=== PATIENT | female | born 1950 | race Caucasian/White ===

== ENCOUNTER 2020-02-08 19:43 | Emergency (ER) | payer MEDICARE, OTHER, SELFPAY ==
[2020-02-08 19:46] VITALS: BP 126/74; PULSE 77; RESP 18; TEMP 36.1; O2SAT 98
--- NOTE | 2020-02-08 19:49 | ED.FEMALEGU ---
HPI - Female Genitourinary General Chief complaint: Urogenital-Female Stated complaint: catheter came out Time Seen by Provider: 02/08/20 19:47 Source: patient and RN notes reviewed Mode of arrival: ambulatory Limitations: no limitations History of Present Illness HPI Narrative: Pt is a 69 y/o female who presents to the ED with c/o Puga catheter complications starting this evening. She notes that she has had an indwelling Puga catheter in place for the past year. Pt states that her catheter fell out around 18:30 this evening, and notes that she wanted to be evaluated in the ED to have her catheter placed back in. She currently denies any fever, chills, or other symptoms. MD elicited complaint: other (Puga catheter complications) Pertinent past history: other (chronic Puga catheter) Onset (ago): hour(s) (1) Location of symptoms: urethra Associated symptoms: denies other symptoms Related Data Allergies Allergy/AdvReac Type Severity Reaction Status Date / Time penicillin G Allergy Mild Verified 12/03/18 18:36 Penicillins Allergy Unknown Unknown Verified 04/17/18 10:47 Review of Systems Review of Systems: All systems reviewed & are unremarkable except as noted in HPI and below Constitutional: Constitutional: Denies chills and Denies fever(s) Genitourinary: Genitourinary: Reports other (Puga catheter falling out) [facility] Past Medical History Medical History (Updated 02/08/20 @ 20:15 by Elliott Hubbard DO) Cancer of right kidney Chronic indwelling Puga catheter COPD (chronic obstructive pulmonary disease) Diabetes Glaucoma HLD (hyperlipidemia) HTN (hypertension) Inguinal hernia Pelvic fracture Peripheral neuropathy Surgical History Surgical History H/O right nephrectomy History of hysterectomy Hx of inguinal hernia repair Status post left foot surgery Family History Family History (Updated 04/17/18 @ 10:51 by DOCTOR UNKNOWN) Other Family history of congenital heart disease Family history of malignant neoplasm Social History Social History Smoking status: Smoker, status unknown Alcohol intake: never Exam Narrative: Exam Narrative: APPEARANCE: No acute distress, nontoxic, resting in bed EYES: EOMI HEENT: Normocephalic, atraumati RESPIRATORY: No respiratory distress Clear to auscultation bilaterally with no rhonchi wheezing or rales. CARDIOVASCULAR: Regular rate and rhythm without murmurs rubs or gallops. ABDOMINAL: Soft, nontender, nondistended, no rebound or guarding MUSCULOSKELETAl: Moves all extremities. NEURO: Awake and alert. Following commands, speech normal, no focal deficits SKIN:: Warm, dry. No rashes lesions or abrasions PSYCHIATRIC: Normal affect/mood, Course Course Emergency Course: Catheter placed by nursing staff Discussed with patient results of workup and diagnosis. Discussed need for follow-up with primary care, proper use of medication, and reasons to return to the emergency department. Patient understands and agrees to current treatment plan Vital Signs Vital signs: Vital Signs Temperature 97 F L 02/08/20 19:46 Pulse Rate 77 02/08/20 19:46 Respiratory Rate 18 02/08/20 19:46 Blood Pressure 126/74 02/08/20 19:46 Pulse Oximetry 98 02/08/20 19:46 Temperature 97 F L 02/08/20 19:46 Pulse Rate 77 02/08/20 19:46 Respiratory Rate 18 02/08/20 19:46 Blood Pressure 126/74 02/08/20 19:46 Pulse Oximetry 98 02/08/20 19:46 MDM - Female Genitourinary Lab Data Labs: Urine Characteristics Clear Discharge Plan Discharge Clinical Impression: Malfunction of Puga catheter Patient Disposition: Home, Self-Care Condition: Stable Instructions: Antibiotic Form, Puga Catheter Placement and Care (ED) Additional Instructions: Return for any difficulty with the Puga fever or any other symptoms of concern Follow-up/Referra
[2020-02-08 20:22] VITALS: BP 118/82; PULSE 88; RESP 18; O2SAT 99
== END 2020-02-08 20:24 | disposition home or self-care (01) ==
PROVIDERS: Emergency Provider Emergency Medicine; PCP Internal Medicine
DX: Z46.6 Encounter for fitting and adjustment of urinary device (principal); J44.9 Chronic obstructive pulmonary disease, unspecified; H40.9 Unspecified glaucoma; E78.5 Hyperlipidemia, unspecified; I10 Essential (primary) hypertension; E11.42 Type 2 diabetes mellitus with diabetic polyneuropathy; Z85.528 Personal history of other malignant neoplasm of kidney; Z90.5 Acquired absence of kidney
CPT/HCPCS: 51702; 99283

== ENCOUNTER 2020-05-16 02:05 | Outpatient (CLI) | payer MEDICARE, OTHER, SELFPAY ==
[2020-05-16 19:16] LABS: SARS-CoV-2 RNA PCR Negative
== END 2020-05-16 02:06 | disposition home or self-care (01) ==
LOC: ANHCOVIDDT 02:07
PROVIDERS: PCP Internal Medicine; Visit Provider Internal Medicine Gastroenterology
DX: Z01.818 Encounter for other preprocedural examination (principal); Z11.59 Encounter for screening for other viral diseases
CPT/HCPCS: 87635; C9803; U0003

== ENCOUNTER 2020-05-18 02:07 | Day surgery (SDC) | payer MEDICARE, OTHER, SELFPAY ==
[2020-05-11 13:46] VITALS: BMI 30.4
[2020-05-18 08:22] VITALS: BP 99/82; PULSE 73; RESP 18; TEMP 36.2; O2SAT 97
--- NOTE | 2020-05-18 08:34 | PM.HPGS ---
History of Present Illness History of Present Illness Consent: Risks, benefits, and alternatives have been discussed and questions answered. Patient agrees to proceed with procedure. Chief complaint: neoplasm screening Narrative: Dora Epps is a 69 year old W female referred for screening colonoscopy secondary to a positive colo guard test. Patient states she had a colonoscopy approximately 30 years ago. She is asymptomatic. There is a family history of colon cancer in a maternal uncle. [facility] Past Medical History Medical History Cancer of right kidney Chronic indwelling Puga catheter COPD (chronic obstructive pulmonary disease) Diabetes Glaucoma HLD (hyperlipidemia) HTN (hypertension) Inguinal hernia Pelvic fracture Peripheral neuropathy Surgical History Surgical History H/O right nephrectomy History of hysterectomy Hx of inguinal hernia repair Status post left foot surgery Family History Family History (Updated 04/17/18 @ 10:51 by DOCTOR UNKNOWN) Other Family history of congenital heart disease Family history of malignant neoplasm Social History Social History Smoking status: Smoker, status unknown Alcohol intake: never Meds Home Medications and Allergies Home Medications Medication Instructions Recorded Confirmed Type albuterol sulfate [ProAir 2 inh INHALATION Q4-6H PRN 05/11/20 05/11/20 History RespiClick] duloxetine 60 mg PO QAM 05/11/20 05/11/20 History eszopiclone [Lunesta] 3 mg PO HS 05/11/20 05/11/20 History glimepiride 4 mg PO BID 05/11/20 05/11/20 History insulin degludec [Tresiba 16 unit SUBCUT QPM 05/11/20 05/11/20 History FlexTouch U-200] irbesartan-hydrochlorothiazide 1 tablet PO QAM 05/11/20 05/18/20 History meclizine 25 mg PO BID PRN 05/11/20 05/11/20 History oxycodone 40 mg PO TID 05/11/20 05/11/20 History quetiapine 200 mg PO HS 05/11/20 05/11/20 History rosuvastatin 40 mg PO QAM 05/11/20 05/11/20 History tamsulosin 0.4 mg PO DAILY 05/11/20 05/11/20 History timolol maleate 1 drp OPHTHALMIC (EYE) BID 05/11/20 05/11/20 History umeclidinium-vilanterol [Anoro 1 inh INHALATION QAM 05/11/20 05/11/20 History Ellipta] Allergies Allergy/AdvReac Type Severity Reaction Status Date / Time Penicillins Allergy Unknown Rash Verified 05/18/20 08:20 Vital Signs Vital Signs - 24 hr 05/18/20 08:22 Temperature 36.2 C L Pulse Rate 73 Respiratory Rate 18 Blood Pressure 99/82 L Pulse Oximetry 97 Exam Const: Orientation/consciousness: patient oriented x3 Resp: Auscultation: clear to auscultation bilaterally Cardio: Rate: regular rate Rhythm: regular rhythm Heart sounds: no murmurs GI: GI Palp: Yes Soft to palpation, No Tenderness to palpation present (GI), Yes No hepatosplenomegaly present and No Palpable mass present Auscultation: normal bowel sounds Neuro: General: patient oriented x3 and no focal motor deficits Extrem: General: no pedal edema Assessment and Plan Additional Plan screening colonoscopy secondary positive colo guard test
[2020-05-18] MEDS: LACTATED RINGERS 1,000 ML 150 ML IV CONT (08:46)
[2020-05-18 08:51] LABS: Glucose Point of Care 107 (65-105)
--- NOTE | 2020-05-18 09:07 | WPDANESEPPF ---
Anes - Initial Pre Proc Eval Procedure: Operation Date: 05/18/20 09:00 Proposed Procedures p Screening Colonoscopy - Bryan Paul MD Date/Time: 05/18/20 09:07 Surgeon: Bryan Paul MD Pre Op Diagnosis: neoplasm screening Patient Data Age: 69 Gender: F Height: 5 ft 7 in Weight: 88.6 kg Last Vital Signs Temp 97.2 F L 05/18/20 08:22 Pulse 73 05/18/20 08:22 Resp 18 05/18/20 08:22 BP 99/82 L 05/18/20 08:22 Pulse Ox 97 05/18/20 08:22 Allergies Allergy/AdvReac Type Severity Reaction Status Date / Time Penicillins Allergy Unknown Rash Verified 05/18/20 08:20 Home Medications Medication Instructions Recorded Confirmed Type albuterol sulfate [ProAir 2 inh INHALATION Q4-6H PRN 05/11/20 05/11/20 History RespiClick] duloxetine 60 mg PO QAM 05/11/20 05/11/20 History eszopiclone [Lunesta] 3 mg PO HS 05/11/20 05/11/20 History glimepiride 4 mg PO BID 05/11/20 05/11/20 History insulin degludec [Tresiba 16 unit SUBCUT QPM 05/11/20 05/11/20 History FlexTouch U-200] irbesartan-hydrochlorothiazide 1 tablet PO QAM 05/11/20 05/18/20 History meclizine 25 mg PO BID PRN 05/11/20 05/11/20 History oxycodone 40 mg PO TID 05/11/20 05/11/20 History quetiapine 200 mg PO HS 05/11/20 05/11/20 History rosuvastatin 40 mg PO QAM 05/11/20 05/11/20 History tamsulosin 0.4 mg PO DAILY 05/11/20 05/11/20 History timolol maleate 1 drp OPHTHALMIC (EYE) BID 05/11/20 05/11/20 History umeclidinium-vilanterol [Anoro 1 inh INHALATION QAM 05/11/20 05/11/20 History Ellipta] Laboratory Tests 05/18/20 08:47 POC Capillary Glucose 107 mg/dl mg/dl (65-105) Patient hx anesthesia problems: none Family hx anesthesia problems: none PMFSH Past Medical History Medical History Cancer of right kidney Chronic indwelling Puga catheter COPD (chronic obstructive pulmonary disease) Diabetes Glaucoma HLD (hyperlipidemia) HTN (hypertension) Inguinal hernia Pelvic fracture Peripheral neuropathy Surgical History Surgical History H/O right nephrectomy History of hysterectomy Hx of inguinal hernia repair Status post left foot surgery Family History Family History (Updated 04/17/18 @ 10:51 by DOCTOR UNKNOWN) Other Family history of congenital heart disease Family history of malignant neoplasm Social History Social History Smoking status: Smoker, status unknown Alcohol intake: never Anes - Eval Final PreProcedure Day of Procedure 05/18/20 09:07 Patient weight: obese Heart: regular rate and rhythm Lungs: clear to auscultation Airway: Mallampati scale class II Neurological: alert and oriented Last oral intake: >/= 8 hours ASA classification: III Emergent: no Anesthetic plan: proceed Anesthesia type and monitoring: general GIVS and standard monitoring Informed Consent: The patient's anesthetic plan and its attendant risks and benefits were discussed with the patient/family/POA. Questions were solicited and answers provided to the satisfaction of the patient/family/POA.
[2020-05-18 09:57] VITALS: BP 121/72; PULSE 79; RESP 15; O2SAT 100
[2020-05-18 10:07] VITALS: BP 139/68; PULSE 67; RESP 16; O2SAT 99
[2020-05-18 10:17] VITALS: BP 127/66; PULSE 63; RESP 16; O2SAT 99
[2020-05-18 10:28] LABS: Glucose Point of Care 91 (65-105)
== END 2020-05-18 10:39 | disposition home or self-care (01) ==
PROVIDERS: PCP Internal Medicine; Visit Provider Internal Medicine Gastroenterology
PROC: 0DJD8ZZ Inspection of Lower Intestinal Tract, Via Natural or Artificial Opening Endoscopic (ICD-10-PCS; CPT 45378; principal; 2020-05-18 09:00)
DX: Z12.11 Encounter for screening for malignant neoplasm of colon (principal); R19.5 Other fecal abnormalities; K64.1 Second degree hemorrhoids; K64.4 Residual hemorrhoidal skin tags; I10 Essential (primary) hypertension; E78.5 Hyperlipidemia, unspecified; E11.40 Type 2 diabetes mellitus with diabetic neuropathy, unspecified; J44.9 Chronic obstructive pulmonary disease, unspecified; H40.9 Unspecified glaucoma; Z85.528 Personal history of other malignant neoplasm of kidney; Z90.5 Acquired absence of kidney; Z79.4 Long term (current) use of insulin; E66.9 Obesity, unspecified; Z68.30 Body mass index [BMI] 30.0-30.9, adult
CPT/HCPCS: G0121; J2704; J7120

== ENCOUNTER 2020-06-13 10:18 | Outpatient (CLI) | payer MEDICARE, OTHER, SELFPAY ==
--- NOTE | ~2020-06-13 | MMUS_ITS ---
US breast biopsy RT w image, MM post biopsy invasive RT 06/13/2020 11:38 (accession [id number]), 06/13/2020 11:35 (accession [id number] EXAMINATION: US GUIDED NEEDLE BIOPSY WITH VACUUM ASSISTANCE DATE: 06/13/2020 11:42 CDT INDICATION: Left breast mass seen on recent ultrasound Ultrasound-guided core biopsy is requested to evaluate for malignancy. TECHNIQUE AND FINDINGS: The risks and potential benefits of the procedure were discussed with the patient, and written inform ed consent was obtained. After sterile preparation of the left breast, 1% lidocaine was utilized for local anesthesia. 1% lidocaine with epinephrine was used for deep anesthesia. A 10G vacuum-assisted biopsy gun needle was advanced through to the outer edge of the region of inter est from a superior lateral approach utilizing sonographic guidance. A total of three tissue core sa mples were obtained through the lesion. An Inrad tissue marker clip was then placed at the biopsy si te. Hemostasis was achieved. The patient tolerated procedure well and there was no evidence of immediate complication. The patien t was given verbal instructions partly is from the department. Left breast mammograms to document ti ssue marker clip placement. The tissue samples were submitted to surgical pathology for histologic an alysis.] IMPRESSION: 1. Successful ultrasound-guided vacuum-assisted biopsy of left breast mass with tissue marker placem ent. Please refer to pathology report for histologic analysis. . Reviewed, dictated and finalized at location A. IMPRESSION: 1. Successful ultrasound-guided vacuum-assisted biopsy of left breast mass wit h tissue marker placement. Please refer to pathology report for histologic anal ysis. .
== END 2020-06-13 10:19 | disposition home or self-care (01) ==
PROVIDERS: PCP Internal Medicine; Visit Provider Surgery
DX: R92.8 Other abnormal and inconclusive findings on diagnostic imaging of breast (principal); N60.31 Fibrosclerosis of right breast
CPT/HCPCS: 19083; 88305; A4648

== ENCOUNTER 2020-07-19 14:19 | Outpatient (CLI) | payer MEDICARE, OTHER, SELFPAY ==
[2020-07-19 14:37] LABS: Basophils Percent Auto 0.4 % (0.2-1.2); Eosinophils Absolute Auto 0.5 K/mm3 (0-0.3); Eosinophils Percent Auto 5.4 % (0-4.4); Hematocrit 41.8 % (37.0-47.0); Hemoglobin 14.2 g/dL (12.0-15.0); Immature Granulocyte Absolute 0.02 K/mm3 (0.00-0.031); Immature Granulocyte Percent A 0.2 % (0-0.5); Lymphocytes Absolute Auto 2.82 K/mm3 (0.9-3.2); Lymphocytes Percent Auto 31.6 % (18.3-44.2); Mean Corpuscular Hemoglobin 30.2 pg (26-34); Mean Corpuscular Volume 88.9 fl (80-100); Mean Platelet Volume 9.9 fl (7.4-10.4); Monocytes Absolute Auto 0.4 K/mm3 (0.1-0.6); Monocytes Percent Auto 4.4 % (2.6-8.5); Neutrophils Absolute Auto 5.2 K/mm3 (1.3-6.7); Platelet Count Result 211 k/mm3 (150-375); Red Cell Distribution Width 12.1 % (11.5-14.5); White Blood Count 8.9 K/mm3 (4.5-10.0)
[2020-07-19 16:54] LABS: Anion Gap 7 mmol/L (8-16); Blood Urea Nitrogen 19 mg/dL (7-17); Calcium 9.1 mg/dL (8.4-10.2); Carbon Dioxide 24 mmol/L (22-30); Chloride 105 mmol/L (98-107); Estimated Glomerular Filt Rate 49; Glucose 230 mg/dL (65-105); Potassium 4.7 mmol/L (3.4-5.0); Sodium 136 mmol/L (137-145)
[2020-07-19 17:00] LABS: Immunoglobulin A 409 mg/dL (70-400); Immunoglobulin G 1205 mg/dL (700-1600); Immunoglobulin M 160 mg/dL (40-230)
[2020-07-24 18:23] LABS: Albumin 3.8 g/dL (3.8-4.8); Alpha 1 Globulin 0.3 g/dL (0.2-0.3); Alpha 2 Globulin 0.8 g/dL (0.5-0.9); Beta 1 Globulin 0.4 g/dL (0.4-0.6); Gamma Globulin 1.2 g/dL (0.8-1.7); Protein, Total 6.8 g/dL (6.1-8.1)
== END 2020-07-19 14:20 | disposition home or self-care (01) ==
PROVIDERS: PCP Internal Medicine; Visit Provider Internal Medicine Hematology & Oncology
DX: M89.9 Disorder of bone, unspecified (principal)
CPT/HCPCS: 36415; 80048; 82784; 84155; 84165; 85025; 86334

== ENCOUNTER 2021-01-09 11:55 | Outpatient (CLI) | payer MEDICARE, OTHER, SELFPAY ==
--- NOTE | ~2021-01-09 | MM_ITS ---
EXAMINATION: MM diagnostic angel RT w delmy HISTORY: Follow-up recent benign biopsy TECHNIQUE: Additional 3-D tomosynthesis images of the right breast were performed and synthetic 2-D i mages were generated. CAD analysis was submitted and interpreted. COMPARISON: 05/10/2020 BREAST PARENCHYMAL COMPOSITION: Breast composed of scattered areas of fibroglandular density. FINDINGS: There are no new masses, calcifications or architectural distortion in the right breast. Th ere are stable benign-appearing right breast calcifications. No significant change to focal asymmetry medial aspect of the right breast in the area of previous biopsy. There is associated tissue marker. IMPRESSION: 1. No mammographic evidence for malignancy in the right breast. 2. Routine yearly screening mammogram and regular clinical breast examination are recommended. BI-RADS Category 2: Benign finding(s). Reviewed, dictated and finalized at location A. L [employer] IMPRESSION: 1. No mammographic evidence for malignancy in the right breast. 2. Routine yearly screening mammogram and regular clinical breast examination a re recommended. BI-RADS Category 2: Benign finding(s).
== END 2021-01-09 11:56 | disposition home or self-care (01) ==
LOC: ANHIMG 11:56
PROVIDERS: PCP Internal Medicine; Visit Provider Surgery
DX: R92.8 Other abnormal and inconclusive findings on diagnostic imaging of breast (principal)
CPT/HCPCS: 77061; 77065; G0279

== ENCOUNTER 2021-02-22 09:24 | Outpatient (CLI) | payer MEDICARE, OTHER, SELFPAY | END 2021-02-22 09:25 | disposition home or self-care (01) | LOC: ANHCOVIDVC 09:24 | PROVIDERS: PCP Internal Medicine | DX: Z23 Encounter for immunization (principal) | CPT/HCPCS: 0001A; 91300 ==

== ENCOUNTER 2021-03-15 09:34 | Outpatient (CLI) | payer MEDICARE, OTHER, SELFPAY | END 2021-03-15 09:35 | disposition home or self-care (01) | LOC: ANHCOVIDVC 09:34 | PROVIDERS: PCP Internal Medicine | DX: Z23 Encounter for immunization (principal) | CPT/HCPCS: 0002A; 91300 ==

== ENCOUNTER 2021-05-22 11:11 | Inpatient (IN) | payer MEDICARE, OTHER, SELFPAY ==
[2021-05-22] VITALS (19 sets, daily range): BP systolic 100–136; BP diastolic 53–75; PULSE 77–108; RESP 14–20; TEMP 35.6–36.8; O2SAT 84–100
--- NOTE | ~2021-05-22 | CT_ITS ---
EXAMINATION: CT brain wo con DATE: 05/22/2021 11:54 INDICATION: Altered mental status. TECHNIQUE: Computed tomography (CT) of the head was performed without intravenous contrast. The mA wa s adjusted according to patient size. Iterative reconstruction technique was employed. The dose-lengt h product was 605.33 mGy-cm. COMPARISON: Head CT 12/03/2018, 03/02/2018 FINDINGS: There is an old lacunar infarct in right caudate nucleus. There are scattered areas of low attenuation in the cerebral white matter. There is no intracranial hemorrhage, acute infarction, or a bnormal intracranial mass lesion. The ventricles are normal in size. There are likely changes of left ocular lens replacement surgery. There is mild mucosal thickening in the ethmoid sinuses. There are small bilateral mastoid effusions. There is a chronic 11 mm lytic lesion in the right frontal skull, stable from 03/02/2018, likely benign. IMPRESSION: 1. Old lacunar infarct in right caudate nucleus. 2. Stable moderate nonspecific cerebral white matter disease, which likely represents chronic small v essel ischemic disease. Reviewed, dictated and finalized at location A. IMPRESSION: 1. Old lacunar infarct in right caudate nucleus. 2. Stable moderate nonspecific cerebral white matter disease, which likely repr esents chronic small vessel ischemic disease.
--- NOTE | ~2021-05-22 | XR_ITS ---
EXAMINATION: XR chest 1V portable EXAM DATE: 05/22/2021 15:39 INDICATION: Hypoxia, possible aspiration. TECHNIQUE: Portable AP frontal chest x-ray was obtained. Comparison is made to prior examination from earlier 05/22/2021. FINDINGS: There is diffuse abnormal reticulonodular airspace disease, significant interval progressio n compared to earlier same date. This is predominantly in the mid and lower lung zones. Rapid progres john suspicious for either acute edema an/or pneumonia. No pneumothorax or pleural effusion. There is aortic arteriosclerosis. There are mild bony degenerative changes. IMPRESSION: 1. Significant progression in reticulonodular airspace disease likely edema and/or infection. Reviewed, dictated and finalized at location A. IMPRESSION: 1. Significant progression in reticulonodular airspace disease likely edema an d/or infection.
--- NOTE | ~2021-05-22 | XR_ITS ---
XR chest 1V DATE: 05/22/2021 11:58 INDICATION: Altered mental state. Poor historian. TECHNIQUE: AP chest COMPARISON: 12/03/2018 2 view chest FINDINGS: Borderline heart size. Aortic calcification. No hilar or mediastinal enlargement. There is mild infiltrate or atelectasis the lung bases, left greater than right. The lungs otherwise appear clear. No pulmonary vascular congestion or pleural effusion or pneumothorax. Diffuse osteopenia. IMPRESSION: Mild infiltrate or atelectasis at the lung bases, left greater than right Reviewed, dictated and finalized at location B.
--- NOTE | 2021-05-22 11:15 | ECG_ITS ---
Measurements Intervals [place] Rate: 97 P: 34 WA: 225 QRS: -54 QRSD: 112 T: 43 QT: 358 QTc: 455 Interpretive Statements SINUS RHYTHM WITH FIRST DEGREE AV BLOCK INCOMPLETE LEFT BUNDLE BRANCH BLOCK POOR R WAVE PROGRESSION, ANTERIOR LEADS INFERIOR INFARCT, AGE INDETERMINATE BASELINE ARTIFACT- II, AVR, AVF, V3-V6 ABNORMAL ECG Electronically Signed On 05-22-2021 16:24:02 CDT by Luis Irby D.O.
[2021-05-22 11:41] LABS: Alveolar/Arterial O2 Gradient 29.5 mmHg; Base Excess ABG -5.7 mEq/l (+/-2.0); Fractional Inspired Oxygen 21 %; HCO3 ABG 20.3 mEq/l (22.0-26.0); Methemoglobin ABG 0.3 %THb (0-1.5); Oxygen Content ABG 16.1 %vol (16.0-22.0); Oxygen Saturation ABG 92.6 % (95.0-100.0); Oxyhemoglobin 90.6 % THb (90.0-100.0); PCO2 ABG 41.8 mmHg (35.0-45.0); PO2 ABG 70.2 mmHg (80.0-100.0); PO2 FiO2 Ratio Arterial Blood 3.34 %; Reduced Hemoglobin 7.1 %THb (0-5.0); Total Hemoglobin 12.6 g/dL (12.0-18.0); pH ABG 7.304 (7.350-7.450)
--- NOTE | 2021-05-22 11:41 | ED.GENADULT ---
HPI - General Adult General Chief complaint: Weakness Stated complaint: AMS Time Seen by Provider: 05/22/21 11:14 Source: patient, family, EMS and RN notes reviewed Mode of arrival: EMS Limitations: no limitations History of Present Illness HPI narrative: Patient is a 70-year-old female who presents to emergency department for altered mental status patient returned home from [place] this morning patient upon arrival was going in and out of consciousness and appeared to be very obtunded and altered patient on arrival to emergency department is obtunded and orients verbally and to painful stimuli patient has history of overmedicating when traveling this information was provided by her sister who is the power of [employer]. Patient lives at home with her who is homebound due to health issues. Patient is on multiple different medications to include benzos and opioids her sister also notes that she has taken sleeping medication when flying in the past and ended up hospitalized. Patient does not appear distressed or uncomfortable upon arrival and presents in no distress per EMS Related Data Home Medications Medication Instructions Recorded Confirmed Anoro Ellipta 1 inh INHALATION QAM 05/11/20 05/26/20 ProAir RespiClick 2 inh INHALATION Q4-6H PRN 05/11/20 05/26/20 Tresiba FlexTouch U-200 16 unit SUBCUT QPM 05/11/20 05/26/20 duloxetine 60 mg PO QAM 05/11/20 05/26/20 eszopiclone [Lunesta] 3 mg PO HS 05/11/20 05/26/20 glimepiride 4 mg PO BID 05/11/20 05/26/20 irbesartan-hydrochlorothiazide 1 tablet PO QAM 05/11/20 05/26/20 meclizine 25 mg PO BID PRN 05/11/20 05/26/20 quetiapine 200 mg PO HS 05/11/20 05/26/20 rosuvastatin 40 mg PO QAM 05/11/20 05/26/20 tamsulosin 0.4 mg PO DAILY 05/11/20 05/26/20 timolol maleate 1 drp OPHTHALMIC (EYE) BID 05/11/20 05/26/20 aspirin 81 mg tablet,delayed 81 mg PO DAILY 05/25/20 05/26/20 release donepezil 5 mg tablet 5 mg PO ONCE 05/25/20 05/26/20 lisinopril 10 mg tablet 10 mg PO DAILY 05/25/20 05/26/20 omega-3 fatty acids 1,000 mg 1,000 mg PO DAILY 05/25/20 05/26/20 capsule quetiapine 25 mg tablet 25 mg PO BID 05/25/20 05/26/20 Allergies Allergy/AdvReac Type Severity Reaction Status Date / Time Penicillins Allergy Unknown Rash Verified 05/25/20 09:38 Review of Systems Review of Systems: All systems reviewed & are unremarkable except as noted in HPI and below PMFSH Past Medical History Medical History (Updated 05/22/21 @ 13:35 by Matteo Trivedi PA-C) Asthma Cancer of right kidney Chronic indwelling Puga catheter COPD (chronic obstructive pulmonary disease) Depressed Diabetes Glaucoma HLD (hyperlipidemia) HTN (hypertension) Inguinal hernia Pelvic fracture Peripheral neuropathy Surgical History Surgical History Carpal tunnel syndrome right Cataract left removed H/O oophorectomy H/O right nephrectomy History of hysterectomy Hx of inguinal hernia repair Status post left foot surgery planter fascitis Family History Family History Father Lung cancer Mother Cerebrovascular accident Diabetes mellitus Sibling Breast cancer Diabetes mellitus Cerebrovascular accident Heart disease Other Family history of congenital heart disease Family history of malignant neoplasm Social History Social History Smoking status: Former smoker Alcohol intake: current Substance use: never Gender identity (if verbalized by the patient): Female Exam Narrative: Exam Narrative: GENERAL: Well-appearing, well-nourished, and in no acute distress. HEAD: Normocephalic, atraumatic. EYES: PERRLA and EOMI. ENT: Nares clear, no rhinorrhea or epistaxis. Mucous membranes dry. Oropharynx without tonsillar hypertrophy exudate or other lesions. Bilateral TMs pearly carter nonbulging NECK: Supple. No adenop
[2021-05-22 11:42] LABS: Basophils Percent Auto 0.6 % (0.2-1.2); Eosinophils Absolute Auto 0.3 K/mm3 (0-0.3); Eosinophils Percent Auto 4.4 % (0-4.4); Hemoglobin 12.1 g/dL (12.0-15.0); Immature Granulocyte Absolute 0.02 K/mm3 (0.00-0.031); Immature Granulocyte Percent A 0.3 % (0-0.5); Lymphocytes Absolute Auto 2.07 K/mm3 (0.9-3.2); Lymphocytes Percent Auto 31.2 % (18.3-44.2); Mean Corpuscular HGB Conc 33.6 g/dl (32-36); Mean Corpuscular Volume 92.3 fl (80-100); Mean Platelet Volume 10.2 fl (7.4-10.4); Monocytes Absolute Auto 0.6 K/mm3 (0.1-0.6); Monocytes Percent Auto 8.6 % (2.6-8.5); Neutrophils Absolute Auto 3.6 K/mm3 (1.3-6.7); Neutrophils Percent Auto 54.9 % (45.5-73.1); Platelet Count Result 189 k/mm3 (150-375); Red Cell Distribution Width 12.9 % (11.5-14.5); White Blood Count 6.6 K/mm3 (4.5-10.0)
[2021-05-22 11:43] LABS: Device ROOM AIR; Site Drawn LEFT BRACHIAL
[2021-05-22 11:54] LABS: Lactic Acid Reflex 2.1 mmol/L (0.7-2.1)
[2021-05-22 11:56] LABS: Alanine Aminotransferase 12 U/L (4-35); Albumin Level 3.8 g/dL (3.5-5.1); Alkaline Phosphatase 65 U/L (38-126); Anion Gap 10 mmol/L (8-16); Aspartate Amino Transferase 22 U/L (14-36); Bilirubin,Total 0.6 mg/dL (0.2-1.3); Blood Urea Nitrogen 34 mg/dL (7-17); CRP 1.6 mg/dL (<1.0); Calcium 10.1 mg/dL (8.4-10.2); Carbon Dioxide 22 mmol/L (22-30); Chloride 103 mmol/L (98-107); Estimated CRCL calculation 29 ml/min; Estimated Glomerular Filt Rate 28; Glucose 247 mg/dL (65-105); Lipase 41 U/L (23-300); Potassium 3.6 mmol/L (3.4-5.0); Sodium 135 mmol/L (137-145)
[2021-05-22] MEDS: FAMOTIDINE 20 MG/2 ML VIAL IV PUSH ×2 (12:00→22:29)
[2021-05-22] MEDS: SODIUM CHLORIDE 0.9% IV 1,000 ML 999 ML IV CONT ×2 (12:00→15:10)
[2021-05-22] MEDS: NALOXONE HCL 0.4 MG/ML VIAL IV PUSH (12:01)
[2021-05-22] MEDS: ONDANSETRON INJ 4 MG/2 ML VIAL IV PUSH (12:01)
[2021-05-22 12:05] LABS: Troponin I < 0.012 ng/mL (0.000-0.034)
[2021-05-22 12:05] LABS: Prothrombin Time 13.4 Seconds (11.1-14.7)
--- NOTE | 2021-05-22 12:05 | PC.NURSE ---
Narcan given per order. Pt was sleeping/snoring but is now awake, thrashing arms and legs in bed and attempting to get out of bed. PA notified. Pt not directable at this time.
[2021-05-22 12:07] LABS: Partial Thromboplastin Time 29.5 SECONDS (22.3-36.8)
[2021-05-22] MEDS: LORazepam INJ (*CRX) 2 MG/ML VIAL 0.5 MG IV PUSH (12:10)
[2021-05-22] MEDS: LORazepam INJ (*CRX) 2 MG/ML VIAL 1 MG IV PUSH (12:26)
[2021-05-22] MEDS: PROMETHAZINE HCL 25 MG/ML AMPUL 12.5 MG IV PUSH (12:26)
--- NOTE | 2021-05-22 12:30 | PC.NURSE ---
Ativan and promethazine given per order. Pt still thrashing in bed at this time. PA notified.
--- NOTE | 2021-05-22 12:55 | PC.NURSE ---
Pt still thrashing in bed, attempting to exit bed and not redirectable at this time. PA aware. No new orders at this time
--- NOTE | 2021-05-22 13:00 | PC.NURSE ---
2 techs at bedside at this time for patient safety. Pt continues to thrash in bed. Pt awake but does not regard staff and does not follow commands. Nonsensical speech
--- NOTE | 2021-05-22 13:15 | PM.IMHP ---
H&P: HPI History of Present Illness Date/Time: 05/22/21 13:30. The patient was seen and evaluated in the emergency department; reassessed at 17:15 in IMU. Chief Complaint: Altered mental status. Narrative: This is a 70-year-old female smoker with prescription drug abuse, chronic pain syndrome, type 2 diabetes mellitus with peripheral neuropathy, hypertension, hyperlipidemia, COPD, anxiety, and insomnia who presented to the emergency department earlier today via EMS from home for evaluation of altered mental status. She has not been able to provide me any history and as such a majority of the following is obtained via a review of her electronic medical records as well as discussions with her sister via phone. She has been in [place] for the last 5 days and returned home on the right eye flight early this morning. It is my understanding that the patient takes Xanax when she flies as she gets anxious although I do not see Xanax on her external medication list. Reportedly it is not unusual for the patient to take extra narcotics or Lunesta when flying as well though it is unclear what if any medication she took before the flight. In any event, she returned home not long prior to arrival to the emergency department and she reportedly collapsed and family members could not get her off of the floor. EMS was called for lift assist but on their arrival she was intermittently confused, drowsy, and was hypotensive with systolics in the 80s. The patient was given 0.4 mg of Narcan and became agitated, flailing around in the bed, requiring to sitters in the room to keep her down. She was then given Ativan and Phenergan as she apparently had an episode of emesis with concerns for possible aspiration. At the time my evaluation the emergency department she remains very fidgety and is trying to get out of bed. She does not answer questions or follow commands but is very strong and tries to hit and claw staff at bedside. I reassessed the patient when she got to the IMU and at that time she was on a non-rebreather mask and was asleep and snoring heavily. She does respond to name and stimuli and pushes my hand away but she does not answer questions or follow commands. No mention of recent illnesses or head trauma in the fall today. Review of Systems Review of Systems: Narrative: Unable to obtain given current clinical condition. [facility] Past Medical History Medical History (Updated 05/22/21 @ 20:38 by Kati Dasilva PA-C) Anxiety Asthma Cancer of right kidney Chronic obstructive pulmonary disease Chronic pain syndrome Glaucoma Blind in left eye. Hyperlipidemia Hypertension Pelvic fracture Peripheral neuropathy Prescription drug abuse Tobacco dependence Type 2 diabetes mellitus with peripheral neuropathy Surgical History Surgical History (Updated 05/22/21 @ 20:11 by Kati Dasilva PA-C) History of cataract extraction History of hysterectomy History of inguinal hernia repair History of right nephrectomy Status post left foot surgery For plantar fasciitis. Family History Family History Father Lung cancer Mother Cerebrovascular accident Diabetes mellitus Sibling Breast cancer Diabetes mellitus Cerebrovascular accident Heart disease Other Family history of congenital heart disease Family history of malignant neoplasm Social History Social History (Updated 05/22/21 @ 20:12 by Kati Dasilva PA-C) Social History: The patient lives in [place]. She smokes at least 0.75 packs of cigarettes a day. No alcohol or illicit substance abuse documented. Her sister Iris Rich is healthcare power of [employer]. Code status: Full code. Meds Home Medications and Allergies Home Medications Medication Instructions Recorded Confirmed Type Anoro Ellipta 1 inh INHALATION QAM 05/11/20 05/22/21 History ProAir RespiClick 2 inh INHALATION Q4-6H PRN 05/11/20
--- NOTE | 2021-05-22 14:07 | PCRCNOTE ---
ABGS NOT DRAWN AT THIS TIME DUE TO PT COMBATIVE . ED CHARGE NURSE AWARE
--- NOTE | 2021-05-22 14:31 | PC.NURSE ---
Pt starting to calm down but thrashes when touched. Unable to obtain urine sample at this time due to patient scratching and kicking
[2021-05-22 14:40] LABS: Reflex Lactic Acid Yes or No Add Lactic
--- NOTE | 2021-05-22 15:11 | PC.NURSE ---
Pt mouth breathing with 4L nasal cannula. 02 to 84%. Pt placed on 10L NRB mask
[2021-05-22 15:20] LABS: Alveolar/Arterial O2 Gradient 306.1 mmHg; Base Excess ABG -4.4 mEq/l (+/-2.0); Carboxyhemoglobin 1.2 % THb (0-2.0); Device NON-REBREATHER MASK; Fractional Inspired Oxygen 60 %; HCO3 ABG 21.8 mEq/l (22.0-26.0); Methemoglobin ABG 0.4 %THb (0-1.5); Modified Allen's Test Pass; Oxygen Content ABG 16.7 %vol (16.0-22.0); Oxygen Saturation ABG 93.1 % (95.0-100.0); Oxyhemoglobin 92.1 % THb (90.0-100.0); PCO2 ABG 44.8 mmHg (35.0-45.0); PO2 ABG 72.4 mmHg (80.0-100.0); PO2 FiO2 Ratio Arterial Blood 1.21 %; Reduced Hemoglobin 6.3 %THb (0-5.0); Site Drawn RIGHT RADIAL; Total Hemoglobin 12.9 g/dL (12.0-18.0); pH ABG 7.306 (7.350-7.450)
[2021-05-22] MEDS: IPRATROPIUM BR 0.02% INH SOLN 0.5 MG/2.5 ML VIAL INHALATION ×2 (16:03→21:51)
[2021-05-22] MEDS: ALBUTEROL SULFATE NEB 2.5 MG/0.5 ML INH 5 MG INHALATION ×2 (16:03→21:51)
[2021-05-22 16:11] LABS: Add Urine Microscopic? NO; Appearance Urine Clear (Clear); Bilirubin Urine Negative (Negative); Blood Urine Negative (Negative); Color Urine Yellow (Yellow); Glucose Urine UA Negative (Negative); Ketones Urine Negative (Negative); Leukocyte Esterase Ur Negative LEU/UL (Negative); Nitrate Urine Negative (Negative); Protein Urine Negative (Negative); Specific Grav Ur 1.006 (1.001-1.035); Urobilinogen Urine Negative mg/dL (<2.0)
--- NOTE | 2021-05-22 16:38 | PC.NURSE ---
This patient, Dora Epps, was admitted to IMU Room 204-01. Patient/family oriented to hospital policies and general routines including ID bracelet, bed and alarms, visiting hours, pain management, procedures, bathroom and other care routines, personal items, smoking policy, room service/diet, and visiting hours. Information on how to activate the Rapid Response Team has been discussed. Patient/Family are encouraged to report perceived risks to care and to ask questions if they do not understand what they are told or what they should do.
[2021-05-22 16:56] LABS: Glucose Point of Care 137 mg/dl (65-105)
[2021-05-22] MEDS: LACTATED RINGERS 1,000 ML 125 ML IV CONT (16:56)
[2021-05-22 19:51] LABS: Alveolar/Arterial O2 Gradient 156.3 mmHg; Base Excess ABG -5.6 mEq/l (+/-2.0); Carboxyhemoglobin 0.3 % THb (0-2.0); Device NON-REBREATHER MASK; Fractional Inspired Oxygen 40 %; HCO3 ABG 20.5 mEq/l (22.0-26.0); Methemoglobin ABG 0.4 %THb (0-1.5); Modified Allen's Test Pass; Oxygen Content ABG 16.8 %vol (16.0-22.0); Oxygen Saturation ABG 94.6 % (95.0-100.0); Oxyhemoglobin 93.7 % THb (90.0-100.0); PCO2 ABG 42.7 mmHg (35.0-45.0); PO2 ABG 79.8 mmHg (80.0-100.0); Reduced Hemoglobin 5.6 %THb (0-5.0); Site Drawn RIGHT RADIAL; Total Hemoglobin 12.7 g/dL (12.0-18.0)
[2021-05-22 20:40] LABS: Ammonia < 9 umol/L (9-30)
[2021-05-22 20:41] LABS: Acetaminophen < 10 ug/mL (10-30); Anion Gap 7 mmol/L (8-16); Blood Urea Nitrogen 28 mg/dL (7-17); Calcium 9.4 mg/dL (8.4-10.2); Carbon Dioxide 22 mmol/L (22-30); Chloride 111 mmol/L (98-107); Estimated CRCL calculation 37 ml/min; Estimated Glomerular Filt Rate 37; Glucose 123 mg/dL (65-105); Magnesium 1.9 mg/dL (1.6-2.3); Potassium 4.4 mmol/L (3.4-5.0); Salicylate < 1.0 mg/dL (2-20); Sodium 140 mmol/L (137-145)
[2021-05-22 22:27] LABS: Hemoglobin A1C 7.6 % (<5.7)
[2021-05-22 22:29] LABS: Troponin I < 0.012 ng/mL (0.000-0.034)
[2021-05-22 22:30] LABS: D Dimer 0.62 ug/mL (<0.48)
[2021-05-23] VITALS (13 sets, daily range): BP systolic 124–134; BP diastolic 62–64; PULSE 72–98; RESP 13–22; TEMP 36.2–36.3; O2SAT 94–100
[2021-05-23] MEDS: ALBUTEROL SULFATE NEB 2.5 MG/0.5 ML INH 5 MG INHALATION ×2 (02:36→08:05)
[2021-05-23] MEDS: IPRATROPIUM BR 0.02% INH SOLN 0.5 MG/2.5 ML VIAL INHALATION ×2 (02:37→08:05)
[2021-05-23 06:45] LABS: Basophils Percent Auto 0.4 % (0.2-1.2); Eosinophils Absolute Auto 0.2 K/mm3 (0-0.3); Eosinophils Percent Auto 2.2 % (0-4.4); Hematocrit 36.4 % (37.0-47.0); Hemoglobin 11.9 g/dL (12.0-15.0); Immature Granulocyte Absolute 0.04 K/mm3 (0.00-0.031); Immature Granulocyte Percent A 0.5 % (0-0.5); Immature Platelet Fraction Pct 4.7 % (0.9-11.2); Lymphocytes Absolute Auto 1.62 K/mm3 (0.9-3.2); Lymphocytes Percent Auto 20.9 % (18.3-44.2); Mean Corpuscular HGB Conc 32.7 g/dl (32-36); Mean Corpuscular Hemoglobin 30.6 pg (26-34); Mean Corpuscular Volume 93.6 fl (80-100); Mean Platelet Volume 10.5 fl (7.4-10.4); Monocytes Absolute Auto 0.4 K/mm3 (0.1-0.6); Monocytes Percent Auto 5.5 % (2.6-8.5); Neutrophils Absolute Auto 5.5 K/mm3 (1.3-6.7); Neutrophils Percent Auto 70.5 % (45.5-73.1); Platelet Count Result 138 k/mm3 (150-375); Red Blood Count 3.89 M/mm3 (4.2-5.4); Red Cell Distribution Width 12.9 % (11.5-14.5); White Blood Count 7.8 K/mm3 (4.5-10.0)
[2021-05-23 06:55] LABS: Alanine Aminotransferase 9 U/L (4-35); Albumin Level 3.3 g/dL (3.5-5.1); Alkaline Phosphatase 59 U/L (38-126); Anion Gap 6 mmol/L (8-16); Aspartate Amino Transferase 23 U/L (14-36); Bilirubin,Total 0.4 mg/dL (0.2-1.3); Blood Urea Nitrogen 21 mg/dL (7-17); Calcium 9.3 mg/dL (8.4-10.2); Carbon Dioxide 20 mmol/L (22-30); Chloride 116 mmol/L (98-107); Estimated CRCL calculation 47 ml/min; Estimated Glomerular Filt Rate 49; Glucose 68 mg/dL (65-105); Potassium 3.8 mmol/L (3.4-5.0); Sodium 142 mmol/L (137-145)
[2021-05-23] MEDS: FAMOTIDINE 20 MG/2 ML VIAL IV PUSH (07:34)
[2021-05-23] MEDS: LACTATED RINGERS 1,000 ML 125 ML IV CONT (07:36)
[2021-05-23 12:09] LABS: Glucose Point of Care 66 mg/dl (65-105)
--- NOTE | 2021-05-23 15:09 | PCOTNOTE ---
05/23: Began OT Evaluation, pt. was uncooperative in participation, but was performing functional activity in preparation for discharge. Spoke with sister and home health aide caregiver regarding pt.'s demonstration of physical, cognitive, and emotional dysfunction and potential need for continued care, despite lack of cooperation and plan for discharge. Pt. was discharged immediately following evaluation.
--- NOTE | 2021-06-13 19:58 | PM.DS ---
DS: Admitting Diagnosis Admitting Diagnosis (1) Aspiration into airway: Code(s): T17.908A - Unspecified foreign body in respiratory tract, part unspecified causing other injury, initial encounter Status: Acute (2) Encephalopathy: Code(s): G93.40 - Encephalopathy, unspecified Status: Acute (3) Dehydration: Code(s): E86.0 - Dehydration Status: Acute (4) Elevated serum creatinine: Code(s): R79.89 - Other specified abnormal findings of blood chemistry Status: Acute (5) Prescription drug abuse: Status: Acute (6) Hypertension: Code(s): I10 - Essential (primary) hypertension Status: Acute (7) Type 2 diabetes mellitus with peripheral neuropathy: Code(s): E11.42 - Type 2 diabetes mellitus with diabetic polyneuropathy Status: Acute (8) Tobacco dependence: Code(s): F17.200 - Nicotine dependence, unspecified, uncomplicated Status: Acute (9) Chronic obstructive pulmonary disease: Code(s): J44.9 - Chronic obstructive pulmonary disease, unspecified Status: Acute (10) Chronic pain syndrome: Code(s): G89.4 - Chronic pain syndrome Status: Acute (11) Acute respiratory acidosis: Code(s): E87.2 - Acidosis Status: Acute DS: Discharge Diagnosis Discharge Diagnosis (1) Aspiration into airway: Code(s): T17.908A - Unspecified foreign body in respiratory tract, part unspecified causing other injury, initial encounter Status: Acute (2) Encephalopathy: Code(s): G93.40 - Encephalopathy, unspecified Status: Acute (3) Dehydration: Code(s): E86.0 - Dehydration Status: Acute (4) Elevated serum creatinine: Code(s): R79.89 - Other specified abnormal findings of blood chemistry Status: Acute (5) Prescription drug abuse: Status: Acute (6) Hypertension: Code(s): I10 - Essential (primary) hypertension Status: Acute (7) Type 2 diabetes mellitus with peripheral neuropathy: Code(s): E11.42 - Type 2 diabetes mellitus with diabetic polyneuropathy Status: Acute (8) Tobacco dependence: Code(s): F17.200 - Nicotine dependence, unspecified, uncomplicated Status: Acute (9) Chronic obstructive pulmonary disease: Code(s): J44.9 - Chronic obstructive pulmonary disease, unspecified Status: Acute (10) Chronic pain syndrome: Code(s): G89.4 - Chronic pain syndrome Status: Acute (11) Acute respiratory acidosis: Code(s): E87.2 - Acidosis Status: Acute DS: Summary Hospital Course Reason for hospitalization: altered mental status Hospital Course: This is a 70-year-old female smoker with prescription drug abuse, chronic pain syndrome, type 2 diabetes mellitus with peripheral neuropathy, hypertension, hyperlipidemia, COPD, anxiety, and insomnia who presented to the emergency department earlier today via EMS from home for evaluation of altered mental status. She has not been able to provide me any history and as such a majority of the following is obtained via a review of her electronic medical records as well as discussions with her sister via phone. She has been in [place] for the last 5 days and returned home on the right eye flight early this morning. It is my understanding that the patient takes Xanax when she flies as she gets anxious although I do not see Xanax on her external medication list. Reportedly it is not unusual for the patient to take extra narcotics or Lunesta when flying as well though it is unclear what if any medication she took before the flight. In any event, she returned home not long prior to arrival to the emergency department and she reportedly collapsed and family members could not get her off of the floor. EMS was called for lift assist but on their arrival she was intermittently confused, drowsy, and was hypotensive with systolics in the 80s. The patient was given 0.4 mg of Narcan and became a
== END 2021-05-23 14:20 | disposition home health service (06) | DRG 206 ==
LOC: ANHED 13:34 → ANHIMU 14:28
PROVIDERS: Emergency Medicine Emergency Medical Services; Physician Assistant; Admitting Provider Internal Medicine; Emergency Provider Emergency Medicine; PCP Internal Medicine; Visit Provider Internal Medicine
DX: T17.908A Unspecified foreign body in respiratory tract, part unspecified causing other injury, initial encounter (principal); G93.40 Encephalopathy, unspecified; E87.2 Acidosis; E86.0 Dehydration; R79.89 Other specified abnormal findings of blood chemistry; F19.10 Other psychoactive substance abuse, uncomplicated; G89.4 Chronic pain syndrome; H44.9 Unspecified disorder of globe; E11.42 Type 2 diabetes mellitus with diabetic polyneuropathy; I10 Essential (primary) hypertension; F17.200 Nicotine dependence, unspecified, uncomplicated; H40.9 Unspecified glaucoma; E78.5 Hyperlipidemia, unspecified; F41.9 Anxiety disorder, unspecified; G47.00 Insomnia, unspecified; Z79.82 Long term (current) use of aspirin; Z79.84 Long term (current) use of oral hypoglycemic drugs; Z79.899 Other long term (current) drug therapy; Z98.49 Cataract extraction status, unspecified eye; Z85.528 Personal history of other malignant neoplasm of kidney
CPT/HCPCS: 36415; 36600; 51701; 70450; 71045; 80048; 80053; 80307; 81003; 82140; 82375; 82607; 82805; 82948; 83036; 83050; 83605; 83690; 83735; 84443; 84484; 85025; 85055; 85380; 85610; 85730; 86140; 87040; 93005; 94002; 94003; 94640; 94660; 96361; 96374; 96375; 97161; 97165; 99285; G0378; J0696; J2060; J2310; J2405; J2550; J7030; J7120

== ENCOUNTER 2021-06-05 09:45 | Outpatient (CLI) | payer MEDICARE, OTHER, SELFPAY ==
--- NOTE | ~2021-06-05 | MM_ITS ---
EXAMINATION: MM screening angel BI w delmy HISTORY: Screening mammogram TECHNIQUE: Craniocaudal and mediolateral oblique 3-D tomosynthesis images were obtained and synthetic 2-D images were generated. CAD analysis was submitted and interpreted. COMPARISON: 01/09/2021 diagnostic right mammogram 06/13/2020 right ultrasound guided breast biopsy 05/10/2020 diagnostic right mammogram and right breast ultrasound 04/12/2020 left mammogram /08/2009 bilateral digital screening mammogram BREAST PARENCHYMAL COMPOSITION: There are scattered areas of fibroglandular density. FINDINGS: History of bilateral benign breast biopsies. There is a biopsy marker in the posterior uppe r outer left breast and another in the posterior mid inner right breast. There is no evidence of inte rval suspicious mass, calcification, or architectural distortion to suggest malignancy in either [address]. Multiple scattered bilateral benign breast calcifications are again noted. There has been no susp icious interval change. IMPRESSION: 1. No mammographic evidence of malignancy. 2. Recommend routine screening mammography in one year. BI-RADS Category 2: Benign finding(s). Reviewed, dictated and finalized at location A.
== END 2021-06-05 09:46 | disposition home or self-care (01) ==
PROVIDERS: PCP Internal Medicine; Visit Provider Surgery
DX: Z12.31 Encounter for screening mammogram for malignant neoplasm of breast (principal)
CPT/HCPCS: 77063; 77067

== ENCOUNTER 2021-08-02 14:54 | Outpatient (CLI) | payer MEDICARE, OTHER, SELFPAY ==
[2021-08-02 15:12] LABS: Basophils Absolute Auto 0.1 K/mm3 (0.0-0.1); Basophils Percent Auto 0.5 % (0.2-1.2); Eosinophils Absolute Auto 0.2 K/mm3 (0-0.3); Eosinophils Percent Auto 1.7 % (0-4.4); Hematocrit 43.7 % (37.0-47.0); Hemoglobin 14.9 g/dL (12.0-15.0); Immature Granulocyte Absolute 0.03 K/mm3 (0.00-0.031); Immature Granulocyte Percent A 0.3 % (0-0.5); Lymphocytes Absolute Auto 2.43 K/mm3 (0.9-3.2); Lymphocytes Percent Auto 22.3 % (18.3-44.2); Mean Corpuscular HGB Conc 34.1 g/dl (32-36); Mean Corpuscular Hemoglobin 30.7 pg (26-34); Mean Corpuscular Volume 90.1 fl (80-100); Mean Platelet Volume 9.9 fl (7.4-10.4); Monocytes Absolute Auto 0.4 K/mm3 (0.1-0.6); Monocytes Percent Auto 3.3 % (2.6-8.5); Neutrophils Absolute Auto 7.8 K/mm3 (1.3-6.7); Neutrophils Percent Auto 71.9 % (45.5-73.1); Platelet Count Result 251 k/mm3 (150-375); Red Blood Count 4.85 M/mm3 (4.2-5.4); Red Cell Distribution Width 12.7 % (11.5-14.5); White Blood Count 10.9 K/mm3 (4.5-10.0)
[2021-08-02 16:35] LABS: Alanine Aminotransferase 12 U/L (4-35); Albumin Level 4.6 g/dL (3.5-5.1); Alkaline Phosphatase 93 U/L (38-126); Anion Gap 10 mmol/L (8-16); Aspartate Amino Transferase 26 U/L (14-36); Bilirubin,Total 0.7 mg/dL (0.2-1.3); Blood Urea Nitrogen 17 mg/dL (7-17); Calcium 10.5 mg/dL (8.4-10.2); Carbon Dioxide 24 mmol/L (22-30); Chloride 105 mmol/L (98-107); Estimated Glomerular Filt Rate 55; Glucose 218 mg/dL (65-110); Potassium 4.2 mmol/L (3.4-5.0); Sodium 139 mmol/L (137-145)
[2021-08-02 16:43] LABS: Immunoglobulin A 417 mg/dL (70-400); Immunoglobulin G 1255 mg/dL (700-1600); Immunoglobulin M 154 mg/dL (40-230)
[2021-08-05 03:44] LABS: Albumin 4.2 g/dL (3.8-4.8); Alpha 1 Globulin 0.3 g/dL (0.2-0.3); Alpha 2 Globulin 0.8 g/dL (0.5-0.9); Beta 1 Globulin 0.4 g/dL (0.4-0.6); Gamma Globulin 1.2 g/dL (0.8-1.7); Protein, Total 7.3 g/dL (6.1-8.1)
[2021-08-06 06:40] LABS: Kappa\\Lambda Light Chains 2.05 (0.26-1.65); Lambda Light Chain 30.4 mg/L (5.7-26.3)
== END 2021-08-02 14:55 | disposition home or self-care (01) ==
LOC: ANHLAB 14:58
PROVIDERS: PCP Internal Medicine; Visit Provider Internal Medicine Hematology & Oncology
DX: M89.9 Disorder of bone, unspecified (principal)
CPT/HCPCS: 36415; 80053; 82784; 83883; 84155; 84165; 85025

== ENCOUNTER 2021-11-12 16:14 | Emergency (ER) | payer MEDICARE, SELFPAY ==
--- NOTE | ~2021-11-12 | XR_ITS ---
EXAMINATION: XR chest 2V EXAM DATE: 11/12/2021 17:06 INDICATION: Left-sided chest pain. TECHNIQUE: Frontal and lateral projections of the chest obtained and reviewed. Comparison is made to prior examination from 05/22/2021. FINDINGS: Moderate chronic hyperinflation. Some scattered linear opacities consistent with atelectas is or scarring, otherwise resolution of previously seen diffuse abnormal basilar reticulation seen in May. No confluent consolidation, pneumothorax or pleural effusion suspected. Cardiomediastinal silh ouette is normal. There is aortic arteriosclerosis. There are mild bony degenerative changes. IMPRESSION: 1. Some scattered linear basilar opacities most likely chronic atelectasis or scarring but difficult to exclude small acute infection at the left lung base. 2. Moderate hyperinflation. Reviewed, dictated and finalized at location A. 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
[2021-11-12 16:32] VITALS: BP 110/88; PULSE 97; RESP 18; TEMP 37; O2SAT 99
--- NOTE | 2021-11-12 17:26 | ED.GENADULT ---
HPI - General Adult General Chief complaint: Unspecified Stated complaint: Left side Pain Time Seen by Provider: 11/12/21 17:26 Source: patient, RN notes reviewed and old records reviewed Mode of arrival: ambulatory Limitations: no limitations History of Present Illness HPI narrative: 70-year-old female presents to the [facility] with complaints of left scapular pain for the last 3 weeks. Patient states that she fell 6 weeks ago and thinks she fractured her right ribs. Denies any recent trauma. States the pain is worse with positioning, changing and positioning. No treatment prior to arrival Patient has +2 bilateral lower extremity edema, states that she takes Lasix daily and is not different than what she normally has. Patient is denying any chest pain or shortness of breath. No vomiting. Related Data Home Medications Medication Instructions Recorded Confirmed Anoro Ellipta 1 inh INHALATION QAM 05/11/20 11/12/21 ProAir RespiClick 2 inh INHALATION Q4-6H PRN 05/11/20 11/12/21 Tresiba FlexTouch U-200 14 unit SUBCUT 05/11/20 11/12/21 duloxetine 60 mg PO QAM 05/11/20 11/12/21 eszopiclone [Lunesta] 3 mg PO HS 05/11/20 11/12/21 glimepiride 4 mg PO BID 05/11/20 11/12/21 irbesartan-hydrochlorothiazide 1 tablet PO QAM 05/11/20 11/12/21 meclizine 25 mg PO TID PRN 05/11/20 11/12/21 quetiapine 200 mg PO HS 05/11/20 11/12/21 rosuvastatin 40 mg PO QAM 05/11/20 11/12/21 tamsulosin 0.4 mg PO DAILY 05/11/20 11/12/21 timolol maleate 1 drp OPHTHALMIC (EYE) BID 05/11/20 11/12/21 aspirin 81 mg tablet,delayed 81 mg PO DAILY 05/25/20 11/12/21 release donepezil 5 mg tablet 5 mg PO ONCE 05/25/20 11/12/21 lisinopril 10 mg tablet 10 mg PO DAILY 05/25/20 11/12/21 omega-3 fatty acids 1,000 mg 1,000 mg PO DAILY 05/25/20 11/12/21 capsule quetiapine 25 mg tablet 25 mg PO BID 05/25/20 11/12/21 furosemide 40 mg PO DAILY 11/12/21 11/12/21 Allergies Allergy/AdvReac Type Severity Reaction Status Date / Time Penicillins Allergy Unknown Rash Verified 11/12/21 17:18 Review of Systems Review of Systems: All systems reviewed & are unremarkable except as noted in HPI and below Constitutional: Constitutional: Reports no additional constitutional complaints Eyes: Eyes: Reports no additional eye complaints ENT: Reports system reviewed and no additional complaints, except as documented Cardiovascular: Cardiovascular: Reports no additional cardiovascular complaints, Denies chest pain and Denies chest pain at rest Respiratory: Respiratory: Reports no additional respiratory complaints, Denies chest congestion, Denies cough, Denies hemoptysis, Denies pain with cough, Denies dyspnea, Denies dyspnea on exertion, Denies stridor and Denies wheezing Gastrointestinal: Gastrointestinal: Reports no additional gastrointestinal complaints Genitourinary: Genitourinary: Reports no additional female genitourinary complaints Musculoskeletal: Musculoskeletal: Reports as per HPI Integumentary/Breasts: Skin/Breast: Reports system reviewed and no additional complaints, except as docu Neurologic: Reports system reviewed and no additional complaints, except as documented Psychiatric: Psychiatric: Reports no additional psychiatric complaints Endocrine: Endocrine: Reports no additional endocrine complaints Allergic/Immunologic: Allergic/Immunologic: Reports no additional allergic/immunologic complaints [facility] Past Medical History Medical History Anxiety Asthma Cancer of right kidney Chronic obstructive pulmonary disease Chronic pain syndrome Fibrocystic breast changes of both breasts Glaucoma Blind in left eye. Hyperlipidemia Hypertension Pelvic fracture Peripheral neuropathy Prescription drug abuse Tobacco dependence Type 2 diabetes mellitus with peripheral neuropathy Surgical History Surgical History History of cataract extraction History of hysterectomy Hist
--- NOTE | 2021-11-12 17:40 | ECG_ITS ---
Measurements Intervals [place] Rate: 84 P: 38 MS: 222 QRS: -47 QRSD: 113 T: 82 QT: 352 QTc: 418 Interpretive Statements SINUS RHYTHM WITH FIRST DEGREE AV BLOCK FREQUENT VENTRICULAR PREMATURE COMPLEXES LEFT AXIS DEVIATION INTRAVENTRICULAR CONDUCTION DELAY LOW QRS VOLTAGE IN PRECORDIAL LEADS CANNOT RULE OUT SEPTAL INFARCT, AGE INDETERMINATE ST-T WAVE ABNORMALITY IN HIGH LATERAL LEADS- CONSIDER ISCHEMIA BASELINE ARTIFACT- I, II, III, AVR, AVL, AVF ABNORMAL ECG Electronically Signed On 11-13-2021 7:59:01 CATERING SERVICE MANAGER by Luis Irby D.O.
== END 2021-11-12 17:45 | disposition home or self-care (01) ==
PROVIDERS: Emergency Provider Nurse Practitioner; PCP Internal Medicine
DX: J18.1 Lobar pneumonia, unspecified organism (principal); F17.210 Nicotine dependence, cigarettes, uncomplicated; J44.9 Chronic obstructive pulmonary disease, unspecified; E78.5 Hyperlipidemia, unspecified; I10 Essential (primary) hypertension; E11.42 Type 2 diabetes mellitus with diabetic polyneuropathy; H40.9 Unspecified glaucoma; H54.40 Blindness, one eye, unspecified eye; Z98.49 Cataract extraction status, unspecified eye; Z85.528 Personal history of other malignant neoplasm of kidney; Z90.5 Acquired absence of kidney
CPT/HCPCS: 71046; 93005; 99213; G0463

== ENCOUNTER 2023-02-08 23:50 | Emergency (ER) | payer MEDICARE, SELFPAY ==
--- NOTE | ~2023-02-08 | XR_ITS ---
EXAMINATION: XR chest 2V DATE: 02/09/2023 01:02 INDICATION: Cough. TECHNIQUE: Frontal and lateral views of the chest were obtained. COMPARISON: Chest 2 views 11/12/2021, CT abdomen and pelvis 05/22/2017 FINDINGS: There is mild atelectasis in the lower lung zones. No pleural effusion or pneumothorax. The heart size is normal. There is a chronic compression fracture of mid thoracic spine. IMPRESSION: 1. Mild atelectasis in the lower lungs zones. Reviewed, dictated and finalized at location A.
[2023-02-08 23:54] VITALS: BP 139/104; PULSE 84; RESP 20; TEMP 36.2; O2SAT 99
[2023-02-09 00:22] LABS: Basophils Absolute Auto 0.1 K/mm3 (0.0-0.1); Basophils Percent Auto 0.7 % (0.2-1.2); Eosinophils Absolute Auto 0.5 K/mm3 (0-0.3); Hematocrit 38.5 % (37.0-47.0); Hemoglobin 13.3 g/dL (12.0-15.0); Immature Granulocyte Absolute 0.03 K/mm3 (0.00-0.031); Immature Granulocyte Percent A 0.3 % (0-0.5); Lymphocytes Absolute Auto 3.18 K/mm3 (0.9-3.2); Lymphocytes Percent Auto 29.8 % (18.3-44.2); Mean Corpuscular HGB Conc 34.5 g/dl (32-36); Mean Corpuscular Hemoglobin 31.6 pg (26-34); Mean Corpuscular Volume 91.4 fl (80-100); Mean Platelet Volume 10.2 fl (7.4-10.4); Monocytes Absolute Auto 0.5 K/mm3 (0.1-0.6); Monocytes Percent Auto 5.1 % (2.6-8.5); Neutrophils Absolute Auto 6.3 K/mm3 (1.3-6.7); Neutrophils Percent Auto 59.1 % (45.5-73.1); Platelet Count Result 254 k/mm3 (150-375); Red Blood Count 4.21 M/mm3 (4.2-5.4); Red Cell Distribution Width 12.8 % (11.5-14.5); White Blood Count 10.7 K/mm3 (4.5-10.0)
[2023-02-09 00:33] LABS: Alanine Aminotransferase 13 U/L (6-35); Albumin Level 4.1 g/dL (3.5-5.1); Alkaline Phosphatase 97 U/L (38-126); Anion Gap 6 mmol/L (8-16); Aspartate Amino Transferase 17 U/L (14-36); Bilirubin,Total 0.5 mg/dL (0.2-1.3); Blood Urea Nitrogen 26 mg/dL (7-17); Calcium 9.6 mg/dL (8.4-10.2); Carbon Dioxide 29 mmol/L (22-30); Chloride 105 mmol/L (98-107); Estimated CRCL calculation 47 ml/min; Estimated Glomerular Filt Rate 49; Glucose 193 mg/dL (65-110); Lipase 113 U/L (23-300); Potassium 3.8 mmol/L (3.4-5.0); Sodium 140 mmol/L (137-145)
[2023-02-09 01:00] LABS: Appearance Urine Clear (Clear); Bilirubin Urine Negative (Negative); Blood Urine Negative (Negative); Color Urine Yellow (Yellow); Glucose Urine UA Negative (Negative); Ketones Urine Negative (Negative); Leukocyte Esterase Ur Negative LEU/UL (Negative); Nitrate Urine Negative (Negative); Protein Urine Negative (Negative)
[2023-02-09 01:28] LABS: Add Urine Microscopic? NO
[2023-02-09 02:02] VITALS: BP 152/116; PULSE 91; RESP 20; O2SAT 94
--- NOTE | 2023-02-09 02:02 | PC.NURSE ---
Pt was taken outside by her friend to smoke. Encouraged pt to remain in the waiting room because if her name is called and she is not present we cannot take her back to a room or perform further testing. Pt verbalized understanding.
[2023-02-09 03:46] VITALS: BP 178/82; PULSE 78; RESP 12; TEMP 36.4; O2SAT 95
[2023-02-09 05:11] VITALS: BP 130/90; PULSE 72; O2SAT 99
--- NOTE | 2023-02-09 05:33 | ED.GENADULT ---
HPI - General Adult General Chief complaint: Abdominal Pain Stated complaint: left side abdominal pain x2 weeks Time Seen by Provider: 02/09/23 03:39 History of Present Illness HPI narrative: 72-year-old female presenting to the emergency department for evaluation of left lower rib pain. Patient states she had a coughing fit a few weeks ago and has had rib pain since. Patient has had no fevers. Patient denies any associated nausea vomiting or diarrhea. Related Data Home Medications Medication Instructions Recorded Confirmed albuterol sulfate 90 mcg/actuation 2 inh inhalation Q4-6H PRN Dyspnea 05/11/20 11/12/21 breath activated powder inhaler (ProAir RespiClick) duloxetine 60 mg capsule,delayed 60 mg PO QAM 05/11/20 11/12/21 release eszopiclone 3 mg tablet (Lunesta) 3 mg PO HS 05/11/20 11/12/21 glimepiride 2 mg tablet 4 mg PO BID 05/11/20 11/12/21 insulin degludec 200 unit/mL (3 14 unit subcut HS 05/11/20 11/12/21 mL) subcutaneous pen (Tresiba FlexTouch U-200 insulin) irbesartan 300 1 tablet PO QAM 05/11/20 11/12/21 mg-hydrochlorothiazide 12.5 mg tablet meclizine 25 mg tablet 25 mg PO TID PRN Dizziness 05/11/20 11/12/21 quetiapine 200 mg tablet 200 mg PO HS 05/11/20 11/12/21 rosuvastatin 40 mg tablet 40 mg PO QAM 05/11/20 11/12/21 tamsulosin 0.4 mg capsule 0.4 mg PO DAILY 05/11/20 11/12/21 timolol maleate 0.5 % eye drops 1 drp ophthalmic (eye) BID 05/11/20 11/12/21 umeclidinium 62.5 mcg-vilanterol 1 inh inhalation QAM 05/11/20 11/12/21 25 mcg/actuation powdr for inhalation (Anoro Ellipta) aspirin 81 mg tablet,delayed 81 mg PO DAILY 05/25/20 11/12/21 release (Aspir-) donepezil 5 mg tablet 5 mg PO ONCE 05/25/20 11/12/21 lisinopril 10 mg tablet 10 mg PO DAILY 05/25/20 11/12/21 omega-3 fatty acids 1,000 mg 1,000 mg PO DAILY 05/25/20 11/12/21 capsule (Fish Oil Concentrate) quetiapine 25 mg tablet 25 mg PO BID 05/25/20 11/12/21 furosemide 40 mg tablet 40 mg PO DAILY 11/12/21 11/12/21 Allergies Allergy/AdvReac Type Severity Reaction Status Date / Time Penicillins Allergy Unknown Rash Verified 11/27/22 13:17 Review of Systems Review of Systems: All systems reviewed & are unremarkable except as noted in HPI and below PMFSH Past Medical History Medical History Anxiety Asthma Cancer of right kidney Chronic obstructive pulmonary disease Chronic pain syndrome Fibrocystic breast changes of both breasts Glaucoma Blind in left eye. Hyperlipidemia Hypertension Pelvic fracture Peripheral neuropathy Prescription drug abuse Tobacco dependence Type 2 diabetes mellitus with peripheral neuropathy Surgical History Surgical History History of cataract extraction History of hysterectomy History of inguinal hernia repair History of right nephrectomy Status post left foot surgery For plantar fasciitis. Family History Family History Father Lung cancer Mother Cerebrovascular accident Diabetes mellitus Sibling Breast cancer Diabetes mellitus Cerebrovascular accident Heart disease Other Family history of congenital heart disease Family history of malignant neoplasm Social History Social History Social History: The patient lives in [place]. She smokes at least 0.75 packs of cigarettes a day. No alcohol or illicit substance abuse documented. Her sister Iris Rich is healthcare power of business attorney. Code status: Full code. Smoking packs per day: 0.5 Smoking cigarettes per day: 10.0 Years smoked: 50 Smoking pack-years: 25.00 Smoking status: Current every day smoker Tobacco type: cigarettes Alcohol intake: never Substance use: never Lack of Transportation: No Lack of Food: Never True Current Housing: I Have Housing Concerned About Future Housing:
[2023-02-09] MEDS: HYDROcodone/acetaminophen (*CRX) 5-325 MG TABLET 1 TAB PO (05:41)
[2023-02-09 05:52] VITALS: BP 161/113; PULSE 72; RESP 13; TEMP 36.4; O2SAT 100
== END 2023-02-09 05:58 | disposition home or self-care (01) ==
PROVIDERS: Emergency Provider Emergency Medicine
DX: R07.81 Pleurodynia (principal); E78.5 Hyperlipidemia, unspecified; I10 Essential (primary) hypertension; E11.9 Type 2 diabetes mellitus without complications; F17.210 Nicotine dependence, cigarettes, uncomplicated
CPT/HCPCS: 36415; 71046; 80053; 81003; 83690; 85025; 99283; A9270

== ENCOUNTER 2023-12-22 12:17 | Outpatient (CLI) | payer OTHER, MEDICARE, SELFPAY ==
--- NOTE | ~2023-12-22 | CT_ITS ---
EXAMINATION: CT brain wo con DATE: 12/22/2023 13:10 INDICATION: Confusion of unknown duration TECHNIQUE: Computed tomography (CT) of the head was performed without intravenous contrast. The mA wa s adjusted according to patient size. Iterative reconstruction technique was employed. Exam dose: 68 1.00 mGy-cm total exam DLP. COMPARISON: May 22, 2021 CT brain March 02, 2018 CT brain FINDINGS: Dominant right vertebral artery with prominent calcification. Basilar artery and prominent bilateral carotid siphon and supraclinoid internal carotid artery calcifications. There is nonspecific diminished attenuation of the cerebral white matter, likely due to chronic small vessel ischemic changes. Chronic lacunar infarct of right caudate nucleus. No intracranial mass lesion or hemorrhage or recent cerebrovascular accident. No midline shift or mas s effect. No subdural or epidural hematoma. Paranasal sinuses and left mastoid air cells are normally aerated. There is chronic small right masto id effusion and diminished pneumatization of the right mastoid air cells. Chronic 11 mm lytic lesion of right frontal bone, stable since March 02, 2018. 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 Reviewed, dictated and finalized at location B. 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
== END 2023-12-22 12:18 | disposition home or self-care (01) ==
PROVIDERS: Visit Provider Family Medicine
DX: R41.0 Disorientation, unspecified (principal)
CPT/HCPCS: 70450

== ENCOUNTER 2025-05-05 20:00 | Emergency (ER) | payer MEDICARE, SELFPAY ==
--- NOTE | ~2025-05-05 | XR_ITS ---
HISTORY: Infection, stepped on glass COMPARISON: None TECHNIQUE: 3 views of the left foot were performed FINDINGS: No acute fracture or dislocation is appreciated. Ossification of the insertion of the Achilles tendon is present. Hallux valgus deformity is noted. The base of the fifth metatarsal is intact. No calcaneal spur is noted. Moderate soft tissue swelling is present. No radiopaque foreign IMPRESSION: Moderate soft tissue swelling with degenerative disease. No acute fracture. No radiopaque foreign body. Reviewed, dictated and finalized at location A.
[2025-05-05 20:09] VITALS: BP 158/108; PULSE 75; RESP 18; TEMP 36.4; O2SAT 98
--- NOTE | 2025-05-05 22:47 | ED_ITS ---
HPI - Extremity Injury (Lower) General Chief Complaint: Extremity Injury, Lower Stated Complaint: left foot infection, diabetic Time Seen by Provider: 05/05/25 21:56 Source: patient Mode of arrival: ambulatory Limitations: no limitations History of Present Illness HPI Narrative: Patient is a 74-year-old female who presents the ED with report of a wound to her left foot. Patient reports she was cleaning her house last when she accidentally stepped on broken glass with her left foot. She sustained a puncture wound to her left plantar foot. States the wound has become increasingly painful. Her family member removed a few shards of glass today and she reported having pus from the wound. Patient is a diabetic. States her blood sugars have been elevated for quite some time. Denies fevers. She ambulates with a walker. Related Data Home Medications ?Medication ?Instructions ?Recorded ?Confirmed ?Last Taken ?Type rosuvastatin 40 mg tablet 40 mg PO QAM 05/11/20 12/18/23 Unknown History lisinopril 10 mg tablet 10 mg PO DAILY 05/25/20 12/18/23 Unknown History acetaminophen 500 mg tablet 1,000 mg PO TID 12/18/23 12/18/23 Unknown History aspirin 81 mg chewable tablet 81 mg PO DAILY 12/18/23 12/18/23 Unknown History (Aspirin Childrens) cholecalciferol (vitamin D3) 125 5,000 unit PO DAILY 12/18/23 12/18/23 Unknown History mcg (5,000 unit) tablet cyanocobalamin (vitamin B-12) 100 100 mcg PO DAILY 12/18/23 12/18/23 Unknown History mcg tablet folic acid 1 mg tablet 1 mg PO DAILY 12/18/23 12/18/23 Unknown History lidocaine 5 % topical patch 1 patch topical DAILY 12/18/23 12/18/23 Unknown History (Lidoderm) melatonin 3 mg tablet 3 mg PO HS 12/18/23 12/18/23 Unknown History oxycodone 5 mg tablet See Rx Instructions .Route .COMPLEX 12/18/23 12/18/23 Unknown History sennosides 8.6 mg tablet 8.6 mg PO DAILY 12/18/23 12/18/23 Unknown History tamsulosin 0.4 mg capsule 0.4 mg PO DAILY 12/18/23 12/18/23 Unknown History thiamine HCl (vitamin B1) 100 mg 100 mg PO DAILY 12/18/23 12/18/23 Unknown History tablet timolol 0.25 % eye drops 1 drp EACH EYE Q12H 12/18/23 12/18/23 Unknown History Allergies Allergy/AdvReac Type Severity Reaction Status Date / Time Penicillins Allergy Unknown Rash Verified 05/05/25 20:13 Review of Systems 2 Review of Systems: All systems reviewed & are unremarkable except as noted in HPI. All systems reviewed & are unremarkable except as noted in HPI and below PMFSH Past Medical History Medical History Fibrocystic breast changes of both breasts Tobacco dependence Anxiety Prescription drug abuse Chronic pain syndrome Type 2 diabetes mellitus with peripheral neuropathy Hyperlipidemia Hypertension Chronic obstructive pulmonary disease Asthma Cancer of right kidney Pelvic fracture Peripheral neuropathy Glaucoma Blind in left eye. Surgical History Surgical History History of inguinal hernia repair History of right nephrectomy History of cataract extraction Status post left foot surgery For plantar fasciitis. History of hysterectomy Family History Family History Father Lung cancer Mother Cerebrovascular accident Diabetes mellitus Sibling Breast cancer Diabetes mellitus Cerebrovascular accident Heart disease Other Family history of congenital heart disease Family history of malignant neoplasm Social History Social History Social History: The patient lives in [place]. She smokes at least 0.75 packs of cigarettes a day. No alcohol or illicit substance abuse documented. Her sister Iris Rich is healthcare power of contract attorney. Code status: Full code. Smoking packs per day: 0.5 Smoking cigarettes per day: 10.0 Years smoked: 50 Smoking pack-years: 25.00 Smoking status: Light tobacco smoker Tobacco type: cigarettes Second hand tobacco smoke exposure: No Alcohol intake: current Substance use: former Substance use type: opiates, painkillers and prescription drug Other substance usage details: Oxycodone Last use: last cigarette 9 days ago; last oxy use 11/16/23 Lack of Transportation: No Lack of Food: Never True Current Housing: I Have Housing Concerned About Future Housing: No Difficulty Paying Gas/Electric Bills: No Difficulty Paying for Meds: No Currently Unemployed: No Education: High School Diploma/GED Difficulty w/ Childcare or Family Care: No Living arrangements: with family Occupation/Education: retired Gender identity (if verbalized by the patient): Female Spiritual care concerns: No Exam 2 Narrative: GENERAL: Elderly, chronically ill-appearing, non-toxic, in no acute distress. HEAD: Normocephalic, atraumatic. RESPIRATORY: Airway patent, respirations nonlabored. CARDIOVASCULAR: Regular rate and rhythm. Pedal pulses intact and easily palpable. MUSCULOSKELETAL: Moves all extremities. No gross deformities. Small circular puncture wound to plantar surface of ball of left foot. No active drainage or bleeding. Focal tenderness to palpation. No appreciable fluctuance. Mild erythema a plantar surface of foot extending to arch region and slightly to medial lateral foot. No lymphangitic streaking. SKIN: Warm, dry, normal color. NEURO: A&O X3. Speech clear. Cranial nerves II-XII grossly intact. Steady gait. No ataxic movements. PSYCHIATRIC: Appropriate mood and affect. Normal interaction. Course Vital Signs Vital signs: Vital Signs Temperature 97.5 F L 05/05/25 20:09 Pulse Rate 75 05/05/25 20:09 Respiratory Rate 18 05/05/25 20:09 Blood Pressure 158/108 H 05/05/25 20:09 Pulse Oximetry 98 05/05/25 20:09 Oxygen Delivery Room Air 05/05/25 20:09 Temperature 97.5 F L 05/05/25 20:09 Pulse Rate 68 05/06/25 00:05 Respiratory Rate 15 05/06/25 00:05 Blood Pressure 142/70 H 05/06/25 00:05 Pulse Oximetry 97 05/06/25 00:05 Oxygen Delivery Room Air 05/05/25 20:09 MDM - Extremity Injury (Lower) MDM Narrative Medical decision making narrative: Exam with puncture wound to left plantar foot with surrounding cellulitis changes. No appreciable fluctuance or obvious abscess. No drainage at this time. Vital signs stable. Patient afebrile. X-ray without evidence of foreign body or osseous involvement. Laboratory studies with minimal leukocytosis of 11.1. Minimal elevation of inflammatory markers. Blood sugar is elevated, though patient reports this is chronic for her. No evidence of DKA at this time. Feel patient is safe for D/C home on antibiotics. Will cover with Keflex and doxycycline. Wound was bandaged and patient placed in postop shoe. Advised to continue warm compresses/soaks to the foot, keep wound bandaged. Recommended very close follow-up with primary care doctor for further evaluation of wound and diabetic management. Patient in agreement with plan. She would prefer to go home and does feel comfortable doing so. Again discussed strict return precautions. Patient voiced understanding. Discharged in stable condition. Medical Records Attestation: I reviewed the patient's medical records. Lab Data Attestation: I reviewed the patient's lab results. 05/05/25 23:30 05/05/25 23:30 Labs: Lab Results 05/05/25 Range/Units 23:30 WBC 11.1 H (4.5-10.0) K/mm3 RBC 4.64 (4.2-5.4) M/mm3 Hgb 14.4 D (12.0-15.0) g/dL Hct 42.7 (37.0-47.0) % MCV 92.0 (80-100) fl MCH 31.0 (26-34) pg MCHC 33.7 (32-36) g/dl RDW 13.0 (11.5-14.5) % Plt Count 258 (150-375) k/mm3 MPV 10.4 (7.4-10.4) fl Immature Gran % (Auto) 0.3 (0-0.5) % Neut % (Auto) 71.7 (45.5-73.1) % Lymph % (Auto) 21.4 (18.3-44.2) % Arthur % (Auto) 4.8 (2.6-8.5) % Eos % (Auto) 1.4 (0-4.4) % Baso % (Auto) 0.4 (0.2-1.2) % Lymph # (Auto) 2.37 (0.9-3.2) K/mm3 Arthur # (Auto) 0.5 (0.1-0.6) K/mm3 Eos # (Auto) 0.2 (0-0.3) K/mm3 Baso # (Auto) 0.0 (0.0-0.1) K/mm3 Abs Immat Gran (auto) 0.03 (0.00-0.031) K/mm3 Absolute Neuts (auto) 8.0 H (1.3-6.7) K/mm3 Absolute Nucleated RBC 0.000 (0.0-0.012) K/mm3 Nucleated RBC % 0.0 (0.0-0.2) % ESR 22 H (0-20) mm/hr Sodium 137 (137-145) mmol/L Potassium 4.3 (3.4-5.0) mmol/L Chloride 105 (98-107) mmol/L Carbon Dioxide 23 (22-30) mmol/L Anion Gap 9 (4-12) mmol/L BUN 11 (7-17) mg/dL Creatinine 0.94 (0.7-1.0) mg/dL Estim Creat Clear Calc 50 ml/min Estimated GFR 58 L (59 - ) Glucose 249 H (65-110) mg/dL Calcium 10.1 (8.4-10.2) mg/dL C-Reactive Protein 1.4 H (<1.0) mg/dL Imaging Data Attestation: I personally reviewed and interpreted this imaging study as follows: Radiologist's impression: ITS Impressions Foot X-Ray 05/05/25 22:35 IMPRESSION: Moderate soft tissue swelling with degenerative disease. No acute fracture. No radiopaque foreign body. Discharge Plan Discharge Clinical Impression: Cellulitis of left foot Puncture wound of left foot Qualifiers: Encounter type: initial encounter Qualified Code(s): S91.332A - Puncture wound without foreign body, left foot, initial encounter Patient Disposition: Home Condition: Stable Instructions: Antibiotic Form, Puncture Wound (ED), Cellulitis (ED) Additional Instructions: Take both antibiotics as prescribed for cellulitis/infection of foot. Finish both courses. Recommend frequent warm compresses/warm soaks to foot. Keep foot bandaged to avoid further infection/contamination. You may take Tylenol/Motrin as needed for of pain. Follow-up closely with your primary care doctor for further evaluation and to ensure improvement of symptoms. Return to the ED if you experience worsening or severe redness/warmth/drainage, persistent fevers, recurrent injury, or any other symptoms of concern. Patient Language: Tamazight Prescriptions: New doxycycline monohydrate 100 mg tablet 100 mg PO BID 7 Days Qty: 14 0RF cephalexin 500 mg capsule 500 mg PO Q6H 7 Days Qty: 28 0RF No Action lisinopril 10 mg tablet 10 mg PO DAILY rosuvastatin 40 mg tablet 40 mg PO QAM Rx Instructions: Friday & only. sennosides 8.6 mg Tablet 8.6 mg PO DAILY cyanocobalamin (vitamin B-12) 100 mcg Tablet 100 mcg PO DAILY thiamine HCl (vitamin B1) 100 mg Tablet 100 mg PO DAILY melatonin 3 mg Tablet 3 mg PO HS acetaminophen 500 mg Tablet 1,000 mg PO TID tamsulosin 0.4 mg Capsule 0.4 mg PO DAILY lidocaine [Lidoderm] 5 % Adhesive Patch,Medicated 1 patch TOPICAL DAILY Rx Instructions: leave on most painful area for up to 12 hrs timolol 0.25 % Drops 1 drp EACH EYE Q12H aspirin [Aspirin Childrens] 81 mg Tablet,Chewable 81 mg PO DAILY folic acid 1 mg Tablet 1 mg PO DAILY oxycodone 5 mg Tablet See Rx Instructions .ROUTE .COMPLEX Rx Instructions: 2.5 mg orally Q6HR- standard time dosing cholecalciferol (vitamin D3) 125 mcg (5,000 unit) Tablet 5,000 unit PO DAILY Follow-up/Referrals: Shahnaz Reddy, RN [Primary Care Provider] - Time of Disposition: 00:25
[2025-05-05 23:38] LABS: Basophils Percent Auto 0.4 % (0.2-1.2); Eosinophils Absolute Auto 0.2 K/mm3 (0-0.3); Eosinophils Percent Auto 1.4 % (0-4.4); Hematocrit 42.7 % (37.0-47.0); Hemoglobin 14.4 g/dL (12.0-15.0); Immature Granulocyte Absolute 0.03 K/mm3 (0.00-0.031); Immature Granulocyte Percent A 0.3 % (0-0.5); Lymphocytes Absolute Auto 2.37 K/mm3 (0.9-3.2); Lymphocytes Percent Auto 21.4 % (18.3-44.2); Mean Corpuscular HGB Conc 33.7 g/dl (32-36); Mean Platelet Volume 10.4 fl (7.4-10.4); Monocytes Absolute Auto 0.5 K/mm3 (0.1-0.6); Monocytes Percent Auto 4.8 % (2.6-8.5); Neutrophils Percent Auto 71.7 % (45.5-73.1); Platelet Count Result 258 k/mm3 (150-375); Red Blood Count 4.64 M/mm3 (4.2-5.4); White Blood Count 11.1 K/mm3 (4.5-10.0)
[2025-05-05 23:51] LABS: Anion Gap 9 mmol/L (4-12); Blood Urea Nitrogen 11 mg/dL (7-17); CRP 1.4 mg/dL (<1.0); Calcium 10.1 mg/dL (8.4-10.2); Carbon Dioxide 23 mmol/L (22-30); Chloride 105 mmol/L (98-107); Estimated CRCL calculation 50 ml/min; Estimated Glomerular Filt Rate 58; Glucose 249 mg/dL (65-110); Potassium 4.3 mmol/L (3.4-5.0); Sodium 137 mmol/L (137-145)
[2025-05-06 00:01] LABS: Erythrocyte Sedimentation Rate 22 mm/hr (0-20)
[2025-05-06 00:05] VITALS: BP 142/70; PULSE 68; RESP 15; O2SAT 97
[2025-05-06] MEDS: DOXYCYCLINE HYCLATE 100 MG TABLET PO (00:50)
[2025-05-06] MEDS: CEPHALEXIN 500 MG CAPSULE PO (00:50)
== END 2025-05-06 01:05 | disposition home or self-care (01) ==
PROVIDERS: Emergency Provider Physician Assistant
DX: S91.332A Puncture wound without foreign body, left foot, initial encounter (principal); L03.116 Cellulitis of left lower limb; I10 Essential (primary) hypertension; J44.9 Chronic obstructive pulmonary disease, unspecified; E11.42 Type 2 diabetes mellitus with diabetic polyneuropathy; E78.5 Hyperlipidemia, unspecified; E11.39 Type 2 diabetes mellitus with other diabetic ophthalmic complication; H42 Glaucoma in diseases classified elsewhere; G89.29 Other chronic pain; F41.9 Anxiety disorder, unspecified; F17.210 Nicotine dependence, cigarettes, uncomplicated; Z85.528 Personal history of other malignant neoplasm of kidney; Z90.5 Acquired absence of kidney; Z90.710 Acquired absence of both cervix and uterus; Z98.49 Cataract extraction status, unspecified eye; Z79.82 Long term (current) use of aspirin; Z79.899 Other long term (current) drug therapy; W25.XXXA Contact with sharp glass, initial encounter
CPT/HCPCS: 36415; 73630; 80048; 85025; 85652; 86140; 99283; A9270

== ENCOUNTER 2025-07-23 23:24 | Inpatient (IN) | payer MEDICARE, SELFPAY ==
--- OUTSIDE RECORDS SUMMARY | 2025-05-20 04:50 | XMS_ITS | Continuity of Care Document ---
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 evaluation of Existing Condition Diabetes The symptom is constant. The condition is stable. Seeing Dr. Devine for DM. Last A1C was 9.5. Tresiba and Glimepiride QD. 1 Mo F/U PVD The 72 year old female presents for evaluation of 1 Mo F/U PVD in the right eye. Pt says that she is no longer noticing floaters but is constantly seeing the cobwebs. Says that she is no longer driving at night due to worsening vision. floaters The 72 year old female presents for evaluation of floaters in the right eye. Began last . Denies flashes of light. Sees them constantly, floaters move around in her vision. No pain or discomfort. Glaucoma The patient is p resent for evaluation of Glaucoma in the left eye. Severe stage for many years. Managed with Timiolol OS BID with excellent compliance. LD: this AM. blurry vision and dizziness The 72 year old female presents for evaluation of blurry vision and dizziness in the right eye and left eye. The symptom is frequent. The condition is moderate. has been going on for several months Glaucoma The patient is p resent for evaluation of Glaucoma in the left eye. The symptom is constant. The condition is moderate. using Timolol OS 2 x d last used this am Diabetic eye exam The patient is present for evaluation of Diabetic eye exam, IDDM, BS this am =155, Last A1c = 8.1 done about 3 week, followed by PCP Glaucoma F/U The 71 year old female presents for evaluation of Glaucoma F/U in the left eye, for many years. Patient reports compliance with Timolol BID OS. Patient denies pain, headaches, and watering. Blurry Vision The patient is p resent for evaluation of Blurry Vision in the right eye, for the past few months. Patient reports some blurring off and on OD, trouble focusing at times, and bright lights are bothering me. Diabetic Exam The patient is p resent for evaluation of Diabetic Exam in the right eye and left eye, for many years. Patient reports last BS unsure, last A1C 7.5. Patient sees Dr. Arjun Devine for diabetes. Glaucoma The 71 year old female presents for evaluation of Glaucoma in the left eye. The symptom is constant. The condition is severe. PT using Timolol BID OS. Pt reports good compliance with gtts. Pt notes a fall 6-7 weeks ago where she hit her head on her concrete floor multiple times - reports her whole forehead and RLL was swollen. Diabetic eye exam DM many years. Last A1C=7.3. IDDM. DM monitored by PCP (Dr. Malhotra). Glaucoma The 70 year old female presents for evaluation of Glaucoma in the left eye. Monitored many years. Severe damage to vision. Using Timolol OS BID. Good compliance with gtt. Last dose timolol OS: 9:30 am. Diabetic eye exam DM since appr 1990. Va unaffected by DM per pt. Stable blood sugars, Last A1C= 7.0 done appr 3 months ago. IDDM tearing eye The patient is p resent for evaluation of tearing eye in the left eye. Past 2-3 months. Happens daily. Stable since onset. glaucoma The 69 year old female presents for evaluation of glaucoma in the left eye, severe, longstanding. Taking Timolol BID OS. OD gets a little blurry at times, comes and goes. Diabetic eye exam The patient is present for evaluation of Diabetic eye exam in the right eye and left eye, longstanding, constant. Last A1c 7%, BS 153 this morning. Pt is taking insulin. Diabetic eye exam The patient is present for evaluation of Diabetic eye exam It occurs with no pattern. The symptom is constant. The condition is mild. Last A1c was 6.8. Sees Dr. Eileen Adams for DM. Itching The patient is p resent for evaluation of Itching in the right > left. It started about 6 month(s) ago. The symptom is frequent. The condition is significant. Glaucoma The 69 year old female presents for evaluation of Glaucoma in the right eye and left eye. It started about 2 year(s) ago. It occurs with no pattern. The symptom is constant. The condition is moderate. Timolol used BID OS used today this morning. Reports compliant with drops. Functional Status Date Functional Assessmen t No Information Instructions Date Instruction Additional Infor shimonjyoti Impression/Plan Related to Encou nter for other specified surgical aftercare Impression/Plan Related to Encou nter for other specified surgical aftercare Impression/Plan Related to Encou nter for other specified surgical aftercare Impression/Plan Related to Age-r elated nuclear cataract, right eye Impression/Plan Related to Prima ry open-angle glaucoma, left eye, severe stage Impression/Plan Related to Open angle with borderline findings, low risk, right eye Impression/Plan Related to Vitre ous degeneration, right eye Impression/Plan Related to Centr al retinal vein occlusion, left eye, stable Impression/Plan Related to Other specified glaucoma Impression/Plan Related to Vitre ous degeneration, right eye Impression/Plan Related to Corti christophe age-related cataract, right eye Impression/Plan Related to Prima ry open-angle glaucoma, left eye, severe stage Impression/Plan Related to Ocula r hypertension, right eye Impression/Plan Related to Open angle with borderline findings, low risk, right eye Impression/Plan Related to Centr al retinal vein occlusion, left eye, stable Impression/Plan Related to Open angle with borderline findings, low risk, right eye Impression/Plan Related to Other specified glaucoma Impression/Plan Related to Centr al retinal vein occlusion, left eye, stable Impression/Plan Related to Corti christophe age-related cataract, right eye Impression/Plan Related to Vitre ous degeneration, right eye Impression/Plan Related to Prima ry open-angle glaucoma, left eye, severe stage Impression/Plan Related to Ocula r hypertension, right eye Impression/Plan Related to Prese nce of intraocular lens Impression/Plan Related to Corti christophe age-related cataract, right eye Impression/Plan Related to Vitre ous degeneration, right eye Impression/Plan Related to Vitre ous degeneration, right eye Impression/Plan Related to Open angle with borderline findings, low risk, right eye Impression/Plan Related to Ocula r hypertension, right eye Impression/Plan Related to 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, r eye Impression/Plan Related to 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, l eye Impression/Plan Related to Centr al retinal vein occlusion, left eye, stable Impression/Plan Related to Corti christophe age-related cataract, right eye Impression/Plan Related to Prima ry open-angle glaucoma, left eye, severe stage Impression/Plan Related to Prese nce of intraocular lens Impression/Plan Related to 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, r eye Impression/Plan Related to Centr al retinal vein occlusion, left eye, stable Oct Impression/Plan Related to Corti christophe age-related cataract, right eye Impression/Plan Related to Prese nce of intraocular lens Impression/Plan Related to Prima ry open-angle glaucoma, left eye, severe stage Impression/Plan Related to Other specified glaucoma Impression/Plan Related to 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, l eye Impression/Plan Related to Centr al retinal vein occlusion, left eye, stable Impression/Plan Related to Other specified glaucoma Impression/Plan Related to Prima ry open-angle glaucoma, left eye, severe stage Impression/Plan Related to 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, r eye Impression/Plan Related to Corti christophe age-related cataract, right eye Impression/Plan Related to 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, l eye Impression/Plan Related to Presb yopia Impression/Plan Related to Prese nce of intraocular lens Impression/Plan Related to Corti christophe age-related cataract, right eye Impression/Plan Related to Prima ry open-angle glaucoma, left eye, severe stage Impression/Plan Related to Other specified glaucoma Impression/Plan Related to Centr al retinal vein occlusion, left eye, stable Impression/Plan Related to Prese nce of intraocular lens Impression/Plan Related to Presb yopia Impression/Plan Related to 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, r eye Impression/Plan Related to 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, l eye Impression/Plan Related to Type 2 diab with mild nonp rtnop without macular edema, bi Impression/Plan Related to Prese nce of intraocular lens Impression/Plan Related to Centr al retinal vein occlusion, left eye, stable Impression/Plan Related to Other specified glaucoma Impression/Plan Related to Prima ry open-angle glaucoma, left eye, severe stage Impression/Plan Related to Presb yopia Impression/Plan Related to Prese nce of intraocular lens Impression/Plan Related to Centr al retinal vein occlusion, left eye, stable Impression/Plan Related to Type 2 diab with mild nonp rtnop without macular edema, bi Impression/Plan Related to Prima ry open-angle glaucoma, left eye, severe stage Impression/Plan Related to Other specified glaucoma Impression/Plan Related to Prima ry open-angle glaucoma, left eye, severe stage Impression/Plan Related to Type 2 diab with mild nonp rtnop without macular edema, bi Impression/Plan Related to Centr al retinal vein occlusion, left eye, stable Impression/Plan Related to Prese nce of intraocular lens Impression/Plan Related to Age-r elated nuclear cataract, right eye Impression/Plan Related to Other specified glaucoma Assessments Type Assessment Date assessment Encounter for other specified carlos rgical aftercare impression Encounter for other specified surgical aftercare: Z48.89.PCIOL OD 04/21/25 JG Patient Care Teams Name Effective Dates (start - stop) Status Members No Information
--- NOTE | ~2025-07-23 | CT_ITS ---
EXAMINATION: CT brain wo ben, 07/24/2025 3:59 CDT HISTORY: confusion COMPARISON: No comparisons available. Technique: Axial images obtained of the brain without contrast. One or more of the following dose reduction techniques were used: automated exposure control, adjustment of the mA and/or kV according to patient size, use of iterative reconstruction technique. Findings: There is a remote right basal ganglia lacunar infarct. No midline shift or mass effect. No gross extra-axial fluid collections. Mastoid air cells unremarkable. Sinuses and orbits unremarkable. No acute fracture. No significant facial or scalp soft tissue swelling evident. No radiopaque foreign body is seen. Impression: 1. Limited study. No acute infarct or hemorrhage Reviewed, dictated and finalized at location A. Impression: 1. Limited study. No acute infarct or hemorrhage
--- NOTE | ~2025-07-23 | XR_ITS ---
EXAMINATION: XR chest 1V portable COMPARISON: No comparisons available. HISTORY: infectin FINDINGS: The lungs are clear, no effusion. No pneumothorax. Heart is normal size. Mediastinal and hilar contours are within normal limits. Bony thorax no acute abnormality. Miscellaneous: Left pacemaker Impression: No acute cardiopulmonary abnormality. Reviewed, dictated and finalized at location A. Impression: No acute cardiopulmonary abnormality.
--- NOTE | ~2025-07-23 | XR_ITS ---
EXAMINATION: XR lumbar puncture diagnostic DATE: 07/25/2025 11:31 INDICATION: Altered mental status, confusion, fever and leukocytosis TECHNIQUE: The procedure including the risks and benefits was discussed with the patient. Risks discussed included spinal headache, cerebrospinal fluid leak, bleeding, and infection. The patient understood the risks and agreed to proceed. A timeout was performed to verify the patient's name, date of , and procedure to be performed. The skin overlying the L3-L4 level was prepped and draped in usual sterile fashion. Subcutaneous 1% lidocaine was used for local anesthesia. A 22 gauge spinal needle was advanced under fluoroscopic guidance. The needle was removed and the entry site was cleaned and dressed. There were no immediate complications. A total of 1 fluoroscopic image image and one c rosstable radiograph were obtained. The amount of fluoroscopy time used during this procedure was 0.5 minutes. Total DAP was 11.291 Gycm^2. FINDINGS: Real-time fluoroscopy demonstrates the needle at the L3-L4 level. Opening pressure was 21 cm water. (Normal range is variably defined as 6-20 cm water and up to 25 cm water in obese patients. Pressure >25 cm water is one of the modified Dandy criteria for idiopathic intracranial hypertension). 14 mL of clear, colorless fluid was collected in 4 tubes. IMPRESSION: 1. Successful fluoro-guided lumbar puncture with opening pressure of 21 cm water which remains within normal limits for body habitus. Reviewed, dictated and finalized at location A. IMPRESSION: 1. Successful fluoro-guided lumbar puncture with opening pressure of 21 cm wate r which remains within normal limits for body habitus.
--- NOTE | ~2025-07-23 | CT_ITS ---
EXAMINATION: CT abdomen pelvis wo con DATE: 07/25/2025 22:53 INDICATION: Right lower quadrant abdominal pain. TECHNIQUE: Computed tomography (CT) of the abdomen and pelvis was performed without intravenous contrast. Automated exposure control and iterative reconstruction technique were employed. The dose-length product was 1306.68 mGy-cm. COMPARISON: 05/22/2017 FINDINGS: Mild emphysema. Dependent consolidation, groundglass and linear opacities at the bilateral lower lungs and favor atelectasis over pneumonia. Heart size is normal. Atherosclerotic coronary artery calcification. Dual lead pacemaker with leads extending into the right atrium and right ventricle. No pericardial or pleural effusion. Multiple gallstones in the dependent aspect of the normal gallbladder. Liver, spleen and pancreas are normal. There are small bilateral low-attenuation adrenal nodules consistent with adenomas. Left kidney is normal. Right kidney is not visualized and either developmental or surgically absent. Slitlike inferior vena cava consistent with hypovolemia. Bladder is normal. Bowels including the appendix are normal. The uterus is not identified and has likely been surgically resected. No free intraperitoneal gas or fluid. No pathologically enlarged abdominal or pelvic lymphadenopathy. 9.1 x 6.7 x 1.1 cm chronic likely postoperative seroma along the infraumbilical anterior abdominal wall. Moderate to severe lower lumbar facet osteoarthritis. Otherwise mild scattered degenerative skeletal changes. IMPRESSION: 1. Normal appendix. No acute intra-abdominal/pelvic process. 2. Cholelithiasis. 3. Right kidney either developmentally or surgically absent. Correlate with surgical history. 4. Mild emphysema with dependent predominant opacities at the bilateral lower lung zones and favor atelectasis over pneumonia. Reviewed, dictated and finalized at location A. IMPRESSION: 1. Normal appendix. No acute intra-abdominal/pelvic process. 2. Cholelithiasis. 3. Right kidney either developmentally or surgically absent. Correlate with marilynn gical history. 4. Mild emphysema with dependent predominant opacities at the bilateral lower l janessa zones and favor atelectasis over pneumonia.
--- NOTE | 2025-07-23 23:30 | ECG_ITS ---
Test Date: 2025-07-23 23:41:06 Measurements Intervals [place] Rate: 83 P: 39 NH: 245 QRS: -75 QRSD: 146 T: 31 QT: 406 QTc: 478 Interpretive Statements SINUS RHYTHM WITH FIRST DEGREE AV BLOCK RIGHT BUNDLE BRANCH BLOCK [120+ ms QRS DURATION, UPRIGHT V1, 40+ ms S IN I/aVL/V4/V5/V6] LEFT ANTERIOR FASCICULAR BLOCK [QRS AXIS <= -45, QR IN I, RS IN II] MODERATE VOLTAGE CRITERIA FOR LVH, CONSIDER NORMAL VARIANT [MEETS CRITERIA IN ONE OF: R(aVL), S(V1), R(V5), R(V5/V6)+S(V1)] POSSIBLE ANTEROSEPTAL MYOCARDIAL INFARCTION , OF INDETERMINATE AGE [30 ms Q WAVE IN V1-V4] ABNORMAL ECG No previous ECG available for comparison Electronically Signed On 07-24-2025 09:45:04 CDT by Karel Holman M.D.
[2025-07-23 23:40] VITALS: BP 125/100; PULSE 78; RESP 18; TEMP 36.6; O2SAT 98
[2025-07-24] VITALS (8 sets, daily range): BP systolic 145–180; BP diastolic 70–107; PULSE 71–110; RESP 13–22; TEMP 36.6–38; O2SAT 93–99; BMI 29.0
[2025-07-24 00:09] LABS: Hematocrit 42.4 % (37.0-47.0); Hemoglobin 14.5 g/dL (12.0-15.0); Immature Granulocyte Percent A 0.4 % (0-0.5); Lymphocytes Absolute Auto 2.48 K/mm3 (0.9-3.2); Mean Corpuscular HGB Conc 34.2 g/dl (32-36); Mean Corpuscular Hemoglobin 30.2 pg (26-34); Mean Corpuscular Volume 88.3 fl (80-100); Nucleated Red Blood Cells Absolute Auto 0.000 K/mm3 (0.0-0.012); Nucleated Red Blood Cells Perc 0.0 % (0.0-0.2); Platelet Count Result 262 k/mm3 (150-375); Red Blood Count 4.80 M/mm3 (4.2-5.4); White Blood Count 9.4 K/mm3 (4.5-10.0)
[2025-07-24 00:14] LABS: INR 1.0; Partial Thromboplastin Time 28.6 Seconds (22.3-36.8); Prothrombin Time 13.6 Seconds (11.1-14.7)
[2025-07-24 00:25] LABS: Alanine Aminotransferase 11 U/L (6-35); Albumin Level 4.1 g/dL (3.5-5.1); Alkaline Phosphatase 127 U/L (38-126); Anion Gap 6 mmol/L (4-12); Aspartate Amino Transferase 21 U/L (14-36); Bilirubin,Total 0.7 mg/dL (0.2-1.3); Blood Urea Nitrogen 17 mg/dL (7-17); Calcium 10.0 mg/dL (8.4-10.2); Carbon Dioxide 22 mmol/L (22-30); Chloride 106 mmol/L (98-107); Estimated Glomerular Filt Rate > 60; Glucose 269 mg/dL (65-110); Magnesium 1.9 mg/dL (1.6-2.3); Potassium 3.9 mmol/L (3.4-5.0); Sodium 134 mmol/L (137-145); Total Protein 7.4 g/dL (6.3-8.2)
[2025-07-24 02:18] LABS: Add Urine Microscopic? YES; Appearance Urine Cloudy (Clear); Glucose Urine UA 1+ mg/dL (Negative); Leukocyte Esterase Ur Negative LEU/UL (Negative); Nitrate Urine Negative (Negative); Non Pathogenic Casts 0-2; Specific Grav Ur 1.022 (1.001-1.035)
--- OUTSIDE RECORDS SUMMARY | 2025-07-24 03:31 | XMS_ITS | Patient Health Record ---
Author Organization [facility] As Playdate App Address [address] [place] [address] Care Team Providers Care Client Success Specialist Name Role Phone Emanuel Duarte Unavailable [phone] Allergies Allergen (clinical drug ingredient) Drug/Non Drug Allergy documented on EMR Reaction Allergy Type Onset Date Status Substance with penicillin structure and antibacterial mechanism of action (substance) Penicillins Unknown Drug Allergy 05/31/2021 Active Reason For Referral No Information Medications Medication SIG (Take, Route, Frequency, Duration) Notes Start Date End Date Status Mirtazapine 7.5 MG Tablet 1 tablet at bedtime Orally Once a day; Duration: 30 days 08/10/2024 Active metOLazone 2.5 MG Tablet Oral 12/05/2023 Active Levothyroxine Sodium 25 MCG Tablet Oral 12/05/2023 Active BD KEANU 2ND GEN PEN NEEDLE 32 GAUGE X *Reorder from [employer] for eRx and Interaction Alerts* 12/05/2023 Active Tamsulosin HCl 0.4 MG Capsule Oral 12/05/2023 Active Albuterol Sulfate HFA 108 (90 Base) MCG/ACT Aerosol Solution 1 puff as needed Inhalation every 4 hrs Active Pregabalin 150 MG Capsule Oral 12/05/2023 Active Ergocalciferol 1.25 MG (92725 UT) Capsule Oral 12/05/2023 Active Allopurinol 100 MG Tablet Oral 12/05/2023 Active Lisinopril 10 MG Tablet Oral 12/05/2023 Active DULoxetine HCl 60 MG Capsule Delayed Release Particles 1 capsule Oral Once a day; Duration: 30 days 12/05/2023 Active Breztri Aerosphere 160-9-4.8 MCG/ACT Aerosol 2 puffs Inhalation Twice a day Active OneTouch Verio Strip In Vitro 12/05/2023 Active Furosemide 40 MG Tablet Oral 12/05/2023 Active Rosuvastatin Calcium 40 MG Tablet Oral 12/05/2023 Active QUEtiapine Fumarate 25 MG Tablet 1 tablet at bedtime Orally Once a day; Duration: 30 days 09/14/2024 Active Timolol Maleate 0.5 % Solution Ophthalmic 12/05/2023 Active Immunizations Vaccine Route Administration Date Status Comme nts Influenza virus vaccine, quadrivalent (IIV4), split virus, 0.25 mL dosage Unknown 09/21/2015 Administered Influenza virus vaccine, quadrivalent (IIV4), split virus, 0.25 mL dosage Unknown 09/17/2019 Administered Influenza, unspecified formulation Unknown 10/12/2018 A dministered Novel [id number], preservative free Unknown 09/17/2019 Administered Pfizer Biontech Covid-19 Vac cine 2nd dose Unknown 02/22/2021 Administered Pfizer Biontech Covid-19 Vac cine 2nd dose Unknown 03/15/2021 Administered Pfizer Biontech Covid-19 Vac cine 2nd dose Unknown 10/11/2021 Administered Pneumococcal conjugate PCV 13 Unknown 09/21/2015 Admini stered Pneumococcal polysaccharide PPV23 Unknown 08/10/2011 Ad ministered Social History Sex Assigned At : Social History Observation Description Sex Assigned At Female Social History Additional Details Category Social Info Options Details Migrated Social History Migrated Social History Alcohol Intake: None 09/12/2020,Tobacco Years: Current every day smoker 09/12/2020,Smoking Status: 49 07/28/2023 Problems Problem Type SNOMED Code ICD Code Onset Dates Problem Status W/U Status Risk Notes Problem Mild recurrent major depression (25694776) Major depressive disorder, recurrent, mild (F33.0) 4 Active confirmed Problem Generalized anxiety disorder (50931369) Generalized anxiety disorder (F41.1) 4 Active confirmed Problem Primary insomnia (9868477) Primary insomnia (F51.01) 4 Active confirmed Problem Obstructive sleep apnea syndrome (disorder) (48332041) Obstructive sleep apnea (adult) (pediatric) (G47.33) 4 Active confirmed Problem Vascular dementia without behavioral disturbance (70608606973381 109) Vascular dementia without behavioral disturbance (F01.50) Active confirmed Problem Tobacco user (526752106) Cigarette nicotine dependence without complication (F17.210) Active confirmed Vital Signs Heart Rate 76 /min 09/14/2024 Height-cm 170.18 cm 09/14/2024 Blood pressure diastolic 80 mm Hg 09/14/2024 Weight-kg 87.09 kg 09/14/2024 Height 67.00 in 09/14/2024 Blood pressure systolic 124 mm Hg 09/14/2024 Weight 192.0 lbs 09/14/2024 BMI 30.07 kg/m2 09/14/2024 Encounters Encounter Location Date Provider Diagnosis [facility] [address] [address] 08/10/2024 Emanuel Duarte Vascular dementia without behavioral disturbance F01.50 ; Major depressive disorder, recurrent, mild F33.0 ; Primary insomnia F51.01 ; Obstructive sleep apnea (adult) (pediatric) G47.33 ; Generalized anxiety disorder F41.1 ; Cigarette nicotine dependence without complication F17.210 and Risk for falls Z91.81 [facility] [address] [address] 09/14/2024 Emanuel Duarte Vascular dementia without behavioral disturbance F01.50 ; Major depressive disorder, recurrent, mild F33.0 ; Primary insomnia F51.01 ; Obstructive sleep apnea (adult) (pediatric) G47.33 ; Generalized anxiety disorder F41.1 ; Cigarette nicotine dependence without complication F17.210 and Risk for falls Z91.81 [facility] [address] [address] 12/28/2024 Emanuel Duarte Assessments Encounter Date Diagnosis (ICD Code) Assessment Notes Treatment Notes Treatment Clinical Notes Section Notes 08/10/2024 Vascular dementia without behavioral disturbance (ICD-10 - F01.50) monitor 1. History of falls and recent injuries - Concussion - Left shoulder fracture - Broken rib - Fractured tailbone Patient has a history of falls, with recent injuries including a concussion, left shoulder fracture, broken rib, and fractured tailbone. The patient has been falling more frequently in the past month. Plan: - Encourage the patient to use assistive devices and home modifications to prevent falls (e.g., grab bars, non-slip mats, adequate lighting) - Recommend physical therapy for balance and strength training - Monitor and reassess fall risk regularly 2. Insomnia - The patient reports difficulty sleeping at night, with a history of using Dayvigo and Quetiapine, which were discontinued due to increased fall risk. The patient has been taking half a Xanax from a friend for the past 2-3 months. Plan: - Prescribe mirtazapine 7.5 mg at bedtime for sleep - Educate the patient on sleep hygiene, including avoiding naps during the day and limiting screen time at night - Advise the patient to discontinue Xanax use due to increased fall risk and potential for dependence - Monitor and reassess sleep quality and medication effectiveness 3. Early-stage dementia (suspected) - The patient was told she was in the early stages of dementia during her hospital stay. Plan: - Continue monitoring cognitive function during follow-up visits - Encourage the patient to engage in cognitive activities and social interactions to maintain cognitive health - Reassess dementia status as needed 4. Tobacco use - The patient reports smoking less than a pack of cigarettes per day. Plan: - Provide smoking cessation counseling and resources - Encourage the patient to set a quit date and develop a quit plan - Monitor and reassess smoking status during follow-up visits 09/14/2024 Vascular dementia without behavioral disturbance (ICD-10 - F01.50) monitor 1. Insomnia: - Patient reports mirtazapine is not effective for sleep. - Patient has a history of using quetiapine, which was effective for sleep but led to falls. - Patient has tried multiple medications for sleep, including Ambien, trazodone, Belsomra, Lunesta, ramelteon, and Dayvigo. Plan: - Discontinue mirtazapine. - Restart quetiapine at 25 mg at bedtime, monitor for side effects and effectiveness. - Reevaluate sleep quality and side effects at the next visit. 2. Chest and back pain: - Patient reports severe chest and back pain, especially when coughing or sneezing. - Patient has a history of pneumonia and recent falls resulting in broken ribs and tailbone. - Pain blocks provided by the pain doctor were initially effective but became less so over time. Plan: - Refer the patient to a heel painter for further evaluation and management of chest and back pain. - Encourage the patient to follow up with their primary care provider for further evaluation of the chest and back pain. 3. Anxiety and benzodiazepine use: - Patient inquires about the use of Xanax for anxiety. - Patient has a history of using Xanax and Ativan, but discontinued due to concurrent use of oxycodone. Plan: - Discuss the risks and benefits of benzodiazepine use with the patient. - Consider alternative non-benzodiazepin e medications for anxiety management if needed. 08/10/2024 Major depressive disorder, recurrent, mild (ICD-10 - F33.0) cont Duloxetine 60mg daily 1. History of falls and recent injuries - Concussion - Left shoulder fracture - Broken rib - Fractured tailbone Patient has a history of falls, with recent injuries including a concussion, left shoulder fracture, broken rib, and fractured tailbone. The patient has been falling more frequently in the past month. Plan: - Encourage the patient to use assistive devices and home modifications to prevent falls (e.g., grab bars, non-slip mats, adequate lighting) - Recommend physical therapy for balance and strength training - Monitor and reassess fall risk regularly 2. Insomnia - The patient reports difficulty sleeping at night, with a history of using Dayvigo and Quetiapine, which were discontinued due to increased fall risk. The patient has been taking half a Xanax from a friend for the past 2-3 months. Plan: - Prescribe mirtazapine 7.5 mg at bedtime for sleep - Educate the patient on sleep hygiene, including avoiding naps during the day and limiting screen time at night - Advise the patient to discontinue Xanax use due to increased fall risk and potential for dependence - Monitor and reassess sleep quality and medication effectiveness 3. Early-stage dementia (suspected) - The patient was told she was in the early stages of dementia during her hospital stay. Plan: - Continue monitoring cognitive function during follow-up visits - Encourage the patient to engage in cognitive activities and social interactions to maintain cognitive health - Reassess dementia status as needed 4. Tobacco use - The patient reports smoking less than a pack of cigarettes per day. Plan: - Provide smoking cessation counseling and resources - Encourage the patient to set a quit date and develop a quit plan - Monitor and reassess smoking status during follow-up visits 09/14/2024 Major depressive disorder, recurrent, mild (ICD-10 - F33.0) cont Duloxetine 60mg daily 1. Insomnia: - Patient reports mirtazapine is not effective for sleep. - Patient has a history of using quetiapine, which was effective for sleep but led to falls. - Patient has tried multiple medications for sleep, including Ambien, trazodone, Belsomra, Lunesta, ramelteon, and Dayvigo. Plan: - Discontinue mirtazapine. - Restart quetiapine at 25 mg at bedtime, monitor for side effects and effectiveness. - Reevaluate sleep quality and side effects at the next visit. 2. Chest and back pain: - Patient reports severe chest and back pain, especially when coughing or sneezing. - Patient has a history of pneumonia and recent falls resulting in broken ribs and tailbone. - Pain blocks provided by the pain doctor were initially effective but became less so over time. Plan: - Refer the patient to a heel painter for further evaluation and management of chest and back pain. - Encourage the patient to follow up with their primary care provider for further evaluation of the chest and back pain. 3. Anxiety and benzodiazepine use: - Patient inquires about the use of Xanax for anxiety. - Patient has a history of using Xanax and Ativan, but discontinued due to concurrent use of oxycodone. Plan: - Discuss the risks and benefits of benzodiazepine use with the patient. - Consider alternative non-benzodiazepin e medications for anxiety management if needed. 09/14/2024 Primary insomnia (ICD-10 - F51.01) 1. Insomnia: - Patient reports mirtazapine is not effective for sleep. - Patient has a history of using quetiapine, which was effective for sleep but led to falls. - Patient has tried multiple medications for sleep, including Ambien, trazodone, Belsomra, Lunesta, ramelteon, and Dayvigo. Plan: - Discontinue mirtazapine. - Restart quetiapine at 25 mg at bedtime, monitor for side effects and effectiveness. - Reevaluate sleep quality and side effects at the next visit. 2. Chest and back pain: - Patient reports severe chest and back pain, especially when coughing or sneezing. - Patient has a history of pneumonia and recent falls resulting in broken ribs and tailbone. - Pain blocks provided by the pain doctor were initially effective but became less so over time. Plan: - Refer the patient to a heel painter for further evaluation and management of chest and back pain. - Encourage the patient to follow up with their primary care provider for further evaluation of the chest and back pain. 3. Anxiety and benzodiazepine use: - Patient inquires about the use of Xanax for anxiety. - Patient has a history of using Xanax and Ativan, but discontinued due to concurrent use of oxycodone. Plan: - Discuss the risks and benefits of benzodiazepine use with the patient. - Consider alternative non-benzodiazepin e medications for anxiety management if needed. 08/10/2024 Primary insomnia (ICD-10 - F51.01) mirtazapine 7.5mg at bedtime 1. History of falls and recent injuries - Concussion - Left shoulder fracture - Broken rib - Fractured tailbone Patient has a history of falls, with recent injuries including a concussion, left shoulder fracture, broken rib, and fractured tailbone. The patient has been falling more frequently in the past month. Plan: - Encourage the patient to use assistive devices and home modifications to prevent falls (e.g., grab bars, non-slip mats, adequate lighting) - Recommend physical therapy for balance and strength training - Monitor and reassess fall risk regularly 2. Insomnia - The patient reports difficulty sleeping at night, with a history of using Dayvigo and Quetiapine, which were discontinued due to increased fall risk. The patient has been taking half a Xanax from a friend for the past 2-3 months. Plan: - Prescribe mirtazapine 7.5 mg at bedtime for sleep - Educate the patient on sleep hygiene, including avoiding naps during the day and limiting screen time at night - Advise the patient to discontinue Xanax use due to increased fall risk and potential for dependence - Monitor and reassess sleep quality and medication effectiveness 3. Early-stage dementia (suspected) - The patient was told she was in the early stages of dementia during her hospital stay. Plan: - Continue monitoring cognitive function during follow-up visits - Encourage the patient to engage in cognitive activities and social interactions to maintain cognitive health - Reassess dementia status as needed 4. Tobacco use - The patient reports smoking less than a pack of cigarettes per day. Plan: - Provide smoking cessation counseling and resources - Encourage the patient to set a quit date and develop a quit plan - Monitor and reassess smoking status during follow-up visits 08/10/2024 Obstructive sleep apnea (adult) (pediatric) (ICD-10 - G47.33) 1. History of falls and recent injuries - Concussion - Left shoulder fracture - Broken rib - Fractured tailbone Patient has a history of falls, with recent injuries including a concussion, left shoulder fracture, broken rib, and fractured tailbone. The patient has been falling more frequently in the past month. Plan: - Encourage the patient to use assistive devices and home modifications to prevent falls (e.g., grab bars, non-slip mats, adequate lighting) - Recommend physical therapy for balance and strength training - Monitor and reassess fall risk regularly 2. Insomnia - The patient reports difficulty sleeping at night, with a history of using Dayvigo and Quetiapine, which were discontinued due to increased fall risk. The patient has been taking half a Xanax from a friend for the past 2-3 months. Plan: - Prescribe mirtazapine 7.5 mg at bedtime for sleep - Educate the patient on sleep hygiene, including avoiding naps during the day and limiting screen time at night - Advise the patient to discontinue Xanax use due to increased fall risk and potential for dependence - Monitor and reassess sleep quality and medication effectiveness 3. Early-stage dementia (suspected) - The patient was told she was in the early stages of dementia during her hospital stay. Plan: - Continue monitoring cognitive function during follow-up visits - Encourage the patient to engage in cognitive activities and social interactions to maintain cognitive health - Reassess dementia status as needed 4. Tobacco use - The patient reports smoking less than a pack of cigarettes per day. Plan: - Provide smoking cessation counseling and resources - Encourage the patient to set a quit date and develop a quit plan - Monitor and reassess smoking status during follow-up visits 09/14/2024 Obstructive sleep apnea (adult) (pediatric) (ICD-10 - G47.33) 1. Insomnia: - Patient reports mirtazapine is not effective for sleep. - Patient has a history of using quetiapine, which was effective for sleep but led to falls. - Patient has tried multiple medications for sleep, including Ambien, trazodone, Belsomra, Lunesta, ramelteon, and Dayvigo. Plan: - Discontinue mirtazapine. - Restart quetiapine at 25 mg at bedtime, monitor for side effects and effectiveness. - Reevaluate sleep quality and side effects at the next visit. 2. Chest and back pain: - Patient reports severe chest and back pain, especially when coughing or sneezing. - Patient has a history of pneumonia and recent falls resulting in broken ribs and tailbone. - Pain blocks provided by the pain doctor were initially effective but became less so over time. Plan: - Refer the patient to a heel painter for further evaluation and management of chest and back pain. - Encourage the patient to follow up with their primary care provider for further evaluation of the chest and back pain. 3. Anxiety and benzodiazepine use: - Patient inquires about the use of Xanax for anxiety. - Patient has a history of using Xanax and Ativan, but discontinued due to concurrent use of oxycodone. Plan: - Discuss the risks and benefits of benzodiazepine use with the patient. - Consider alternative non-benzodiazepin e medications for anxiety management if needed. 08/10/2024 Generalized anxiety disorder (ICD-10 - F41.1) cont Duloxetine 1. History of falls and recent injuries - Concussion - Left shoulder fracture - Broken rib - Fractured tailbone Patient has a history of falls, with recent injuries including a concussion, left shoulder fracture, broken rib, and fractured tailbone. The patient has been falling more frequently in the past month. Plan: - Encourage the patient to use assistive devices and home modifications to prevent falls (e.g., grab bars, non-slip mats, adequate lighting) - Recommend physical therapy for balance and strength training - Monitor and reassess fall risk regularly 2. Insomnia - The patient reports difficulty sleeping at night, with a history of using Dayvigo and Quetiapine, which were discontinued due to increased fall risk. The patient has been taking half a Xanax from a friend for the past 2-3 months. Plan: - Prescribe mirtazapine 7.5 mg at bedtime for sleep - Educate the patient on sleep hygiene, including avoiding naps during the day and limiting screen time at night - Advise the patient to discontinue Xanax use due to increased fall risk and potential for dependence - Monitor and reassess sleep quality and medication effectiveness 3. Early-stage dementia (suspected) - The patient was told she was in the early stages of dementia during her hospital stay. Plan: - Continue monitoring cognitive function during follow-up visits - Encourage the patient to engage in cognitive activities and social interactions to maintain cognitive health - Reassess dementia status as needed 4. Tobacco use - The patient reports smoking less than a pack of cigarettes per day. Plan: - Provide smoking cessation counseling and resources - Encourage the patient to set a quit date and develop a quit plan - Monitor and reassess smoking status during follow-up visits 09/14/2024 Generalized anxiety disorder (ICD-10 - F41.1) cont Duloxetine 1. Insomnia: - Patient reports mirtazapine is not effective for sleep. - Patient has a history of using quetiapine, which was effective for sleep but led to falls. - Patient has tried multiple medications for sleep, including Ambien, trazodone, Belsomra, Lunesta, ramelteon, and Dayvigo. Plan: - Discontinue mirtazapine. - Restart quetiapine at 25 mg at bedtime, monitor for side effects and effectiveness. - Reevaluate sleep quality and side effects at the next visit. 2. Chest and back pain: - Patient reports severe chest and back pain, especially when coughing or sneezing. - Patient has a history of pneumonia and recent falls resulting in broken ribs and tailbone. - Pain blocks provided by the pain doctor were initially effective but became less so over time. Plan: - Refer the patient to a heel painter for further evaluation and management of chest and back pain. - Encourage the patient to follow up with their primary care provider for further evaluation of the chest and back pain. 3. Anxiety and benzodiazepine use: - Patient inquires about the use of Xanax for anxiety. - Patient has a history of using Xanax and Ativan, but discontinued due to concurrent use of oxycodone. Plan: - Discuss the risks and benefits of benzodiazepine use with the patient. - Consider alternative non-benzodiazepin e medications for anxiety management if needed. 09/14/2024 Cigarette nicotine dependence without complication (ICD-10 - F17.210) smokes not even a pack a day 1. Insomnia: - Patient reports mirtazapine is not effective for sleep. - Patient has a history of using quetiapine, which was effective for sleep but led to falls. - Patient has tried multiple medications for sleep, including Ambien, trazodone, Belsomra, Lunesta, ramelteon, and Dayvigo. Plan: - Discontinue mirtazapine. - Restart quetiapine at 25 mg at bedtime, monitor for side effects and effectiveness. - Reevaluate sleep quality and side effects at the next visit. 2. Chest and back pain: - Patient reports severe chest and back pain, especially when coughing or sneezing. - Patient has a history of pneumonia and recent falls resulting in broken ribs and tailbone. - Pain blocks provided by the pain doctor were initially effective but became less so over time. Plan: - Refer the patient to a heel painter for further evaluation and management of chest and back pain. - Encourage the patient to follow up with their primary care provider for further evaluation of the chest and back pain. 3. Anxiety and benzodiazepine use: - Patient inquires about the use of Xanax for anxiety. - Patient has a history of using Xanax and Ativan, but discontinued due to concurrent use of oxycodone. Plan: - Discuss the risks and benefits of benzodiazepine use with the patient. - Consider alternative non-benzodiazepin e medications for anxiety management if needed. 08/10/2024 Cigarette nicotine dependence without complication (ICD-10 - F17.210) smokes not even a pack a day 1. History of falls and recent injuries - Concussion - Left shoulder fracture - Broken rib - Fractured tailbone Patient has a history of falls, with recent injuries including a concussion, left shoulder fracture, broken rib, and fractured tailbone. The patient has been falling more frequently in the past month. Plan: - Encourage the patient to use assistive devices and home modifications to prevent falls (e.g., grab bars, non-slip mats, adequate lighting) - Recommend physical therapy for balance and strength training - Monitor and reassess fall risk regularly 2. Insomnia - The patient reports difficulty sleeping at night, with a history of using Dayvigo and Quetiapine, which were discontinued due to increased fall risk. The patient has been taking half a Xanax from a friend for the past 2-3 months. Plan: - Prescribe mirtazapine 7.5 mg at bedtime for sleep - Educate the patient on sleep hygiene, including avoiding naps during the day and limiting screen time at night - Advise the patient to discontinue Xanax use due to increased fall risk and potential for dependence - Monitor and reassess sleep quality and medication effectiveness 3. Early-stage dementia (suspected) - The patient was told she was in the early stages of dementia during her hospital stay. Plan: - Continue monitoring cognitive function during follow-up visits - Encourage the patient to engage in cognitive activities and social interactions to maintain cognitive health - Reassess dementia status as needed 4. Tobacco use - The patient reports smoking less than a pack of cigarettes per day. Plan: - Provide smoking cessation counseling and resources - Encourage the patient to set a quit date and develop a quit plan - Monitor and reassess smoking status during follow-up visits 08/10/2024 Risk for falls (ICD-10 - Z91.81) hx falls, unsteady gait, uses walker, insomnia, she states she is taking half a xanax she was getting from a friend. 1. History of falls and recent injuries - Concussion - Left shoulder fracture - Broken rib - Fractured tailbone Patient has a history of falls, with recent injuries including a concussion, left shoulder fracture, broken rib, and fractured tailbone. The patient has been falling more frequently in the past month. Plan: - Encourage the patient to use assistive devices and home modifications to prevent falls (e.g., grab bars, non-slip mats, adequate lighting) - Recommend physical therapy for balance and strength training - Monitor and reassess fall risk regularly 2. Insomnia - The patient reports difficulty sleeping at night, with a history of using Dayvigo and Quetiapine, which were discontinued due to increased fall risk. The patient has been taking half a Xanax from a friend for the past 2-3 months. Plan: - Prescribe mirtazapine 7.5 mg at bedtime for sleep - Educate the patient on sleep hygiene, including avoiding naps during the day and limiting screen time at night - Advise the patient to discontinue Xanax use due to increased fall risk and potential for dependence - Monitor and reassess sleep quality and medication effectiveness 3. Early-stage dementia (suspected) - The patient was told she was in the early stages of dementia during her hospital stay. Plan: - Continue monitoring cognitive function during follow-up visits - Encourage the patient to engage in cognitive activities and social interactions to maintain cognitive health - Reassess dementia status as needed 4. Tobacco use - The patient reports smoking less than a pack of cigarettes per day. Plan: - Provide smoking cessation counseling and resources - Encourage the patient to set a quit date and develop a quit plan - Monitor and reassess smoking status during follow-up visits 09/14/2024 Risk for falls (ICD-10 - Z91.81) hx falls, unsteady gait, uses walker, insomnia, she states she is taking half a xanax she was getting from a friend. 1. Insomnia: - Patient reports mirtazapine is not effective for sleep. - Patient has a history of using quetiapine, which was effective for sleep but led to falls. - Patient has tried multiple medications for sleep, including Ambien, trazodone, Belsomra, Lunesta, ramelteon, and Dayvigo. Plan: - Discontinue mirtazapine. - Restart quetiapine at 25 mg at bedtime, monitor for side effects and effectiveness. - Reevaluate sleep quality and side effects at the next visit. 2. Chest and back pain: - Patient reports severe chest and back pain, especially when coughing or sneezing. - Patient has a history of pneumonia and recent falls resulting in broken ribs and tailbone. - Pain blocks provided by the pain doctor were initially effective but became less so over time. Plan: - Refer the patient to a heel painter for further evaluation and management of chest and back pain. - Encourage the patient to follow up with their primary care provider for further evaluation of the chest and back pain. 3. Anxiety and benzodiazepine use: - Patient inquires about the use of Xanax for anxiety. - Patient has a history of using Xanax and Ativan, but discontinued due to concurrent use of oxycodone. Plan: - Discuss the risks and benefits of benzodiazepine use with the patient. - Consider alternative non-benzodiazepin e medications for anxiety management if needed. Plan Of Treatment No Information Insurance Providers Payer Name Payer Address Payer Phone Subscriber Number Group Number Insured Name Patient Relationship to Insured Coverage Start Date Coverage End Date Medicare-I l Medicare [address] [place] [phone] [id number] BHARATHI SHAFFER Self - patient is the insured Bcbs-ID do not use [address] [place] [address] [id number] BHARATHI SHAFFER Self - patient is the insured Medical (General) History Medical History History ICD Code Problems: Generalized anxiety disorder Mild recurrent major depression Mixed dementia Non-24 hour sleep-wake cycle Obstructive sleep apnea syndrome Primary insomnia , Surgical History Surgery Date(Month/Year) Hysterectomy (65580) 11/10/1994 Cataract surgery (81109) 08/27/2013
--- OUTSIDE RECORDS SUMMARY | 2025-07-24 03:31 | XMS_ITS ---
Author Organization [facility] Care Team Providers Care Land Clearer Name Role Phone Suzie Luis F Unavailable Unavailable Elliott Shaffer Unavailable Unavailable Allergies and adverse reactions Code CodeSystem Substance Reaction Severity StartDate Concern Status 596 RXNORM Xanax Severe 01/14/2024 active Care Team Name Role Address Phone Organization Dates Elliott Shaffer [facility] [address] [place], [address], [place] (Office): : [facility] 01/05/2024 - 02/26/2024 Luis F Larsen [address] [place], [address], [place] (Office): [facility] 01/05/2024 - 02/26/2024 Immunizations Immunization Status Vaccine Details Vaccine Code CodeSystem Date Notes Prevnar 23 normal pneumococcal polysaccharide vaccine, 23 valent 33 CVX created date: 01/06/2024 consent date: 01/06/2024 Influenza (Flu) normal Influenza, high-dose, split virus, trivalent, injectable, preservative free 135 CVX created date: 01/06/2024 consent date: 01/06/2024 Measles/Mumps/R ubella (MMR) normal measles, mumps and rubella virus vaccine 03 CVX created date: 02/24/2024 consent date: 02/24/2024 before 1957 COVID-19, mRNA, LNP-S, PF, 30 mcg/0.3 mL dose completed SARS-COV-2 (COVID-19) vaccine, mRNA, spike protein, LNP, preservative free, 30 mcg/0.3mL dose 208 CVX created date: 03/18/2024 administer ed date: 10/08/2023 COVID-19, mRNA, LNP-S, PF, 30 mcg/0.3 mL dose completed SARS-COV-2 (COVID-19) vaccine, mRNA, spike protein, LNP, preservative free, 30 mcg/0.3mL dose 208 CVX created date: 03/18/2024 administer ed date: 10/11/2021 COVID-19, mRNA, LNP-S, PF, 30 mcg/0.3 mL dose completed SARS-COV-2 (COVID-19) vaccine, mRNA, spike protein, LNP, preservative free, 30 mcg/0.3mL dose Given intramuscularly 208 CVX created date: 03/18/2024 administer ed date: 03/15/2021 COVID-19, mRNA, LNP-S, PF, 30 mcg/0.3 mL dose completed SARS-COV-2 (COVID-19) vaccine, mRNA, spike protein, LNP, preservative free, 30 mcg/0.3mL dose Given intramuscularly 208 CVX created date: 03/18/2024 administer ed date: 02/22/2021 COVID-19, mRNA, LNP-S, bivalent, PF, 30 mcg/0.3 mL dose completed SARS-COV-2 (COVID-19) vaccine, mRNA, spike protein, LNP, preservative free, gretchen-sucrose, 10 mcg/0.3 mL dose 310 CVX created date: 03/18/2024 administer ed date: 02/19/2023 Bivalent Mental Status Section Date Assessment Total Score Description 02/26/2024 BIMS 14 cognitively int act CAM 0 No delirium ind icated PHQ-9 18 moderately mariusz re depression 01/12/2024 BIMS 08 moderate cognit ti impairment CAM 2 Delirium indica arnaldo PHQ-9 14 moderate depres john Problems Problem # Description Date of onset Resolved Date Code CodeSystem Concern Status 1 ATHEROSCLEROTIC HEART DISEASE OF [place] CORONARY ARTERY WITHOUT ANGINA PECTORIS 01/05/[address] active 2 BLINDNESS LEFT EYE CATEGORY 3, NORMAL VISION RIGHT EYE 01/05/[address] active 3 CHRONIC KIDNEY DISEASE, UNSPECIFIED 01/05/[address] active 4 DEPRESSION, UNSPECIFIED 01/05/[address] active 5 DYSPHAGIA FOLLOWING UNSPECIFIED CEREBROVASCULAR DISEASE 01/05/[address] active 6 ENCEPHALOPATHY, UNSPECIFIED 01/05/[address] active 7 ESSENTIAL (PRIMARY) HYPERTENSION 01/05/[address] active 8 GASTRO-ESOPHAGEAL REFLUX DISEASE WITHOUT ESOPHAGITIS 01/05/[address] active 9 HYPERLIPIDEMIA, UNSPECIFIED 01/05/[address] active 10 HYPOKALEMIA 01/05/[address] active 11 INSOMNIA, UNSPECIFIED 01/05/[address] active 12 IRON DEFICIENCY ANEMIA, UNSPECIFIED 01/05/[address] active 13 OBSTRUCTIVE SLEEP APNEA (ADULT) (PEDIATRIC) 01/05/[address] active 14 OTHER NONDISPLACED FRACTURE OF UPPER END OF LEFT HUMERUS, SUBSEQUENT ENCOUNTER FOR FRACTURE WITH ROUTINE HEALING 01/05/[address] active 15 OTHER SPECIFIED DISORDERS OF BONE DENSITY AND STRUCTURE, UNSPECIFIED SITE 01/05/[address] active 16 TYPE 2 DIABETES MELLITUS WITH DIABETIC NEUROPATHY, UNSPECIFIED 01/05/[address] active 17 TYPE 2 DIABETES MELLITUS WITH STABLE PROLIFERATIVE DIABETIC RETINOPATHY, UNSPECIFIED EYE 01/05/[address] active 18 UNSPECIFIED DEMENTIA, UNSPECIFIED SEVERITY, WITH OTHER BEHAVIORAL DISTURBANCE 01/05/[address] active 19 UNSPECIFIED GLAUCOMA 01/05/[address] active 20 UNSPECIFIED MACULAR DEGENERATION 01/05/[address] active 21 UNSPECIFIED PROTEIN-CALORIE MALNUTRITION 01/05/[address] active 22 VENOUS INSUFFICIENCY (CHRONIC) (PERIPHERAL) 01/05/[address] active 23 VITAMIN B12 DEFICIENCY ANEMIA, UNSPECIFIED 01/05/[address] active 24 WEDGE COMPRESSION FRACTURE OF T7-T8 VERTEBRA, SUBSEQUENT ENCOUNTER FOR FRACTURE WITH ROUTINE HEALING 01/05/[address] active Reason for Referral No Reasons for Referral Entered Social History Social History Observation Description Start Date End Date Code Code System Current Smoking Status Tobacco smoking consumption unknown 267117839 SNOMED CT Sex Assigned At Female 1950 42117-2 [facility] Gender Identity Sexual Orientation Vital Signs Code Code System Vitals Name Values and Units Timing Information 9279-1 [facility] Respiratory Rate Value=18.0 Units=/m in 02/26/2024 8310-5 [facility] Body Temperature Value=98.0 Units= F 02/26/2024 8867-4 [facility] Heart rate Value=74.0 Units=/min 10166-4 [facility] O2 % BldC Oximetry Value=97.0 Units= % 02/26/2024 2339-0 [facility] Blood Sugar Ozofo=231.0 Units=mg/dL 02/26/2024 8462-4 [facility] Blood Pressure-Diastolic Value=70 Un its=mmHg 02/26/2024 8480-6 [facility] Blood Pressure-Systolic Vkbge=043 Un its=mmHg 02/26/2024 85148-0 [facility] Pain Level Value=0.0 02/23/2024 05061-4 [facility] Weight Jluyt=730.0 Units=Lbs 07/2024 8302-2 [facility] Height Value=63.0 Units=Inches 01/06/2024
--- OUTSIDE RECORDS SUMMARY | 2025-07-24 03:31 | XMS_ITS | Patient Health Record ---
Author Organization [facility] Office Address [address] [place] [address] Support Name Relationship Address Phone BHARATHI SHAFFER Guarantor Unknown Reason For Referral No Information Medications Medication SIG (Take, Route, Fr equency, Duration) Notes Start Date End Date Status metOLazone 2.5 MG TAKE 1 TABLET BY [facility] TH EVERY DAY; Duration: 90 Active Lasix 40 MG 1 tablet Orally Once a day; Duration: 90 days 08/16/2022 Active Social History Sex Assigned At : Social History Observation Description Sex Assigned At Female Problems Problem Type SNOMED Code ICD Code Onset Dates Problem Status W/U Status Risk Notes Problem Hyperglycemia due to type 2 diabetes mellitus (931014290831613) Type 2 diabetes mellitus with hyperglycemia (E11.65) Active confirmed Problem Secondary hyperparathyroidism (42676217) Secondary hyperparathyroid ism, not elsewhere classified (E21.1) Active confirmed Problem Hyperkalemia (33244776) Hyperkalemia (E87.5) Active confirmed Problem Essential hypertension (31035165) Essential (primary) hypertension (I10) Active confirmed Problem Renal osteodystrophy (27920900) Renal osteodystrophy (N25.0) Active confirmed Problem Renal agenesis and dysgenesis (832853411) Renal agenesis, 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
--- OUTSIDE RECORDS SUMMARY | 2025-07-24 03:31 | XMS_ITS | Encounter Summary ---
Author Organization [facility] Healthcare Address [address] [place] [address] Care Team Providers Care Geomorphologist Name Role Phone Garfield Whiteside JUAREZ Unavailable [phone] Jeff Ca MD Unavailable [phone] Jazlyn Reddy Primary Care Provider + Reason for Visit * Reason Onset Date Comments Additional Services Or Orders 07/19/2025 Encounter Details Date Type Department Care Team (Late st Contact Info) Description 07/19/2025 Telephone [facility] Medical Group Family Medicine [address] [address] Jazlyn Reddy PA [address] [address] Additional Services Or Orders Social History Tobacco Use Types Packs/Day Years Used Date Smoking Tobacco: Every Day Cigarettes 1 53 Comments:Smoking about 1/2 p pd currently; quit for 8 months cold turkey in the past; at highest, 2ppd, started at age 18 [facility] Utilities Answer Date Recorded In the past 12 months has [employer], gas, oil, or water company threatened to shut off services in your home? No 04/28/2025 Social Connection and Isolation Panel Answer Date Recorded In a typical week, how many times do you talk on the phone with family, friends, or neighbors? More than three times a week 04/28/2025 How often do you get togethe r with friends or relatives? More than three times a week 04/28/2025 How often do you attend chur ch or bahai services? Never 04/28/2025 Do you belong to any clubs o r organizations such as mormonism groups, unions, fraternal or athletic groups, or school groups? No 04/28/2025 How often do you attend meet ings of the clubs or organizations you belong to? Never 04/28/2025 Are you , , di vorced, , never , or living with a partner? 04/28/2025 AUDIT-C Answer Date Recorded Q1: How often do you have a drink containing alcohol? Never 06/06/2025 Q2: How many drinks containi ng alcohol do you have on a typical day when you are drinking? Patient does not drink Q3: How often do you have si x or more drinks on one occasion? Never 06/06/2025 Overall Financial Resource Strain (CARDIA) Answe r Date Recorded How hard is it for you to pa y for the very basics like food, housing, medical care, and heating? Not very hard 04/28/2025 PHQ-2 Answer Date Recorded PHQ-2 Total Score (If total score is 3 or more points, staff should administer the PHQ-9) 0 07/05/2025 Hunger Vital Sign Answer Date Recorded Within the past 12 months, y ou worried that your food would run out before you got the money to buy more. Never true 04/28/20 25 Within the past 12 months, t he food you bought just didn't last and you didn't have money to get more. Never true 04/28/2025 PRAPARE - Transportation Answer Date Re corded In the past 12 months, has l ack of transportation kept you from medical appointments or from getting medications? No 04/10 In the past 12 months, has l ack of transportation kept you from meetings, work, or from getting things needed for daily living? No 04/28/2025 Housing Stability Vital Sign Answer Jaden e Recorded In the last 12 months, was t here a time when you were not able to pay the mortgage or rent on time? No 10/24/2023 In the last 12 months, how many places have you lived? 1 10/24/2023 In the last 12 months, was t here a time when you did not have a steady place to sleep or slept in a group home (including now)? No 10/24/2023 PHQ-9 Answer Date Recorded PHQ-9 Total Score 18 05/25/2024 Housing Stability Vital Sign Answer Jaden e Recorded In the last 12 months, was t here a time when you were not able to pay the mortgage or rent on time? No 04/28/2025 In the past 12 months, how m any times have you moved where you were living? 0 04/28/2025 At any time in the past 12 m [facility], were you homeless or living in a group home (including now)? No 04/28/2025 Personal Safety Answer Date Recorded Have you ever been in or are you currently in a harmful physical or emotional relationship or is someone making you feel afraid or unsafe? Denies 09/16/2024 Comments No Sex and Gender Information Value Date Recorded Sex Assigned at Not on file Legal Sex Female 2:26 AM BLISTER RUST ERADICATOR Gender Identity Not on file Sexual Orientation Not on file Occupation Industry Job Start Date Job End Date Retired Not on file Not on file Not on file documented as of this encounter Miscellaneous Notes * Telephone Encounter - Nova Aguilar - 07/19/2025 3:04 PM CDT Pt scheduled for 08.17.[address] Juárez. * Telephone Encounter - Gio Pearl LPN - 07/19/2025 2:25 PM CDT Please schedule pt, thank you * Telephone Encounter - Jazlyn Reddy PA - 07/19/2025 12:13 PM CDT Spoke to Dr. Juárez - recommend appt * Telephone Encounter - Gio Pearl LPN - 07/19/2025 11:13 AM CDT Pt was seen recently regarding the falls. Please advise regarding the decreased appetite and distended abdomen. * Telephone Encounter - Garfield Whiteside LCSW - 07/19/2025 8:51 AM CDT Garry. I am AMAYA Abraham/JACINTO. Following outreach, patient's chore-worker, Velma, states patient has significant decrease in food intake from loss of appetite. She also has distended stomach. I confirmed she is not drinking meal replacement for nutritional/protein needs. Persistent back and shoulder pain from recent fall/injury, was indicated, as well. Please assess/advise. Kindest regards, Garfield Whiteside LCSW [facility] Medical Group Accountable Care Organization [phone] [email or web address] documented in this encounter Plan of Treatment Not on file documented as of this encounter Goals Goal Patient Goal Type Associated Problems Recent Progress Patient-Stated? Author AMAYA CASEY Goal - Patient can identify and utilize needed community resources ACO Care Management On track( 025 11:35 AM CDT) No Garfield Whiteside LCSW Note: Problem: Need for Community Resources Interventions: - Provide patient/family with a list of appropriate resources for their specific need. - Help to coordinate resources. - Follow up to ensure patient/family has connected with the appropriate resources / personnel. documented as of this encounter Visit Diagnoses Not on filedocumented in this encounter Care Teams Geomorphologist Relationship Specialty Start Date End Date Jazlyn Reddy PA [address] [place] [address] PCP - General Family Medicine 05/20/25 Garfield Whiteside LCSW [address] [place] [address] [address] [place] [address] Under Sheriff 04/08/25 [place] [address] [address] [place] [address] Consulting Physician Endocrinology Diabetes & Metabolism 05/12/25 documented as of this encounter
--- OUTSIDE RECORDS SUMMARY | 2025-07-24 03:31 | XMS_ITS | Encounter Summary ---
Author Organization [facility] Healthcare Address [address] [place] [address] Care Team Providers Care Tow Motor Operator Name Role Phone Garfield Whiteside OIL BURNER INSTALLER Unavailable [phone] Jeff Ca MD Unavailable [phone] Jazlyn Reddy Primary Care Provider + Encounter Details Date Type Department Care Team (Late st Contact Info) Description 07/08/2025 Results Follow-Up [facility] Medical [facility] Family Medicine [address] [phone] Jose A Juárez MD [address] [place] [address] XR Shoulder Left 2 or More Views Social History Tobacco Use Types Packs/Day Years Used Date Smoking Tobacco: Every Day Cigarettes 1 53 Comments:Smoking about 1/2 p pd currently; quit for 8 months cold turkey in the past; at highest, 2ppd, started at age 18 [facility] Utilities Answer Date Recorded In the past 12 months has [employer], gas, oil, or water company threatened to [...] often do you attend chur ch or yazidism services? Never 04/28/2025 Do you belong to any clubs o r organizations such as scientology groups, unions, fraternal or athletic groups, or [...] place to sleep or slept in a senior living (including now)? No 10/24/2023 PHQ-9 Answer Date [...] any time in the past 12 m [facility], were you homeless or living in a senior living (including now)? No 04/28/2025 Personal Safety Answer Date Recorded Have you ever been in or are you currently in a harmful physical or emotional relationship or is someone making you feel afraid or unsafe? Denies 09/16/2024 Comments No Sex and Gender Information Value Date Recorded Sex Assigned at Not on file Legal Sex Female 2:26 AM CLASSICS TEACHER Gender Identity Not on file Sexual Orientation Not on file Occupation Industry Job Start Date Job End Date Retired Not on file Not on file Not on file documented as of this encounter Miscellaneous Notes * Result Encounter Note - Prabha Phillips LPN - 07/12/2025 1:35 PM CDT Pt vu and has follow up appt scheduled * Result Encounter Note - Jose A Juárez MD - 07/12/2025 7:35 AM CDT Please let the patient know that her shoulder x-ray does not show any new fracture. This is good. She should continue with the plan we discussed. She would significantly benefit from targeted physical therapy in that area. If she needs a referral she should let us know. She should also schedule a follow up visit in 4 weeks or sooner if she would like. documented in this encounter Plan of Treatment Not on file documented as of this encounter Goals Goal Patient Goal Type Associated Problems Recent Progress Patient-Stated? Author ACO SW Goal - Patient can identify and utilize [...] on filedocumented in this encounter Care Teams Tow Motor Operator Relationship Specialty Start Date End Date Jazlyn Reddy PA [address] [facility] [address] [place] [address] PCP - General Family Medicine 05/20/25 Garfield Whiteside LCSW [address] [place] [address] [address] [place] [address] Career Education Teacher 04/08/25 [place] [address] [place] [address] Consulting Physician Endocrinology Diabetes & Metabolism 05/12/25 documented as of this encounter
--- OUTSIDE RECORDS SUMMARY | 2025-07-24 03:31 | XMS_ITS | Clinical Summary ---
Author Organization [facility] Address [address] [place] [address] Phone Care Team Providers Care Wheel Aligner Name Role Phone Garfield Whiteside JUAREZ Unavailable [phone] Jeff Ca MD Unavailable [phone] Jazlyn Reddy Primary Care Provider + Allergies Active Allergy Reactions Criticality Noted Date Comments Penicillins Medications blood-glucose meter kit 1 each daily 1 kit 06/19/20 23 Active OneTouch Verio test strips stripIndications:T ype 2 diabetes mellitus with stage 2 chronic kidney disease, with long-term current use of insulin ([facility]) Check 4 x daily 360 each 3 06/29/20 24 Active BD Ultra-Fine Dianna Pen Needle 32 gauge x 5/32 needleIndications: Type 2 diabetes mellitus with stage 2 chronic kidney disease, with long-term current use of insulin ([facility]) Use to inject 4 times daily as directed. 360 each 3 06/29/20 24 Active blood-glucose sensor (Dexcom G7 Sensor) device Change sensor every 10 days 3 each 3 07/27/20 24 Active insulin lispro (HumaLOG, ADMELOG) 100 unit/mL pen for injectionIndicatio ns:Type 2 diabetes mellitus with stage 3a chronic kidney disease, with long-term current use of insulin ([facility]) Inject 10-20 Units under the skin 3 (three) times a day with meals 54 mL 3 01/27/20 25 03/19/2 026 Active Additional Information Patient not taking.Reported on 07/19/2025 albuterol HFA (Ventolin HFA) 90 mcg/actuation inhalerIndications :Chronic obstructive pulmonary disease with acute exacerbation (HCC) Inhale 2 puffs every 4 (four) hours as needed for wheezing or shortness of breath 1 each 03/30/20 25 Active ipratropium-albute roL (DUO-NEB) 0.5-2.5 mg/3 mL nebulizer solutionIndication s:Other emphysema (HCC) Take 3 mL by nebulization 4 (four) times a day as needed for wheezing or shortness of breath 360 mL 5 03/30/20 25 026 Active doxepin 3 mg tablet Take 3 mg by mouth daily 03/27/20 25 Active allopurinoL (ZYLOPRIM) 100 mg tabletIndications: Idiopathic chronic gout of multiple sites without tophus Take 1 tablet (100 mg total) by mouth daily 90 tablet 3 04/07/20 25 Active amLODIPine (NORVASC) 10 mg tabletIndications: Hypertension associated with diabetes (HCC) Take 1 tablet (10 mg total) by mouth daily 90 tablet 3 04/07/20 026 Active aspirin 81 mg enteric coated tabletIndications: Hypertension associated with diabetes (HCC),Vascular dementia without behavioral disturbance (HCC),Hyperlipidem ia associated with type 2 diabetes mellitus (HCC) Take 1 tablet (81 mg total) by mouth daily 90 tablet 3 04/07/20 026 Active calcitRIOL (ROCALTROL) 0.25 mcg capsuleIndications :Closed wedge compression fracture of T4 vertebra, sequela Take 1 capsule (0.25 mcg total) by mouth daily 90 capsule 1 04/07/20 25 Active ergocalciferol (VITAMIN D) 50,000 unit capsuleIndications :Closed wedge compression fracture of T4 vertebra, sequela Take 1 capsule (50,000 Units total) by mouth once a week 12 capsule 1 04/07/20 25 Active levothyroxine (SYNTHROID) 25 mcg tabletIndications: Acquired hypothyroidism Take 1 tablet (25 mcg total) by mouth daily 90 tablet 3 04/07/20 25 Active lisinopriL (PRINIVIL,ZESTRIL) 10 mg tabletIndications: Hypertension associated with diabetes (HCC) Take 1 tablet (10 mg total) by mouth daily 90 tablet 3 04/07/20 25 Active metOLazone (ZAROXOLYN) 2.5 mg tabletIndications: Hypertension associated with diabetes (HCC) Take 1 tablet (2.5 mg total) by mouth daily 90 tablet 1 04/07/[address] (PROTONIX) 20 mg EC tabletIndications: Gastroesophageal reflux disease, unspecified whether esophagitis present Take 1 tablet (20 mg total) by mouth daily 90 tablet 1 04/07/20 25 Active rosuvastatin (CRESTOR) 40 mg tabletIndications: Hyperlipidemia associated with type 2 diabetes mellitus (HCC) Take 1 tablet (40 mg total) by mouth daily 90 tablet 3 04/07/20 25 Active FIASP 100 unit/mL (3 mL) pen for injection ADMINISTER 10 TO 20 UNITS UNDER THE SKIN THREE TIMES DAILY WITH MEALS 04/09/20 25 Active ketorolac (ACULAR) 0.5 % ophthalmic solution 04/18/20 25 Active budesonide-glycopy r-formoterol (Breztri Aerosphere) 160-9-4.8 mcg/actuation inhalerIndications :Chronic obstructive pulmonary disease with acute exacerbation ([facility]) Inhale 2 puffs 2 (two) times a day 1 each 2 05/23/20 25 Active insulin degludec (TRESIBA) 100 unit/mL (3 mL) pen for injectionIndicatio ns:Type 2 diabetes mellitus with stage 3a chronic kidney disease, with long-term current use of insulin ([facility]) Inject 0.16 mL (16 Units total) under the skin daily 15 mL 3 06/09/20 25 Active mirtazapine (REMERON) 7.5 mg tablet daily 08/10/20 24 Active pregabalin (LYRICA) 150 mg capsule Oral 12/05/19 24 Active tamsulosin (FLOMAX) 0.4 mg extended release capsule Oral 12/05/19 24 Active meloxicam (MOBIC) 7.5 mg tabletIndications: Osteoarthritis Take 1-2 tabs q24h prn pain 60 tablet 07/05/[address] (CYMBALTA) 30 mg capsuleIndications :Neuropathic Pain Take 1 capsule (30 mg total) by mouth daily AND 2 capsules (60 mg total) nightly. 90 capsule 2 07/05/20 25 Active acetaminophen (TYLENOL) 500 mg tabletIndications: Acute pain of left shoulder Take 2 tablets (1,000 mg total) by mouth every 6 (six) hours as needed for pain 180 tablet 5 07/05/20 25 Active methocarbamoL (ROBAXIN) 500 mg tablet Take 1 tablet (500 mg total) by mouth 3 (three) times a day as needed for muscle spasms Beware of sedation and risk for falls. 90 tablet 07/05/20 25 025 Active doxycycline 100 mg tabletIndications: Pain in left foot Take 1 tablet (100 mg total) by mouth 2 (two) times a day 05/06/20 25 025 Discontin ued(Thera py completed ) acetaminophen (TYLENOL) 500 mg tabletIndications: Pain in left foot Take 2 tablets (1,000 mg total) by mouth every 6 (six) hours as needed for pain 180 tablet 05/09/20 25 025 Discontin ued(Reord er) meloxicam (MOBIC) 7.5 mg tabletIndications: Pain in left foot Take 2 tablets (15 mg total) by mouth daily for 15 days 30 tablet 05/09/20 25 025 Discontin ued(Reord er) DULoxetine DR (CYMBALTA) 30 mg capsuleIndications :Neuropathic Pain Take 1 capsule (30 mg total) by mouth daily AND 2 capsules (60 mg total) nightly. 90 capsule 2 06/06/20 25 025 Discontin ued(Reord er) ondansetron (ZOFRAN) 4 mg tabletIndications: Nausea and vomiting, unspecified vomiting type Take 1 tablet (4 mg) total 30 minutes before starting colonoscopy prep. Use the 2nd tablet as needed for nausea and vomiting. 2 tablet 06/08/20 25 025 Discontin ued(Thera py completed ) Active Problems Problem Noted Date Diagnosed Date Screen for colon cancer 06/08/2025 At risk for falls 05/23/2025 Frequent falls 04/07/2025 Assessment & Plan (04/07/2025 2:08 PM CDT): Frequent falls in the past Patient is still complaining of leg weakness Previously referred to home health physical therapy, but so far has not been able to get accommodated We will retry this I have also placed a referral to [facility] care management I am concerned about patient's living situation and inconsistency in her caretakers She may need home health/RN for medication management Discussed with her the need for more involved care, but patient is adamantly denying having a discussion about moving to either an assisted living or other similar facility - she only wants to remain in her home. I am unsure about her dynamometer tester situation and how much help she actually has a home currently. Recommend social work get involved and make sure patient has the resources that she needs Other emphysema 02/22/2025 Assessment & Plan (02/22/2025 12:02 PM CDT): Worsening SOB overall Does not currently see pulm (sees pulm office for sleep related issues) H/o COPD - recommend f/u or est with pulm for eval/treatment. Orders: Ambulatory referral to Pulmonology; Future Age-related osteoporosis wit hodebby current pathological fracture 02/22/2025 Assessment & Plan (02/22/2025 12:02 PM CDT): Confirmed bone thinning by bone density scan. Recent incident of dropping heavy objects on foot raises concerns about bone fragility. - Ensure refrigeration engine operator is managing osteoporosis treatment in conjunction with diabetes care. Snoring 12/20/2024 Alkaline phosphatase elevation 10/25/2024 Assessment & Plan (10/25/2024 12:41 PM NEWSPAPER COLUMNIST): Mild. Will monitor & repeat labs. Slow transit constipation 10/24/2024 Assessment & Plan (11/06/2024 9:14 AM NEWSPAPER COLUMNIST): Continue bowel regimen. Well controlled. Assessment & Plan (10/25/2024 12:53 PM NEWSPAPER COLUMNIST): Patient continues to report constipation. Clarifying with nursing last BM. Continue Miralax & Senna - if no recent BM will adjust meds further. Assessment & Plan (10/24/2024 7:36 PM NEWSPAPER COLUMNIST): Miralax allie & Senna-Plus added. Monitor. Renal osteodystrophy 10/23/2024 Secondary hyperparathyroidism 10/23/2024 Stage 3a chronic kidney disease 10/23/2024 Assessment & Plan (10/25/2024 12:59 PM NEWSPAPER COLUMNIST): Cr mildly elevated. Will hold Metalozone, Lisinopril. Repeat labs 10/28. Renal agenesis and dysgenesis 10/23/2024 Idiopathic chronic gout of multiple sites withyoselyn uriarte 10/23/2024 Assessment & Plan (04/07/2025 2:06 PM CDT): Chronic, stable Continue allopurinol 100 mg daily Assessment & Plan (11/23/2024 11:52 AM NEWSPAPER COLUMNIST): Chronic, stable condition. Continue current medication regimen: allopurinol Abnormal finding on imaging 10/23/2024 Assessment & Plan (11/23/2024 11:54 AM NEWSPAPER COLUMNIST): CT head report reviewed Patient will follow up with Neurology I will reach out to Neurology office to see if her appointment can be moved up Assessment & Plan (10/23/2024 4:26 PM NEWSPAPER COLUMNIST): See comments below from the hospitalist concerning abnormal imaging of the cranium. 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 Local wound care anterior chest wall. Follow up with associate research scientist in 4 weeks. An interim monitor vital signs for serial trending or evidence of bradycardia SSS (sick sinus syndrome) 10/18/2024 Assessment & Plan (11/06/2024 9:14 AM NEWSPAPER COLUMNIST): S/p PPM. BP & pulse soft. Lisinopril & Metalozone on hold, fu PCP/Cardiology. Assessment & Plan (10/24/2024 7:36 PM NEWSPAPER COLUMNIST): S/p PPM. Needs wound check in 1 week & device check in 4 weeks. Pulse mildly elevated. Monitor. Cigarette nicotine dependence without complicati on 05/26/2024 Assessment & Plan (05/10/2025 7:36 AM CDT): We did not discuss today. This is a risk factor Assessment & Plan (05/27/2024 4:40 PM CDT): Encouraged smoking cessation Insomnia, unspecified 01/05/2024 Assessment & Plan (05/27/2024 4:40 PM CDT): Ongoing. Patient states she is only sleeping an hour per night. Recommend sleep study. Venous insufficiency (chronic) (peripheral) 12/12 Assessment & Plan (05/27/2024 4:40 PM CDT): Chronic, stable Unspecified macular degeneration 01/05/2024 Assessment & Plan (05/27/2024 4:40 PM CDT): Seeing eye doctor Obstructive sleep apnea (adult) (pediatric) 12/12 Assessment & Plan (12/20/2024 2:37 PM NEWSPAPER COLUMNIST): Due to the patient request I have ordered a home sleep test. Assessment & Plan (11/23/2024 11:52 AM NEWSPAPER COLUMNIST): Intolerant of CPAP in the past Requesting sleeping pill which I cautioned her against given untreated RONIT, h/o falls and her multiple medications already Referral to sleep medicine Acute encephalopathy 01/05/2024 Assessment & Plan (04/07/2025 1:25 PM CDT): Recent ER visit in observation reviewed Tele neurologist recommended patient have consult with psychiatrist Patient refuses to see a psychiatrist Mental status back to baseline Recommend patient follow up with Neurology to consider outpatient MRI Follow up sooner if any worsening symptoms Blindness left eye category 3, normal vision rig ht eye 01/05/2024 Assessment & Plan (04/07/2025 2:06 PM CDT): Follows with supply service worker Unable to use fingersticks for glucose checks due to poor vision Has CGM through endocrinology Assessment & Plan (05/27/2024 4:40 PM CDT): Chronic , stable seeing eye doctor Proliferative diabetic retin opathy associated with type 2 diabetes mellitus 01/05/2024 Assessment & Plan (05/12/2025 11:29 AM CDT): We discussed the patient's out of control A1c I recommended she call with her endocrinology team for further management given they are writing the CGM and insulin dosages. I discussed with her we can go from 20 units down to 18 units of degludec for now. She had a near hypoglycemia episode in the morning. I suspect some of her sugars are due to suboptimal control during the infection. We did some insulin education today. The patient is neighbor, the patient's caregiver were all there. Her a month ago. She seems to have pretty good good grasp on many of these concepts, however I have some concerns about adherence especially given the last few A1c values. Psychosocially this is also challenging Generalized anxiety disorder 12/05/2023 Mild recurrent major depression 12/05/2023 Vascular dementia without behavioral disturbance 12/05/2023 Assessment & Plan (04/07/2025 2:06 PM CDT): Follow up with Neurology recommended Assessment & Plan (10/24/2024 7:35 PM NEWSPAPER COLUMNIST): Poor recall. INVESTIGATOR VICE to follow. Tobacco abuse 12/24/2022 Type 2 diabetes mellitus wit h stage 3a chronic kidney disease, with long-term current use of insulin 11/05/2022 Assessment & Plan (05/23/2025 12:48 PM CDT): Sugars was in the 100s to 200 over the last day. Yesterday was bad. Assessment & Plan (05/10/2025 7:36 AM CDT): Currently uncontrolled for microcytic injury A1c is 8.1 - 01/26/25 Orders: Hemoglobin A1c; Future Basic metabolic panel; Future CBC with auto differential; Future CRP (acute phase); Future Blood culture Blood; Future Erythrocyte sedimentation rate; Future Assessment & Plan (04/07/2025 2:05 PM CDT): Uncontrolled diabetes Under the care of refrigeration engine operator Patient has been without some of her medications Advised to contact refrigeration engine operator for refills of her CGM Refills of oral medications sent Continue insulin per endocrinology Renal function stable Following with Nephrology Assessment & Plan (11/23/2024 11:51 AM NEWSPAPER COLUMNIST): Chronic, not well controlled Follows with refrigeration engine operator Just got her Dexcom set back up again and started using yesterday Refills sent. Assessment & Plan (11/06/2024 3:24 PM NEWSPAPER COLUMNIST): This is currently stable. The dietary department we will follow. We will continue insulin aspart as a sliding scale, insulin Tresiba. Point of care glucose will be followed. Assessment & Plan (10/24/2024 7:35 PM NEWSPAPER COLUMNIST): Monitor BS. Continue insulin at this time. Assessment & Plan (08/12/2024 1:05 PM CDT): Chronic, uncontrolled, slowly improving but still above goal A1c 9.4 today, improved from 12.2% , goal A1c at least less than 7.5-8 % Encouraged pt to keep working with consistency Counseled on diet Recommend below insulin regimen Decrease Tresiba to 30 units SQ daily at bedtime FIASP as below correctional scale three times daily with measl ( based on your pre meal blood sugar) Less than 100 = 0 units 101 - 120 = 6 units 121 - 150 = 10 units 151 - 200 = 12 units 201 - 250 = 14 units 251 - 300 = 16 units 301 - 350 = 18 units Over 351 = 20 units Gave Dexcom G7 sensor samples We will try to do a DME order process for Dexcom G7 CGM Advised to follow-up in 2 months Assessment & Plan (07/13/2024 12:25 PM CDT): Continue monitoring renal function - seeing refrigeration engine operator for diabetes. Continues on insulin and glucose monitoring. Assessment & Plan (06/29/2024 12:37 PM CDT): Chronic, poorly controlled, worsening A1c 12.2% , goal A1c at least less than 7.5-8 % Counseled on healthy eating habits Gave educational materials to read Referral to dietitian Recommend below medication regimen Stop Glimepiride Decrease Tresiba to 34 units SQ daily at bedtime Start FIASP 10 units three times with meals + below correctional scale 151 - 200 + 2 units 201 - 250 + 4 units 251 - 300 + 6 units 301 - 350 + 8 units Over 351 + 10 units Start DEXCOM G 7 continuous glucose monitoring - educated and trained pt on the samples in office today Advised good oral hydration Advised to follow-up in 4 weeks Assessment & Plan (06/17/2024 12:18 PM CDT): Chronic, uncontrolled. Patient's medication list is not accurate. She has still not brought in her medications as directed at last visit. Here with her dynamometer tester today - her daughter present at last visit had concerns about the dynamometer tester. Pt is not sure what medications she is taking. She knows she is using Tresiba 28 units nightly. She did this last night. She just started back on glimiperide 2mg BID and her glucose has started to improve per home readings. - Increase Tresiba to 32 units and will call back with readings in 2-3 days and will continue up-titrating every 2 to 3 days until we get better readings. She will use glucose tabs at home if any hypoglycemia and report any lows to the office for adjustment of meds - Est with endocrinology at the end of the month as scheduled - pt's compliance is questionable and she/dynamometer tester would benefit from diabetes education/nutrition - Continue glimipiride 2mg BID - Discussed s/s of DKA and advised pt to go to the ER if she is showing any signs, call ambulance if necessary - Repeat labs ordered, to be done in the next 2-3 weeks Assessment & Plan (05/27/2024 4:38 PM CDT): Stable, no changes. Continue current regimen with insulin To see endo as scheduled Assessment & Plan (11/05/2022 3:20 PM NEWSPAPER COLUMNIST): Referral made for Dr Muhammad - to switch nephrologists - pt states she has to wait three hours for appointment with her current airport operations duty manager H/O right nephrectomy 11/05/2022 Assessment & Plan (03/15/2024 2:32 PM CDT): Condition stable Assessment & Plan (11/05/2022 3:18 PM NEWSPAPER COLUMNIST): Changing airport operations duty manager to Dr Muhammad Hyperlipidemia associated with type 2 diabetes sarah beth juarez 05/06/2022 Assessment & Plan (04/07/2025 2:04 PM CDT): Chronic - continue Crestor 40 mg daily for hyperlipidemia Diabetes uncontrolled, follows with endocrinology Assessment & Plan (11/06/2024 3:24 PM NEWSPAPER COLUMNIST): This is currently stable. Continue atorvastatin 80 mg daily. Assessment & Plan (08/12/2024 1:02 PM CDT): Continue statin therapy Assessment & Plan (07/13/2024 12:25 PM CDT): Stable, no changes. Continue current regimen with Crestor 40mg daily Assessment & Plan (06/29/2024 12:35 PM CDT): Continue statin therapy Assessment & Plan (05/27/2024 4:37 PM CDT): Not currently treated. Last lipid panel reviewed Assessment & Plan (03/15/2024 2:32 PM CDT): Continue statin Cholesterol stable Assessment & Plan (06/19/2023 2:30 PM CDT): Continue statin Cholesterol stable Assessment & Plan (03/19/2023 2:57 PM CDT): Continue statin Cholesterol stable Lab Results Component Value Date CHOL 189 05/06/2022 Lab Results Component Value Date HDL 37 (L) 05/06/2022 Lab Results Component Value Date LDLCALC 85 05/06/2022 Lab Results Component Value Date TRIG 337 (H) 05/06/2022 No results found for: POCCHDLR No results found for: POCNONHDL No results found for: POCCHLPL Assessment & Plan (12/19/2022 10:46 AM NEWSPAPER COLUMNIST): Continue statin Assessment & Plan (11/05/2022 3:19 PM NEWSPAPER COLUMNIST): Continue statin cholesterol stable Discussed diet choices encouraged more fresh fruits and vegetables Assessment & Plan (08/06/2022 3:36 PM CDT): Cholesterol stable Continue statin medication Assessment & Plan (05/07/2022 10:16 AM CDT): Check lipids, continue statin Hypertension associated with diabetes 05/06/2022 Assessment & Plan (05/10/2025 7:36 AM CDT): Currently uncontrolled for microcytic injury A1c is 8.1 - 01/26/25 Orders: Hemoglobin A1c; Future Basic metabolic panel; Future CBC with auto differential; Future CRP (acute phase); Future Blood culture Blood; Future Erythrocyte sedimentation rate; Future Assessment & Plan (04/07/2025 2:04 PM CDT): Blood pressure well-controlled Continue amlodipine 10 mg daily, lisinopril 10 mg daily, metolazone 2.5 mg daily Assessment & Plan (11/06/2024 3:23 PM NEWSPAPER COLUMNIST): This is currently stable. Continue to monitor vital signs for trending. Continue amlodipine 10 mg daily Assessment & Plan (08/12/2024 1:03 PM CDT): Chronic, well controlled Continue lisinopril Assessment & Plan (07/13/2024 12:26 PM CDT): BP at goal - continue current medication regimen including lisinopril 10mg daily Assessment & Plan (06/29/2024 12:35 PM CDT): Chronic, well controlled Continue lisinopril Assessment & Plan (05/27/2024 4:37 PM CDT): Blood pressure goal, even on the lower end. We will monitor this closely May need medication adjustment if hypotension becomes an issue Assessment & Plan (03/15/2024 2:31 PM CDT): B/p goal <140/90 Today - 120/79 Continue - lisinopril Chronic stable condition Assessment & Plan (06/19/2023 2:29 PM CDT): B/p goal <140/90 Today - 107/58 Continue - torsemide, lisinopril Assessment & Plan (03/19/2023 2:57 PM CDT): .B/p goal <140/90 Today - 110/69 Continue - torsemide, lisinopril Chronic stable condition Assessment & Plan (12/19/2022 10:47 AM NEWSPAPER COLUMNIST): B/p goal <140/90 Today - 125/81 Continue - lisinopril Chronic stable condition Assessment & Plan (11/05/2022 3:20 PM NEWSPAPER COLUMNIST): B/p goal <140/90 Today - 123/62 Continue - lisinopril, Chronic stable condition Assessment & Plan (08/06/2022 3:35 PM CDT): B/p goal <140/90 Today - 138/82 Continue - lisinopril, furosemide Chronic stable condition Assessment & Plan (05/07/2022 10:17 AM CDT): B/p goal <140/90 Today - 134/77 Continue - lisinopril, furosemide Acquired hypothyroidism 05/06/2022 Assessment & Plan (04/07/2025 2:05 PM CDT): Chronic, stable Continue levothyroxine 25 mcg daily Follows with the refrigeration engine operator Assessment & Plan (08/12/2024 1:02 PM CDT): Chronic, stable Recommend to continue levothyroxine 25 mcg oral daily Assessment & Plan (06/29/2024 12:35 PM CDT): Chronic, stable Recommend to continue levothyroxine 25 mcg oral daily Assessment & Plan (05/27/2024 4:37 PM CDT): Chronic, stable. Continue Synthroid 25 mcg daily. To see refrigeration engine operator as scheduled Assessment & Plan (11/05/2022 3:18 PM NEWSPAPER COLUMNIST): Continue levothyroxine No new symptoms condition stable Assessment & Plan (05/07/2022 10:17 AM CDT): No new symptoms Check TSH Continue thyroid replacement Vitamin D deficiency 05/06/2022 Assessment & Plan (05/27/2024 4:38 PM CDT): Chronic, stable. Levels good Assessment & Plan (03/15/2024 2:30 PM CDT): Continue vitamin D supplement Check vitamin D Assessment & Plan (06/19/2023 2:28 PM CDT): Continue vitamin d Diabetic peripheral neuropathy 05/06/2022 Assessment & Plan (05/10/2025 7:36 AM CDT): Currently uncontrolled for microcytic injury A1c is 8.1 - 01/26/25 Orders: Hemoglobin A1c; Future Basic metabolic panel; Future CBC with auto differential; Future CRP (acute phase); Future Blood culture Blood; Future Erythrocyte sedimentation rate; Future Assessment & Plan (02/22/2025 12:02 PM CDT): Worsening leg weakness and neuropathy. Currently on Lyrica; unable to tolerate gabapentin. Reports mobility difficulties and safety concerns. - Arrange for home health physical therapy through [facility] to address mobility and strength issues. Assessment & Plan (07/13/2024 12:21 PM CDT): Pt has gotten relief with Lyrica and cymbalta combo - continue Assessment & Plan (05/27/2024 4:38 PM CDT): Chronic, worsening. Patient's main complaint is pain. Advised not to take medications not prescribed to her. Will trial Lyrica -not sure if she took/worked in the past. Assessment & Plan (04/14/2024 3:55 PM CDT): Pt has frequent falls and is unsteady She has increased risk of falling due to neuropathy pains secondary to her diabetes. She has a mobility limitation of completing daily living activities inside the home.The patient can safely use a rollator walker. Her mobility deficit can be resolved by using the walker. Assessment & Plan (12/19/2022 10:49 AM NEWSPAPER COLUMNIST): Will start her on nucynta for this for the symptoms Continue good control of glucose/diabetes and htn Assessment & Plan (05/07/2022 10:18 AM CDT): Continue foot check daily Referred to PT to evaluate and treat Gastroesophageal reflux disease 01/23/2022 Assessment & Plan (04/07/2025 2:05 PM CDT): Chronic, stable Continue pantoprazole, decrease to 20 mg daily Assessment & Plan (05/27/2024 4:39 PM CDT): Unsure of meds - advised to bring back Glaucoma 01/23/2022 Assessment & Plan (05/27/2024 4:39 PM CDT): Seeing eye doctor Chronic pain syndrome 11/29/2020 Assessment & Plan (10/25/2024 12:47 PM NEWSPAPER COLUMNIST): Continues to have continued back pain. Only has Lyrica in place for pain, will increase to 100mg BID. Will add Tyl TID, Tramadol q6h PRN. Continue to monitor. Was receiving [place] at [facility]. Monitor for improvement. Will need outpt fu with PM. Assessment & Plan (07/13/2024 12:22 PM CDT): Ongoing back pain, neuropathy pain Patient feels her pain is not well controlled She had been to pain management in the past and did not have a good experience. Urged patient to reconsider pain management referral. She will consider - dynamometer tester will try to get her there. Unspecified atherosclerosis of [place] arteries of extremities, bilateral legs 10/16/2018 Atherosclerosis of aorta 09/16/2018 B12 deficiency 09/16/2018 Assessment & Plan (05/27/2024 4:39 PM CDT): Supplement? Assessment & Plan (03/15/2024 2:34 PM CDT): Check B12 Iron deficiency 09/16/2018 Assessment & Plan (05/27/2024 4:40 PM CDT): Monitor lab Arthritis 09/15/2018 Hypersomnia 08/10/2018 Assessment & Plan (03/15/2024 2:32 PM CDT): Start hydroxyzine for sleep Chronic obstructive pulmonar y disease with acute exacerbation 06/04/2017 Assessment & Plan (07/13/2024 12:22 PM CDT): Stable, no changes. Continue current regimen with Breztri and albuterol Assessment & Plan (06/17/2024 12:19 PM CDT): COPD exacerbation - no inhalers currently Start Zpack, no steroids since her glucose is already so out of control Add Breztri daily, albuterol PRN Assessment & Plan (05/27/2024 4:39 PM CDT): Stable, no changes. Advised pt to bring all medications back to next visit Assessment & Plan (06/19/2023 2:36 PM CDT): Continue breo Resolved Problems Problem Noted Date Diagnosed Date Resolved Date Hyperglycemia due to type 2 diabetes mellitus 02/23/20 25 04/07/2025 Hypercalcemia 10/25/2024 11/23/2024 Assessment & Plan (11/06/2024 9:15 AM NEWSPAPER COLUMNIST): Ca elevated. Likely s/t Calcitonin being 2 sprays. Has been changed to 1 spray. Calcitonin changed to MWF. Assessment & Plan (10/25/2024 12:59 PM NEWSPAPER COLUMNIST): Ca elevated. Likely s/t Calcitonin being 2 sprays. Has been changed to 1 spray & will recheck labs 10/28 with Vitamin D level. Calcitonin changed to MWF. Urinary retention 10/24/2024 11/06/2024 Assessment & Plan (10/25/2024 1:01 PM NEWSPAPER COLUMNIST): Tobias in place. Did pull out this weekend & was replaced. Denies any ureteral trauma. No blood to urine. Will leave tobias in place & attempt voiding trial when ambulating more with there. If she does remove again will attempt voiding trial. Her WBC is elevated also. Will check UA. Assessment & Plan (10/24/2024 7:37 PM NEWSPAPER COLUMNIST): Tobias in place. Attempt voiding trial when appropriate. Tobias catheter in place 10/24/202410/11 Closed wedge compression fra cture of fourth thoracic vertebra 10/23/2024 04/07/2025 Assessment & Plan (11/23/2024 11:53 AM NEWSPAPER COLUMNIST): Acute on chronic fractures - healing Recent hospitalized F/u with pain management Patient had seen pain management in the past, but can not recall which provider office she went to She has the information at home, we will check and get back to us with where she would like a referral sent Assessment & Plan (11/08/2024 10:17 AM NEWSPAPER COLUMNIST): Healing. Pain improved. PT/OT for chronic back pain. Continue calcitonin intranasal, fu outpt for potential kypho. Assessment & Plan (10/24/2024 7:33 PM NEWSPAPER COLUMNIST): Healing. PT/OT for chronic back pain. Continue calcitonin intranasal, fu outpt for potential kypho. Acute respiratory failure with hypoxia 10/23/2024 10/24/2024 Assessment & Plan (10/23/2024 4:25 PM NEWSPAPER COLUMNIST): This is subacute and stable. We will continue to monitor for evidence of hypoxia. Respiratory therapy will follow. Hospital discharge follow-up 03/05/2024 05/25/2024 Assessment & Plan (03/05/2024 10:01 AM CDT): I have personally reviewed all notes including consult notes, imaging and labs. I have also reconciled the medications with the patient. I, Bee Robin, BOX ANNEALER have personally reviewed pertinent Hospital/ER/Office Visit data including [employer] and Care Everywhere if available. I have noted any changes. Closed fracture of proximal end of left humerus with routine healing 03/04/2024 05/26/2024 Wedge compression fracture o f T7-t8 vertebra, subsequent encounter for fracture with routine healing 01/05/2024 05/26/2024 Vitamin B12 deficiency anemia, unspecified 01/05/2024 05/26/2024 Hypokalemia 01/05/2024 05/26/2024 Dysphagia following unspecif ied cerebrovascular disease 01/05/2024 11/06/2024 Compression fracture of T7 vertebra 12/18/2023 05/26/2024 Assessment & Plan (04/14/2024 3:55 PM CDT): She has increased risk of falling due to lumbar pains secondary to her osteoarthritis. She has a mobility limitation of completing daily living activities inside the home.The patient can safely use a rollator walker. Her mobility deficit can be resolved by using the walker. Left humeral fracture 12/18/20232023 Altered mental status 12/12/20232023 Assessment & Plan (03/05/2024 9:59 AM CDT): The cause of her falls/altered mental status is likely secondary to an excess of sedative medications. Patient was advised to stop taking the Dayvigo, Duloxetine, Pregabalin, and Quietiapine. Medication list updated today Class 1 obesity due to exces s calories with serious comorbidity and body mass index (BMI) of 30.0 to 30.9 in adult 12/19/2022 05/25/2024 Assessment & Plan (03/19/2023 2:59 PM CDT): Plan for weight loss is to decrease calories in diet and increase activity Assessment & Plan (12/19/2022 10:48 AM NEWSPAPER COLUMNIST): Plan for weight loss is to decrease calories in diet and increase activity Polyneuropathy 01/23/2022 05/25/2024 Dementia 01/20/2019 10/23/2024 Assessment & Plan (05/27/2024 4:39 PM CDT): Chronic - improved cognition per daughter Referral to neurology for nursing home managment Neuropathy 06/04/2017 05/26/2024 Type 2 diabetes mellitus 03/26/201406/2024 Overview (02/14/2017): DMII WO CMP UNCNTRLD Assessment & Plan (05/27/2024 4:36 PM CDT): Last A1c elevated at 8.8 approximately 2 months ago. Patient continues on insulin. She is scheduled to see endocrinology in early June. Assessment & Plan (03/15/2024 2:30 PM CDT): Continue insulin Condition stable Assessment & Plan (06/19/2023 2:28 PM CDT): A1C 8.5 which is decreased compared to her last one She was advised to increase her insulin to 20 units daily Decrease soda intake Assessment & Plan (03/19/2023 2:51 PM CDT): A1C increased to 8.9 - she states she has been drinking more pepsis she has not changed her diet for the diabetes Assessment & Plan (11/05/2022 3:21 PM NEWSPAPER COLUMNIST): A1C stable 7.5 Continue current medication Assessment & Plan (08/06/2022 3:35 PM CDT): A1c 7.5 much better than 9.5 Continue low sugar diet and insulins Chronic stable condition Assessment & Plan (05/07/2022 10:17 AM CDT): A1C 9.5 - not well controlled Advised she would need to improve her diet and reduce sugars from sugary drinks and high carbohydrate foods She has not been taking her insulin daily - encouraged her to start taking this daily Encounters Date Type Department Care Team Description 07/19/2025 3:00 PM CDT Office Visit [facility] Pul[facility] [place] [address] [place] [address] Zac Sherwood MD Chronic obstructive pulmonary disease with acute exacerbation (HCC) (Primary Dx); Primary hypertension; Nicotine dependence, cigarettes, uncomplicated; Abnormal CT of the chest 07/19/2025 Telephone [facility] [address] [phone] Jazlyn Reddy PA Additional Services Or Orders 07/08/2025 Results Follow-Up [facility] [address] [phone] Jose A Juárez MD XR Shoulder Left 2 or More Views 07/07/2025 12:31 PM CDT - 07/07/2025 11:59 PM CDT Hospital Encounter [facility] 1 DIAG IMG [address] [place] [address] Acute pain of left shoulder; Falls Discharge Disposition: Discharge to home or self care 07/07/2025 12:13 PM CDT - 07/07/2025 11:59 PM CDT Hospital Encounter [facility] Medical Office Building [address] [place] [address] of the chest Discharge Disposition: Discharge to home or self care 07/06/2025 Telephone [facility] [address] [phone] Jazlyn Reddy PA 07/05/2025 1:00 PM CDT Office [facility] [address] [phone] Jose A Juárez MD Falls (Primary Dx); Acute pain of left shoulder 06/27/2025 Telephone [facility] Gastroenterology at [address] [phone] Matthew Atkins MD 06/14/2025 10:48 AM CDT - 06/14/2025 11:59 PM CDT Hospital Encounter [facility] Respiratory Therapy [address] [place] [address] Other emphysema (HCC) Discharge Disposition: Discharge to home or self care 06/08/2025 Orders Only [facility] Gastroenterology at [address] [place] [phone] Matthew Atkins MD Nausea and vomiting, unspecified vomiting type (Primary Dx); Screen for colon cancer 06/06/2025 12:30 PM CDT Office Visit [address] [phone] Jose A Juárez MD At risk for falls (Primary Dx); Stage 3a chronic kidney disease (HCC); Low back pain without sciatica, unspecified back pain laterality, unspecified chronicity 06/06/2025 Telephone [facility] Diabetes and Endocrinology [address] [place] [phone] Jeff Ca MD Scheduling Appointments 05/30/2025 Telephone [facility] Medicine [address] [phone] Jazlyn Reddy PA Call Back 05/23/2025 12:30 PM CDT Office [facility] [address] [phone] Jose A Juárez MD Chronic obstructive pulmonary disease with acute exacerbation (HCC) (Primary Dx); Type 2 diabetes mellitus with stage 3a chronic kidney disease, with long-term current use of insulin (HCC); At risk for falls; Tobacco abuse; Encounter for screening colonoscopy; Mild recurrent major depression 05/18/2025 Results Follow-Up [facility] Special[facility] of [address] [phone] Jeff Ca MD Lipid panel, Albumin Creatinine Ratio, Urine, Comprehensive metabolic panel, Additional followed-up results: 2 05/17/2025 Results Follow-Up [facility] [address] [phone] Gio Pearl LPN XR Foot Left 3 or More Views 05/16/2025 10:17 AM CDT - 05/16/2025 11:59 PM CDT Hospital Encounter [address] [address] Type 2 diabetes mellitus with stage 3a chronic kidney disease, with long-term current use of insulin (HCC); Hyperlipidemia associated with type 2 diabetes mellitus (HCC); Hypertension associated with diabetes (HCC); Acquired hypothyroidism Discharge Disposition: Discharge to home or self care 05/16/2025 10:15 AM CDT Lab [facility] Lab at [address] [phone] 05/16/2025 9:30 AM CDT Office Visit [facility] Endocr[facility]ology [address] [place] [phone] Jeff Ca MD Type 2 diabetes mellitus with stage 3a chronic kidney disease, with long-term current use of insulin (HCC) (Primary Dx); Acquired hypothyroidism; Hyperlipidemia associated with type 2 diabetes mellitus (HCC); Hypertension associated with diabetes (HCC) 05/12/2025 10:00 AM CDT Office Visit [address] [phone] Jose A Juárez MD Cellulitis and abscess of toe of left foot (Primary Dx); Proliferative diabetic retinopathy associated with type 2 diabetes mellitus, unspecified laterality, unspecified proliferative retinopathy type (HCC); Tobacco abuse; SSS (sick sinus syndrome) (HCC) 05/12/2025 Telephone [facility] of [address] [phone] Jeff Ca MD Blood Sugar Problem 05/10/2025 Results Follow-Up [address] [phone] Jose A Juárez MD CBC with auto differential, CRP (acute phase), Erythrocyte sedimentation rate, Additional followed-up results: 6 05/09/2025 4:20 PM CDT Lab [facility] [address] [place] [phone] Type 2 diabetes mellitus with stage 3a chronic kidney disease, with long-term current use of insulin ([facility]); Pain in left foot 05/09/2025 3:49 PM CDT - 05/09/2025 11:59 PM CDT Hospital Encounter [facility] Diagnostic Imaging [address] [place] [phone] Pain in left foot Discharge Disposition: Discharge to home or self care 05/09/2025 2:30 PM CDT Office Visit [address] [phone] Jose A Juárez MD Cigarette nicotine dependence without complication (Primary Dx); Pain in left foot; Type 2 diabetes mellitus with stage 3a chronic kidney disease, with long-term current use of insulin ([facility]); Hypertension associated with diabetes ([facility]); Diabetic peripheral neuropathy (HCC) 05/06/2025 Telephone [place] [address] [place] [phone] Jazlyn Reddy PA Medical Question/Miscellaneo us from Last 3 Months Immunizations Immunization Administration Dates Next Due COVID-19 MRNA (MODERNA) .5 M L (50 MCG) VACCINE (12 YEARS AND UP) 10/26/2024 Influenza, Quad, Adjuvantate d, Intramuscular 10/08/2023,09/26/2022 Influenza, Quadrivalent, Spl it, Intramuscular 09/21/2015 Influenza, Quadrivalent, Spl it, Preservative Free, Intramuscular 09/17/2019 Influenza, Trivalent, High D ose, Split, Preservative Free, Intramuscular 09/17/2018 Influenza, Unspecified 10/26/2024,2023(Deferred: Patient decision),09/14/2022(Deferred: Patient Refused),06/10/2022(Deferred: Patient Refused),09/12/2021,09/10/2021(Deferre d: Patient Refused),08/09/2020,09/17/2019, 018,09/21/2015 PPD TEST 11/04/2024,10/22/2024 Pfizer SARS-CoV-2 Monovalent Vaccination (12+ Yrs) PURPLE 10/08/2023,10/11/2021,03/15/2021,02/22 Pfizer Sars-Cov-2 Bivalent V accination (12+ YRS) 02/19/2023 Pneumococcal Conjugate PCV 13 09/21/2015 Pneumococcal Polysaccharide PPV23 09/21/2015,11/2010 Sars-CoV-2, Unspecified 02/19/2023 Sars-cov-2 Covid-19 Mrna, Bi valent, Original/omicron Ba.1 02/19/2023 Tdap 08/06/2022(Deferred: Patient Ref used) ZOSTER Recombinant 02/19/2023,,08/06/2022(Defer red: Patient Refused) Surgical History Surgery Date Site/Laterality Comments HYSTERECTOMY BREAST BIOPSY Bilateral benign FL UPPER GI AIR CONTRAST W KUB 12/30/2023 Left COLONOSCOPY CARDIAC PACEMAKER PLACEMENT 10/10/2024 - 11/09/2024 EYE SURGERY FOOT SURGERY Left Medical History Medical History Date Comments Hx Other Medical retinopathy Malignant neoplasm of kidney (HCC) Cancer, renal Hyperlipidemia Hyperlipidemia Hypertension Hypertension Chronic coronary artery disease Coronary artery disease Depression Depression Diabetes mellitus (HCC) History of kidney cancer Left humeral fracture 12/18/2023 Encephalopathy, unspecified 01/05/2024 Compression fracture of T7 vertebra (HCC) 2023 Wedge compression fracture o f T7-t8 vertebra, subsequent encounter for fracture with routine healing 01/05/2024 Pneumonia COPD (chronic obstructive pulmonary disease) Type 2 diabetes mellitus Hypothyroidism SOB (shortness of breath) Family History Medical History Relation Name Comments Lung cancer Father Coronary artery disease Mother Jose nary artery disease; Diabetes type II Mother Diabetes -T ype 2; Cause of : Diabetes -Type 2 Colon cancer Mother's Brother Breast cancer Sister 1 Diabetes Sister 3 Relation Name Status Comments Father Mother Mother's Brother (Age 29) Sister 1 Sister 2 Alive Sister 3 Sister 4 Alive Social History Tobacco Use Types Packs/Day Years Used Date Smoking Tobacco: Every Day Cigarettes 1 53 Tobacco Cessation:Ready to Q uit: Not Asked; Counseling Given: Not Answered Comments:Smoking about 1/2 ppd currently; quit for 8 months cold turkey in the past; at highest, 2ppd, started at age 18 [facility] Entrecities Answer Date Recorded In the past 12 months has [employer], gas, oil, or water Voices threatened to shut off services in your [...] often do you attend chur ch or adventism services? Never 04/28/2025 Do you belong to any clubs o r organizations such as adventism groups, unions, fraternal or athletic groups, or [...] place to sleep or slept in a longterm (including now)? No 10/24/2023 PHQ-9 Answer Date [...] any time in the past 12 m [facility], were you homeless or living in a longterm (including now)? No 04/28/2025 Personal Safety Answer Date Recorded Have you ever been in or are you currently in a harmful physical or emotional relationship or is someone making you feel afraid or unsafe? Denies 09/16/2024 Comments No Sex and Gender Information Value Date Recorded Sex Assigned at Not on file Legal Sex Female 2:26 AM NEWSPAPER COLUMNIST Gender Identity Not on file Sexual Orientation Not on file Occupation Industry Job Start Date Job End Date Retired Not on file Not on file Not on file Obstetrics History Para Term AB IAB SAB Ectopic Multiple Livin g Live Births 0 0 0 0 0 0 0 0 0 0 0 Last Filed Vital Signs Vital Sign Reading Time Taken Comments Blood Pressure 118/82 07/19/2025 3:07 PM CDT Pulse 96 07/19/2025 3:07 PM CDT Temperature 36.6 C (97.8 F) 07/19/2025 3:07 PM CDT Respiratory Rate 13 07/19/2025 3:07 PM CDT Oxygen Saturation 95% 07/19/2025 3:0 7 PM CDT Inhaled Oxygen Concentration - - Weight 85.3 kg (188 lb) 07/19/2025 3:07 PM CDT patient reported Height 170.2 cm (5' 7) 07/19/2025 3:07 PM CDT Body Mass Index 29.44 07/19/2025 3:07 PM CDT Plan of Treatment Health Maintenance Due Date Last Done Comments Colon Cancer Screening-Colonoscopy 1949 DTaP/Tdap/Td Vaccine (1 - Tdap) 1960 Hepatitis B Screening 1967 Lung Cancer Screening 1999 Covid-19 Vaccine (2023- 5 season) 2025 10/26/2024, 10/08/2023, 10/08/2023, Additional history exists Influenza Vaccine (#1) 2025 , 10/08/2023, 09/26/2022, Additional history exists Foot Exam 08/12/2025 08/12/2024, 06/11, 12/19/2022, Additional history exists Hemoglobin A1C 11/08/2025 05/09/2025, 01/08, 08/12/2024, Additional history exists Albumin Creatinine Ratio, Urine 05/16/2026 05/16/2025, 06/29/2024, 01/31/2023, Additional history exists Lipid Panel 05/16/2026 05/16/2025, 05/0 04/2024, 08/04/2023, Additional history exists eGFR 05/16/2026 05/16/2025, 06/3 , 11/08/2024, Additional history exists Dilated Eye Exam 05/20/2026 05/20/2025, , 09/24/2022 Fall Risk Assessment 05/23/2026 05/23/2025, 09/16/2024, 06/29/2024, Additional history exists Well Visit 65+ 05/23/2026 05/23/2025 Depression Screening 07/05/2026 07/05/2025, 06/06/2025, 05/12/2025, Additional history exists Osteoporosis Screening-Bone Density Scan 02/02/2027 02/02/2025, 07/02/2022, 07/02/2022 Pneumococcal vaccine 65+ Completed 015, 09/21/2015, 08/10/2011 Hepatitis C Screening Completed 05/06/2022 Zoster Vaccine Completed 02/19/2023, 09/26/2022 Breast Cancer Screening-Mammogram Discontinued 08/12/2023, 08/12/2023, 07/30/2022 Goals Goal Patient Goal Type Associated Problems Recent Progress Patient-Stated? Author ACO Goal - Patient can identify and utilize needed community resources ACO Care Management On track( 025 11:35 AM CDT) No Garfield Whiteside LCSW Note: Problem: Need for Community Resources Interventions: - Provide patient/family with a list of appropriate resources for their specific need. - Help to coordinate resources. - Follow up to ensure patient/family has connected with the appropriate resources / personnel. Procedures Procedure Name Priority Date/Time Associated Diagnosis Comments XR SHOULDER LEFT 2 OR MORE VIEWS Schedule Routine, Read Routine (OP Routine) 07/07/2025 12:48 PM CDT Acute pain of left shoulder Falls CT CHEST WO CONTRAST Routine 07/07/2025 12:[address] of the chest PULMONARY FUNCTION TEST (PFT) Routine 06/14/2025 11:26 AM CDT Other emphysema (HCC) HM DIABETES EYE EXAM Routine 05/20/2025 10:31 AM CDT EGFR Routine 05/16/2025 10:17 AM CDT Type 2 diabetes mellitus with stage 3a chronic kidney disease, with long-term current use of insulin (HCC) Hyperlipidemia associated with type 2 diabetes mellitus (HCC) Hypertension associated with diabetes (HCC) THYROID FUNCTION CASCADE Routine 05/16/2025 10:17 AM CDT Acquired hypothyroidism COMPREHENSIVE METABOLIC PANEL Routine 05/16/2025 10:17 AM CDT Type 2 diabetes mellitus with stage 3a chronic kidney disease, with long-term current use of insulin (HCC) Hyperlipidemia associated with type 2 diabetes mellitus (HCC) Hypertension associated with diabetes (HCC) ALBUMIN CREATININE RATIO, URINE Routine 05/16/2025 10:17 AM CDT Type 2 diabetes mellitus with stage 3a chronic kidney disease, with long-term current use of insulin (HCC) Hypertension associated with diabetes (HCC) LIPID PANEL Routine 05/16/2025 10:17 AM CDT Type 2 diabetes mellitus with stage 3a chronic kidney disease, with long-term current use of insulin (HCC) Hyperlipidemia associated with type 2 diabetes mellitus (HCC) POCT GLUCOSE Routine 05/16/2025 9:46 AM CDT Type 2 diabetes mellitus with stage 3a chronic kidney disease, with long-term current use of insulin (HCC) BLOOD CULTURE Routine 05/09/2025 5:02 PM CDT EGFR Routine 05/09/2025 5:01 PM CDT Type 2 diabetes mellitus with stage 3a chronic kidney disease, with long-term current use of insulin (HCC) Pain in left foot DIFFERENTIAL AUTO Routine 05/09/2025 5:0 1 PM CDT Type 2 diabetes mellitus with stage 3a chronic kidney disease, with long-term current use of insulin (HCC) Pain in left foot HEMOGLOBIN A1C Routine 05/09/2025 5:01 PM CDT Type 2 diabetes mellitus with stage 3a chronic kidney disease, with long-term current use of insulin (HCC) Pain in left foot BASIC METABOLIC PANEL Routine 05/09/2025 5:01 PM CDT Type 2 diabetes mellitus with stage 3a chronic kidney disease, with long-term current use of insulin (HCC) Pain in left foot ERYTHROCYTE SEDIMENTATION RATE Routine 05/09/2025 5:01 PM CDT Type 2 diabetes mellitus with stage 3a chronic kidney disease, with long-term current use of insulin (HCC) Pain in left foot CRP (ACUTE PHASE) Routine 05/09/2025 5:0 1 PM CDT Type 2 diabetes mellitus with stage 3a chronic kidney disease, with long-term current use of insulin (HCC) Pain in left foot CBC WITH AUTO DIFFERENTIAL Routine 05/09/2025 5:01 PM CDT Type 2 diabetes mellitus with stage 3a chronic kidney disease, with long-term current use of insulin (HCC) Pain in left foot BLOOD CULTURE Routine 05/09/2025 5:01 PM CDT Type 2 diabetes mellitus with stage 3a chronic kidney disease, with long-term current use of insulin (HCC) Pain in left foot XR FOOT LEFT 3 OR MORE VIEWS Schedule Routine, Read Routine (OP Routine) 05/09/2025 4:09 PM CDT Pain in left foot DEXA AXIAL SKELETON BONE DENSITY 1 OR MORE SITES Schedule Routine, Read Routine (OP Routine) 02/02/2025 1:53 PM CDT Post-menopausal SCREENING MAMMOGRAM BILATERAL W BRIDGER Schedule Routine, Read Routine (OP Routine) 08/12/2023 2:11 PM CDT Screening mammogram, encounter for HEPATITIS C ANTIBODY Routine 05/06/2022 2:47 PM CDT Type 2 diabetes mellitus with other specified complication, without long-term current use of insulin (HCC) Hypertension associated with diabetes (HCC) Hyperlipidemia associated with type 2 diabetes mellitus (HCC) Acquired hypothyroidism Encounter for hepatitis C screening test for low risk patient from Last 3 Months or Most Recently Relevant to Health Maintenance Results * XR Shoulder Left 2 or More Views (07/07/2025 12:48 PM CDT) Anatomical Region Laterality Modality Upper Extremities, Shoulder Left Comp uted Radiography 07/08/2025 4:22 PM CDT Narrative 07/08/2025 4:24 PM CDT EXAM DESCRIPTION: 1. XR SHOULDER LEFT 2 OR MORE VIEWS REASON FOR STUDY: Shoulder pain, hx old fracture, recent fall Left shoulder pain after fall x 3 weeks FINDINGS: Four views submitted with comparison 07/07/2025. Old healed proximal left humerus fracture. No acute fracture identified. Mild glenohumeral and acromioclavicular joint osteoarthritis. Left-sided pacer is in place. Arterial atherosclerosis. IMPRESSION: 1. Old healed proximal left humerus fracture. No acute fracture identified. 2. Mild left glenohumeral and acromioclavicular joint osteoarthritis. THIS IS AN ELECTRONICALLY VERIFIED FINAL REPORT 07/08/2025 4:24 PM - Electronically signed by Leonid Corley M.D. MF: [id number] Report ID: [id number] Reading Location: [id number] Procedure Note Leonid Corley MD - 07/08/2025 EXAM DESCRIPTION: 1. XR SHOULDER LEFT 2 OR MORE VIEWS REASON FOR STUDY: Shoulder pain, hx old fracture, recent fall Left shoulder pain after fall x 3 weeks FINDINGS: Four views submitted with comparison 07/07/2025. Old healed proximal left humerus fracture. No acute fracture identified. Mild glenohumeral and acromioclavicular joint osteoarthritis. Left-sided pacer is in place. Arterial atherosclerosis. IMPRESSION: 1. Old healed proximal left humerus fracture. No acute fractureidentified. 2. Mild left glenohumeral and acromioclavicular joint osteoarthritis. THIS IS AN ELECTRONICALLY VERIFIED FINAL REPORT 07/08/2025 4:24 PM - Electronically signed by Leonid Corley M.D. MF: [id number] Report ID: [id number] Reading Location: [id number] us Jose A Juárez MD IMG XR PROCEDURES Final Resul t * CT Chest WO Contrast (07/07/2025 12:25 PM CDT) Anatomical Region Laterality Modality Body N/A Computed Tomogra phy 07/19/2025 7:55 AM CDT Narrative 07/19/2025 7:58 AM CDT EXAM DESCRIPTION: CT CHEST WO CONTRAST REASON FOR STUDY: Respiratory illness, nondiagnostic xray Respiratory illness. Pt only complains of shoulder pain. Pneumonia seen on CXR 3 months ago. TECHNIQUE: CT scan of the chest performed without intravenous contrast using helical scanning technique. Reconstructed coronal and sagittal MPR images reviewed. All images stored on PACS. Automated exposure control was used as a dose optimization technique for this examination. COMPARISON: None FINDINGS: The sensitivity for detection of solid visceral lesions is diminished without the use of intravenous contrast. LUNGS: Mild to moderate emphysematous changes apparent. No suspicious consolidated pulmonary opacities are seen. PLEURA: No effusion. No pneumothorax. MEDIASTINUM/SHAD: No identified masses or abnormal nodes. HEART: Heart size is normal with no pericardial effusion. CORONARY ARTERY CALCIFICATION: Present VASCULATURE: No thoracic aortic aneurysm. AXILLA: No adenopathy. CHEST WALL: No masses. No subcutaneous air. HARDWARE/LINES/TUBES: There is an electronic cardiac device with leads via the left subclavian route. UPPER ABDOMEN: There are fat attenuation bilateral adrenal adenomas. A subcentimeter left renal cyst is seen. There are stones in the gallbladder. MUSCULOSKELETAL: Limited views of both shoulders reveal what appear to be degenerative changes. Wedge compression deformities in T4, T7, and T8 are age-indeterminate. OTHER: No other significant abnormality. IMPRESSION: 1. No pneumonia noted. 2. Mild to moderate emphysematous change. 3. Age-indeterminate wedge compression deformities of T4, T7, and T8. 4. Gallstones. 5. Bilateral adrenal adenomas. THIS IS AN ELECTRONICALLY VERIFIED FINAL REPORT 07/19/2025 7:58 AM - Electronically signed by Marek Gaspar M.D. BS: BS Report ID: [id number] Reading Location: [place] [address] Procedure Note Marek Gaspar MD - 07/19/2025 EXAM DESCRIPTION: CT CHEST WO CONTRAST REASON FOR STUDY: Respiratory illness, nondiagnostic xray Respiratory illness. Pt only complains of shoulder pain. Pneumonia seen onCXR 3 months ago. TECHNIQUE: CT scan of the chest performed without intravenous contrastusing helical scanning technique. Reconstructed coronal and sagittal MPR images reviewed. All images stored on PACS. Automated exposure control was usedas a dose optimization technique for this examination. COMPARISON: None FINDINGS: The sensitivity for detection of solid visceral lesions is diminished without the use of intravenous contrast. LUNGS: Mild to moderate emphysematous changes apparent. No suspicious consolidated pulmonary opacities are seen. PLEURA: No effusion. No pneumothorax. MEDIASTINUM/SHAD: No identified masses or abnormal nodes. HEART: Heart size is normal with no pericardial effusion. CORONARY ARTERY CALCIFICATION: Present VASCULATURE: No thoracic aortic aneurysm. AXILLA: No adenopathy. CHEST WALL: No masses. No subcutaneous air. HARDWARE/LINES/TUBES: There is an electronic cardiac device with leadsvia the left subclavian route. UPPER ABDOMEN: There are fat attenuation bilateral adrenal adenomas. A subcentimeter left renal cyst is seen. There are stones in thegallbladder. MUSCULOSKELETAL: Limited views of both shoulders reveal what appear rogelio degenerative changes. Wedge compression deformities in T4, T7, and T8 are age-indeterminate. OTHER: No other significant abnormality. IMPRESSION: 1. No pneumonia noted. 2. Mild to moderate emphysematous change. 3. Age-indeterminate wedge compression deformities of T4, T7, and T8. 4. Gallstones. 5. Bilateral adrenal adenomas. THIS IS AN ELECTRONICALLY VERIFIED FINAL REPORT 07/19/2025 7:58 AM - Electronically signed by Marek Gaspar M.D. BS: BS Report ID: [id number] Reading Location: [place] [address] Zac Sherwood MD [facility] [place]ED[place]ant[place] l Result * (ABNORMAL) Pulmonary Function Test - (06/14/2025 11:26 AM CDT) Pathologist [facility] FVC PRE 2.28 2.12 - 3.86 L [facility] FEV1 PRE 1.76 1.61 - 2.88 L [facility] [id number] 77.13 63.16 - 89.17 % [facility] MRG28-84% PRE 1.48 0.79 - 3.29 L/s [facility] PEF PRE 5.80 4.52 - 7.48 L/s [facility] DLCOc SB 14.11(A) 16.68 - 28.15 ml/(min*mm Hg) [facility] DLCO/VA PRE 3.55 2.82 - 5.41 ml/(min*mm Hg*L) [facility] VA 3.97(A) 5.29 - 5.29 L [facility] TLC PRE 5.14 4.45 - 6.43 L [facility] VC PRE 2.42 2.16 - 3.54 L [facility] IC PRE 1.85(A) 2.24 - 2.24 L [facility] FRC PL PRE 3.29 2.06 - 3.71 L [facility] ERV PRE 0.57(A) 0.61 - 0.61 L [facility] RV PRE 2.72 1.70 - 2.86 L [facility] VTG 3.41 L [facility] RAW PRE 3.31(A) 3.06 - 3.06 cmH2O*s/L [facility] Anatomical Region Laterality Modality PFT 06/14/2025 10:5 0 AM CDT Impressions 06/15/2025 3:32 PM CDT Patient had difficulty performing spirometry maneuvers. Please interpret with caution. 1. Spirometry is normal. 2. Lung volumes are normal. 3. Mild diffusion impairment. Clinical correlation is advised. Electronically signed by Wolfgang Hall DO Pulmonary & Critical Care Narrative 06/15/2025 3:32 PM CDT PULMONARY FUNCTION TESTS Dora Epps 74 y.o. 06/15/2025 INTERPRETATION Please see technologist's comments mentioned in attached results report. SPIROMETRY: Pre bronchodilator FEV1 is 78 % predicted, FVC is 77 % predicted, FEV1/FVC is 77 Bronchodilator response: Not assessed Inspection of the patient's flow-volume loops shows: Normal configuration of the inspiratory and expiratory limbs. LUNG VOLUMES: Lung volumes by body plethysmography: TLC is 94 % predicted, RV is 119 % predicted DLCO: Unadjusted for hemoglobin and carboxyhemoglobin DLCO is 63 % predicted Zac Sherwood MD PFT ORDERABLES Final Result * (ABNORMAL) DIABETES EYE EXAM (05/20/2025 10:31 AM CDT) SCRIBED DIABETIC DILATED EYE EXAM Abnormal [facility] Provider HEALTH MAINTENANCE Final Result * eGFR (05/16/2025 10:17 AM CDT) eGFR 63 >=60 mL/min/1. 73 m2 Comment: Interpretive Data Reference Interval Normal >/= 90 mL/min/1.73m2 Mildly decreased* 60 - 89 mL/min/1.73m2 Mildly to moderately decreased 45 - 59 mL/min/1.73m2 Moderately to severely decreased 30 - 44 mL/min/1.73m2 Severely decreased 15 - 29 mL/min/1.73m2 Kidney Failure < 15 mL/min/1.73m2 *Relative to young adult level Estimated glomerular filtration rate is determined by the 2020 CKD-EPI equation recommended by the National Kidney Foundation (A Unifying Approach to GFR Estimation: Recommendations of the NKF-ASK Task Force on Reassessing the Inclusion of Race in Diagnosing Kidney Disease, JASN 2020). The CKD-EPI equation should not be used for patients with unstable renal function and has not been validated in children and those over 70. Current interpretive data was last reviewed 2021. Blood 05/16/2025 10:1 7 AM CDT 05/16/2025 4:51 PM CDT Jeff Bob MD LAB BLOOD ORDERABLE S Final Result Performing Organization Address [facility] Co de Phone Number CANDICEKIMBERLEE [address] [place] [address] * Thyroid Function [place] (05/16/2025 10:17 AM CDT) TSH 1.65 0.30 - 4.20 mcIUnit/mL Blood 05/16/2025 10:1 7 AM CDT 05/16/2025 4:48 PM CDT Jeff Bob MD LAB BLOOD ORDERABLE S Final Result Performing Organization Address [facility] de Phone Number DAYANARA [id number] [place] [address] * (ABNORMAL) Albumin Creatinine Ratio, Urine (05/16/2025 10:17 AM CDT) Albumin Ur 108.9 mg/L Comment: Interpretive Data No reference range established. Current interpretive data was last revised 2019. Creatinine Ur 89.1 mg/dL DAYANARA Comment: Interpretive Data No reference range established. Current interpretive data was last revised 2019. Albumin Creatinine Ratio, Ur 122(H) 1 - 29 mg/g DAYANARA RUTLEDGE Urine 05/16/2025 10:1 7 AM CDT 05/16/2025 4:48 PM CDT Jeff Bob MD LAB URINE ORDERABLE S Final Result Performing Organization Address [facility] Co de Phone Number DAYANARA [address] [address] [facility] [place] [address] * (ABNORMAL) Lipid panel (05/16/2025 10:17 AM CDT) Cholesterol 200(H) 30 - 199 mg/dL Comment: Interpretive Data Ages < or = 19 years Acceptable: <170 mg/dL Borderline high: 170-199 mg/dL High: >or= 200 mg/dL Ages > or = 20 years Desirable: <200 mg/dL Borderline high: 200-239 mg/dL High: >or= 240 mg/dL Literature References: 1. Expert Panel on Integrated Guidelines for Cardiovascular Health and Risk Reduction in Children and Adolescents. Pediatrics 2011;128:S213 2. NCEP Expert Panel. Circulation 2004;110:227 Current Interpretive Data was last revised on 2018. Triglycerides 119 <=149 mg/dL DAYANARA RUTLEDGE Comment: Interpretive Data Ages < or = 9 years Acceptable: <75 mg/dL Borderline high: 75-99 mg/dL High: >or= 100 mg/dL Ages 10 to 20 years Acceptable: <90 mg/dL Borderline high: 90-129 mg/dL High: >or= 130 mg/dL Ages > or = 20 years Desirable: <150 mg/dL Borderline high: 150-199 mg/dL High: 200-499 mg/dL Very high: >or= 499 mg/dL Literature References: 1. Expert Panel on Integrated Guidelines for Cardiovascular Health and Risk Reduction in Children and Adolescents. Pediatrics 2011;128:S213 2. NCEP Expert Panel. Circulation 2004;110:227 Current Interpretive Data was last revised on 2018. HDL 43 >=40 mg/dL DAYANARA RUTLEDGE Comment: Interpretive Data Ages < or = 19 years Acceptable: >45 mg/dL Borderline low: 40-45 mg/dL Low: <40 mg/dL Ages > or = 20 years Desirable: >or= 60 mg/dL Low: <40 mg/dL Literature References: 1. Expert Panel on Integrated Guidelines for Cardiovascular Health and Risk Reduction in Children and Adolescents. Pediatrics 2011;128:S213 2. NCEP Expert Panel. Circulation 2004;110:227 Current Interpretive Data was last revised on 2018. LDL, calculated 135(H) <=129 mg/dL DAYANARA RUTLEDGE Comment: Interpretive Data Ages < or = 19 years Acceptable: <110 mg/dL Borderline high: 110-129 mg/dL High: >or= 130 mg/dL Ages > or = 20 years Optimal: <100 mg/dL Near optimal: 100-129 mg/dL Borderline high: 130-159 mg/dL High: >160 mg/dL Calculated using the Benja LDL-C estimating equation. This equation was implemented on 2024. Prior to this date LDL-C was estimated using the Friedewald equation. Literature References: 1. Expert Panel on Integrated Guidelines for Cardiovascular Health and Risk Reduction in Children and Adolescents. Pediatrics 2011;128:S213 2. NCEP Expert Panel. Circulation 2004;110:227 3. Benja James et al. KIARA Cardiol. 2020 March 10;5(5):540-548. doi: 10.1001/jamacardio.2020.0013 Current Interpretive Data was last revised on 2024. Non-HDL Cholesterol 157 mg/dL DAYANARA Comment: Interpretive Data Ages < or = 19 years Acceptable: <120 mg/dL Borderline high: 120-144 mg/dL High: >145 mg/dL Ages > or = 20 years When triglycerides are >200 mg/dL, Non-HDL cholesterol is a secondary target of therapy with treatment goals that are 30 mg/dL greater than the LDL cholesterol target. Literature References: 1. Expert Panel on Integrated Guidelines for Cardiovascular Health and Risk Reduction in Children and Adolescents. Pediatrics 2011;128:S213 2. NCEP Expert Panel. Circulation 2004;110:227 Current Interpretive Data was last revised on 2018. Chol/HDL ratio 5 CERNER CH Blood 05/16/2025 10:1 7 AM CDT 05/16/2025 4:48 PM CDT us Jeff Bob MD LAB BLOOD ORDERABLE S Final Result DAY[facility] [address] [place] [address] * (ABNORMAL) Comprehensive metabolic panel (05/16/2025 10:17 AM CDT) Sodium 138 135 - 145 mmol/L Potassium, pl 4.6 3.3 - 4.9 mmol/L [facility] Chloride 107 97 - 110 mmol/L [facility] CO2 24 22 - 32 mmol/L [facility] Anion gap 7 2 - 15 mmol/L [facility] BUN 18 6 - 25 mg/dL [facility] Creatinine 0.94 0.60 - 1.10 mg/dL [facility] Glucose 134 70 - 199 mg/dL [facility]ERNER CH Comment: Interpretive Data Fasting glucose >/= 126 mg/dl is diagnostic for diabetes. Fasting is defined as no caloric intake for at least 8 hours. Fasting glucose between 100 mg/dl to 125 mg/dl is diagnostic of prediabetes. In a patient with classic symptoms of hyperglycemia or hyperglycemic crisis, a random glucose >/= 200 mg/dl is diagnostic for diabetes. In the absence of unequivocal hyperglycemia, results should be confirmed by repeat testing. The classification and Diagnosis of Diabetes Diabetes Care 2021; 46: S19-S40. Current interpretive data was last revised 2022. Calcium 10.0 8.5 - 10.3 mg/dL [facility] Bilirubin, total 0.4 0.1 - 1.2 mg/dL [facility] Protein, pl 7.1 6.5 - 8.5 g/dL [facility] Albumin 3.8 3.5 - 5.0 g/dL [facility] Alk phos 134(H) 40 - 130 Units/L [facility] ALT 8 7 - 45 Units/L [facility] AST 22 10 - 45 Units/L [facility] Blood 05/16/2025 10:1 7 AM CDT 05/16/2025 4:48 PM CDT us Jeff Bob MD LAB BLOOD ORDERABLE S Final Result [facility] [address] Department [place] [address] * POCT glucose (05/16/2025 9:46 AM CDT) Glucose Blood, POC 134 Normal Fasting 70 - 100, Random <200 mg/dL Blood 05/16/2025 9:46 AM CDT us Jeff Bob MD POINT OF CARE TEST ORDERABLES Final Result * (ABNORMAL) Blood culture Blood (05/09/2025 5:02 PM CDT) Direct Specimen Exam Molecular Analysis: Corynebacterium detected by [facility] BCID-GP panel. Single positive culture may represent contamination. This test does not exclude the possibility of a mixed bacterial infection. Notification of: Corynebacterium called to and read back by: Poornima Lunsford [facility] [phone] on 05/12/2025 21:19:46 by: Diane Myers MT Comment:Testing performed by : [address] [address] Direct Specimen Exam Stain: Gram Positive Bacilli Time to culture positivity (anaerobic media): 68.8 hours Notification of: Gram Positive Bacilli called to and read back by: Robert Landeros [facility] [phone] on 05/12/2025 19:23:19 by: CEDRIC Cox Comment:Testing performed by : [facility], [address] [place] [address]., [address] Report Final Report: Corynebacterium aurimucosum group Single blood culture positive for this microorganism. Isolate is a possible contaminant. If a similar isolate is recovered from a second blood culture collected within 3 days of this culture, both will be evaluated and, if determined to be the same species, antimicrobial susceptibility testing will be performed. (.) DAYANARA Comment:Testing performed by : [address] [address] Organism CORYNEBACTERIUM AURIMUCOSUM GROUP DAYANARA Blood 05/09/2025 5:02 PM CDT 05/09/2025 9:37 PM CDT [facility] DAYANARA - 05/15/2025 9:49 AM CDT 1. Blood cultures are incubated for 4 days on a continuously monitored blood culture system. The first report of a negative culture is issued within 24 hours of receipt of the specimen in the laboratory. 2. Positive culture results are reported as soon as they are detected. 3. The most important factor for detection of microbes in the setting of bloodstream infection is the volume of blood submitted for culture. Failure to collect an optimal blood volume can result in false negative blood cultures. 4. For pediatric patients, the recommended blood volume to collect follows a weight based strategy. See the electronic test catalog for collection instructions. 5. For positive blood cultures, a rapid molecular test may be performed for organism identification using the [facility] blood culture identification panel for gram positive (BCID-GP) and gram negative (BCID-GN) organisms. This nucleic acid amplification test detects microbial DNA in positive blood culture broth. This assay has been cleared by the [place] Food and Drug Administration and its performance characteristics have been verified by the [facility] Microbiology Laboratory. For questions about this culture, contact the Microbiology Laboratory at [phone]. Interpretive data was last revised on 24. Jose A Juárez MD LAB MICROBIOLOGY - GENERAL OR DERABLES Final Result DAY[facility] [address] [facility] Department [place] [address] * (ABNORMAL) eGFR (05/09/2025 5:01 PM CDT) eGFR 59(L) >=60 mL/min/1. 73 m2 Comment: Interpretive Data Reference Interval Normal >/= 90 mL/min/1.73m2 Mildly decreased* 60 - 89 mL/min/1.73m2 Mildly to moderately decreased 45 - 59 mL/min/1.73m2 Moderately to severely decreased 30 - 44 mL/min/1.73m2 Severely decreased 15 - 29 mL/min/1.73m2 Kidney Failure < 15 mL/min/1.73m2 *Relative to young adult level Estimated glomerular filtration rate is determined by the 2020 CKD-EPI equation recommended by the National Kidney Foundation (A Unifying Approach to GFR Estimation: Recommendations of the NKF-ASK Task Force on Reassessing the Inclusion of Race in Diagnosing Kidney Disease, JASN 2020). The CKD-EPI equation should not be used for patients with unstable renal function and has not been validated in children and those over 70. Current interpretive data was last reviewed 2021. Testing performed by: [address] [address] Blood 05/09/2025 5:01 PM CDT 05/09/2025 5:07 PM CDT Jose A Juárez MD LAB BLOOD ORDERABLES Final Re sult [facility] [address] [facility] Department [place] [address] * Differential, auto (05/09/2025 5:01 PM CDT) Neutrophil abs 6.48 1.50 - 6.50 K/cumm Comment:Testing performed by : [address] [address] Imm gran abs 0.04 0.00 - 0.10 K/cumm DAYANARA Comment:Testing performed by : [address] [address] Lymphocyte abs 1.95 0.80 - 3.30 K/cumm DAYANARA Comment:Testing performed by : [address] [address] Monocyte abs 0.46 0.20 - 0.80 K/cumm DAYANARA Comment:Testing performed by : [address] [address] Eosinophil abs 0.18 0.00 - 0.50 K/cumm DAYANARA Comment:Testing performed by : [address] [address] Basophil abs 0.05 0.00 - 0.10 K/cumm DAYANARA Comment:Testing performed by : [address] [address] Neutrophil pct 70.8 % DAYANARA Comment: Interpretive Data Percent cell count reference ranges are not reported, since discordance with absolute values may lead to misinterpretation of CBC data. Current Interpretive Data was last revised on 2018. Testing performed by: [address] [address] Imm gran pct 0.4 % DAYANARA Comment: Interpretive Data Percent cell count reference ranges are not reported, since discordance with absolute values may lead to misinterpretation of CBC data. Current Interpretive Data was last revised on 2018. Testing performed by: [address] [address] Lymphocyte pct 21.3 % DAYANARA Comment: Interpretive Data Percent cell count reference ranges are not reported, since discordance with absolute values may lead to misinterpretation of CBC data. Current Interpretive Data was last revised on 2018. Testing performed by: [address] [address] Monocyte pct 5.0 % DAYANARA Comment: Interpretive Data Percent cell count reference ranges are not reported, since discordance with absolute values may lead to misinterpretation of CBC data. Current Interpretive Data was last revised on 2018. Testing performed by: [address] [address] Eosinophil pct 2.0 % DAYANARA Comment: Interpretive Data Percent cell count reference ranges are not reported, since discordance with absolute values may lead to misinterpretation of CBC data. Current Interpretive Data was last revised on 2018. Testing performed by: [address] [address] Basophil pct 0.5 % DAYANARA Comment: Interpretive Data Percent cell count reference ranges are not reported, since discordance with absolute values may lead to misinterpretation of CBC data. Current Interpretive Data was last revised on 2018. Testing performed by: [address] [address] Blood 05/09/2025 5:01 PM CDT 05/09/2025 5:08 PM CDT us Jose A Juárez MD LAB BLOOD ORDERABLES Final Re sult DAYANARA ABDALLA [address] [facility] [place] [address] * CBC with auto differential (05/09/2025 5:01 PM CDT) Pathologist [facility] WBC 9.16 3.80 - 9.90 K/cumm Comment:Testing performed by : [address] [address] Hgb 14.9 11.9 - 15.5 g/dL DAYANARA Comment:Testing performed by : [address] [address] Hct 43.0 35.6 - 45.5 % DAYANARA Comment:Testing performed by : [address] [address] Plt 295 150 - 400 K/cumm DAYANARA Comment:Testing performed by : [address] [address] MPV 10.3 9.1 - 12.3 fL DAYANARA Comment:Testing performed by : [address], [address] RBC 4.77 3.90 - 5.20 M/cumm DAYANARA Comment:Testing performed by : [address], [address] MCV 90.1 81.3 - 96.4 fL DAYANARA Comment:Testing performed by : [address] [address] MCH 31.2 27.1 - 33.3 pg DAYANARA Comment:Testing performed by : [address] [address] MCHC 34.7 32.3 - 35.7 g/dL DAYANARA Comment:Testing performed by : [address], [address] RDW CV 12.6 11.1 - 14.9 % DAYANARA Comment:Testing performed by : [address] [address] RDW SD 41.5 35.7 - 48.1 fL DAYANARA Comment:Testing performed by : [address] [address] NRBC abs 0.00 0.00 - 0.01 K/cumm DAYANARA Comment:Testing performed by : [address], [address] Blood 05/09/2025 5:01 PM CDT 05/09/2025 5:08 PM CDT Jose A Juárez MD LAB BLOOD ORDERABLES Final Re sult Performing Organization Address [facility]/ZIP Co de Phone Number DAYANARA ABDALLA [address] [facility] Department [place] [address] * Blood culture Blood (05/09/2025 5:01 PM CDT) Report Final Report: No growth Comment:Testing performed by : [facility], [address] [place]., [address] Blood 05/09/2025 5:01 PM CDT 05/09/2025 9:37 PM CDT Narrative [facility] - 05/14/2025 7:00 AM CDT 2x 1. Blood cultures are incubated for 4 days on a continuously monitored blood culture system. The first report of a negative culture is issued within 24 hours of receipt of the specimen in the laboratory. 2. Positive culture results are reported as soon as they are detected. 3. The most important factor for detection of microbes in the setting of bloodstream infection is the volume of blood submitted for culture. Failure to collect an optimal blood volume can result in false negative blood cultures. 4. For pediatric patients, the recommended blood volume to collect follows a weight based strategy. See the electronic test catalog for collection instructions. 5. For positive blood cultures, a rapid molecular test may be performed for organism identification using the [facility] [employer] blood culture identification panel for gram positive (BCID-GP) and gram negative (BCID-GN) organisms. This nucleic acid amplification test detects microbial DNA in positive blood culture broth. This assay has been cleared by the [place] Food and Drug Administration and its performance characteristics have been verified by the [facility] Microbiology [facility]. For questions about this culture, contact the Microbiology Laboratory at [phone]. Interpretive data was last revised on 24. Jose A Juárez MD LAB MICROBIOLOGY - GENERAL OR DERABLES Final Result Performing Organization Address City/[facility]/ZIP Co de Phone Number CERNER [address] [address] * (ABNORMAL) Erythrocyte sedimentation rate (05/09/2025 5:01 PM CDT) [facility] Erythrocyte sedimentation rate 38(H) 1 - 30 mm/hr Comment:Testing performed by : [address] [address] Blood 05/09/2025 5:01 PM CDT 05/09/2025 5:08 PM CDT Jose A Juárez MD LAB BLOOD ORDERABLES Final Re sult Performing Organization Address City/[facility]/ZIP Co de Phone Number CANDICE[address] [address] * CRP (acute phase) (05/09/2025 5:01 PM CDT) [facility] CRP 3.8 <=10.0 mg/L Comment:Testing performed by : [address] [address] Blood 05/09/2025 5:01 PM CDT 05/09/2025 5:07 PM CDT Jose A Juárez MD LAB BLOOD ORDERABLES Final Re sult Performing Organization Address City/[facility]/ZIP Co de Phone Number [address] [address] * (ABNORMAL) Hemoglobin A1c (05/09/2025 5:01 PM CDT) [facility] Hgb A1C 9.7(H) 4.0 - 5.6 % Comment:Testing performed by : [address] [address] Estimated Average Glucose 232 mg/dL [facility] Comment: The ADA recommends reporting an estimated Average Glucose (eAG) with all Hemoglobin A1c results using the equation derived from a study of 507 normal and diabetic adults. Minority populations were underrepresented and children were not included. (Diabetes Care 31:3891-6164, 2008). The eAG is not equivalent to a fasting glucose. Testing performed by: [address] [address] Blood 05/09/2025 5:01 PM CDT 05/09/2025 5:07 PM CDT us Jose A Juárez MD LAB BLOOD ORDERABLES Final Re sult [facility] [address] [facility] Department [place] [address] * (ABNORMAL) Basic metabolic panel (05/09/2025 5:01 PM CDT) Sodium 137 135 - 145 mmol/L Comment:Testing performed by : [address] [address] Potassium, pl 4.1 3.3 - 4.9 mmol/L [facility] Comment:Testing performed by : [address] [address] Chloride 103 97 - 110 mmol/L [facility] Comment:Testing performed by : [address] [address] CO2 22 22 - 32 mmol/L [place] Comment:Testing performed by : [address] [address] Anion gap 12 2 - 15 mmol/L [place] Comment:Testing performed by : [address] [address] BUN 17 6 - 25 mg/dL DAY[facility] Comment:Testing performed by : [address] [address] Creatinine 1.00 0.60 - 1.10 mg/dL [place] Comment:Testing performed by : [address] [address] Glucose 406(H) 70 - 199 mg/dL [facility] Comment: Interpretive Data Fasting glucose >/= 126 mg/dl is diagnostic for diabetes. Fasting is defined as no caloric intake for at least 8 hours. Fasting glucose between 100 mg/dl to 125 mg/dl is diagnostic of prediabetes. In a patient with classic symptoms of hyperglycemia or hyperglycemic crisis, a random glucose >/= 200 mg/dl is diagnostic for diabetes. In the absence of unequivocal hyperglycemia, results should be confirmed by repeat testing. The classification and Diagnosis of Diabetes Diabetes Care 2021; 46: S19-S40. Current interpretive data was last revised 2022. Testing performed by: [facility], [address] [place] [address]., [address] Calcium 10.4(H) 8.5 - 10.3 mg/dL DAYANARA ABDALLA Comment:Testing performed by : [facility], [address] [place] [address]., [address] Blood 05/09/2025 5:01 PM CDT 05/09/2025 5:07 PM CDT us Jose A Juárez MD LAB BLOOD ORDERABLES Final Re sult [facility] [address] [facility] Department [place] [address] * XR Foot Left 3 or More Views (05/09/2025 4:09 PM CDT) Anatomical Region Laterality Modality Lower Extremities, Foot Left Computed Radiography 05/14/2025 6:55 AM CDT Narrative 05/14/2025 7:22 AM CDT EXAM DESCRIPTION: 1. XR FOOT LEFT 3 OR MORE VIEWS REASON FOR STUDY: Pain in Foot, Left Pt is having pain and swelling on her left foot x 1 week FINDINGS: Three views submitted without comparison. No acute fracture. Achilles enthesophyte and a small heel spur present. Polyarticular midfoot osteoarthritis. Mild hallux valgus with minimal 1st metatarsophalangeal joint osteoarthritis. Lesser hammertoe deformities are present. IMPRESSION: 1. Mild left hallux valgus with minimal 1st metatarsophalangeal joint osteoarthritis. 2. Polyarticular left midfoot osteoarthritis. THIS IS AN ELECTRONICALLY VERIFIED FINAL REPORT 05/14/2025 7:22 AM - Electronically signed by Leonid Corley M.D. MF: [email or web address] Report ID: [id number] Reading Location: [id number] Procedure Note Leonid Corley MD - 05/14/2025 EXAM DESCRIPTION: 1. XR FOOT LEFT 3 OR MORE VIEWS REASON FOR STUDY: Pain in Foot, Left Pt is having pain and swelling on her left foot x 1 week FINDINGS: Three views submitted without comparison. No acute fracture. Achilles enthesophyte and a small heel spur present. Polyarticular midfoot osteoarthritis. Mild hallux valgus with minimal 1st metatarsophalangeal joint osteoarthritis. Lesser hammertoe deformitiesare present. IMPRESSION: 1. Mild left hallux valgus with minimal 1st metatarsophalangeal joint osteoarthritis. 2. Polyarticular left midfoot osteoarthritis. THIS IS AN ELECTRONICALLY VERIFIED FINAL REPORT 05/14/2025 7:22 AM - Electronically signed by Leonid Corley M.D. MF: [email or web address] Report ID: [id number] Reading Location: [id number] us Jose A Juárez MD IMG XR PROCEDURES Final Resul t * Dexa Axial Skeleton Bone Density 1 Or 2 Site (02/02/2025 1:53 PM CDT) Anatomical Region Laterality Modality Body N/A Mammography 02/02/2025 2:19 PM CDT Narrative 02/02/2025 2:20 PM CDT EXAM DESCRIPTION: DEXA AXIAL SKELETON BONE DENSITY 1 OR MORE SITES REASON FOR STUDY: 74 y/o year old F with given history of: Post menopausal status. History prior fracture and smoking. Patient has taken/is taking vitamin-D and calcium. History of right renal carcinoma Appeals Referee/Model: Charitas A (S/N [id number]) Facility LSC value of 0.022 for the AP spine, 0.027 for the femur, and 0.023 for the forearm. CLINICAL INFORMATION: Current height: 67 inches Maximum height: 67.5 inches Weight: 187 pounds Risk factors: Prior fracture and smoking COMPARISON: None available FINDINGS: AP LUMBAR SPINE L1-L4: Total BMD is 0.757 g/cm2 T-score is -2.6 LEFT HIP: Total BMD is 0.606 g/cm2 T-score is -2.8 Femoral neck BMD is 0.467 g/cm2 T-score is -3.4 FRAX: FRAX not reported due to T-scores of hip, femoral neck and/or spine being at or below -2.5 (Osteoporosis). IMPRESSION: Osteoporosis. REFERENCE: Bone mineral density: T-Score: Normal (T-score above or = -1.0) Low bone mass (T-score between -1.0 and -2.5) replaces the previously used term osteopenia Osteoporosis (T-score = or below -2.5) Z-Score: Within the expected range for age (Z-score above -2.0) Below the expected range for age (Z-score is -2.0 or below) Please see below follow up recommendations. Medical evaluation for secondary causes of low bone mineral density may be appropriate. FRAX is a World Health Organization validated fracture risk assessment tool that calculates a person's 10 year probability of a major osteoporosis related fracture and hip fracture. According to the National Osteoporosis Foundation guidelines, postmenopausal women and men age 50 or older with low bone mass and a 10 year probability of a major osteoporosis related fracture = or greater than 20% or a 10 year probability of a hip fracture = or greater than 3% should be considered for pharmacological treatment for the prevention of osteoporosis. For further information, including treatment recommendations, please refer to the 2019 ISCD Official Positions (http://www.iscd.org) and the NOF's Clinician's Guide to Prevention and Treatment of Osteoporosis (http://www.nof.org/professionals/clinical-guidelines) THIS IS AN ELECTRONICALLY VERIFIED FINAL REPORT 02/02/2025 2:20 PM - Electronically signed by Nannette Yañez M.D. TW: TW Report ID: [id number] Reading Location: [id number] Procedure Note Nannette Yañez MD - 02/02/2025 EXAM DESCRIPTION: DEXA AXIAL SKELETON BONE DENSITY 1 OR MORE SITES REASON FOR STUDY: 74 y/o year old F with given history of: Post menopausal status. History prior fracture and smoking. Patient hastaken/is taking vitamin-D and calcium. History of right renal carcinoma Appeals Referee/Model: [employer] A (S/N [id number]) Facility LSC value of 0.022 for the AP spine, 0.027 for the femur, and0.023 for the forearm. CLINICAL INFORMATION: Current height: 67 inches Maximum height: 67.5 inches Weight: 187 pounds Risk factors: Prior fracture and smoking COMPARISON: None available FINDINGS: AP LUMBAR SPINE L1-L4: Total BMD is 0.757 g/cm2 T-score is -2.6 LEFT HIP: Total BMD is 0.606 g/cm2 T-score is -2.8 Femoral neck BMD is 0.467 g/cm2 T-score is -3.4 FRAX: FRAX not reported due to T-scores of hip, femoral neck and/or spine beingat or below -2.5 (Osteoporosis). IMPRESSION: Osteoporosis. REFERENCE: Bone mineral density: T-Score: Normal (T-score above or = -1.0) Low bone mass (T-score between -1.0 and -2.5) replaces thepreviously used term osteopenia Osteoporosis (T-score = or below -2.5) Z-Score: Within the expected range for age (Z-score above -2.0) Below the expected range for age (Z-score is -2.0 or below) Please see below follow up recommendations. Medical evaluation forsecondary causes of low bone mineral density may be appropriate. FRAX is a World Health Organization validated fracture risk assessmenttool that calculates a person's 10 year probability of a major osteoporosisrelated fracture and hip fracture. According to the National OsteoporosisFoundation guidelines, postmenopausal women and men age 50 or older with low bonemass and a 10 year probability of a major osteoporosis related fracture = or greater than 20% or a 10 year probability of a hip fracture = or greaterthan 3% should be considered for pharmacological treatment for the preventionof osteoporosis. For further information, including treatment recommendations, please referto the 2019 ISCD Official Positions (http://www.iscd.org) and the NOF's Clinician's Guide to Prevention and Treatment of Osteoporosis (http://www.nof.org/professionals/clinical-guidelines) THIS IS AN ELECTRONICALLY VERIFIED FINAL REPORT 02/02/2025 2:20 PM - Electronically signed by Nannette Yañez M.D. TW: TW Report ID: [id number] Reading Location: [place] [address] Jazlyn VALLADARES IMG DXA PROCEDURES Final Result * Screening Mammogram Bilateral W Bridger (08/12/2023 2:11 PM CDT) Anatomical Region Laterality Modality Breast Bilateral Mammography 08/13/2023 7:48 AM CDT Impressions 08/13/2023 7:48 AM CDT No evidence of malignancy in either breast. FINAL ASSESSMENT: BI-RADS Category 1: Negative. RECOMMENDATION: Recommend return for annual screening mammogram in 12 months. Electronically signed by: Elsie Samuels M.D. Narrative 08/13/2023 7:48 AM CDT EXAMINATION: BILATERAL SCREENING MAMMOGRAM COMPARISON: Multiple prior studies, most recently 07/30/2022 and dating back to 08/14/1960. TECHNIQUE: Full-field 2D and digital breast tomosynthesis (DBT) images were obtained. CAD was utilized. BREAST PARENCHYMAL COMPOSITION: The breasts are heterogenously dense, which may obscure small masses. FINDINGS: There is no suspicious mass, calcification, or distortion in either breast. There has been no significant interval change from the prior study. Self Screening Mammogram IMG MAMMO PROCEDURES Fi nal Result * Hepatitis C antibody (05/06/2022 2:47 PM CDT) Hep C Ab Nonreactive Nonreactive [facility] RUTLEDGE Comment: Interpretive Data Nonreactive: Antibodies to HCV not detected. Does NOT exclude the possibility of recent exposure to HCV. Equivocal: Equivocal for HCV antibodies. Supplemental molecular testing will be automatically performed to determine infection status in accordance with current CDC screening recommendations. Reactive: Positive for HCV antibodies. This may represent current or past HCV infection. Supplemental molecular testing will be automatically performed to determine current infection status in accordance with current CDC screening recommendations. Interpretive data was last revised on 2020. Blood 05/06/2022 2:47 PM CDT 05/06/2022 4:12 PM CDT Jose Devine NP LAB MICROBIOLOGY - GENERAL OR DERABLES Final Result Performing Organization Address City/State/[place] Number [place] [address] [facility] Department [place] [address] from Last 3 Months or Most Recently Relevant to Health Maintenance Insurance MEDICARE [facility] MEDICARE SUPPLEMENT [facility] MEDICARE [facility] Address: [facility] [address] [place] [address] Care Teams Wheel Aligner Relationship Specialty Start Date End Date Jazlyn Reddy PA [address] [facility] [address] [place], [place] [address] PCP - General Family Medicine 05/20/25 Garfield Whiteside LCSW [address] [place] [address] [facility] [address] [place] [address] Visual Supervisor 04/08/25 [place] [address] [address] [facility] [address] [place] [address] Consulting Physician Endocrinology Diabetes & Metabolism 05/12/25
--- OUTSIDE RECORDS SUMMARY | 2025-07-24 03:31 | XMS_ITS | Clinical Summary ---
Author Organization [facility] Address [address] [place] [address] Care Team Providers Care Handle Assembler Name Role Phone Jose Devine BLENDER / [employer] SAL[employer]OC[employer]ATE Primary Care Provide r Source Comments [facility],non-owned Affiliates and Associated Physician Practices is amultiple site organization consisting of ambulatory clinics and hospital sitesin [place], [place], [place] and [place]. This disclosure is being madepursuant to the Care Everywhere program and may not contain all information available regarding this patient. Last updated 18.[facility] [employer] Allergies Active Allergy Reactions Criticality Noted Date Comments Penicillins Itching 06/23/2024 Patient states she breaks out in Hives. Medications * Be aware that medications may not be up to date on this document. Alwaysverify current medications with the patient. rosuvastatin (Crestor) 40 MG tablet Take 1 (one) tablet by mouth once daily Active timolol maleate (Timoptic) 0.25 % ophthalmic solution Instill 1 (one) drop into both eyes 2 times daily Active Nutritional Supplements (Ensure Plus High Protein) LIQD Take 1 container by mouth 3 times daily 01/01/20 24 Active amLODIPine (Norvasc) 10 MG tablet Take 1 (one) tablet by mouth once daily 01/06/20 24 Active bisacodyl (Dulcolax) 10 MG suppository Insert 1 (one) suppository into the rectum once daily as needed for Constipation 01/05/20 24 Active cyanocobalamin (Vitamin B-12) injection Inject 100 (one hundred) mcg into muscle once daily 01/06/20 24 Active insulin glargine (Lantus/Semglee ) 100 units/mL pen Inject 7 (seven) Units subcutaneously at bedtime 01/05/20 24 Active lisinopril (Prinivil; Zestril) 20 MG tablet Take 1 (one) tablet by mouth once daily 01/06/20 24 Active polyethylene glycol 3350 (Miralax) 17 g packet Take 17 (seventeen) g by mouth once daily as needed for Constipation 01/05/20 24 Active tamsulosin (Flomax) 0.4 MG capsule Take 1 (one) capsule by mouth at bedtime At the same time every day after a meal. 01/05/20 24 Active vitamin D3 (Cholecaciferol ) 125 MCG (5000 UT) tablet Take 1 (one) tablet by mouth once daily for 21 days, THEN 0.5 (one-half) tablet once daily for 60 days. 01/06/20 24 Active insulin aspart (NovoLOG) cartridge Inject 0 (zero) Units to 6 (six) Units subcutaneously 3 times daily with meals Low Dose: Correction Insulin BG (mg/dL) Corrective Action LESS than 70 follow Hypoglycemic guidelines, 70-180 NO Correction insulin 181-220 GIVE 2 units of insulin 221-260 GIVE 3 units of insulin 261-300 GIVE 4 units of insulin 301-350 GIVE 5 units of insulin Greater than 350 GIVE 6 units of insulin and Notify Physician 01/05/20 24 Active aspirin (Aspirin) 81 MG chew tablet Take 1 (one) tablet by mouth once daily Active atorvastatin (Lipitor) 80 MG tablet Take 1 (one) tablet by mouth at bedtime Active folic acid (Folvite) 1 MG tablet Take 1 (one) tablet by mouth once daily Active thiamine (Vitamin B-1) 100 MG tablet Take 1 (one) tablet by mouth once daily Active oxymetazoline (Afrin) 0.05 % nasal spray Universal 1 (one) spray into each nostril 2 times daily Active diclofenac sodium (Voltaren) 1 % gel Apply 2 (two) g to affected area 4 times daily 100 g 06/23/20 24 Active acetaminophen (Tylenol) 325 MG tablet Take 2 (two) tablets by mouth every 6 hours as needed for Fever or Pain Maximum allowable Acetaminophen amount = 4 Grams (4000 mg) / 24 hours. 90 tablet 06/23/20 Active lidocaine (Lidoderm) 5 % patch Apply 1 (one) patch to skin once daily Apply patch to most painful area and remove after 12 hours. May reapply a new patch 12 hours later. 14 patch 2 06/23/20 Active Active Problems Problem Noted Date Diagnosed Date Dementia, unspecified jarrett ia severity, unspecified dementia type, unspecified whether behavioral, psychotic, or mood disturbance or anxiety 12/23/2023 Other closed nondisplaced fr acture of proximal end of left humerus with routine healing, subsequent encounter 12/23/2023 Diabetes mellitus 12/18/2023 Left humeral fracture 12/18/2023 Compression fracture of T7 vertebra 12/18/2023 CKD (chronic kidney disease) 12/18/2023 Altered mental status, unspe cified altered mental status type 12/12/2023 Immunizations Immunization Administration Dates Next Due INFLUENZA VACCINE, QUADR. (F LUZONE; FLULAVAL; FLUARIX; AFLURIA QUADRIVALENT; 6MO+), 0.5 ML (IIV4) 09/17/2019 Social History Tobacco Use Types Packs/Day Years Used Date Smoking Tobacco: Never Smokeless Tobacco: Never Tobacco Cessation:Counseling Given: Not Answered AUDIT-C Answer Date Recorded Q1: How often do you have a drink containing alcohol? Patient unable to answer 12/24/2023 Q2: How many drinks containi ng alcohol do you have on a typical day when you are drinking? Patient unable to answer Q3: How often do you have si x or more drinks on one occasion? Patient unable to answer 12/24/2023 Overall Financial Resource Strain (CARDIA) Answe r Date Recorded How hard is it for you to pa y for the very basics like food, housing, medical care, and heating? Not hard at all 12/24/2023 [facility] [place] [facility] Occupat ional [facility] - Occupational Stress Questionnaire Answer Date Recorded Do you feel stress - tense, restless, nervous, or anxious, or unable to sleep at night because your mind is troubled all the time - these days? Not at all 12/24/2023 Hunger Vital Sign Answer Date Recorded Within the past 12 months, y ou worried that your food would run out before you got the money to buy more. Never true 12/24/19 24 Within the past 12 months, t he food you bought just didn't last and you didn't have money to get more. Never true 12/24/2023 PRAPARE - Transportation Answer Date Re corded In the past 12 months, has l ack of transportation kept you from medical appointments or from getting medications? No 12/11 In the past 12 months, has l ack of transportation kept you from meetings, work, or from getting things needed for daily living? No 12/24/2023 Housing Stability Vital Sign Answer Jaden e Recorded In the last 12 months, was t here a time when you were not able to pay the mortgage or rent on time? No 12/24/2023 In the last 12 months, how many places have you lived? 1 12/24/2023 In the last 12 months, was t here a time when you did not have a steady place to sleep or slept in a prison (including now)? No 12/24/2023 Comments Unknown Sex and Gender Information Value Date Recorded Sex Assigned at Not on file Legal Sex Female 4:47 AM PRODUCTION PLANNER SCHEDULER Gender Identity Female 09/17/2019 5:26 PM PRODUCTION PLANNER SCHEDULER Sexual Orientation Not on file Last Filed Vital Signs Vital Sign Reading Time Taken Comments Blood Pressure 115/66 02/25/2024 8:34 AM CDT Pulse 76 02/25/2024 8:34 AM CDT Temperature 36.8 C (98.2 F) 02/25/2024 8:34 AM CDT Respiratory Rate 18 01/05/2024 12:16 AM PRODUCTION PLANNER SCHEDULER Oxygen Saturation 92% 02/25/2024 8:34 AM CDT Inhaled Oxygen Concentration - - Weight 83.5 kg (184 lb) 06/23/2024 2:13 PM CDT Height 170.2 cm (5' 7) 06/23/2024 2:13 PM CDT Body Mass Index 28.82 06/23/2024 2:13 PM CDT Plan of Treatment Health Maintenance Due Date Last Done Comments COLON MONITORING 1949 COLONOSCOPY - COLON CA SCREENING 1949 CT COLONOGRAPHY - COLON CA SCREENING 1949 FIT - COLON CA SCREENING 1949 FLEX SIG - COLON CA SCREENING 1949 MEDICARE AWV 12 MONTHS 1949 HEPATITIS C SCREENING 12/25/1967 DTAP/TDAP/TD VACCINES (1 - Tdap) 1968 PNEUMOCOCCAL VACCINE 50+ (1 of 2 - PCV) 1968 ZOSTER VACCINE (1 of 2) 1999 COLOGUARD (AGES 45-75) - COLON CA SCREENING 04/28/2023 04/28/2020 Colorectal Cancer Screening 04/28/2023 DIABETES-FOOT EXAM WITH MONOFILAMENT 12/18/2023 DIABETES-HGB A1C 06/15/2024 03/15/2024, 01/2024, 12/13/2023, Additional history exists DEPRESSION SCREENING 11/10/2024 DIABETES - URINE PROTEIN SCREENING 11/10/2024 08/04/2023 Respiratory Syncytial Virus (RSV) Vaccine Pt: or over 60 yrs (1 - 1-dose 75+ series) 2024 DIABETES-SERUM CREATININE 01/05/20252023, 01/04/2024, 01/03/2024, Additional history exists COVID-19 VACCINE ( - 2024- season) 2025 10/08/2023, 02/19/2023, 10/11/2021, Additional history exists INFLUENZA VACCINE (#1) 2025 , 09/26/2022, 09/12/2021, Additional history exists MAMMOGRAM 08/12/2025 08/12/2023, 1001/2023, 07/30/2022 DIABETES RETINOPATHY SCREENING 02/25/2026 02/26/2024, 04/15/2023, 04/15/2023 BONE DENSITY TESTING Completed 07/02/2022 HEPATITIS B VACCINE Aged Out No longe r eligible based on patient's age to complete this topic HIB VACCINE Aged Out No longer eligi ble based on patient's age to complete this topic HPV VACCINE Aged Out No longer eligi ble based on patient's age to complete this topic MENINGOCOCCAL (Group B) VACCINE SHARED DECISION-MAKING Aged Out No longer eligible based on patient's age to complete this topic MENINGOCOCCAL GROUPS A/C/Y/W VACCINE Aged Out No longer eligible based on patient's age to complete this topic Procedures Procedure Name Priority Date/Time Associated Diagnosis Comments BASIC METABOLIC PANEL (CALCIUM TOTAL) Routine 01/05/2024 8:58 AM PRODUCTION PLANNER SCHEDULER HEMOGLOBIN A1C Routine 12/13/2023 5:48 AM PRODUCTION PLANNER SCHEDULER from Last 3 Months or Most Recently Relevant to Health Maintenance Results * (ABNORMAL) BASIC METABOLIC PANEL (CALCIUM TOTAL) (01/05/2024 8:58 AM PRODUCTION PLANNER SCHEDULER) BUN 13 7 - 26 mg/dL 01/05/2024 10:18 AM [facility] Creatinine 0.84 0.56 - 0.96 mg/dL 01/05/2024 10:18 AM [facility] Sodium 134(L) 136 - 145 mmol/L 01/05/2024 10:18 AM [facility] Potassium 3.4(L) 3.5 - 4.5 mmol/L 01/05/2024 10:18 AM [facility] Chloride 102 98 - 107 mmol/L 01/05/2024 10:18 AM [facility] CO2 25 22 - 29 mmol/L 01/05/2024 10:18 AM [facility] Glucose 200(H) 70 - 115 mg/dL 01/05/2024 10:18 AM [facility] Calcium 9.3 8.4 - 10.2 mg/dL 01/05/2024 10:18 AM [facility] Anion Gap 7 6 - 16 01/05/2024 10:18 AM [facility] BUN/Creatinine Ratio 15 7 - 23 01/05/2024 10:18 AM [facility] Osmolality Calculated 284 275 - 295 mOsm/kg 01/05/2024 10:18 AM [facility] eGFR by CKD-EPI 73(L) >=90 mL/min/1.7 3 m2 01/05/2024 10:18 AM [facility] Blood BLOOD SPECIMEN / Unknown Lab Venipuncture / Unknown 01/05/2024 8:58 AM PRODUCTION PLANNER SCHEDULER 01/05/2024 9:47 AM PRODUCTION PLANNER SCHEDULER Jarred Julio MD LAB - CHEMISTRY ORDERABLES Final Result [facility] [address] [place] [address], [facility] [phone] * (ABNORMAL) HEMOGLOBIN A1C (12/13/2023 5:48 AM PRODUCTION PLANNER SCHEDULER) Hemoglobin A1c 9.5(H) <=5.6 % 12/13/2023 9:44 AM [facility] Estimated Average Glucose 226 mg/dL 12/13/2023 9:44 AM [facility] Comment: HbA1c Interpretation: Normal : < 5.7% Pre-diabetes: 5.7-6.4% Diabetes: Equal to or greater than 6.5% Test results diagnostic of diabetes should be repeated for confirmation. Treatment target values recommended by ADA and other clinical organizations should be used to evaluate metabolic control in patients. Reference: [place] [employer], Standards of Care in Diabetes -2020 In patients 70 years and older consider HbA1c target range of 7.0-7.5% (Reference: Jack Amato et al. JAMDA. 2012) The Sebia assay for the measurement of HbA1c is a National Glycohemoglobin Standardization Program (NGSP) certified method. Blood BLOOD SPECIMEN / Unknown Lab Venipuncture / Unknown 12/13/2023 5:48 AM PRODUCTION PLANNER SCHEDULER 12/13/2023 6:11 AM PRODUCTION PLANNER SCHEDULER Tamara Mccauley MD LAB - CHEMISTRY ORDERABLES F inal Result [facility] [address] [place] [address], [facility] [phone] from Last 3 Months or Most Recently Relevant to Health Maintenance Insurance MEDICARE ANTHEM MEDICARE Advance Directives * Full Code (Latest Code Status on File) Date Activated Date Inactivated Comments 12/23/2023 7:40 PM 01/05/2024 5:18 PM * Full Code Date Activated Date Inactivated Comments 12/12/2023 6:38 PM 12/18/2023 12:42 PM Care Teams Handle Assembler Relationship Specialty Start Date End Date Jose Devine APRN-AKIN [address] [id number] PCP - General Nurse Practitioner Family 03/31/24
--- OUTSIDE RECORDS SUMMARY | 2025-07-24 03:31 | XMS_ITS | Clinical Summary ---
Author Organization [facility] Address [address] [place] [address] Care Team Providers Care Audio Production Manager Name Role Phone Jazlyn Reddy Primary Care Provider [phone] Austen Murdock MD Unavailable [phone] Allergies Active Allergy Reactions Criticality Noted Date Comments Alprazolam Unknown High 01/14/2024 Benzonatate Swelling Medium 11/05/2022 Codeine Cough 02/24/2024 Penicillins Hives,Rash,Itching,U nkno wn High 06/04/2017 Patient states she breaks out in Hives. Medications albuterol sulfate HFA 108 (90 Base) MCG/ACT inhaler Inhale 2 puffs into the lungs every 4 (four) hours as needed for Shortness of breath. Active allopurinol 100 MG tablet Take 1 tablet (100 mg total) by mouth daily. 2 Active calcitriol 0.25 MCG capsule Take 1 capsule (0.25 mcg total) by mouth daily. 2 Active vitamin D2, ergocalciferol, 87901 UNITS capsule Take 1 capsule (1.25 mg total) by mouth every 30 (thirty) days. 2 Active levothyroxine (SYNTHROID) 25 MCG tablet Take 1 tablet (25 mcg total) by mouth every morning. 2 Active rosuvastatin 40 MG tablet Take 1 tablet (40 mg total) by mouth nightly at bedtime. 2 Active insulin degludec (TRESIBA FLEXTOUCH) 200 UNIT/ML injection (PEN) Inject 16 Units into the skin nightly at bedtime. Active Blood Glucose Monitoring Suppl (GenerationStation VERIO FLEX SYSTEM) w/Device Kit USE TO TEST BLOOD SUGARS 3 Active polyethylene glycol (GLYCOLAX) packet Take 240 mLs (17 g total) by mouth daily as needed for Constipation. 4 Active Nutritional Supplements (ENSURE PLUS HIGH PROTEIN) Liquid Take 1 Container by mouth. 4 Active metOLazone (ZAROXOLYN) 2.5 MG tablet Take 1 tablet (2.5 mg total) by mouth daily. 3 Active aspirin EC (ECOTRIN) 81 MG tablet Take 1 tablet (81 mg total) by mouth daily. Active tamsulosin (FLOMAX) 0.4 MG Cap Take 1 capsule (0.4 mg total) by mouth daily. Active BREZTRI AEROSPHERE 160-9-4.8 MCG/ACT inhaler Inhale 2 puffs into the lungs every 12 (twelve) hours. Active insulin lispro, 1 Unit Dial, (HUMALOG) 100 UNIT/ML injection (PEN) Inject 10-20 Units into the skin 3 (three) times daily before meals. Active doxepin (SILENOR) 3 mg tablet Take 1 tablet (3 mg total) by mouth nightly at bedtime. 30 tablet 5 Active acetaminophen (TYLENOL) 500 MG tablet Take 2 tablets (1,000 mg total) by mouth every 6 (six) hours as needed. FOR PAIN 5 Active amLODIPine (NORVASC) 10 MG tablet daily. 5 Active ipratropium-albu terol (DUONEB) 0.5-2.5 (3) MG/3ML Solution USE 3 ML VIA NEBULIZER FOUR TIMES DAILY NEEDED FOR WHEEZING OR SHORTNESS OF BREATH 5 Active lisinopril (PRINIVIL) 10 MG tablet 5 Active meloxicam (MOBIC) 7.5 MG tablet Take 2 tablets (15 mg total) by mouth daily. 5 Active DULoxetine (CYMBALTA) 60 MG capsule Take 1 capsule (60 mg total) by mouth daily. 5 Active lidocaine (LIDO HAZEL) 4 % patch Place 1 patch onto the skin daily. Remove & Discard patch within 12 hours or as directed 30 patch 5 Active mirtazapine (REMERON) 7.5 MG Tab tablet Take 1 tablet (7.5 mg total) by mouth daily for 7 days, THEN 2 tablets (15 mg total) daily. 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 Murdock follows Acute hypoxemic respiratory failure ([facility]) 10/13/2024 Symptomatic bradycardia 10/11/2024 Blindness left eye category 3, normal vision rig ht eye 01/05/2024 Dysphagia following unspecified cerebrovascular disease 01/05/2024 Encephalopathy, unspecified 01/05/2024 Hypokalemia 01/05/2024 Other specified disorders of bone density and structure, unspecified site 01/05/2024 Type 2 diabetes mellitus wit h stable proliferative diabetic retinopathy, unspecified eye ([facility]) 01/05/2024 Unspecified macular degeneration 01/05/2024 Unspecified protein-calorie malnutrition ([facility]/ [facility]) 01/05/2024 Vitamin B12 deficiency anemia, unspecified 01/05 Wedge compression fracture o f T7-t8 vertebra, subsequent encounter for fracture with routine healing 01/05/2024 Other closed nondisplaced fr acture of proximal end of left humerus with routine healing, subsequent encounter 12/23/2023 Compression fracture of T7 vertebra ([facility]) 12/18/2023 Left humeral fracture 12/18/2023 Altered mental status, unspe cified altered mental status type 12/12/2023 Generalized anxiety disorder 12/05/2023 Mild recurrent major depression 12/05/2023 Primary insomnia 12/05/2023 Vascular dementia without behavioral disturbance 12/05/2023 Smoker 12/24/2022 History of nephrectomy 11/05/2022 Overview (10/11/2024): Last Assessment & Plan: Changing director of materials to Dr Muhammad CKD (chronic kidney disease) 11/05/2022 Overview (10/11/2024): Last Assessment & Plan: Referral made for Dr Muhammad - to switch nephrologists - pt states she has to wait three hours for appointment with her current director of materials Acquired hypothyroidism 05/06/2022 Type 2 diabetes mellitus wit h diabetic neuropathy, unspecified ([facility]) 05/06/2022 History of malignant neoplasm of kidney 01/24/20 Carpal tunnel syndrome 01/23/2022 Depressed mood 01/23/2022 Gastro-esophageal reflux disease without esophag itis 01/23/2022 Unspecified glaucoma 01/23/2022 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 Polyneuropathy 01/23/2022 Retinal hemorrhage 01/23/2022 Diabetic retinopathy ([facility]) Depression, unspecified 01/23/2022 Long-term current use of opiate analgesic 2021 Closed fracture of phalanx of foot 06/25/2021 Chronic pain syndrome 11/29/2020 Unspecified dementia, unspec ified severity, with other behavioral disturbance 01/20/2019 Atherosclerotic heart diseas e of [place] coronary artery without angina pectoris 10/16/2018 Venous insufficiency (chronic) (peripheral) 05/2018 Chronic obstructive lung disease ([facility]) 09/17/2018 Atherosclerosis of aorta 09/16/2018 B12 deficiency 09/16/2018 Iron deficiency 09/16/2018 Vitamin D deficiency 09/16/2018 Arthritis 09/15/2018 Daytime hypersomnia 08/10/2018 Obesity with body mass index 30 or greater 08/10 Multiple nodules of lung 08/10/2018 Diverticulitis 04/03/2018 Personal history of DVT (deep vein thrombosis) 0 04/03/2018 Hypertension associated with diabetes ([facility] H HS/HCC) 07/23/2017 Chronic obstructive pulmonar y disease with acute exacerbation ([facility]) 06/04/2017 Diabetes mellitus ([facility]) 06/04/2017 Hyperlipidemia, unspecified 06/04/2017 Intermittent claudication 06/04/2017 Malignant neoplasm of kidney ([facility]) 0 06/04/2017 Neuropathy 06/04/2017 Overweight 06/04/2017 Obstructive sleep apnea syndrome 06/04/2017 Cigarette nicotine dependence without complicati on 06/04/2017 Type 2 diabetes mellitus wit h stage 3a chronic kidney disease, with long-term current use of insulin ([facility]) 06/04/2017 Encounters Date Type Department Care Team Description 07/18/2025 Travel 07/17/2025 2:15 PM CDT Allied Health/Nurse Visit [facility], [address] [address] Austen Murdock MD Remote Device Check 06/25/2025 7:51 PM CDT - 06/25/2025 9:17 PM CDT Emergency [facility] [place] [address] Clarissa Blas, PERFORMANCE IMPROVEMENT CONSULTANT Shoulder Pain; Leg Pain Discharge Disposition: Home or Self Care (Routine Discharge) 06/25/2025 Travel 06/09/2025 Telephone [facility], [address] [address] Austen Murdock MD Surgical Clearance 05/25/2025 1:00 PM CDT Office Visit [facility], [address] [address] Erica Galeana, PERFORMANCE IMPROVEMENT CONSULTANT Hypertension (Follow up); Complete Heart Block 05/25/2025 12:30 PM CDT Allied Health/Nurse Visit [facility], [address] [address] Austen Murdock MD Pacemaker Check 05/25/2025 11:50 AM CDT - 05/25/2025 11:59 PM CDT Hospital Encounter [facility] Diagnostic [place] [address] Filomena Brito PA Discharge Disposition: Home or Self Care (Routine Discharge) 05/25/2025 Results Follow-Up [facility] [address], [facility] [address] [place] [address] Karolyn Khan RN XR CHEST PA+LAT 05/25/2025 Travel 05/24/2025 Telephone [facility] [address], [facility] [address] [place] [address] Sue Ireland RN Question from Last 3 Months Immunizations Immunization Administration Dates Next Due COVID-19 Vaccine (Generic) 10/15/2021,03/15/2021 ,02/22/2021 Influenza (Generic) 09/12/2021,08/09/2020,2017,09/20/2015 Influenza Adult (Generic) 09/17/2019,09/17/2018, 09/21/2015 Pneumococcal (Pneumovax 23) 08/10/2011 Pneumococcal (Prevnar 13) 09/21/2015,09/20/2015 Shingrix 02/19/2023,09/26/2022 Social History Tobacco Use Types Packs/Day Years Used Date Smoking Tobacco: Every Day Cigarettes 1 41 Smokeless Tobacco: Never Tobacco Cessation:Ready to Q uit: No; Counseling Given: Yes Alcohol Use Standard Drinks/Week Comments Never 0 (1 standard drink = 0.6 oz pur e alcohol) B1300 Health Literacy Answer Date Recor ded How often do you need to hav e someone help you when you read instructions, pamphlets, or other written material from your doctor or pharmacy? Never 10/11/2024 [employer] Answer Date Recorded In the past 12 months has e Miraculins, Sharetribe, or water [place] [employer] threatened to shut off services in your home? No 03/27/2025 Humiliation, Afraid, Rape, and Kick questionnair e Answer Date Recorded Within the last year, have y ou been afraid of your partner or ex-partner? No 03/27/2025 Within the last year, have y ou been humiliated or emotionally abused in other ways by your partner or ex-partner? No Within the last year, have y ou been kicked, hit, slapped, or otherwise physically hurt by your partner or ex-partner? No 03/27/2025 Within the last year, have y ou been raped or forced to have any kind of sexual activity by your partner or ex-partner? No 03/27/2025 Social Connection and Isolation Panel [NHANES] A nswer Date Recorded In a typical week, how many times do you talk on the phone with family, friends, or neighbors? Twice a week 10/11/2024 How often do you get together with friends or re latives? Once a week 10/11/2024 How often do you attend sikhism or church serv ices? Never 10/11/2024 Do you belong to any clubs o r organizations such as sikhism groups, unions, fraternal or athletic groups, or school groups? No 10/11/2024 How often do you attend meet ings of the clubs or organizations you belong to? Never 10/11/2024 Are you , , di vorced, , never , or living with a partner? 10/11/2024 AUDIT-C Answer Date Recorded Q1: How often do you have a drink containing alcohol? Never 10/11/2024 Q2: How many drinks containi ng alcohol do you have on a typical day when you are drinking? Patient does not drink Q3: How often do you have si x or more drinks on one occasion? Never 10/11/2024 Overall Financial Resource Strain (CARDIA) Answe r Date Recorded How hard is it for you to pa y for the very basics like food, housing, medical care, and heating? Not hard at all 03/27/2025 [facility] Occupat ional Health - Occupational Stress Questionnaire Answer Date Recorded Do you feel stress - tense, restless, nervous, or anxious, or unable to sleep at night because your mind is troubled all the time - these days? Not at all 03/27/2025 Hunger Vital Sign Answer Date Recorded Within the past 12 months, y ou worried that your food would run out before you got the money to buy more. Never true 03/27/20 25 Within the past 12 months, t he food you bought just didn't last and you didn't have money to get more. Never true 03/27/2025 PRAPARE - Transportation Answer Date Re corded In the past 12 months, has l ack of transportation kept you from medical appointments or from getting medications? No 03/10 In the past 12 months, has l ack of transportation kept you from meetings, work, or from getting things needed for daily living? No 03/27/2025 Housing Stability Vital Sign Answer Jaden e Recorded In the last 12 months, was t here a time when you were not able to pay the mortgage or rent on time? No 03/27/2025 In the past 12 months, how m any times have you moved where you were living? 0 03/27/2025 At any time in the past 12 m [facility], were you homeless or living in a retirement (including now)? No 03/27/2025 Comments No Sex and Gender Information Value Date Recorded Sex Assigned at Female 11/29/2024 1:31 PM PENSION CONSULTANT Legal Sex Female 4:03 PM PENSION CONSULTANT Gender Identity Not on file Sexual Orientation Not on file Last Filed Vital Signs Vital Sign Reading Time Taken Comments Blood Pressure 144/82 06/25/2025 7:26 PM CDT Pulse 99 06/25/2025 7:26 PM CDT Temperature 36.8 C (98.3 F) 06/25/2025 7:26 PM CDT Respiratory Rate 20 06/25/2025 7:26 PM CDT Oxygen Saturation 96% 06/25/2025 7:26 PM CDT Inhaled Oxygen Concentration - - Weight 85.7 kg (189 lb) 06/25/2025 7:26 PM CDT Height 170.2 cm (5' 7) 06/25/2025 7:26 PM CDT Body Mass Index 29.6 06/25/2025 7:26 PM CDT Plan of Treatment Upcoming Encounters Date Type Department Care Team (Late st Contact Info) Description 10/16/2025 2:15 PM PENSION CONSULTANT Allied Health/Nurse Visit [facility], [address] [phone] Austen Murdock MD [facility]. [address] [phone] 10/17/2025 2:45 PM PENSION CONSULTANT Allied Health/Nurse Visit [facility], [place] [address] [place] [address] Austen Murdock MD [facility]. [facility] [address] [place], [place] [phone] 05/31/2026 12:00 PM CDT Office Visit [facility], [address] [place], [place] [phone] Austen Murdock MD [facility]. [address] [place] [address] [place], [place] [phone] Health Maintenance Due Date Last Done Comments ASCVD LDL 1950 ASCVD Statin 1950 Colorectal Cancer Screening Colonoscopy (10 Years) 1950 Kidney Health Evaluation 1949 Diabetes: Retinopathy Eye Exam 1967 Hepatitis C 1967 DTaP, Tdap and Td Vaccines (1 - Tdap) 1968 Annual Medicare Wellness Visit 2014 Pneumococcal Vaccine: 50+ Years (3 of 3 - PCV20 or PCV21) 09/21/2020 09/21/2015, 09/20/2015, 08/10/2011 Lipid Panel 02/01/2024 01/31/2023 PHQ-2 (Physician [place]) 11/10/2024 RSV Immunization or 60+ Years (1 - 1-dose 75+ series) 2024 COVID-19 Vaccine (2023-25 season) 2025 10/26/2024, 10/08/2023, 02/19/2023, Additional history exists Hemoglobin A1C 08/09/2025 05/09/2025, 06/11, 03/15/2024, Additional history exists Lung Cancer Screening 10/13/2025 10/13/2024 , 07/05/2024, 12/12/2023 Zoster Vaccines Completed 02/19/2023, 09/26/2022 Dexa Scan (General) Completed 02/02/2025, 02/02/2025, 07/02/2022, Additional history exists Meningococcal B Vaccine Aged Out No l onger eligible based on patient's age to complete this topic Meningococcal Vaccine Aged Out No collette sidra eligible based on patient's age to complete this topic RSV Immunizations Under 20 Months Aged Out No longer eligible based on patient's age to complete this topic Goals Goal Patient Goal Type Associated Problems Recent Progress Patient-Stated? Author Health - patient able to perform ADLs independently Lifestyle No Johnnie Mcgrath, RN Medical Devices Implanted Type Area Side Seam Envelope Machine Operator Device Identifier Shelf Expiration Date Model / Serial / Lot Rv (Lbb) Lead Xzlegrs-Zda-R pr-10/18/2024 Implanted:Qty : 1 on 10/18/2024 by Bo Romano MD Lead Implant [employer] CARDIAC RHYTHM AND HEART FAILURE - DIV M 08/19/2026 [id number] / [id number] / Description:Left Bundle Bran ch (LBB) Ra Lead Lryupty-Rdn-O pr-10/18/2024 Implanted:Qty : 1 on 10/18/2024 by Bo Romano MD Lead Implant [employer] CARDIAC RHYTHM AND HEART FAILURE - DIV M 08/03/2026 [id number] / [id number] / Description:RA-Appendage [facility] /9/2024 Implanted:Qty : 1 on 10/18/2024 by Bo Romano MD Pacemaker Left: Chest [employer] CARDIAC RHYTHM AND HEART FAILURE - DIV M 02/04/2026 [id number] / [id number] / Procedures Procedure Name Priority Date/Time Associated Diagnosis Comments XR TIBIA+FIBULA RT 2V STAT 06/25/2025 8:26 PM CDT XR SHOULDER LT 3V STAT 06/25/2025 8:[address] CERV SPINE WO CON STAT 06/25/2025 8:[address] HEAD WO CON STAT 06/25/2025 8:07 PM CDT XR CHEST PA+LAT Routine 05/25/2025 12:11 PM CDT Heart palpitations CT CHEST WO CON DAX 10/13/2024 1:40 PM PENSION CONSULTANT from Last 3 Months or Most Recently Relevant to Health Maintenance Results * XR SHOULDER LT 3V (06/25/2025 8:26 PM CDT) Anatomical Region Laterality Modality Shoulder Radiographic Daniela ging 06/25/2025 8:34 PM CDT Impressions 06/25/2025 8:38 PM CDT IMPRESSION: 1. Old left proximal humeral fracture without definite evidence of a superimposed acute fracture. If pain persists, follow-up radiographs in 10-14 days may be helpful to assess for occult osseous healing change. Ordered By: CLARISSA BLAS Interpreted By: Karolyn Kapadia MD, 06/25/2025 8:34 PM Narrative 06/25/2025 8:38 PM CDT [place] [address] Examination: XR SHOULDER LT 3V Date : 06/25/2025 8:06 PM History: Left shoulder pain after fall Comparison: CT chest 10/13/2024 Technique: 3 views of left shoulder Findings: Old left proximal humeral fracture. No clear acute superimposed fracture. No dislocation. The shoulder joint is partially obscured by the patient's pacemaker generator. The acromioclavicular and coracoclavicular relationships appear maintained. Procedure Note Karolyn Kapadia MD - 06/25/[address] [address] Examination: XR SHOULDER LT 3V Date : 06/25/2025 8:06 PM History: Left shoulder pain after fall Comparison: CT chest 10/13/2024 Technique: 3 views of left shoulder Findings: Old left proximal humeral fracture. No clear acute superimposedfracture. No dislocation. The shoulder joint is partially obscured by thepatient's pacemaker generator. The acromioclavicular and coracoclavicularrelationships appear maintained. IMPRESSION: 1. Old left proximal humeral fracture without definite evidence of asuperimposed acute fracture. If pain persists, follow-up radiographs in10-14 days may be helpful to assess for occult osseous healing change. Ordered By: CLARISSA BLAS Interpreted By: Karolyn Kapadia MD, 06/25/2025 8:34 PM us Clarissa Blas PERFORMANCE IMPROVEMENT CONSULTANT GENERAL IMAGING Final Resul t * XR TIBIA+FIBULA RT 2V (06/25/2025 8:26 PM CDT) Anatomical Region Laterality Modality TibFib Radiographic Daniela ging 06/25/2025 8:36 PM CDT Impressions 06/25/2025 8:38 PM CDT IMPRESSION: No acute osseous abnormality. Referred By: Interpreted By: Keshav Ness MD, 06/25/2025 8:36 PM Narrative 06/25/2025 8:38 PM CDT [place] [address] INDICATION: pain after fall COMPARISON: None TECHNIQUE: * 4 views of the right tibia and fibula. FINDINGS: No acute fractures. Normal alignment. Mild degenerative changes of the knee. No significant soft tissue abnormalities. Atherosclerosis. Procedure Note Keshav Ness DO - 06/25/2025 [place] [address] INDICATION: pain after fall COMPARISON: None TECHNIQUE: * 4 views of the right tibia and fibula. FINDINGS: No acute fractures. Normal alignment. Mild degenerative changes of theknee. No significant soft tissue abnormalities. Atherosclerosis. IMPRESSION: No acute osseous abnormality. Referred By: Interpreted By: Keshav Ness MD, 06/25/2025 8:36 PM Clarissa Blas PERFORMANCE IMPROVEMENT CONSULTANT GENERAL IMAGING Final Resul t * CT HEAD WO CON (06/25/2025 8:07 PM CDT) Anatomical Region Laterality Modality Head Computed Tomogra phy 06/25/2025 8:16 PM CDT Impressions 06/25/2025 8:28 PM CDT IMPRESSION: 1. No definite CT evidence of acute intracranial abnormality. 2. Chronic small vessel ischemic disease, old infarct, and age-related volume loss. 3. Left globe deformity appears chronic and is similar to the prior exams. 4. Lucency in the right frontal calvarium has reportedly been present from an outside CT in 2013. Given slow interval growth rate this likely represents a benign or low-grade lesion such as a hemangioma. 5. Unchanged fluid in the right mastoid air cells. Ordered By: CLARISSA BLAS Interpreted By: Karolyn Kapadia MD, 06/25/2025 8:16 PM Narrative 06/25/2025 8:28 PM CDT [address] [address] EXAMINATION: CT of the head 06/25/2025 7:51 PM CLINICAL HISTORY: Fell, struck head COMPARISON: CT head 03/27/2025 TECHNIQUE: CT examination of the head without contrast was performed with axial images obtained. A dose lowering technique was used for this procedure, which may include, but is not limited to, dose reduction technique, automated exposure control, the use of iterative reconstruction, and ALARA (As Low As Reasonably Achievable) / Image Gently techniques. FINDINGS: There is no evidence of acute intracranial hemorrhage, abnormal extra-axial collections, intracranial mass effect, or midline shift. There is moderate global volume loss with enlargement of the ventricles and extra-axial/subarachnoid spaces. There are patchy confluent foci of periventricular and deep white matter hypoattenuation, probably related to small vessel disease. Atherosclerotic calcifications of the intracranial arterial vasculature are evident. Old lacunar infarct in the right caudate. There is no definite CT evidence to suggest acute territorial infarction. There is a 1.2 x 0.7 x 1.0 cm lucency in the right frontal bone. When searching the EMR, a remote orbital CT from 2013 reported a 6 x 7 x 9 mm lytic right frontal bone lesion which likely reflects this same lesion. Given the very slow interval rate of growth this likely represents a benign or low-grade lesion such as a hemangioma. Fluid in the right mastoid air cells, unchanged. The left mastoid air cells are clear. The visualized paranasal sinuses are clear. Redemonstration of a left globe deformity with a contour abnormality along the posterolateral medial aspect of the left lobe and increased internal density, similar to the prior exams. Procedure Note Karolyn Kapadia MD - 06/25/[address] [address] EXAMINATION: CT of the head 06/25/2025 7:51 PM CLINICAL HISTORY: Fell, struck head COMPARISON: CT head 03/27/2025 TECHNIQUE: CT examination of the head without contrast was performed withaxial images obtained. A dose lowering technique was used for thisprocedure, which may include, but is not limited to, dose reductiontechnique, automated exposure control, the use of iterativereconstruction, and ALARA (As Low As Reasonably Achievable) / Image Gentlytechniques. FINDINGS: There is no evidence of acute intracranial hemorrhage, abnormalextra-axial collections, intracranial mass effect, or midline shift. Thereis moderate global volume loss with enlargement of the ventricles andextra-axial/subarachnoid spaces. There are patchy confluent foci ofperiventricular and deep white matter hypoattenuation, probably related tosmall vessel disease. Atherosclerotic calcifications of the intracranialarterial vasculature are evident. Old lacunar infarct in the rightcaudate. There is no definite CT evidence to suggest acute territorialinfarction. There is a 1.2 x 0.7 x 1.0 cm lucency in the right frontalbone. When searching the EMR, a remote orbital CT from 2014 reported a 6 x7 x 9 mm lytic right frontal bone lesion which likely reflects this samelesion. Given the very slow interval rate of growth this likely representsa benign or low-grade lesion such as a hemangioma. Fluid in the rightmastoid air cells, unchanged. The left mastoid air cells are clear. Thevisualized paranasal sinuses are clear. Redemonstration of a left globedeformity with a contour abnormality along the posterolateral medialaspect of the left lobe and increased internal density, similar to theprior exams. IMPRESSION: 1. No definite CT evidence of acute intracranial abnormality. 2. Chronic small vessel ischemic disease, old infarct, and age-relatedvolume loss. 3. Left globe deformity appears chronic and is similar to the priorexams. 4. Lucency in the right frontal calvarium has reportedly been present froman outside CT in 2014. Given slow interval growth rate this likelyrepresents a benign or low-grade lesion such as a hemangioma. 5. Unchanged fluid in the right mastoid air cells. Ordered By: CLARISSA BLAS Interpreted By: Karolyn Kapadia MD, 06/25/2025 8:16 PM us Clarissa Blas PERFORMANCE IMPROVEMENT CONSULTANT CT Final Resul t * CT CERV SPINE WO CON (06/25/2025 8:07 PM CDT) Anatomical Region Laterality Modality Spine Computed Tomogra phy 06/25/2025 8:28 PM CDT Impressions 06/25/2025 8:33 PM CDT IMPRESSION: No evidence of acute fracture or traumatic malalignment of the cervical spine. Ordered By: CLARISSA BLAS Interpreted By: Karolyn Kapadia MD, 06/25/2025 8:28 PM Narrative 06/25/2025 8:33 PM CDT [address] [address] EXAMINATION: CT CERVICAL SPINE WITHOUT CONTRAST 06/25/2025 7:51 PM HISTORY: Fell, struck head. COMPARISON: CT cervical spine 03/27/2025 TECHNIQUE: Non contrast CT examination of the cervical spine was performed with axial and multiplanar reformatted images obtained. A radiation dose lowering technique was used for this procedure, which may include, but is not limited to, dose reduction technique, automated exposure control, the use of iterative reconstruction, ALARA (As Low As Reasonably Achievable) techniques, and Image Gently techniques. FINDINGS: There is trace anterolisthesis of C3 on C4 with otherwise normal cervical vertebral alignment. Vertebral body heights and intervertebral disc spaces are grossly maintained. Subtle wedging at C7 appears chronic. Facet joint alignment is preserved bilaterally. Mild multilevel spondylosis with facet and uncovertebral joint hypertrophy. This results in mild neural foraminal narrowing at C3-4 on the right. There is no significant osseous spinal canal stenosis at any level. There is no evidence of acute fracture or traumatic malalignment. Limited noncontrast images of the visualized neck soft tissues and intracranial compartment reveal no acute appearing abnormality. Atherosclerotic calcification of the carotid arteries. Procedure Note Karolyn Kapadia MD - 06/25/[address] [address] EXAMINATION: CT CERVICAL SPINE WITHOUT CONTRAST 06/25/2025 7:51 PM HISTORY: Fell, struck head. COMPARISON: CT cervical spine 03/27/2025 TECHNIQUE: Non contrast CT examination of the cervical spine was performed with axialand multiplanar reformatted images obtained. A radiation dose loweringtechnique was used for this procedure, which may include, but is notlimited to, dose reduction technique, automated exposure control, the useof iterative reconstruction, ALARA (As Low As Reasonably Achievable)techniques, and Image Gently techniques. FINDINGS: There is trace anterolisthesis of C3 on C4 with otherwise normal cervicalvertebral alignment. Vertebral body heights and intervertebral disc spacesare grossly maintained. Subtle wedging at C7 appears chronic. Facet jointalignment is preserved bilaterally. Mild multilevel spondylosis with facetand uncovertebral joint hypertrophy. This results in mild neural foraminalnarrowing at C3-4 on the right. There is no significant osseous spinalcanal stenosis at any level. There is no evidence of acute fracture ortraumatic malalignment. Limited noncontrast images of the visualized necksoft tissues and intracranial compartment reveal no acute appearingabnormality. Atherosclerotic calcification of the carotid arteries. IMPRESSION: No evidence of acute fracture or traumatic malalignment of the cervicalspine. Ordered By: CLARISSA BLAS Interpreted By: Karolyn Kapadia MD, 06/25/2025 8:28 PM us Clarissa Blas PERFORMANCE IMPROVEMENT CONSULTANT CT Final Resul t * XR CHEST PA+LAT (05/25/2025 12:11 PM CDT) Anatomical Region Laterality Modality Chest Radiographic Daniela ging 05/25/2025 1:06 PM CDT Impressions 05/25/2025 1:07 PM CDT IMPRESSION: Stable chest Ordered By: FILOMENA BRITO Interpreted By: Dimitri Donald MD, 05/25/2025 1:06 PM Narrative 05/25/2025 1:07 PM [address] [address] 2 VIEWS OF THE CHEST Clinical history: Pacemaker malfunction Comparison: March 27, 2025 2 views of the chest demonstrate a multilead pacemaker to remain stable from a left-sided approach. The leads appear stable in the interval. The cardiac silhouette is normal in size. The pulmonary interstitium is mildly prominent but stable. No pleural fluid or consolidation is seen Procedure Note Dimitri Donald MD - 05/25/[address], [place] [address] 2 VIEWS OF THE CHEST Clinical history: Pacemaker malfunction Comparison: March 27, 2025 2 views of the chest demonstrate a multilead pacemaker to remain stablefrom a left-sided approach. The leads appear stable in the interval. Thecardiac silhouette is normal in size. The pulmonary interstitium is mildlyprominent but stable. No pleural fluid or consolidation is seen IMPRESSION: Stable chest Ordered By: FILOMENA BRITO Interpreted By: Dimitri Donald MD, 05/25/2025 1:06 PM us [facility] Final R esult * CT CHEST WO CON (10/13/2024 1:40 PM PENSION CONSULTANT) Anatomical Region Laterality Modality Chest Computed Tomogra phy 10/13/2024 4:43 PM PENSION CONSULTANT Impressions 10/13/2024 4:53 PM PENSION CONSULTANT IMPRESSION: 1. Bilateral moderate medial dependent lower lobe airspace opacity with air bronchograms which may represent infectious consolidation in the appropriate clinical setting. Suggest some degree of accompanying atelectasis. Additional streaky areas of subsegmental atelectasis throughout both lungs. 2. Upper lobe subtle smooth interlobular septal thickening may indicate mild fluid overload. 3. Interval new mild mediastinal adenopathy may be reactive 3. Trace left pleural effusion 4. Stable mild cardiomegaly. 5. Cholelithiasis. 6. Suspected age indeterminate T7 vertebral body [id number] compression, stable since 07/05/2024; subtle T8 vertebral body minimally depressed insufficiency fracture new since 08/23/2024. 7. Other nonemergent, incidental, stable and potential chronic findings as discussed in the report body above. Ordered By: BARB ALEXANDRE Interpreted By: Roula Abdi MD, 10/13/2024 4:43 PM Narrative 10/13/2024 4:53 PM PENSION CONSULTANT [facility] [address] [place], [place] [address] Exam: CT CHEST WO CON Exam Date/Time: 10/13/2024 1:33 PM Indication: 73 female. Shortness of breath, hypoxia. Evaluation for infection, pneumonia Comparison: Chest x-ray 10/13/2024; CTA chest 08/23/2020 Technique: Computed tomography of the chest performed without contrast. A dose lowering technique was used for this procedure, which may include, but is not limited to, dose reduction technique, automated exposure control, the use of iterative reconstruction, and ALARA (As Low As Reasonably Achievable) / Image Gently techniques.. CT findings: Support tubes and lines: None. Base of neck/thyroid: Negative. MEDIASTINUM: Heart: Mild cardiomegaly. Triple-vessel coronary artery disease. No pericardial effusion Lymph nodes: No supraclavicular, axillary, internal mammary adenopathy. Slightly increased size of the mediastinal lymph nodes compared to the prior study. Index rounded low paratracheal node measures 9 mm compared to 6 mm in the prior study. Enlarged precarinal node measures 1.7 cm. Limited assessment for hilar adenopathy VASCULATURE Thoracic aortic arch and descending thoracic aortic atherosclerosis. No aneurysm. Central pulmonary arterial enlargement with the main pulmonary artery measuring 3.7 cm compared to 3.3 cm on the prior study. This can be seen with pulmonary hypertension LUNGS AND PLEURA Lungs: There is a bilateral the posterior medial lower lobe moderate airspace opacity with suggestion of air bronchograms, that may represent infectious consolidation in the appropriate clinical setting. Some degree of atelectasis and volume loss present. Multiple other areas of streaky linear opacity in the remainder of the lungs including the bilateral upper lobes that have the appearance of subsegmental atelectasis. Equivocal the upper lobe mild smooth interlobular septal thickening suggesting mild fluid overload may be present. Few dependent secretions in the mainstem trachea extending into main right and left bronchi. No convincing distal airway mucous plugging. Pleura: Trace left pleural fluid. No drainable effusion. No pleural thickening or calcification. . UPPER ABDOMEN Cholelithiasis without cholecystitis on CT. Prominent pancreatic parenchymal volume loss. Mild bilateral adrenal limb thickening, nonspecific. No acute finding. BONES/SOFT TISSUES Mild diffuse bony demineralization. T7 vertebral body mild/moderate chronic superior endplate depressed fracture, age indeterminate appears stable since 07/05/2024. There is subtle new 3 mm depression of the T8 vertebral body new since 08/23/2024 suggesting interval acute insufficiency fracture. No concerning osteolytic or blastic lesion.. Procedure Note Roula Abdi MD - 10/13/[address] [address] Exam: CT CHEST WO CON Exam Date/Time: 10/13/2024 1:33 PM Indication: 73 female. Shortness of breath, hypoxia. Evaluation forinfection, pneumonia Comparison: Chest x-ray 10/13/2024; CTA chest 08/23/2020 Technique: Computed tomography of the chest performed without contrast. Adose lowering technique was used for this procedure, which may include,but is not limited to, dose reduction technique, automated exposurecontrol, the use of iterative reconstruction, and ALARA (As Low AsReasonably Achievable) / Image Gently techniques.. CT findings: Support tubes and lines: None. Base of neck/thyroid: Negative. MEDIASTINUM: Heart: Mild cardiomegaly. Triple-vessel coronary artery disease. Nopericardial effusion Lymph nodes: No supraclavicular, axillary, internal mammary adenopathy. Slightly increased size of the mediastinal lymph nodes compared to theprior study. Index rounded low paratracheal node measures 9 mm compared to6 mm in the prior study. Enlarged precarinal node measures 1.7 cm. Limitedassessment for hilar adenopathy VASCULATURE Thoracic aortic arch and descending thoracic aortic atherosclerosis. Noaneurysm. Central pulmonary arterial enlargement with the main pulmonary arterymeasuring 3.7 cm compared to 3.3 cm on the prior study. This can be seenwith pulmonary hypertension LUNGS AND PLEURA Lungs: There is a bilateral the posterior medial lower lobe moderateairspace opacity with suggestion of air bronchograms, that may representinfectious consolidation in the appropriate clinical setting. Some degreeof atelectasis and volume loss present. Multiple other areas of streakylinear opacity in the remainder of the lungs including the bilateral upperlobes that have the appearance of subsegmental atelectasis. Equivocal the upper lobe mild smooth interlobular septal thickeningsuggesting mild fluid overload may be present. Few dependent secretions in the mainstem trachea extending into main rightand left bronchi. No convincing distal airway mucous plugging. Pleura: Trace left pleural fluid. No drainable effusion. No pleuralthickening or calcification. . UPPER ABDOMEN Cholelithiasis without cholecystitis on CT. Prominent pancreaticparenchymal volume loss. Mild bilateral adrenal limb thickening,nonspecific. No acute finding. BONES/SOFT TISSUES Mild diffuse bony demineralization. T7 vertebral body mild/moderatechronic superior endplate depressed fracture, age indeterminate appearsstable since 07/05/2024. There is subtle new 3 mm depression of the [id number] body new since 08/23/2024 suggesting interval acuteinsufficiency fracture. No concerning osteolytic or blastic lesion.. IMPRESSION: 1. Bilateral moderate medial dependent lower lobe airspace opacity withair bronchograms which may represent infectious consolidation in theappropriate clinical setting. Suggest some degree of accompanyingatelectasis. Additional streaky areas of subsegmental atelectasisthroughout both lungs. 2. Upper lobe subtle smooth interlobular septal thickening may indicatemild fluid overload. 3. Interval new mild mediastinal adenopathy may be reactive 3. Trace left pleural effusion 4. Stable mild cardiomegaly. 5. Cholelithiasis. 6. Suspected age indeterminate T7 vertebral body [id number], stable since 07/05/2024; subtle T8 vertebral body minimallydepressed insufficiency fracture new since 08/23/2024. 7. Other nonemergent, incidental, stable and potential chronic findings asdiscussed in the report body above. Ordered By: BARB ALEXANDRE Interpreted By: Roula Abdi MD, 10/13/2024 4:43 PM us Barb Alexandre MD CT Final Result from Last 3 Months or Most Recently Relevant to Health Maintenance Insurance [facility] Advance Directives * Full Code (Latest Code Status on File) Date Activated Date Inactivated Comments 03/27/2025 6:21 AM 03/27/2025 4:26 PM * Full Code Date Activated Date Inactivated Comments 10/12/2024 2:57 AM 10/21/2024 4:49 PM Care Teams Audio Production Manager Relationship Specialty Start Date End Date Jazlyn Reddy PA [address] [facility], [address] [place], [place] [id number] PCP - General PHYSICIAN INTERIOR SYSTEMS CARPENTER 10/12/24 Austen Murdock MD [facility] [address] [place], [place] [id number] Consulting Physician CARDIOVASCULAR DISEASE 10/18/24
--- OUTSIDE RECORDS SUMMARY | 2025-07-24 03:32 | XMS_ITS | Clinical Summary ---
Author Organization [facility] Facility Address [address] [address] Care Team Providers Care Paper Bag Maker Name Role Phone Unavailable Primary Care Provider Unavailabl e Allergies Active Allergy Reactions Criticality Noted Date Comments Benzonatate Swelling Medium 11/05/2022 Codeine Hives High 07/25/2020 Penicillins Hives,Rash High 06/04/2017 Medications * This document contains information received from the source organization and may not represent a complete record from that organization. albuterol HFA (PROVENTIL HFA;VENTOLIN HFA) 108 (90 Base) MCG/ACT inhaler Inhale 2 puffs 05/08/2022 Active allopurinol (ZYLOPRIM) 100 MG tablet Take 100 mg by mouth 1 (one) time each day 12/19/2021 Active cetirizine (ZyrTEC) 10 MG tablet Take 10 mg by mouth 1 (one) time each day 10/30/2020 Active cholecalciferol (VITAMIN D-3) 1.25 MG (95173 UT) capsule Take 50,000 Units by mouth 1 (one) time per week Active glimepiride (AMARYL) 2 MG tablet Take 2 mg by mouth in the morning and 2 mg in the evening. 06/04/2017 Active levothyroxine sodium (TIROSINT) 25 MCG capsule Take 25 mcg by mouth 1 (one) time each day Active lisinopril 10 MG tablet Take 10 mg by mouth 1 (one) time each day 07/19/2020 Active oxyCODONE (ROXICODONE) 20 MG immediate release tablet Take 20 mg by mouth every 6 (six) hours if needed 03/16/2018 Active rosuvastatin (CRESTOR) 40 MG tablet Take 40 mg by mouth 1 (one) time each day 07/15/2020 Active Umeclidinium-Vi lanterol 62.5-25 MCG/ACT aerosol powder Inhale 1 puff if needed 07/08/2020 Active omega-3 (FISH OIL) 1000 MG capsule Take 1,000 mg by mouth 1 (one) time each day 01/31/2016 Active metOLazone 2.5 MG tablet Take 2.5 mg by mouth 1 (one) time each day Active Active Problems Problem Noted Date Diagnosed Date Glaucoma 08/05/2023 Smoker 12/24/2022 Hypothyroidism 12/24/2022 Chronic kidney disease stage 2 11/05/2022 Overview (12/17/2022): Last Assessment & Plan: Referral made for Dr Muhammad - to switch nephrologists - pt states she has to wait three hours for 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 History of nephrectomy 11/05/2022 Overview (12/17/2022): Last Assessment & Plan: Changing bench boring machine operator to Dr Muhammad Depressed mood 01/23/2022 Gastroesophageal reflux disease 01/23/2022 History of malignant neoplasm of kidney 01/24/20 22 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 Polyneuropathy 01/23/2022 Unspecified dementia, unspec ified severity, without behavioral disturbance, psychotic disturbance, mood disturbance, and anxiety 01/20/2019 Vitamin D deficiency 09/16/2018 Daytime hypersomnia 08/10/2018 Multiple nodules of lung 08/10/2018 Essential hypertension 07/23/2017 Chronic obstructive pulmonary disease 06/04/2017 Hyperlipidemia 06/04/2017 Sleep apnea 06/04/2017 Type 2 diabetes mellitus 03/26/2014 Overview (12/17/2022): DMII WO CMP UNCNTRLD Last Assessment & Plan: A1C stable 7.5 Continue current medication Immunizations Immunization Administration Dates Next Due Influenza Split High Dose Pr eservative Free IM 09/17/2018 Influenza, Quadrivalent, Pre servative Free 09/17/2019 Influenza, Quadrivalent, Wit h Preservative 09/20/2019 Influenza, Unspecified 09/12/2021,2019,10/12/2018,09/21,09/20/2015 Pneumococcal Conjugate 13-Valent 09/21/2015,09/10 Pneumococcal Polysaccharide 08/10/2011 SARS-CoV-2, Unspecified 10/15/2021,03/15/2021, Family History Medical History Relation Comments Cancer Father Diabetes Maternal Grandmother Diabetes Mother Gout Mother Stroke Mother Cancer Sister Heart disease Sister Relation Status Comments Father Maternal Grandmother Mother Sister Social History Tobacco Use Types Packs/Day Years Used Date Smoking Tobacco: Every Day Cigarettes Smokeless Tobacco: Never Tobacco Cessation:Ready to Q uit: Not Asked; Counseling Given: Not Answered Alcohol Use Standard Drinks/Week Comments Never 0 (1 standard drink = 0.6 oz pur e alcohol) Comments Unknown Sex and Gender Information Value Date Recorded Sex Assigned at Not on file Legal Sex Female 3:10 PM EST Gender Identity Not on file Sexual Orientation Not on file Last Filed Vital Signs Vital Sign Reading Time Taken Comments Blood Pressure 112/50 03/23/2024 10:31 AM CDT Pulse 74 03/23/2024 10:31 AM CDT Temperature 36.4 C (97.6 F) 03/23/2024 10:31 AM CDT Respiratory Rate 20 03/23/2024 10:31 AM CDT Oxygen Saturation 95% 03/23/2024 10:31 AM CDT Inhaled Oxygen Concentration - - Weight 81.6 kg (180 lb) 03/23/2024 10:31 AM CDT Height 170.2 cm (5' 7) 03/23/2024 10:31 AM CDT Body Mass Index 28.19 03/23/2024 10:31 AM CDT Plan of Treatment Health Maintenance Due Date Last Done Comments Breast Cancer Screening 1950 Colorectal Cancer Screening: Annual FOBT 1998 Colorectal Cancer Screening: Colonoscopy 1998 Colorectal Cancer Screening: Sigmoidoscopy 1998 Pneumococcal Vaccine: 50+ Years (3 of 3 - PCV20 or PCV21) 08/10/2016 09/21/2015, 09/20/2015, 08/10/2011 Diabetes: Pedal Pulse Checked 08/24/2024 Diabetes: Sensory Foot Exam 08/24/2024 Diabetes: Visual Foot Exam 08/24/2024 Diabetes: Hemoglobin A1C 11/12/2024 024, 06/29/2024, 03/15/2024, Additional history exists Diabetes: Ophthalmology Exam 02/25/2025 02/26/2024, 04/15/2023 Influenza Vaccine (#1) 2025 3, 09/26/2022, 09/12/2021, Additional history exists Hepatitis B Vaccine Aged Out No longe r eligible based on patient's age to complete this topic Procedures Procedure Name Priority Date/Time Associated Diagnosis Comments EXT RESULT ENTRY Routine 03/15/2024 from Last 3 Months or Most Recently Relevant to Health Maintenance Results * (ABNORMAL) EXT RESULT ENTRY (03/15/2024) WBC 9.3 3.3 - 10.0 10*3/ML Red Blood Cell Count 4.17 Hemoglobin 12.5 12.0 - 16.0 Hematocrit 39.8 36.0 - 46.0 Platelets 392 150 - 399 10*3/UL Vitamin B-12 633 pg/mL Sodium 139 137 - 147 Potassium 4.2 3.4 - 5.5 Chloride 103.0 99.0 - 108.0 Carbon Dioxide 20 mmol/L Anion Gap 16 <=30 MMOL/L Glucose 108 60 - 200 BUN 9 4 - 21 mg/dL Creatinine 0.87 0.50 - 1.10 mg/dL Total Protein 8.4(A) 6.4 - 8.2 G/DL Albumin 3.8 3.5 - 5.0 g/dL Calcium 10.9(A) 8.7 - 10.7 mg/dL eGFR Non-Afr Haitian 70 (TSH) Thyroid Stimulating Hormone 1.74 Vitamin D, 25-OH, Total 51 ng/mL Hemoglobin A1C 8.8(A) 4.0 - 6.0 Triglycerides 94 Cholesterol, Total 103 HDL 36(L) mg/dL LDL-Calculated 48 Chol/HDL Ratio (External Entry) 3 Non HDL Cholesterol 67 03/15/2024 us Historical Provider LAB BLOOD ORDERABLES Chantell l Result from Last 3 Months or Most Recently Relevant to Health Maintenance Insurance Medicare [facility]
--- OUTSIDE RECORDS SUMMARY | 2025-07-24 03:32 | XMS_ITS | Encounter Summary ---
Author Organization [facility] Healthcare Address [address] [place] [address] Care Team Providers Care Team Leader Name Role Phone Garfield Whiteside SILK BRUSHER Unavailable Jeff Ca MD Unavailable [phone] Jazlyn Reddy Primary Care Provider + Encounter Details Date Type Department Care Team (Late st Contact Info) Description 06/27/2025 Telephone [facility] Gastroenterology at [address] [place] [address] Matthew Atkins MD [address] [place] [address] [address] [place] [address] Social History Tobacco Use Types Packs/Day Years Used Date Smoking Tobacco: Every Day Cigarettes 1 53 Comments:Smoking about 1/2 p pd currently; quit for 8 months cold turkey in the past; at highest, 2ppd, started at age 18 [facility] Utilities Answer Date Recorded In the past 12 months has [employer], gas, oil, or water company threatened to [...] often do you attend chur ch or hinduism services? Never 04/28/2025 Do you belong to any clubs o r organizations such as synagogue groups, unions, fraternal or athletic groups, or [...] points, staff should administer the PHQ-9) 0 06/06/2025 Hunger Vital Sign Answer Date Recorded Within [...] place to sleep or slept in a intermediate (including now)? No 10/24/2023 PHQ-9 Answer Date [...] any time in the past 12 m [facility], were you homeless or living in a intermediate (including now)? No 04/28/2025 Personal Safety Answer Date Recorded Have you ever been in or are you currently in a harmful physical or emotional relationship or is someone making you feel afraid or unsafe? Denies 09/16/2024 Comments No Sex and Gender Information Value Date Recorded Sex Assigned at Not on file Legal Sex Female 2:26 AM CAN LABELER Gender Identity Not on file Sexual Orientation Not on file Occupation Industry Job Start Date Job End Date Retired Not on file Not on file Not on file documented as of this encounter Miscellaneous Notes * Telephone Encounter - Florence Martinez - 06/27/2025 10:14 AM CDT Pt caregiver Velma called to re-schedule procedure. Please call [phone] to reschedule procedure. documented in this encounter Plan of Treatment [...] on filedocumented in this encounter Care Teams Team Leader Relationship Specialty Start Date End Date Jazlyn Reddy PA [address] [place] [address] PCP - General Family Medicine 05/20/25 Garfield Whiteside LCSW [address] [place] [address] [address] [place] [address] Instrument Tech 04/08/25 [place] [address] [address] [facility] [address] [place] [address] Consulting Physician Endocrinology Diabetes & Metabolism 05/12/25 documented as of this encounter
[2025-07-24] MEDS: MIDAZOLAM HCL (*CRX) 10 MG/2 ML VIAL NASAL (04:00)
--- NOTE | 2025-07-24 04:27 | ED.GENADULT ---
HPI - General Adult General Chief complaint: Recheck/Abnormal Lab/Rx Stated complaint: High BG, confusion? Time Seen by Provider: 07/24/25 02:58 History of Present Illness HPI narrative: Patient is 74-year-old female who presents to the emergency department this evening due to concern for confusion and elevated blood glucose. Per family member/friend present at bedside, patient has not had her insulin this evening. They report intermittent episodes of confusion for a while but yesterday she was very confused and not making sense so he decided to bring her into the emergency department for further evaluation. Bedside glucose noted to be 290. Patient is alert and oriented to person but disoriented to place and time. She is moving all 4 extremities spontaneously, will answer questions although her answers do not make any sense. Related Data Home Medications ?Medication ?Instructions ?Recorded ?Confirmed ?Last Taken ?Type rosuvastatin 40 mg tablet 40 mg PO QAM 05/11/20 12/18/23 Unknown History lisinopril 10 mg tablet 10 mg PO DAILY 05/25/20 12/18/23 Unknown History acetaminophen 500 mg tablet 1,000 mg PO TID 12/18/23 12/18/23 Unknown History aspirin 81 mg chewable tablet 81 mg PO DAILY 12/18/23 12/18/23 Unknown History (Aspirin Childrens) cholecalciferol (vitamin D3) 125 5,000 unit PO DAILY 12/18/23 12/18/23 Unknown History mcg (5,000 unit) tablet cyanocobalamin (vitamin B-12) 100 100 mcg PO DAILY 12/18/23 12/18/23 Unknown History mcg tablet folic acid 1 mg tablet 1 mg PO DAILY 12/18/23 12/18/23 Unknown History lidocaine 5 % topical patch 1 patch topical DAILY 12/18/23 12/18/23 Unknown History (Lidoderm) melatonin 3 mg tablet 3 mg PO HS 12/18/23 12/18/23 Unknown History oxycodone 5 mg tablet See Rx Instructions .Route .COMPLEX 12/18/23 12/18/23 Unknown History sennosides 8.6 mg tablet 8.6 mg PO DAILY 12/18/23 12/18/23 Unknown History tamsulosin 0.4 mg capsule 0.4 mg PO DAILY 12/18/23 12/18/23 Unknown History thiamine HCl (vitamin B1) 100 mg 100 mg PO DAILY 12/18/23 12/18/23 Unknown History tablet timolol 0.25 % eye drops 1 drp EACH EYE Q12H 12/18/23 12/18/23 Unknown History Allergies Allergy/AdvReac Type Severity Reaction Status Date / Time Penicillins Allergy Unknown Rash Verified 05/05/25 20:13 Review of Systems Review of Systems: All systems are reviewed and are negative unless stated otherwise in the HPI. [facility] Past Medical History Medical History Fibrocystic breast changes of both breasts Tobacco dependence Anxiety Prescription drug abuse Chronic pain syndrome Type 2 diabetes mellitus with peripheral neuropathy Hyperlipidemia Hypertension Chronic obstructive pulmonary disease Asthma Cancer of right kidney Pelvic fracture Peripheral neuropathy Glaucoma Blind in left eye. Surgical History Surgical History History of inguinal hernia repair History of right nephrectomy History of cataract extraction Status post left foot surgery For plantar fasciitis. History of hysterectomy Family History Family History Father Lung cancer Mother Cerebrovascular accident Diabetes mellitus Sibling Breast cancer Diabetes mellitus Cerebrovascular accident Heart disease Other Family history of congenital heart disease Family history of malignant neoplasm Social History Social History Social History: The patient lives in [place]. She smokes at least 0.75 packs of cigarettes a day. No alcohol or illicit substance abuse documented. Her sister Iris Rich is healthcare power of divorce attorney. Code status: Full code. Smoking packs per day: 0.5 Smoking cigarettes per day: 10.0 Years smoked: 50 Smoking pack-years: 25.00 Smoking status: Light tobacco smoker Tobacco type: cigarettes Second hand tobacco smoke exposure: No Alcohol intake: current Substance use: former Substance use type: opiates, painkillers and prescription drug Other substance usage details: Oxycodone Last use: last cigarette 9 days ago; last oxy use 11/16/23 Lack of Transportation: No Lack of Food: Never True Current Housing: I Have Housing Concerned About Future Housing: No Difficulty Paying Gas/Electric Bills: No Difficulty Paying for Meds: No Currently Unemployed: No Education: High School Diploma/GED Difficulty w/ Childcare or Family Care: No Living arrangements: with family Occupation/Education: retired Gender identity (if verbalized by the patient): Female Spiritual care concerns: No Exam Narrative: General: Awake, afebrile, in no acute distress. HEENT: PERRL, no rhinorrhea, no post nasal drip, oropharynx clear. Neck: Trachea midline, no JVD, no lymphadenopathy. Cardiovascular: Regular rate and rhythm, no murmurs, rubs or gallops, no peripheral edema. Respiratory: Clear to auscultation bilaterally, no tachypnea, no wheezing, no rhonchi, no rubs, no respiratory distress. Abdomen: Soft, nontender, nondistended, no rebound, no guarding, no peritoneal signs. Musculoskeletal: No joint swelling or deformity, normal muscle tone. Skin: No rashes or petechia, no signs of infection. Neurological: Alert and oriented to person only. Follows minimal commands, moving all extremities spontaneously, confused and not answering questions appropriately, no focal deficits appreciated within the limitation of the examination secondary to patient's confusion. Course Vital Signs Vital signs: Vital Signs Temperature 97.9 F 07/23/25 23:40 Pulse Rate 78 07/23/25 23:40 Respiratory Rate 18 07/23/25 23:40 Blood Pressure 125/100 H 07/23/25 23:40 Pulse Oximetry 98 07/23/25 23:40 Oxygen Delivery Room Air 07/23/25 23:40 Temperature 98.7 F 07/24/25 01:41 Pulse Rate 80 07/24/25 01:41 Respiratory Rate 13 07/24/25 01:41 Blood Pressure 152/73 H 07/24/25 01:41 Pulse Oximetry 98 07/24/25 01:41 Oxygen Delivery Room Air 07/23/25 23:40 Medical Decision Making MDM Narrative Medical decision making narrative: The patient was evaluated by myself in the emergency department. History is obtained from patient who is an independent historian and physical exam was performed. External medical records were reviewed at this time. IV was established and pertinent tests were ordered. EKG was obtained which revealed sinus rhythm rate of 83 beats per minute, otherwise no evidence of acute ischemia. EKG was independently interpreted by me and is currently pending official cardiology read. Laboratory results obtained revealing no acute process. Urinalysis unremarkable. UDS negative. Imaging studies obtained included CXR which was independently interpreted by me revealing no acute process, which is pending final radiology interpretation. CT brain without IV contrast was also obtained at this time and is currently pending. Patient required 1 mg of intranasal Versed to facilitate obtaining the CT scan as she was not cooperating. Patient ripped out multiple IVs due to agitation. Shortly after returning from the scan, are and did attempt to place another IV and patient became very agitated and combative she was administered 5 mg of IM Zyprexa at this time. CT revealed no evidence of acute intracranial pathology, remote ischemic injury to the right capsule although study was limited secondary to motion artifact. Moderate ventriculomegaly, small loose ENT lesion in the right frontal lobe which is unchanged from prior examination. At this time, family members were informed of results at bedside. Per chart review, there is documentation for history of prescription drug abuse and alcohol abuse, however, patient's sister denies both. States the patient drinks a lot of soda everyday but not alcohol. Differential diagnosis considerations include dementia, delirium secondary to infectious process such as UTI/pneumonia. Comorbidities impacting this visit include none. I have evaluated and discussed social determinants of health with the patient that could potentially impact subsequent diagnosis and treatment plans. On repeat assessment of the patient, reevaluation revealed that the patient is doing well and is in no acute distress. Patient symptoms have remained stable since she arrived to our emergency department. Repeat vital signs were all reviewed and noted to be stable. Case discussed with the on-call hospitalist Dr. Chen at 0623 and she accepted admission. Per her request, additional blood work including vitamin B12 and folate levels, salicylate, acetaminophen levels were ordered at this time. Family members were updated regarding current plan for admission and all other questions were answered. Vital Signs Vital Signs: Vital Signs Temperature 97.9 F 07/23/25 23:40 Pulse Rate 78 07/23/25 23:40 Respiratory Rate 18 07/23/25 23:40 Blood Pressure 125/100 H 07/23/25 23:40 Pulse Oximetry 98 07/23/25 23:40 Oxygen Delivery Room Air 07/23/25 23:40 Temperature 98.7 F 07/24/25 01:41 Pulse Rate 80 07/24/25 01:41 Respiratory Rate 13 07/24/25 01:41 Blood Pressure 152/73 H 07/24/25 01:41 Pulse Oximetry 98 07/24/25 01:41 Oxygen Delivery Room Air 07/23/25 23:40 Lab Data 07/23/25 23:53 07/23/25 23:53 Labs: Lab Results 07/23/25 07/23/25 07/24/25 Range/Units 23:32 23:53 02:07 WBC 9.4 (4.5-10.0) K/mm3 RBC 4.80 (4.2-5.4) M/mm3 Hgb 14.5 (12.0-15.0) g/dL Hct 42.4 (37.0-47.0) % MCV 88.3 (80-100) fl MCH 30.2 (26-34) pg MCHC 34.2 (32-36) g/dl RDW 12.3 (11.5-14.5) % Plt Count 262 (150-375) k/mm3 MPV 10.0 (7.4-10.4) fl Immature Gran % (Auto) 0.4 (0-0.5) % Neut % (Auto) 64.6 (45.5-73.1) % Lymph % (Auto) 26.4 (18.3-44.2) % Elliott % (Auto) 5.4 (2.6-8.5) % Eos % (Auto) 2.6 (0-4.4) % Baso % (Auto) 0.6 (0.2-1.2) % Lymph # (Auto) 2.48 (0.9-3.2) K/mm3 Elliott # (Auto) 0.5 (0.1-0.6) K/mm3 Eos # (Auto) 0.2 (0-0.3) K/mm3 Baso # (Auto) 0.1 (0.0-0.1) K/mm3 Abs Immat Gran (auto) 0.04 H (0.00-0.031) K/mm3 Absolute Neuts (auto) 6.1 (1.3-6.7) K/mm3 Absolute Nucleated RBC 0.000 (0.0-0.012) K/mm3 Nucleated RBC % 0.0 (0.0-0.2) % PT 13.6 (11.1-14.7) Seconds INR 1.0 APTT 28.6 (22.3-36.8) Seconds Sodium 134 L (137-145) mmol/L Potassium 3.9 (3.4-5.0) mmol/L Chloride 106 (98-107) mmol/L Carbon Dioxide 22 (22-30) mmol/L Anion Gap 6 (4-12) mmol/L BUN 17 (7-17) mg/dL Creatinine 0.87 (0.7-1.0) mg/dL Estim Creat Clear Calc Not Reportable Estimated GFR > 60 (59 - ) Glucose 269 H (65-110) mg/dL POC Capillary Glucose 290 H (65-105) mg/dl Calcium 10.0 (8.4-10.2) mg/dL Magnesium 1.9 (1.6-2.3) mg/dL Total Bilirubin 0.7 (0.2-1.3) mg/dL AST 21 (14-36) U/L ALT 11 (6-35) U/L Alkaline Phosphatase 127 H (38-126) U/L Ammonia (9-30) umol/L Total Creatine Kinase (30-135) U/L Total Protein 7.4 (6.3-8.2) g/dL Albumin 4.1 (3.5-5.1) g/dL TSH (Reflex) (0.465-4.68) uIU/mL Urine Color Yellow (Yellow) Urine Appearance Cloudy H (Clear) Urine pH 5.5 (5.0-9.0) Ur Specific [place] 1.022 (1.001-1.035) Urine Protein 2+ H (Negative) mg/dL Urine Glucose (UA) 1+ H (Negative) mg/dL Urine Ketones Negative (Negative) mg/dL Ur Blood (Man) Negative (Negative) Urine Nitrate Negative (Negative) Urine Bilirubin Negative (Negative) Urine Urobilinogen 1.0 (<2.0) mg/dL Leukocyte Esterase Rfl Negative (Negative) CARL/UL Urine RBC 0-2 (0-2) /hpf Urine WBC 0-5 (0-3) /hpf Ur Squamous Epith Cells Few (Few) /hpf Urine Bacteria 4+ H /hpf Urine Casts 0-2 Urine Opiates Screen Negative (Negative) Urine Methadone Screen Negative (Negative) Ur Barbiturates Screen Negative (Negative) Ur Phencyclidine Scrn Negative (Negative) Ur Amphetamine Screen Negative (Negative) U Benzodiazepines Scrn Negative (Negative) Urine Cocaine Screen Negative (Negative) U Cannabinoids Screen Negative (Negative) 07/24/25 07/24/25 Range/Units 03:35 05:13 WBC (4.5-10.0) K/mm3 RBC (4.2-5.4) M/mm3 Hgb (12.0-15.0) g/dL Hct (37.0-47.0) % MCV (80-100) fl MCH (26-34) pg MCHC (32-36) g/dl RDW (11.5-14.5) % Plt Count (150-375) k/mm3 MPV (7.4-10.4) fl Immature Gran % (Auto) (0-0.5) % Neut % (Auto) (45.5-73.1) % Lymph % (Auto) (18.3-44.2) % Elliott % (Auto) (2.6-8.5) % Eos % (Auto) (0-4.4) % Baso % (Auto) (0.2-1.2) % Lymph # (Auto) (0.9-3.2) K/mm3 Elliott # (Auto) (0.1-0.6) K/mm3 Eos # (Auto) (0-0.3) K/mm3 Baso # (Auto) (0.0-0.1) K/mm3 Abs Immat Gran (auto) (0.00-0.031) K/mm3 Absolute Neuts (auto) (1.3-6.7) K/mm3 Absolute Nucleated RBC (0.0-0.012) K/mm3 Nucleated RBC % (0.0-0.2) % PT (11.1-14.7) Seconds INR APTT (22.3-36.8) Seconds Sodium (137-145) mmol/L Potassium (3.4-5.0) mmol/L Chloride (98-107) mmol/L Carbon Dioxide (22-30) mmol/L Anion Gap (4-12) mmol/L BUN (7-17) mg/dL Creatinine (0.7-1.0) mg/dL Estim Creat Clear Calc Estimated GFR (59 - ) Glucose (65-110) mg/dL POC Capillary Glucose 188 H (65-105) mg/dl Calcium (8.4-10.2) mg/dL Magnesium (1.6-2.3) mg/dL Total Bilirubin (0.2-1.3) mg/dL AST (14-36) U/L ALT (6-35) U/L Alkaline Phosphatase (38-126) U/L Ammonia < 9 L (9-30) umol/L Total Creatine Kinase 52 (30-135) U/L Total Protein (6.3-8.2) g/dL Albumin (3.5-5.1) g/dL TSH (Reflex) 0.964 (0.465-4.68) uIU/mL Urine Color (Yellow) Urine Appearance (Clear) Urine pH (5.0-9.0) Ur Specific [place] (1.001-1.035) Urine Protein (Negative) mg/dL Urine Glucose (UA) (Negative) mg/dL Urine Ketones (Negative) mg/dL Ur Blood (Man) (Negative) Urine Nitrate (Negative) Urine Bilirubin (Negative) Urine Urobilinogen (<2.0) mg/dL Leukocyte Esterase Rfl (Negative) CARL/UL Urine RBC (0-2) /hpf Urine WBC (0-3) /hpf Ur Squamous Epith Cells (Few) /hpf Urine Bacteria /hpf Urine Casts Urine Opiates Screen (Negative) Urine Methadone Screen (Negative) Ur Barbiturates Screen (Negative) Ur Phencyclidine Scrn (Negative) Ur Amphetamine Screen (Negative) U Benzodiazepines Scrn (Negative) Urine Cocaine Screen (Negative) U Cannabinoids Screen (Negative) Discharge Plan Discharge Clinical Impression: Altered mental status, Agitation Patient Disposition: Still a Patient Condition: Stable Patient Language: Burmese Prescriptions: No Action lisinopril 10 mg tablet 10 mg PO DAILY rosuvastatin 40 mg tablet 40 mg PO QAM Rx Instructions: Friday & only. doxycycline monohydrate 100 mg tablet 100 mg PO BID 7 Days Qty: 14 0RF cephalexin 500 mg capsule 500 mg PO Q6H 7 Days Qty: 28 0RF sennosides 8.6 mg Tablet 8.6 mg PO DAILY cyanocobalamin (vitamin B-12) 100 mcg Tablet 100 mcg PO DAILY thiamine HCl (vitamin B1) 100 mg Tablet 100 mg PO DAILY melatonin 3 mg Tablet 3 mg PO HS acetaminophen 500 mg Tablet 1,000 mg PO TID tamsulosin 0.4 mg Capsule 0.4 mg PO DAILY lidocaine [Lidoderm] 5 % Adhesive Patch,Medicated 1 patch TOPICAL DAILY Rx Instructions: leave on most painful area for up to 12 hrs timolol 0.25 % Drops 1 drp EACH EYE Q12H aspirin [Aspirin Childrens] 81 mg Tablet,Chewable 81 mg PO DAILY folic acid 1 mg Tablet 1 mg PO DAILY oxycodone 5 mg Tablet See Rx Instructions .ROUTE .COMPLEX Rx Instructions: 2.5 mg orally Q6HR- standard time dosing cholecalciferol (vitamin D3) 125 mcg (5,000 unit) Tablet 5,000 unit PO DAILY Follow-up/Referrals: Shahnaz Reddy, RN [Primary Care Provider, Nursing] Time of Disposition: 06:29
[2025-07-24 05:02] LABS: Cannabinoid Screen Urine Negative (Negative)
[2025-07-24] MEDS: OLANZapine 5 MG, WATER, STERILE FOR INJECTION 2.1 ML IM (05:22)
[2025-07-24 05:28] LABS: Ammonia < 9 umol/L (9-30)
[2025-07-24 05:39] LABS: Creatine Kinase 52 U/L (30-135)
[2025-07-24 06:11] LABS: Thyroid Stimulating Hormone Reflex 0.964 uIU/mL (0.465-4.68)
--- NOTE | 2025-07-24 07:31 | PC.NURSE ---
Assumed care. Pt mumbling incoherently and restless.
[2025-07-24 07:35] LABS: Acetaminophen < 10 ug/mL (10-30); Salicylate < 1.0 mg/dL (2-20)
--- NOTE | 2025-07-24 08:01 | ADMGEN ---
This patient, Dora Epps, was admitted to [facility] Surg Room 333-01. Patient/family oriented to hospital policies and general routines including ID bracelet, bed and alarms, visiting hours, pain management, procedures, bathroom and other care routines, personal items, smoking policy, room service/diet, and visiting hours. Information on how to activate the Rapid Response Team has been discussed. Patient/Family are encouraged to report perceived risks to care and to ask questions if they do not understand what they are told or what they should do.
[2025-07-24 08:39] LABS: Vitamin B12 300.0 pg/mL (239-931)
--- NOTE | 2025-07-24 09:31 | P.HP_ITS ---
H&P: HPI History of Present Illness Date/Time: 07/24/25 09:31 Chief Complaint: AMS/confusion Narrative: Patient Is a 74-year-old female with a past medical history alcohol and substance abuse, HTN, encephalopathy, CVA, diabetes. Patient was brought into the emergency department by family due to concerns of worsening confusion and agitation and failure to take her insulin stating she had an elevated blood sugar. per medical chart in the emergency department patient became agitated when attempting to get CT head and CTA which time she did receive intranasal Versed in Zyprexa. after reviewing patient's medical chart she did a previous episode back in December of 2023 altered mental status and confusion secondary to polypharmacy. also reviewed patient's recent prescription monitoring which showed a prescription for methocarbamol on July 05 2025. IN the ED: Initial CT head with limited study due to artifact showed no acute infarct or hemorrhage. Patient's drug screen negative ETOH negative, ammonia level normal. Patient did have leukocytosis otherwise other labs were unremarkable. Urine negative for UA. Patient was admitted to medical unit for further evaluation altered mental status/delirium/confusion/encephalopathy. Upon my evaluation of patient unable to answer any questions appropriately was just mumbling out but would respond to painful stimuli. Attempted to contact family for further information with no answer. Patient now has been febrile with a temp peak at 100.4, tachycardic with hypertension. I will attempt to get IV fluids started may require medical soft restraints has already pulled out multiple IVs. Review of Systems Review of Systems: ROS unobtainable: Yes unobtainable due to mental status PMFSH Past Medical History Medical History Fibrocystic breast changes of both breasts Tobacco dependence Anxiety Prescription drug abuse Chronic pain syndrome Type 2 diabetes mellitus with peripheral neuropathy Hyperlipidemia Hypertension Chronic obstructive pulmonary disease Asthma Cancer of right kidney Pelvic fracture Peripheral neuropathy Glaucoma Blind in left eye. Surgical History Surgical History History of inguinal hernia repair History of right nephrectomy History of cataract extraction Status post left foot surgery For plantar fasciitis. History of hysterectomy Family History Family History Father Lung cancer Mother Cerebrovascular accident Diabetes mellitus Sibling Breast cancer Diabetes mellitus Cerebrovascular accident Heart disease Other Family history of congenital heart disease Family history of malignant neoplasm Social History Social History Social History: The patient lives in [place]. She smokes at least 0.75 packs of cigarettes a day. No alcohol or illicit substance abuse documented. Her sister Iris Rich is healthcare power of title attorney. Code status: Full code. Smoking packs per day: 0.5 Smoking cigarettes per day: 10.0 Years smoked: 50 Smoking pack-years: 25.00 Smoking status: Light tobacco smoker Tobacco type: cigarettes Second hand tobacco smoke exposure: No Alcohol intake: current Substance use: former Substance use type: opiates, painkillers and prescription drug Other substance usage details: Oxycodone Last use: last cigarette 9 days ago; last oxy use 11/16/23 Lack of Transportation: No Lack of Food: Never True Current Housing: I Have Housing Concerned About Future Housing: No Difficulty Paying Gas/Electric Bills: No Difficulty Paying for Meds: No Currently Unemployed: No Education: High School Diploma/GED Difficulty w/ Childcare or Family Care: No Living arrangements: with family Occupation/Education: retired Gender identity (if verbalized by the patient): Female Spiritual care concerns: No Meds Home Medications and Allergies Home Medications ?Medication ?Instructions ?Recorded ?Confirmed ?Type rosuvastatin 40 mg tablet 40 mg PO QAM 05/11/20 History lisinopril 10 mg tablet 10 mg PO DAILY 05/25/2007/11 History acetaminophen 500 mg tablet 1,000 mg PO TID 12/18/23 0 07/24/25 History aspirin 81 mg chewable tablet 81 mg PO DAILY 12/18/23 07/24/25 History (Aspirin Childrens) cholecalciferol (vitamin D3) 125 5,000 unit PO DAILY 0 12/18/23 07/24/25 History mcg (5,000 unit) tablet cyanocobalamin (vitamin B-12) 100 100 mcg PO DAILY 07/0307/24/25 History mcg tablet folic acid 1 mg tablet 1 mg PO DAILY 12/18/2307/24 History lidocaine 5 % topical patch 1 patch topical DAILY 07/0307/24/25 History (Lidoderm) Held on 07/24/25. Instructions: Patient no longer taking melatonin 3 mg tablet 3 mg PO HS 12/18/23 07/24/25 History Held on 07/24/25. Instructions: Patient no longer taking oxycodone 5 mg tablet See Rx Instructions .Route . COMPLEX 12/18/23 07/24/25 History Held on 07/24/25. Instructions: Patient no longer taking sennosides 8.6 mg tablet 8.6 mg PO DAILY 12/18/23 History tamsulosin 0.4 mg capsule 0.4 mg PO DAILY 12/18/23 History Held on 07/24/25. Instructions: Patient no longer taking thiamine HCl (vitamin B1) 100 mg 100 mg PO DAILY 12/1807/24/25 History tablet timolol 0.25 % eye drops 1 drp EACH EYE Q12H 12/18/23 07/24/25 History albuterol sulfate 90 mcg/actuation 2 puff inhalation Q 4H PRN 07/24/25 07/24/25 History aerosol inhaler shortness of breath or wheez ing allopurinol 100 mg tablet 100 mg PO DAILY 07/24/25 History amlodipine 10 mg tablet 10 mg PO DAILY 07/24/2507/11 History budesonide 160 mcg-glycopyr 9 2 inh inhalation BID 07/24/25 History mcg-formot 4.8 mcg/actuation HFA inhaler (Breztri Aerosphere) calcitriol 0.25 mcg capsule 0.25 mcg PO DAILY 07/24/25 07/24/25 History duloxetine 30 mg capsule,delayed 30 mg PO .Q12HR 07/2407/24/25 History release ergocalciferol (vitamin D2) 1,250 1,250 mcg PO WEEKLY 07/24/25 07/24/25 History mcg (50,000 unit) capsule insulin degludec 100 unit/mL (3 16 unit subcut DAILY 0 07/24/25 07/24/25 History mL) subcutaneous pen (Tresiba FlexTouch U-100 insulin) insulin lispro 100 unit/mL 1 sliding scale dose subcut TIDWM 07/24/25 07/24/25 History subcutaneous pen ipratropium 0.5 mg-albuterol 3 mg 3 ml inhalation QID PRN shortness 07/24/25 07/24/25 History (2.5 mg base)/3 mL nebulization of breath or wheezing soln ketorolac 0.5 % eye drops 1 drp ophthalmic (eye) TID 0 07/24/25 07/24/25 History levothyroxine 25 mcg tablet 25 mcg PO DAILY 07/24/25 0 07/24/25 History meloxicam 7.5 mg tablet 15 mg PO DAILY PRN pain 07/1107/24/25 History methocarbamol 500 mg tablet 500 mg PO TID PRN muscle s pasm 07/24/25 07/24/25 History metolazone 2.5 mg tablet 2.5 mg PO DAILY 07/24/25 History mirtazapine 7.5 mg tablet 15 mg PO DAILY 07/24/2507/11 History pantoprazole 20 mg tablet,delayed 20 mg PO DAILY 07/2407/24/25 History release Allergies Allergy/AdvReac Type Severity Reaction Status Date / Time Penicillins Allergy Unknown Rash Verified 05/05/25 20:13 Vital Signs Vital Signs - 24 hr 07/23/25 23:40 07/24/25 01:41 07/24/25 07:41 Temperature 97.9 F 98.7 F Pulse Rate 78 80 82 Respiratory Rate 18 13 20 Blood Pressure 125/100 H 152/73 H Pulse Oximetry 98 98 98 Oxygen Delivery Room Air 07/24/25 08:00 Temperature 100.4 F H Pulse Rate 110 H Respiratory Rate 20 Blood Pressure 180/107 H Pulse Oximetry 95 Oxygen Delivery Exam Const: General: no acute distress Other: Disheveled female only mumbling in responding to painful stimuli HENMT: Mouth: Yes dry mucous membranes Eyes: General: appearance normal, both eyes and all related structures Neck: Neck: supple and no JVD Resp: Effort & Inspection: normal respiratory effort Auscultation: clear to auscultation bilaterally Cardio: Rate: regular rate Rhythm: regular rhythm GI: GI Palp: Yes Soft to palpation Auscultation: normal bowel sounds Skin: General skin exam: normal color and no rashes or lesions noted Wounds: no wounds Neuro: General: moves all extremities and confusion Cranial nerves: Yes facial symmetry Cognition (Neuro): abnormal cognition Speech: Other speech findings present (Neuro) (mouning ) Gait exam (Neuro): Unable to assess gait Psych: Affect: Anxious affect present H&P: Results Labs Labs: Short CBC 07/23/25 Range/Units 23:53 WBC 9.4 (4.5-10.0) K/mm3 Hgb 14.5 (12.0-15.0) g/dL Hct 42.4 (37.0-47.0) % Plt Count 262 (150-375) k/mm3 BMP 07/23/25 23:53 Sodium 134 L Potassium 3.9 Chloride 106 Carbon Dioxide 22 BUN 17 Creatinine 0.87 Glucose 269 H Calcium 10.0 Cardiac Enzymes 07/24/25 Range/Units 05:13 Total Creatine Kinase 52 (30-135) U/L Liver Function 07/23/25 Range/Units 23:53 Total Bilirubin 0.7 (0.2-1.3) mg/dL AST 21 (14-36) U/L ALT 11 (6-35) U/L Alkaline Phosphatase 127 H (38-126) U/L Albumin 4.1 (3.5-5.1) g/dL Urine 07/24/25 Range/Units 02:07 Urine Color Yellow (Yellow) Urine Appearance Cloudy H (Clear) Urine pH 5.5 (5.0-9.0) Ur Specific [place] 1.022 (1.001-1.035) Urine Protein 2+ H (Negative) mg/dL Urine Glucose (UA) 1+ H (Negative) mg/dL Assessment and Plan Assessment and plan (1) Encephalopathy: Code(s): G93.40 - Encephalopathy, unspecified Status: Acute Assessment and Plan: Patient with previous episode of acute delirium/confusion believed to be secondary to polypharmacy back in 2023 Previous abnormal awake EEG due to, 1)bifrontal discharges with triphasic morphology.2) ? Bitemporal focal slowing, 3) Generalized slowing, Previous?echo showing EF 55-60% with normal systolic function and grade 2 diastolic dysfunction Previous MRI shows possible punctate infarct in the periventricular white matter of the right temporal lobe cannot be excluded * CT head no acute intracranial infarct or hemorrhage * Currently no infectious cause * B12, folate, TSH all within normal limits * UA negative * Drug screen and ETOH negative * Patient with recent prescription for methocarbamol due to history patient could have overdosed on them??? * CTA ordered * Neurology has been consulted for further evaluation and appreciate recommendation * Also consulted Psychiatry for further evaluation and appreciate recommendations * Will attempt IV fluids may require soft restraints to do so * Now with leukocytosis and febrile ordered LP and blood cultures (2) Agitation: Code(s): R45.1 - Restlessness and agitation Status: Acute Assessment and Plan: See Above #1 * Receive Zyprexa IM Versed in the ED (3) Altered mental status: Code(s): R41.82 - Altered mental status, unspecified Status: Acute Assessment and Plan: See Above #1 (4) Leukocytosis: Code(s): D72.829 - Elevated white blood cell count, unspecified Status: Acute Assessment and Plan: WBC 13.6 and now febrile peaked at 100.4 * LP ordered * Blood cultures ordered * Viral panel negative * CXR with no cardio pulmonary abnormality * UA negative for UTI * Antipyretics p.o./rectal unable to take p.o. due to delirium (5) Prescription drug abuse: Status: Acute Assessment and Plan: Of note (6) Hypertension: Code(s): I10 - Essential (primary) hypertension Status: Acute Assessment and Plan: * Continued amlodipine * Will add hydralazine IV push if unable to take oral medication due to acute delirium encephalopathy (7) Diabetes: Code(s): E11.9 - Type 2 diabetes mellitus without complications Status: Acute Assessment and Plan: * Accu-Cheks a.c. HS * SSI low-dose * Resume patient's long-acting 16 unit insulin * Diabetic diet * Hypoglycemia protocol Plan Code status: Full code per patient DVT prophylaxis: Lovenox Stress ulcer prophylaxis: Protonix 40 daily PT/OT notes: NA Disposition: Patient continues admission to the medical unit for further evaluation by Neurology and Psychiatry due to acute delirium/confusion/encep halopathy currently unknown cause will continue with diagnostic testing. Unable to get hold of family at this time but per records from the ER patient lives alone at home. Quality VTE Prophylaxis VTE prophylaxis: pharmacologic ordered -Patient's previous records reviewed on admission -ER notes reviewed in detail on admission -discussed all findings and current treatment plan with patient/Family/POA -Consultations reviewed for recommendations -Patient's disposition for safe discharge discussed with foster care case manager Dictation performed by [employer] direct speech recognition software, therefore public stenographer variants and typographical errors may occur. Hospitalist MIPS Advance Care Plan I have confirmed that the patient's Advanced Care Plan is present, code status is documented, or surrogate decision maker is listed in patient medical record.: Yes Medication Reconciliation I have utilized all available resources to obtain, update and review the patients current medications (includes all prescriptions, OTC, herbals, cannabis, and nutritional supplements).: Yes The patient is not eligible for med reconciliation; the patient is in a emergent medical situation where delaying treatment would jeopardize the patients health.: No
[2025-07-24 11:10] LABS: Hematocrit 45.2 % (37.0-47.0); Hemoglobin 15.6 g/dL (12.0-15.0); Immature Granulocyte Percent A 0.5 % (0-0.5); Lymphocytes Absolute Auto 1.94 K/mm3 (0.9-3.2); Mean Corpuscular HGB Conc 34.5 g/dl (32-36); Mean Corpuscular Hemoglobin 30.6 pg (26-34); Mean Corpuscular Volume 88.8 fl (80-100); Nucleated Red Blood Cells Absolute Auto 0.000 K/mm3 (0.0-0.012); Nucleated Red Blood Cells Perc 0.0 % (0.0-0.2); Platelet Count Result 261 k/mm3 (150-375); Red Blood Count 5.09 M/mm3 (4.2-5.4); White Blood Count 13.6 K/mm3 (4.5-10.0)
[2025-07-24 11:30] LABS: Alanine Aminotransferase 14 U/L (6-35); Albumin Level 4.5 g/dL (3.5-5.1); Alkaline Phosphatase 144 U/L (38-126); Anion Gap 10 mmol/L (4-12); Aspartate Amino Transferase 26 U/L (14-36); Bilirubin,Total 0.9 mg/dL (0.2-1.3); Blood Urea Nitrogen 14 mg/dL (7-17); Calcium 10.1 mg/dL (8.4-10.2); Carbon Dioxide 25 mmol/L (22-30); Chloride 102 mmol/L (98-107); Estimated CRCL calculation 53 ml/min; Estimated Glomerular Filt Rate > 60; Glucose 161 mg/dL (65-110); Magnesium 1.7 mg/dL (1.6-2.3); Potassium 3.9 mmol/L (3.4-5.0); Sodium 137 mmol/L (137-145); Total Protein 8.1 g/dL (6.3-8.2)
--- NOTE | 2025-07-24 14:14 | CY_PTH ---
PATIENT: Dora Epps LOC: [id number] U#:[id number] AGE/SX: 74/F ROOM: 333 RE07/24/[address]: Jeaneth Byrd MD : 1950 BED: 01 DIS: 07/28/2025 SPEC #: [id number] RECD: 07/25/25 11:39 STATUS: SOUT REQ #: [id number] LUCINDA: 07/24/25 14:[address]: Harika Shay DEPT: [facility] Cytology RECD BY: Johana Chacko MLT, (ASCP) ENTERED: 07/25/25 11:40 SP TYPE: Cytology OTHR DR: TARYN Bustillos DO Christine M. Moore, MD Humberto Lawrence MD Tissues: A - CSF Procedures: Cytopathology Cytospin
[2025-07-24] MEDS: ACETAMINOPHEN 650 MG SUPPOSITORY RECTAL (15:11)
[2025-07-24] MEDS: INSULIN GLARGINE (*BKC) 100 UNITS/ML 16 UNITS SUB-Q (15:15)
[2025-07-24] MEDS: SODIUM CHLORIDE 0.9% IV 1,000 ML 100 ML IV CONT (15:16)
--- NOTE | 2025-07-24 15:56 | WPDCNPSYCH ---
Assessment and Plan Assessment and plan (1) Altered mental status: Qualifiers: Altered mental status type: delirium Qualified Code(s): R41.0 - Disorientation, unspecified Code(s): R41.82 - Altered mental status, unspecified Status: Acute Assessment and Plan: *patient is very sedated at this time. Only give PRN medication if she is a danger to self/others or interfering with necessary treatments.* Non-Pharmacologic Interventions (First-line) Reorientation: clocks, calendars, familiar objects, family presence Sleep hygiene: minimize nighttime noise/light, avoid sedatives if possible Early mobilization and physical therapy Adequate hydration & nutrition Optimize sensory input: glasses, hearing aids Minimize restraints ? use only if absolutely necessary Manage pain effectively Identify and treat underlying causes Haloperidol 0.5 mg- 1mg IM q2h PRN for agitation- can use IV if there is access - Hold if excessive sedation, unresponsive, or RR < 10 - Monitor QTc if giving repeated doses - Watch for EPS (rigidity, tremor, restlessness) Already received Zyprexa IM ? repeat dosing may increase metabolic/[employer]IAN burden Diabetic ? Zyprexa increases glucose, Haldol does not Haldol has lower sedation ? important for regular neuro checks in delirium Frequent IV loss ? IM route is necessary and Haldol is effective Haldol is well-studied for delirium in elderly patients typical onset of IM: 10?30 minutes (IV faster) avoid exceeding 5 mg total in 24 hours IV requires cardiac monitoring due to QTc risk Haloperidol is preferred when: Patient is diabetic There's concern for metabolic effects You want a loom cleaner [employer]IAN profile (less sedation) IV route is needed (Olanzapine is not available IV) Olanzapine is preferred when: EPS risk is high (e.g., Parkinsonism, older women, prior EPS) More sedation is needed (e.g., severe agitation at night) Patient has history of poor tolerance to Haldol second pharmacological intervention option: Olanzapine (Zyprexa) IM Dose: 2.5?5 mg IM q4?6h PRN (max 10?20 mg/day) Caution: Do NOT give within 1 hour of IM benzodiazepines Hyperglycemia risk (use caution in diabetics) Plan treat underlying cause of delirium. Do not discharge on PRN antipsychotic. recommend frequent neuro-checks to monitor progress. if using IV Haldol, telemetry will be necessary to monitor QTC. first line treatment for managing delirium (outside of treating underlying cause) is non-pharmacological interventions. Pharmacological interventions are necessary if patient is a risk to self/others or interfering with medical treatments. Only use physical restraints as last resort. HPI Data of Consult Date/Time: 07/24/25 15:56 Requesting Physician: Cheri Chen DO Primary Care Provider: Shahnaz Reddy RN Consult Narrative Narrative: Dora Epps is a 74 year old female that was found by a neighbor who regularly checks on her, oriented only to person and exhibiting combative behavior. She was brought to the emergency department with altered mental status and appeared unaware of her surroundings. When attempts were made to assess her, Dora would wake up slightly but was only able to moan and could not answer questions coherently. The patient has a history of similar episodes, with a previous occurrence a few months ago attributed to possible medication misuse. She has a history of polypharmacy issues, with a similar episode occurring approximately a year to a year and a half ago. Her last known medication was Robaxin, prescribed on July 05, raising concerns about a potential overdose. The onset of her current symptoms is unclear, but she was reportedly fine when alone at home before this episode. In the emergency room she became combative and was given versed 1 mg nasal, last dose 0400 and Zyprexa 5 mg, last dose 0503. Dora has developed a fever and leukocytosis during her hospital stay, though no clear infectious source has been identified. Psychiatry was consulted related to altered mental status. Tests pending. Patient difficult to arouse during assessment but obeyed commands when asked but quickly fell back asleep. She was able to say that the year was 2024. When asked where she was, she stated, ?[place]?. She correctly told me her birthday. She reports that she lives with someone named ?Telly? then mentioned ?Maricel?. She reports she has no children and no pets. 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 She denied suicidal thoughts. She denied homicidal thoughts. She denied hallucinations/delusions/paranoia. She was not able to tell me any recent history such as falls or what brought her to the hospital. Review of Systems Constitutional: Constitutional: Reports daytime sleepiness, Reports fatigue, Reports lethargy and Reports poor appetite ENT: Reports dry mouth Psychiatric: Psychiatric: Reports abnormal sleep pattern (hypersomnia (most likely from versed/zyprexa)), Reports confusion and Reports difficulty concentrating PMFSH Past Medical History Medical History Fibrocystic breast changes of both breasts Tobacco dependence Anxiety Prescription drug abuse Chronic pain syndrome Type 2 diabetes mellitus with peripheral neuropathy Hyperlipidemia Hypertension Chronic obstructive pulmonary disease Asthma Cancer of right kidney Pelvic fracture Peripheral neuropathy Glaucoma Blind in left eye. Surgical History Surgical History History of inguinal hernia repair History of right nephrectomy History of cataract extraction Status post left foot surgery For plantar fasciitis. History of hysterectomy Family History Family History Father Lung cancer Mother Cerebrovascular accident Diabetes mellitus Sibling Breast cancer Diabetes mellitus Cerebrovascular accident Heart disease Other Family history of congenital heart disease Family history of malignant neoplasm Social History Social History Social History: The patient lives in [place]. She smokes at least 0.75 packs of cigarettes a day. No alcohol or illicit substance abuse documented. Her sister Iris Rich is healthcare power of state's attorney. Code status: Full code. Smoking packs per day: 0.5 Smoking cigarettes per day: 10.0 Years smoked: 50 Smoking pack-years: 25.00 Smoking status: Current every day smoker Tobacco type: cigarettes Second hand tobacco smoke exposure: No Alcohol intake: never Substance use: never Substance use type: opiates, painkillers and prescription drug Other substance usage details: Oxycodone Last use: last cigarette 9 days ago; last oxy use 11/16/23 Lack of Transportation: No Lack of Food: Never True Current Housing: I Have Housing Concerned About Future Housing: No Difficulty Paying Gas/Electric Bills: No Difficulty Paying for Meds: No Currently Unemployed: No Education: High School Diploma/GED Difficulty w/ Childcare or Family Care: No Living arrangements: with family Occupation/Education: retired Gender identity (if verbalized by the patient): Female Spiritual care concerns: No Meds Home Medications and Allergies Home Medications ?Medication ?Instructions ?Recorded ?Confirmed ?Type rosuvastatin 40 mg tablet 40 mg PO QAM 05/11/20 07/24/25 History lisinopril 10 mg tablet 10 mg PO DAILY 05/25/20 07/24/25 History acetaminophen 500 mg tablet 1,000 mg PO TID 12/18/23 07/24/25 History aspirin 81 mg chewable tablet 81 mg PO DAILY 12/18/23 07/24/25 History (Aspirin Childrens) cholecalciferol (vitamin D3) 125 5,000 unit PO DAILY 12/18/23 07/24/25 History mcg (5,000 unit) tablet cyanocobalamin (vitamin B-12) 100 100 mcg PO DAILY 12/18/23 07/24/25 History mcg tablet folic acid 1 mg tablet 1 mg PO DAILY 12/18/23 07/24/25 History lidocaine 5 % topical patch 1 patch topical DAILY 12/18/23 07/24/25 History (Lidoderm) Held on 07/24/25. Instructions: Patient no longer taking melatonin 3 mg tablet 3 mg PO HS 12/18/23 07/24/25 History Held on 07/24/25. Instructions: Patient no longer taking oxycodone 5 mg tablet See Rx Instructions .Route .COMPLEX 12/18/23 07/24/25 History Held on 07/24/25. Instructions: Patient no longer taking sennosides 8.6 mg tablet 8.6 mg PO DAILY 12/18/23 07/24/25 History tamsulosin 0.4 mg capsule 0.4 mg PO DAILY 12/18/23 07/24/25 History Held on 07/24/25. Instructions: Patient no longer taking thiamine HCl (vitamin B1) 100 mg 100 mg PO DAILY 12/18/23 07/24/25 History tablet timolol 0.25 % eye drops 1 drp EACH EYE Q12H 12/18/23 07/24/25 History albuterol sulfate 90 mcg/actuation 2 puff inhalation Q4H PRN 07/24/25 07/24/25 History aerosol inhaler shortness of breath or wheezing allopurinol 100 mg tablet 100 mg PO DAILY 07/24/25 07/24/25 History amlodipine 10 mg tablet 10 mg PO DAILY 07/24/25 07/24/25 History budesonide 160 mcg-glycopyr 9 2 inh inhalation BID 07/24/25 07/24/25 History mcg-formot 4.8 mcg/actuation HFA inhaler (Breztri Aerosphere) calcitriol 0.25 mcg capsule 0.25 mcg PO DAILY 07/24/25 07/24/25 History duloxetine 30 mg capsule,delayed 30 mg PO .Q12HR 07/24/25 07/24/25 History release ergocalciferol (vitamin D2) 1,250 1,250 mcg PO WEEKLY 07/24/25 07/24/25 History mcg (50,000 unit) capsule insulin degludec 100 unit/mL (3 16 unit subcut DAILY 07/24/25 07/24/25 History mL) subcutaneous pen (Tresiba FlexTouch U-100 insulin) insulin lispro 100 unit/mL 1 sliding scale dose subcut TIDWM 07/24/25 07/24/25 History subcutaneous pen ipratropium 0.5 mg-albuterol 3 mg 3 ml inhalation QID PRN shortness 07/24/25 07/24/25 History (2.5 mg base)/3 mL nebulization of breath or wheezing soln ketorolac 0.5 % eye drops 1 drp ophthalmic (eye) TID 07/24/25 07/24/25 History levothyroxine 25 mcg tablet 25 mcg PO DAILY 07/24/25 07/24/25 History meloxicam 7.5 mg tablet 15 mg PO DAILY PRN pain 07/24/25 07/24/25 History methocarbamol 500 mg tablet 500 mg PO TID PRN muscle spasm 07/24/25 07/24/25 History metolazone 2.5 mg tablet 2.5 mg PO DAILY 07/24/25 07/24/25 History mirtazapine 7.5 mg tablet 15 mg PO DAILY 07/24/25 07/24/25 History pantoprazole 20 mg tablet,delayed 20 mg PO DAILY 07/24/25 07/24/25 History release Allergies Allergy/AdvReac Type Severity Reaction Status Date / Time Penicillins Allergy Unknown Rash Verified 05/05/25 20:13 Vital Signs Vital Signs - 24 hr 07/23/25 23:40 07/24/25 01:41 07/24/25 07:41 Temperature 97.9 F 98.7 F Pulse Rate 78 80 82 Respiratory Rate 18 13 20 Blood Pressure 125/100 H 152/73 H Pulse Oximetry 98 98 98 Oxygen Delivery Room Air 07/24/25 08:00 07/24/25 08:00 07/24/25 12:00 Temperature 100.4 F H 100.1 F H Pulse Rate 110 H 86 Respiratory Rate 20 22 H Blood Pressure 180/107 H 145/75 H Pulse Oximetry 95 93 Oxygen Delivery Room Air 07/24/25 15:11 Temperature 100.1 F H Pulse Rate Respiratory Rate Blood Pressure Pulse Oximetry Oxygen Delivery Exam Const: General: comfortable, lethargic and tired appearing Orientation/consciousness: oriented to person and oriented to time Limitations: altered mental status Neuro: General: oriented to person and oriented to time Psych: Appearance: disheveled Speech and movement: Other speech and movement exam findings present (Psych) (limited answers. needed frequent prompting. ) Affect: normal affect Attitude: cooperative Thought process: Other thought process findings present (DOUGLAS) Thought content: Yes other (DOUGLAS) Insight: Limited insight present (Psych) Judgement: Limited judgement present (Psych) Results Labs 07/24/25 09:46 07/24/25 09:46 Labs: Short CBC 07/23/25 07/24/25 Range/Units 23:53 09:46 WBC 9.4 13.6 H (4.5-10.0) K/mm3 Hgb 14.5 15.6 H (12.0-15.0) g/dL Hct 42.4 45.2 (37.0-47.0) % Plt Count 262 261 (150-375) k/mm3 BMP 07/23/25 07/24/25 23:53 09:46 Sodium 134 L 137 Potassium 3.9 3.9 Chloride 106 102 Carbon Dioxide 22 25 BUN 17 14 Creatinine 0.87 0.89 Glucose 269 H 161 H Calcium 10.0 10.1 Cardiac Enzymes 07/24/25 Range/Units 05:13 Total Creatine Kinase 52 (30-135) U/L Liver Function 07/23/25 07/24/25 Range/Units 23:53 09:46 Total Bilirubin 0.7 0.9 (0.2-1.3) mg/dL AST 21 26 (14-36) U/L ALT 11 14 (6-35) U/L Alkaline Phosphatase 127 H 144 H (38-126) U/L Albumin 4.1 4.5 (3.5-5.1) g/dL Urine 07/24/25 Range/Units 02:07 Urine Color Yellow (Yellow) Urine Appearance Cloudy H (Clear) Urine pH 5.5 (5.0-9.0) Ur Specific [place] 1.022 (1.001-1.035) Urine Protein 2+ H (Negative) mg/dL Urine Glucose (UA) 1+ H (Negative) mg/dL
--- NOTE | 2025-07-24 17:40 | WPDNEURCNPN ---
Assessment and Plan Assessment and plan (1) Altered mental status: Qualifiers: Altered mental status type: delirium Qualified Code(s): R41.0 - Disorientation, unspecified Code(s): R41.82 - Altered mental status, unspecified Status: Acute Assessment and Plan: The etiology for her agitation change in mental status is unclear. Not able to cooperate much at this time with regard to a formal evaluation. Her friend was only source available and she indeed was helpful. Once she down out suggest MRI of the brain EEG and carotid Doppler study. Serum B12 was normal at 300 but I would suggest an injection of B12 to bring it above 400. She is also on vitamin B1 or thiamine. Other supportive measures and place. There is no definite history of any seizures. She has had some sort of injury in [place] 3 weeks ago. Her serum glucose when she arrived was also 290. She used to be a lot of opiates in the past but according to the friend she is no longer using them and she also does not think she drinks much alcohol. (2) Chronic pain syndrome: Code(s): G89.4 - Chronic pain syndrome Status: Acute (3) Agitation: Code(s): R45.1 - Restlessness and agitation Status: Acute (4) Type 2 diabetes mellitus with peripheral neuropathy: Code(s): E11.42 - Type 2 diabetes mellitus with diabetic polyneuropathy Status: Acute (5) Tobacco dependence: Code(s): F17.200 - Nicotine dependence, unspecified, uncomplicated Status: Acute Plan As she improves was testing offered to investigate her from neurologic point of view. In addition continued to look for any underlying metabolic problems is already underway. I shall be glad to follow up. Consult date: 07/24/25 HPI: Dora Epps is a 74 year old female Was brought to the hospital in a state of confusion and agitation. Her best friend is also her power of senior attorney was sitting in the room. The patient has been 3 weeks ago and has had some injuries but it is not clear whether she had any head trauma. She has history of diabetes mellitus and peripheral neuropathy and she used to be on pain medications in the past. She used to see Dr. Alonso and thereafter she also saw Dr. Morrison and June of 2023. There been some notes regarding opiate abuse and her friend also think that she was using them lot but she does not think that she is using them anymore or drink any alcohol. A CT scan of brain was performed after IV sedation but is still there are motion artifacts. 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 A CT scan to the extent possible not show any blood or major new findings but this will require some follow-up. The blind in her left eye has scarring. The history of hallucinations. Review of Systems Review of Systems: ROS unobtainable: Yes unobtainable due to mental status PMFSH Past Medical History Medical History Fibrocystic breast changes of both breasts Tobacco dependence Anxiety Prescription drug abuse Chronic pain syndrome Type 2 diabetes mellitus with peripheral neuropathy Hyperlipidemia Hypertension Chronic obstructive pulmonary disease Asthma Cancer of right kidney Pelvic fracture Peripheral neuropathy Glaucoma Blind in left eye. Surgical History Surgical History History of inguinal hernia repair History of right nephrectomy History of cataract extraction Status post left foot surgery For plantar fasciitis. History of hysterectomy Family History Family History Father Lung cancer Mother Cerebrovascular accident Diabetes mellitus Sibling Breast cancer Diabetes mellitus Cerebrovascular accident Heart disease Other Family history of congenital heart disease Family history of malignant neoplasm Social History Social History Social History: The patient lives in [place]. She smokes at least 0.75 packs of cigarettes a day. No alcohol or illicit substance abuse documented. Her sister Iris Rich is healthcare power of senior attorney. Code status: Full code. Smoking packs per day: 0.5 Smoking cigarettes per day: 10.0 Years smoked: 50 Smoking pack-years: 25.00 Smoking status: Current every day smoker Tobacco type: cigarettes Second hand tobacco smoke exposure: No Alcohol intake: never Substance use: never Substance use type: opiates, painkillers and prescription drug Other substance usage details: Oxycodone Last use: last cigarette 9 days ago; last oxy use 11/16/23 Lack of Transportation: No Lack of Food: Never True Current Housing: I Have Housing Concerned About Future Housing: No Difficulty Paying Gas/Electric Bills: No Difficulty Paying for Meds: No Currently Unemployed: No Education: High School Diploma/GED Difficulty w/ Childcare or Family Care: No Living arrangements: with family Occupation/Education: retired Gender identity (if verbalized by the patient): Female Spiritual care concerns: No Meds Home Medications and Allergies Home Medications ?Medication ?Instructions ?Recorded ?Confirmed ?Type rosuvastatin 40 mg tablet 40 mg PO QAM 05/11/20 07/24/25 History lisinopril 10 mg tablet 10 mg PO DAILY 05/25/20 07/24/25 History acetaminophen 500 mg tablet 1,000 mg PO TID 12/18/23 07/24/25 History aspirin 81 mg chewable tablet 81 mg PO DAILY 12/18/23 07/24/25 History (Aspirin Childrens) cholecalciferol (vitamin D3) 125 5,000 unit PO DAILY 12/18/23 07/24/25 History mcg (5,000 unit) tablet cyanocobalamin (vitamin B-12) 100 100 mcg PO DAILY 12/18/23 07/24/25 History mcg tablet folic acid 1 mg tablet 1 mg PO DAILY 12/18/23 07/24/25 History lidocaine 5 % topical patch 1 patch topical DAILY 12/18/23 07/24/25 History (Lidoderm) Held on 07/24/25. Instructions: Patient no longer taking melatonin 3 mg tablet 3 mg PO HS 12/18/23 07/24/25 History Held on 07/24/25. Instructions: Patient no longer taking oxycodone 5 mg tablet See Rx Instructions .Route .COMPLEX 12/18/23 07/24/25 History Held on 07/24/25. Instructions: Patient no longer taking sennosides 8.6 mg tablet 8.6 mg PO DAILY 12/18/23 07/24/25 History tamsulosin 0.4 mg capsule 0.4 mg PO DAILY 12/18/23 07/24/25 History Held on 07/24/25. Instructions: Patient no longer taking thiamine HCl (vitamin B1) 100 mg 100 mg PO DAILY 12/18/23 07/24/25 History tablet timolol 0.25 % eye drops 1 drp EACH EYE Q12H 12/18/23 07/24/25 History albuterol sulfate 90 mcg/actuation 2 puff inhalation Q4H PRN 07/24/25 07/24/25 History aerosol inhaler shortness of breath or wheezing allopurinol 100 mg tablet 100 mg PO DAILY 07/24/25 07/24/25 History amlodipine 10 mg tablet 10 mg PO DAILY 07/24/25 07/24/25 History budesonide 160 mcg-glycopyr 9 2 inh inhalation BID 07/24/25 07/24/25 History mcg-formot 4.8 mcg/actuation HFA inhaler (Breztri Aerosphere) calcitriol 0.25 mcg capsule 0.25 mcg PO DAILY 07/24/25 07/24/25 History duloxetine 30 mg capsule,delayed 30 mg PO .Q12HR 07/24/25 07/24/25 History release ergocalciferol (vitamin D2) 1,250 1,250 mcg PO WEEKLY 07/24/25 07/24/25 History mcg (50,000 unit) capsule insulin degludec 100 unit/mL (3 16 unit subcut DAILY 07/24/25 07/24/25 History mL) subcutaneous pen (Tresiba FlexTouch U-100 insulin) insulin lispro 100 unit/mL 1 sliding scale dose subcut TIDWM 07/24/25 07/24/25 History subcutaneous pen ipratropium 0.5 mg-albuterol 3 mg 3 ml inhalation QID PRN shortness 07/24/25 07/24/25 History (2.5 mg base)/3 mL nebulization of breath or wheezing soln ketorolac 0.5 % eye drops 1 drp ophthalmic (eye) TID 07/24/25 07/24/25 History levothyroxine 25 mcg tablet 25 mcg PO DAILY 07/24/25 07/24/25 History meloxicam 7.5 mg tablet 15 mg PO DAILY PRN pain 07/24/25 07/24/25 History methocarbamol 500 mg tablet 500 mg PO TID PRN muscle spasm 07/24/25 07/24/25 History metolazone 2.5 mg tablet 2.5 mg PO DAILY 07/24/25 07/24/25 History mirtazapine 7.5 mg tablet 15 mg PO DAILY 07/24/25 07/24/25 History pantoprazole 20 mg tablet,delayed 20 mg PO DAILY 07/24/25 07/24/25 History release Allergies Allergy/AdvReac Type Severity Reaction Status Date / Time Penicillins Allergy Unknown Rash Verified 05/05/25 20:13 Vital Signs Vital Signs - 24 hr 07/23/25 23:40 07/24/25 01:41 07/24/25 07:41 Temperature 97.9 F 98.7 F Pulse Rate 78 80 82 Respiratory Rate 18 13 20 Blood Pressure 125/100 H 152/73 H Pulse Oximetry 98 98 98 Oxygen Delivery Room Air 07/24/25 08:00 07/24/25 08:00 07/24/25 12:00 Temperature 100.4 F H 100.1 F H Pulse Rate 110 H 86 Respiratory Rate 20 22 H Blood Pressure 180/107 H 145/75 H Pulse Oximetry 95 93 Oxygen Delivery Room Air 07/24/25 15:11 07/24/25 16:11 Temperature 100.1 F H 99.6 F Pulse Rate Respiratory Rate Blood Pressure Pulse Oximetry Oxygen Delivery Exam Narrative: The patient heavily sedated and at this time not able to cooperate much. She does open her eyes. Left eye appears scarred right pupil is midsize and reactive to light. There is no facial asymmetry. The tone of the muscles on both sides appears symmetric. No deformities or spasticity was no involuntary movements seen. Results Labs 07/24/25 09:46 07/24/25 09:46 Labs: Short CBC 07/23/25 07/24/25 Range/Units 23:53 09:46 WBC 9.4 13.6 H (4.5-10.0) K/mm3 Hgb 14.5 15.6 H (12.0-15.0) g/dL Hct 42.4 45.2 (37.0-47.0) % Plt Count 262 261 (150-375) k/mm3 [facility] 07/23/25 07/24/25 23:53 09:46 Sodium 134 L 137 Potassium 3.9 3.9 Chloride 106 102 Carbon Dioxide 22 25 BUN 17 14 Creatinine 0.87 0.89 Glucose 269 H 161 H Calcium 10.0 10.1 Cardiac Enzymes 07/24/25 Range/Units 05:13 Total Creatine Kinase 52 (30-135) U/L Liver Function 07/23/25 07/24/25 Range/Units 23:53 09:46 Total Bilirubin 0.7 0.9 (0.2-1.3) mg/dL AST 21 26 (14-36) U/L ALT 11 14 (6-35) U/L Alkaline Phosphatase 127 H 144 H (38-126) U/L Albumin 4.1 4.5 (3.5-5.1) g/dL Urine 07/24/25 Range/Units 02:07 Urine Color Yellow (Yellow) Urine Appearance Cloudy H (Clear) Urine pH 5.5 (5.0-9.0) Ur Specific [place] 1.022 (1.001-1.035) Urine Protein 2+ H (Negative) mg/dL Urine Glucose (UA) 1+ H (Negative) mg/dL
[2025-07-24] MEDS: TIMOLOL MALEATE 0.25% OP SOLN 5 ML BOTTLE 1 DROP EACH EYE (22:10)
[2025-07-25] VITALS: BP 162/77; PULSE 82; RESP 16; TEMP 36.5; O2SAT 97
[2025-07-25] MEDS: SODIUM CHLORIDE 0.9% IV 1,000 ML 100 ML IV CONT ×2 (02:03→20:03)
[2025-07-25] MEDS: LEVOTHYROXINE SODIUM 25 MCG TABLET PO (05:51)
[2025-07-25 06:13] LABS: Hematocrit 42.4 % (37.0-47.0); Hemoglobin 13.9 g/dL (12.0-15.0); Immature Granulocyte Percent A 0.6 % (0-0.5); Lymphocytes Absolute Auto 3.21 K/mm3 (0.9-3.2); Mean Corpuscular HGB Conc 32.8 g/dl (32-36); Mean Corpuscular Hemoglobin 30.2 pg (26-34); Mean Corpuscular Volume 92.0 fl (80-100); Nucleated Red Blood Cells Absolute Auto 0.000 K/mm3 (0.0-0.012); Nucleated Red Blood Cells Perc 0.0 % (0.0-0.2); Platelet Count Result 219 k/mm3 (150-375); Red Blood Count 4.61 M/mm3 (4.2-5.4); White Blood Count 11.7 K/mm3 (4.5-10.0)
[2025-07-25 06:38] LABS: Alanine Aminotransferase 19 U/L (6-35); Albumin Level 3.5 g/dL (3.5-5.1); Alkaline Phosphatase 114 U/L (38-126); Anion Gap 5 mmol/L (4-12); Aspartate Amino Transferase 35 U/L (14-36); Bilirubin,Total 1.4 mg/dL (0.2-1.3); Blood Urea Nitrogen 13 mg/dL (7-17); Calcium 9.4 mg/dL (8.4-10.2); Carbon Dioxide 22 mmol/L (22-30); Chloride 108 mmol/L (98-107); Estimated CRCL calculation 56 ml/min; Estimated Glomerular Filt Rate > 60; Glucose 100 mg/dL (65-110); Magnesium 1.8 mg/dL (1.6-2.3); Potassium 3.8 mmol/L (3.4-5.0); Sodium 135 mmol/L (137-145); Total Protein 6.8 g/dL (6.3-8.2)
[2025-07-25 06:51] VITALS: BP 127/62; PULSE 76; RESP 18; TEMP 36.9; O2SAT 95
[2025-07-25 08:00] VITALS: BP 169/67; PULSE 77; RESP 22; TEMP 36.8; O2SAT 95
--- NOTE | 2025-07-25 08:30 | P.PNIM_ITS ---
Progress Note: A&P Assessment and Plan (1) Encephalopathy: Code(s): G93.40 - Encephalopathy, unspecified Status: Acute Assessment and Plan: Patient with previous episode of acute delirium/confusion believed to be secondary to polypharmacy back in 2023 Previous abnormal awake EEG due to, 1)bifrontal discharges with triphasic morphology.2) ? Bitemporal focal slowing, 3) Generalized slowing, Previous?echo showing EF 55-60% with normal systolic function and grade 2 diastolic dysfunction Previous MRI shows possible punctate infarct in the periventricular white matter of the right temporal lobe cannot be excluded * CT head no acute intracranial infarct or hemorrhage * Currently no infectious cause * B12, folate, TSH all within normal limits * UA negative * Drug screen and ETOH negative * Patient with recent prescription for methocarbamol due to history patient could have overdosed on them??? * CTA ordered * Neurology has been consulted for further evaluation and appreciate recommendation * Suggest MRI of the brain, EEG, carotid Doppler study * Also consulted Psychiatry for further evaluation and appreciate recommendations * Treat underlying cause of delirium * Haloperidol or Olanzapine * Do not discharge on p.r.n. antipsychotic * Frequent neuro checks * Pharmacological intervention necessary only if patient is risk to self/others * Physical restraints as last resort * Will attempt IV fluids may require soft restraints to do so * Blood culture still pending * LP performed, results pending (2) Agitation: Code(s): R45.1 - Restlessness and agitation Status: Acute Assessment and Plan: See Above #1 * Receive Zyprexa IM Versed in the ED (3) Altered mental status: Qualifiers: Altered mental status type: delirium Qualified Code(s): R41.0 - Disorientation, unspecified Code(s): R41.82 - Altered mental status, unspecified Status: Acute Assessment and Plan: See Above #1 (4) Leukocytosis: Code(s): D72.829 - Elevated white blood cell count, unspecified Status: Acute Assessment and Plan: * WBC 13.6 and now febrile peaked at 100.4 * LP ordered * Blood cultures ordered * Viral panel negative * CXR with no cardio pulmonary abnormality * UA negative for UTI * Antipyretics p.o./rectal unable to take p.o. due to delirium * 07/25: WBC 11.7 (5) Prescription drug abuse: Status: Acute Assessment and Plan: * Of note (6) Hypertension: Code(s): I10 - Essential (primary) hypertension Status: Acute Assessment and Plan: * Continued amlodipine * Will add hydralazine IV push if unable to take oral medication due to acute delirium encephalopathy (7) Diabetes: Code(s): E11.9 - Type 2 diabetes mellitus without complications Status: Acute Assessment and Plan: * Accu-Cheks a.c. HS * SSI low-dose * Resume patient's long-acting 16 unit insulin * Diabetic diet * Hypoglycemia protocol (8) Abdominal pain: Code(s): R10.9 - Unspecified abdominal pain Status: Acute Assessment and Plan: * 07/25: Presenting with RLQ abdominal discomfort, TTP on exam * LFTs WNL * No nausea/vomiting * Obtain CT abdomen/pelvis Plan Code status: Full code per patient DVT prophylaxis: Lovenox Stress ulcer prophylaxis: Protonix 40 daily PT/OT notes: NA Disposition: Patient continues admission to the medical unit for further evaluation by Neurology and Psychiatry due to acute delirium/confusion/encephalopathy currently unknown cause will continue with diagnostic testing. Unable to get hold of family at this time but per records from the ER patient lives alone at home. Subjective Date/time seen: 07/25/25 08:30 Interval history: Patient is a 74-year-old female with a past medical history alcohol and substance abuse, HTN, encephalopathy, CVA, diabetes. Patient was brought into the emergency department by family due to concerns of worsening confusion and agitation and failure to take her insulin stating she had an elevated blood sugar. 07/25/2025 Patient sitting in bed at time of examination. Denies any chest pain, shortness of breath, nausea/vomiting at this time. Endorses some right lower quadrant abdominal pain, does have some tenderness to palpation exam. Will obtain CT abdomen/pelvis. Leukocytosis improving, WBC down from 13.6-11.7. No major electrolyte abnormalities. LP performed, pending results. Blood culture still pending. Patient is alert and oriented on exam however slow to answer. Review of Systems Review of Systems: All systems reviewed & are unremarkable except as noted in HPI and below Neurologic: Reports confusion Psychiatric: Psychiatric: Reports confusion Exam Const: General: no acute distress and confusion Orientation/consciousness: confusion Other: Alert and oriented x3, however slow to respond HENMT: Mouth: Yes dry mucous membranes Eyes: General: appearance normal, both eyes and all related structures Neck: Neck: supple and no JVD Resp: Effort & Inspection: normal respiratory effort Auscultation: clear to auscultation bilaterally Cardio: Rate: regular rate Rhythm: regular rhythm GI: GI Palp: Yes Soft to palpation and Yes Tenderness to palpation present (GI) (TTP to RLQ) Auscultation: normal bowel sounds Skin: General skin exam: normal color and no rashes or lesions noted Wounds: no wounds Neuro: General: moves all extremities, confusion and Unable to assess gait Cranial nerves: Yes facial symmetry Cognition (Neuro): abnormal cognition Speech: Other speech findings present (Neuro) (mouning ) Gait exam (Neuro): Unable to assess gait Psych: Affect: normal affect Objective Data Vital Signs Vital Signs: Vital Signs - 24 hr 07/24/25 12:00 07/24/25 15:11 07/24/25 16:00 Temperature 100.1 F H 100.1 F H 98.5 F Pulse Rate 86 72 Respiratory Rate 22 H 20 Blood Pressure 145/75 H 146/70 H Pulse Oximetry 93 97 Oxygen Delivery 07/24/25 16:11 07/24/25 20:00 07/24/25 23:10 Temperature 99.6 F 97.8 F Pulse Rate 71 Respiratory Rate 16 Blood Pressure 155/81 H Pulse Oximetry 99 Oxygen Delivery Room Air 07/25/25 00:00 07/25/25 06:51 Temperature 97.7 F 98.4 F Pulse Rate 82 76 Respiratory Rate 16 18 Blood Pressure 162/77 H 127/62 Pulse Oximetry 97 95 Oxygen Delivery Intake/Output Intake/Output: Intake & Output 07/22/25 07/23/25 07/24/25 07/25/25 23:59 23:59 23:59 23:59 Intake Total 1300 Balance 1300 Meds/Results Medications: Active Medications Generic Name Dose Route Start Last Admin Trade Name Freq PRN Reason Stop Dose Admin Acetaminophen 650 mg 07/24/25 09:21 Acetaminophen 325 Mg Tablet PO Q4H PRN Mild Pain (1-3) or Fever Acetaminophen 650 mg 07/24/25 14:07 07/24/25 15:11 Acetaminophen 650 Mg Suppository RECTAL 650 mg Q6H PRN Administration Mild Pain (1-3) or Fever Albuterol 2 puff 07/24/25 12:34 Albuterol Sulfate (*Sp) Aerosol 1 Puff INHALATION Q4H PRN Shortness Of Breath Or Wheezing Albuterol/Ipratropium 3 ml 07/24/25 12:34 Ipratropium 0.5 Mg/Albuterol Sulfate 2.5 Mg Ampul.Neb 3 Ml INHALATION QID PRN Shortness Of Breath Or Wheezing Allopurinol 100 mg 07/24/25 12:45 07/24/25 13:32 Allopurinol 100 Mg Tablet PO Not Given DAILY BRETT Amlodipine Besylate 10 mg 07/24/25 12:45 07/24/25 13:32 Amlodipine Besylate 10 Mg Tablet PO Not Given DAILY [facility] Aspirin 81 mg 07/24/25 12:45 07/24/25 13:32 Aspirin 81 Mg Chewable Tablet PO Not Given DAILY [facility] Calcitriol 0.25 mcg 07/24/25 12:45 07/24/25 13:32 Calcitriol 0.25 Mcg Capsule PO Not Given DAILY [facility] Dextrose 12.5 gm 07/24/25 15:01 Dextrose 50% 25 Gm/50 Ml Syringe IV PUSH PRN PRN Hypoglycemia Protocol Enoxaparin Sodium 40 mg 07/25/25 09:00 Enoxaparin 40 Mg/0.4 Ml Syringe SUB-Q DAILY [facility] Folic Acid 1 mg 07/24/25 12:45 07/24/25 13:33 Folic Acid 1 Mg Tablet PO Not Given DAILY [facility] Glucagon 1 mg 07/24/25 15:01 Glucagon For Inj 1 Mg Vial IM PRN PRN Hypoglycemia Protocol Glucose 15 gm 07/24/25 15:01 Glucose Oral Gel 15 Gm Of Glucse In 37.5 Gm Tube PO PRN PRN Hypoglycemia Protocol Sodium Chloride 1,000 mls @ 100 mls/hr 07/24/25 14:10 07/25/25 02:03 Normal Saline Iv IV CONT 100 mls/hr .Q10H BRETT Administration Dextrose 1,000 mls @ 100 mls/hr 07/24/25 15:01 Dextrose 5% 1,000 Ml IVPB PRN PRN Hypoglycemia Protocol Insulin Aspart 2 - 5 units 07/24/25 17:00 07/24/25 17:02 Insulin Aspart (*Bkc) 100 Units/Ml SUB-Q Not Given TIDWM [facility] Protocol Insulin Glargine 16 units 07/24/25 12:50 07/24/25 15:15 Insulin Glargine (*Bkc) 100 Units/Ml SUB-Q 16 units DAILY BRETT Administration Ketorolac Tromethamine 1 drop 07/24/25 13:00 07/24/25 16:24 Ketorolac 0.5% Op Soln 5 Ml Bottle EACH EYE Not Given TID BRETT Levothyroxine Sodium 25 mcg 07/25/25 06:30 07/25/25 05:51 Levothyroxine Sodium 25 Mcg Tablet PO 25 mcg DAILY@0630 BRETT Administration Lisinopril 10 mg 07/24/25 12:50 07/24/25 13:33 Lisinopril 10 Mg Tablet PO Not Given DAILY BRETT Metolazone 2.5 mg 07/24/25 12:50 07/24/25 13:33 Metolazone 2.5 Mg Tablet PO Not Given DAILY BRETT Nonformulary 1 each 07/24/25 12:55 Nutritional XX 07/25/25 12:54 Supplement- PRN PRN Nonformulary Drug ( PROTOCOL Cyanocobalamin ( Vitamin B-12) 100 Ondansetron HCl 4 mg 07/24/25 09:21 Ondansetron Inj 4 Mg/2 Ml Vial IV PUSH Q6H PRN Nausea And Vomiting Pantoprazole Sodium 40 mg 07/25/25 09:00 Pantoprazole 40 Mg Tablet PO DAILY [facility] Rosuvastatin Calcium 40 mg 07/24/25 12:50 07/24/25 13:33 Rosuvastatin 20 Mg Tablet PO Not Given QAM [facility] Senna 8.6 mg 07/24/25 12:50 07/24/25 13:33 Sennosides 8.6 Mg Tablet PO Not Given DAILY BRETT Thiamine HCl 100 mg 07/24/25 12:50 07/24/25 13:33 Thiamine Hcl 100 Mg Tablet PO Not Given DAILY BRE[facility] Timolol Maleate 1 drop 07/24/25 12:40 07/24/25 22:10 Timolol Maleate 0.25% Op Soln 5 Ml Bottle EACH EYE 1 drop Q12HR [facility] Administration Vitamin D 125 mcg 07/24/25 12:45 07/24/25 13:32 Cholecalciferol (Vitamin D3) 125 Mcg (5,000 Units) Tablet PO Not Given DAILY BRETT Radiology Results: ITS Impressions Chest X-Ray 07/24/25 11:51 Impression: No acute cardiopulmonary abnormality. Head CT 07/24/25 11:51 Impression: 1. Limited study. No acute infarct or hemorrhage Labs Labs: Laboratory Results - last 24 hr 07/24/25 07/24/25 07/24/25 05:13 09:46 16:57 WBC 13.6 H RBC 5.09 Hgb 15.6 H Hct 45.2 MCV 88.8 MCH 30.6 MCHC 34.5 RDW 12.1 Plt Count 261 MPV 10.5 H Immature Gran % (Auto) 0.5 Neut % (Auto) 79.1 H Lymph % (Auto) 14.3 L [place] % (Auto) 5.1 Eos % (Auto) 0.6 Baso % (Auto) 0.4 Lymph # (Auto) 1.94 [place] # (Auto) 0.7 H Eos # (Auto) 0.1 Baso # (Auto) 0.1 Abs Immat Gran (auto) 0.07 H Absolute Neuts (auto) 10.7 H Absolute Nucleated RBC 0.000 Nucleated RBC % 0.0 Sodium 137 Potassium 3.9 Chloride 102 Carbon Dioxide 25 Anion Gap 10 BUN 14 Creatinine 0.89 Estim Creat Clear Calc 53 Estimated GFR > 60 Glucose 161 H POC Capillary Glucose 134 H Calcium 10.1 Magnesium 1.7 Total Bilirubin 0.9 AST 26 ALT 14 Alkaline Phosphatase 144 H Total Protein 8.1 Albumin 4.5 Vitamin B12 300.0 Folate 9.2 Ethyl Alcohol < 10 07/24/25 07/25/25 07/25/25 23:03 05:47 07:51 WBC 11.7 H RBC 4.61 Hgb 13.9 Hct 42.4 MCV 92.0 MCH 30.2 MCHC 32.8 RDW 12.2 Plt Count 219 MPV 10.0 Immature Gran % (Auto) 0.6 H Neut % (Auto) 63.8 Lymph % (Auto) 27.4 [place] % (Auto) 6.6 Eos % (Auto) 1.0 Baso % (Auto) 0.6 Lymph # (Auto) 3.21 H [place] # (Auto) 0.8 H Eos # (Auto) 0.1 Baso # (Auto) 0.1 Abs Immat Gran (auto) 0.07 H Absolute Neuts (auto) 7.5 H Absolute Nucleated RBC 0.000 Nucleated RBC % 0.0 Sodium 135 L Potassium 3.8 Chloride 108 H Carbon Dioxide 22 Anion Gap 5 BUN 13 Creatinine 0.84 Estim Creat Clear Calc 56 Estimated GFR > 60 Glucose 100 POC Capillary Glucose 97 105 Calcium 9.4 Magnesium 1.8 Total Bilirubin 1.4 H AST 35 ALT 19 Alkaline Phosphatase 114 Total Protein 6.8 Albumin 3.5 Vitamin B12 Folate Ethyl Alcohol Quality VTE Prophylaxis VTE prophylaxis: pharmacologic ordered
[2025-07-25 12:00] VITALS: BP 138/67; PULSE 75; RESP 20; TEMP 36.9; O2SAT 95
[2025-07-25 12:28] LABS: Nucleated Cell CSF 1 /uL (0-5); Red Blood Cell CSF 3 (0-2)
[2025-07-25 12:29] LABS: Lymphocytes CSF 16 % (40-80); Macrophages CSF 2; Monocytes CSF 5 % (15-45); Neutrophils CSF 10 % (0-6)
[2025-07-25] MEDS: ACETAMINOPHEN 325 MG TABLET 650 MG PO (13:24)
[2025-07-25 16:00] VITALS: BP 126/65; PULSE 73; RESP 20; TEMP 37.1; O2SAT 95
[2025-07-25] MEDS: KETOROLAC 0.5% OP SOLN 5 ML BOTTLE 1 DROP EACH EYE (16:44)
[2025-07-25 20:00] VITALS: BP 168/85; PULSE 67; RESP 14; TEMP 36.4; O2SAT 97
[2025-07-25] MEDS: TIMOLOL MALEATE 0.25% OP SOLN 5 ML BOTTLE 1 DROP EACH EYE (20:03)
[2025-07-26] MEDS: LEVOTHYROXINE SODIUM 25 MCG TABLET PO (05:57)
[2025-07-26 06:22] LABS: Hematocrit 40.5 % (37.0-47.0); Hemoglobin 13.5 g/dL (12.0-15.0); Immature Granulocyte Percent A 0.3 % (0-0.5); Lymphocytes Absolute Auto 2.58 K/mm3 (0.9-3.2); Mean Corpuscular HGB Conc 33.3 g/dl (32-36); Mean Corpuscular Hemoglobin 30.3 pg (26-34); Mean Corpuscular Volume 90.8 fl (80-100); Nucleated Red Blood Cells Absolute Auto 0.000 K/mm3 (0.0-0.012); Nucleated Red Blood Cells Perc 0.0 % (0.0-0.2); Platelet Count Result 210 k/mm3 (150-375); Red Blood Count 4.46 M/mm3 (4.2-5.4); White Blood Count 7.6 K/mm3 (4.5-10.0)
[2025-07-26 06:47] LABS: Alanine Aminotransferase 20 U/L (6-35); Albumin Level 3.4 g/dL (3.5-5.1); Alkaline Phosphatase 103 U/L (38-126); Anion Gap 4 mmol/L (4-12); Aspartate Amino Transferase 31 U/L (14-36); Bilirubin,Total 0.9 mg/dL (0.2-1.3); Blood Urea Nitrogen 19 mg/dL (7-17); Calcium 9.3 mg/dL (8.4-10.2); Carbon Dioxide 23 mmol/L (22-30); Chloride 109 mmol/L (98-107); Estimated CRCL calculation 46 ml/min; Estimated Glomerular Filt Rate 52; Glucose 197 mg/dL (65-110); Magnesium 1.8 mg/dL (1.6-2.3); Potassium 3.8 mmol/L (3.4-5.0); Sodium 136 mmol/L (137-145); Total Protein 6.4 g/dL (6.3-8.2)
[2025-07-26 06:55] VITALS: BP 147/61; PULSE 66; RESP 18; TEMP 36.3; O2SAT 97
[2025-07-26] MEDS: ASPIRIN 81 MG CHEWABLE TABLET PO (08:44)
[2025-07-26] MEDS: FOLIC ACID 1 MG TABLET PO (08:44)
[2025-07-26] MEDS: ROSUVASTATIN 20 MG TABLET 40 MG PO (08:44)
[2025-07-26] MEDS: SENNOSIDES 8.6 MG TABLET PO (08:44)
[2025-07-26] MEDS: PANTOPRAZOLE 40 MG TABLET PO (08:44)
[2025-07-26] MEDS: ENOXAPARIN 40 MG/0.4 ML SYRINGE SUB-Q (08:45)
[2025-07-26] MEDS: INSULIN GLARGINE (*BKC) 100 UNITS/ML 16 UNITS SUB-Q (08:45)
[2025-07-26] MEDS: TIMOLOL MALEATE 0.25% OP SOLN 5 ML BOTTLE 1 DROP EACH EYE ×2 (08:46→20:51)
[2025-07-26] MEDS: KETOROLAC 0.5% OP SOLN 5 ML BOTTLE 1 DROP EACH EYE ×3 (08:46→17:16)
[2025-07-26] MEDS: THIAMINE HCL 100 MG TABLET PO (09:28)
[2025-07-26] MEDS: CHOLECALCIFEROL (VITAMIN D3) 125 MCG (5,000 UNITS) TABLET PO (09:28)
[2025-07-26] MEDS: SODIUM CHLORIDE 0.9% IV 1,000 ML 100 ML IV CONT ×2 (10:57→20:46)
--- NOTE | 2025-07-26 14:07 | P.PNIM_ITS ---
Progress Note: A&P Assessment and Plan (1) Encephalopathy: Code(s): G93.40 - Encephalopathy, unspecified Status: Acute Assessment and Plan: Patient with previous episode of acute delirium/confusion believed to be secondary to polypharmacy back in 2023 Previous abnormal awake EEG due to, 1)bifrontal discharges with triphasic morphology.2) ? Bitemporal focal slowing, 3) Generalized slowing, Previous?echo showing EF 55-60% with normal systolic function and grade 2 diastolic dysfunction Previous MRI shows possible punctate infarct in the periventricular white matter of the right temporal lobe cannot be excluded * CT head no acute intracranial infarct or hemorrhage * Currently no infectious cause * B12, folate, TSH all within normal limits * UA negative * Drug screen and ETOH negative * Patient with recent prescription for methocarbamol due to history patient could have overdosed on them??? * MRI brain showed * CSF no infection * EEG pending today * Blood, CSF cultures pending * Neurology following, awaiting EEG (2) Agitation: Code(s): R45.1 - Restlessness and agitation Status: Acute Assessment and Plan: See Above #1 * Receive Zyprexa IM Versed in the ED (3) Altered mental status: Qualifiers: Altered mental status type: delirium Qualified Code(s): R41.0 - Disorientation, unspecified Code(s): R41.82 - Altered mental status, unspecified Status: Acute Assessment and Plan: See Above #1 (4) Prescription drug abuse: Status: Acute Assessment and Plan: Psych eval noted (5) Hypertension: Code(s): I10 - Essential (primary) hypertension Status: Acute Assessment and Plan: * Continued amlodipine * Will add hydralazine IV push if unable to take oral medication due to acute delirium encephalopathy (6) Diabetes: Code(s): E11.9 - Type 2 diabetes mellitus without complications Status: Acute Assessment and Plan: * Accu-Cheks a.c. HS * SSI low-dose * Resume patient's long-acting 16 unit insulin * Diabetic diet * Hypoglycemia protocol (7) Abdominal pain: Code(s): R10.9 - Unspecified abdominal pain Status: Acute Assessment and Plan: * 07/25: Presenting with RLQ abdominal discomfort, TTP on exam * LFTs WNL * No nausea/vomiting * Obtain CT abdomen/pelvis Plan Pneumonia CT AP showed bilateral opacities Blood and sputum cultures Started on Levaquin monitor Delirium Continue Delirium precaution Psych eval noted Continue Olanzapine PRN psych following Code status: Full code per patient DVT prophylaxis: Lovenox Stress ulcer prophylaxis: Protonix 40 daily PT/OT notes: NA Disposition: Patient continues admission to the medical unit for further evaluation by Neurology and Psychiatry due to acute delirium/confusion/encephalopathy currently unknown cause will continue with diagnostic testing. Unable to get hold of family at this time but per records from the ER patient lives alone at home. Subjective Date/time seen: 07/26/25 14:07 Interval history: Patient comfortable at bedside Alert and oriented x3, for EEG today Review of Systems Review of Systems: All systems reviewed & are unremarkable except as noted in HPI and below ROS unobtainable: Yes unobtainable due to mental status Neurologic: Reports confusion Psychiatric: Psychiatric: Reports confusion Exam Const: General: no acute distress and confusion Orientation/consciousness: confusion Other: Alert and oriented x3, however slow to respond HENMT: Mouth: Yes dry mucous membranes Eyes: General: appearance normal, both eyes and all related structures Neck: Neck: supple and no JVD Resp: Effort & Inspection: normal respiratory effort Auscultation: clear to auscultation bilaterally Cardio: Rate: regular rate Rhythm: regular rhythm GI: Auscultation: normal bowel sounds Skin: General skin exam: normal color and no rashes or lesions noted Wounds: no wounds Neuro: General: moves all extremities, confusion and Unable to assess gait Cranial nerves: Yes facial symmetry Cognition (Neuro): abnormal cognition Speech: Other speech findings present (Neuro) (mouning ) Gait exam (Neuro): Unable to assess gait Psych: Affect: normal affect and Anxious affect present Objective Data Vital Signs Vital Signs: Vital Signs - 24 hr 07/25/25 16:00 07/25/25 20:00 07/25/25 20:00 Temperature 98.8 F 97.6 F Pulse Rate 73 67 Respiratory Rate 20 14 Blood Pressure 126/65 168/85 H Pulse Oximetry 95 97 Oxygen Delivery Room Air 07/26/25 06:55 07/26/25 08:00 Temperature 97.3 F L Pulse Rate 66 Respiratory Rate 18 Blood Pressure 147/61 H Pulse Oximetry 97 Oxygen Delivery Room Air Intake/Output Intake/Output: Intake & Output 07/23/25 07/24/25 07/25/25 07/26/25 23:59 23:59 23:59 23:59 Intake Total 3330 2180 Balance 3330 2180 Meds/Results Medications: Active Medications Generic Name Dose Route Start Last Admin Trade Name Freq PRN Reason Stop Dose Admin Acetaminophen 650 mg 07/24/25 09:21 07/25/25 13:24 Acetaminophen 325 Mg Tablet PO 650 mg Q4H PRN Administration Mild Pain (1-3) or Fever Acetaminophen 650 mg 07/24/25 14:07 07/24/25 15:11 Acetaminophen 650 Mg Suppository RECTAL 650 mg Q6H PRN Administration Mild Pain (1-3) or Fever Albuterol 2 puff 07/24/25 12:34 Albuterol Sulfate (*Sp) Aerosol 1 Puff INHALATION Q4H PRN Shortness Of Breath Or Wheezing Albuterol/Ipratropium 3 ml 07/24/25 12:34 Ipratropium 0.5 Mg/Albuterol Sulfate 2.5 Mg Ampul.Neb 3 Ml INHALATION QID PRN Shortness Of Breath Or Wheezing Allopurinol 100 mg 07/24/25 12:45 07/26/25 09:28 Allopurinol 100 Mg Tablet PO 100 mg DAILY BRETT Administration Amlodipine Besylate 10 mg 07/24/25 12:45 07/26/25 08:44 Amlodipine Besylate 10 Mg Tablet PO 10 mg DAILY BRETT Administration Aspirin 81 mg 07/24/25 12:45 07/26/25 08:44 Aspirin 81 Mg Chewable Tablet PO 81 mg DAILY BRETT Administration Calcitriol 0.25 mcg 07/24/25 12:45 07/26/25 08:44 Calcitriol 0.25 Mcg Capsule PO 0.25 mcg DAILY BRETT Administration Dextrose 12.5 gm 07/24/25 15:01 Dextrose 50% 25 Gm/50 Ml Syringe IV PUSH PRN PRN Hypoglycemia Protocol Enoxaparin Sodium 40 mg 07/25/25 09:00 07/26/25 08:45 Enoxaparin 40 Mg/0.4 Ml Syringe SUB-Q 40 mg DAILY BRETT Administration Folic Acid 1 mg 07/24/25 12:45 07/26/25 08:44 Folic Acid 1 Mg Tablet PO 1 mg DAILY BRETT Administration Glucagon 1 mg 07/24/25 15:01 Glucagon For Inj 1 Mg Vial IM PRN PRN Hypoglycemia Protocol Glucose 15 gm 07/24/25 15:01 Glucose Oral Gel 15 Gm Of Glucse In 37.5 Gm Tube PO PRN PRN Hypoglycemia Protocol Sodium Chloride 1,000 mls @ 75 mls/hr 07/24/25 14:10 07/26/25 10:57 Normal Saline Iv IV CONT 100 mls/hr .[id number] BRETT Administration Dextrose 1,000 mls @ 100 mls/hr 07/24/25 15:01 Dextrose 5% 1,000 Ml IVPB PRN PRN Hypoglycemia Protocol Insulin Aspart 2 - 5 units 07/24/25 17:00 07/26/25 11:26 Insulin Aspart (*Bkc) 100 Units/Ml SUB-Q Not Given TIDWM BRETT Protocol Insulin Glargine 16 units 07/24/25 12:50 07/26/25 08:45 Insulin Glargine (*Bkc) 100 Units/Ml SUB-Q 16 units DAILY BRETT Administration Ketorolac Tromethamine 1 drop 07/24/25 13:00 07/26/25 13:11 Ketorolac 0.5% Op Soln 5 Ml Bottle EACH EYE 1 drop TID BRETT Administration Levothyroxine Sodium 25 mcg 07/25/25 06:30 07/26/25 05:57 Levothyroxine Sodium 25 Mcg Tablet PO 25 mcg DAILY@0630 BRETT Administration Lisinopril 10 mg 07/24/25 12:50 07/26/25 08:44 Lisinopril 10 Mg Tablet PO 10 mg DAILY BRETT Administration Metolazone 2.5 mg 07/24/25 12:50 07/26/25 08:44 Metolazone 2.5 Mg Tablet PO 2.5 mg DAILY BRETT Administration Ondansetron HCl 4 mg 07/24/25 09:21 Ondansetron Inj 4 Mg/2 Ml Vial IV PUSH Q6H PRN Nausea And Vomiting Pantoprazole Sodium 40 mg 07/25/25 09:00 07/26/25 08:44 Pantoprazole 40 Mg Tablet PO 40 mg DAILY BRETT Administration Rosuvastatin Calcium 40 mg 07/24/25 12:50 07/26/25 08:44 Rosuvastatin 20 Mg Tablet PO 40 mg QAM BRETT Administration Senna 8.6 mg 07/24/25 12:50 07/26/25 08:44 Sennosides 8.6 Mg Tablet PO 8.6 mg DAILY BRETT Administration Thiamine HCl 100 mg 07/24/25 12:50 07/26/25 09:28 Thiamine Hcl 100 Mg Tablet PO 100 mg DAILY BRETT Administration Timolol Maleate 1 drop 07/24/25 12:40 07/26/25 08:46 Timolol Maleate 0.25% Op Soln 5 Ml Bottle EACH EYE 1 drop Q12HR BRETT Administration Vitamin D 125 mcg 07/24/25 12:45 07/26/25 09:28 Cholecalciferol (Vitamin D3) 125 Mcg (5,000 Units) Tablet PO 125 mcg DAILY BRETT Administration Radiology Results: ITS Impressions Chest X-Ray 07/24/25 11:51 Impression: No acute cardiopulmonary abnormality. Head CT 07/24/25 11:51 Impression: 1. Limited study. No acute infarct or hemorrhage Lumbar Puncture Fluoroscopy 07/25/25 17:12 IMPRESSION: 1. Successful fluoro-guided lumbar puncture with opening pressure of 21 cm water which remains within normal limits for body habitus. Abdomen/Pelvis CT 07/26/25 08:54 IMPRESSION: 1. Normal appendix. No acute intra-abdominal/pelvic process. 2. Cholelithiasis. 3. Right kidney either developmentally or surgically absent. Correlate with surgical history. 4. Mild emphysema with dependent predominant opacities at the bilateral lower lung zones and favor atelectasis over pneumonia. Labs Labs: Laboratory Results - last 24 hr 07/25/25 07/25/25 07/26/25 17:31 23:17 05:27 WBC RBC Hgb Hct MCV MCH MCHC RDW Plt Count MPV Immature Gran % (Auto) Neut % (Auto) Lymph % (Auto) [place] % (Auto) Eos % (Auto) Baso % (Auto) Lymph # (Auto) [place] # (Auto) Eos # (Auto) Baso # (Auto) Abs Immat Gran (auto) Absolute Neuts (auto) Absolute Nucleated RBC Nucleated RBC % Sodium 136 L Potassium 3.8 Chloride 109 H Carbon Dioxide 23 Anion Gap 4 BUN 19 H Creatinine 1.04 H Estim Creat Clear Calc 46 Estimated GFR 52 L Glucose 197 H POC Capillary Glucose 142 H 145 H Calcium 9.3 Magnesium 1.8 Total Bilirubin 0.9 AST 31 ALT 20 Alkaline Phosphatase 103 Total Protein 6.4 Albumin 3.4 L 07/26/25 07/26/25 07/26/25 05:28 07:43 11:18 WBC 7.6 RBC 4.46 Hgb 13.5 Hct 40.5 MCV 90.8 MCH 30.3 MCHC 33.3 RDW 12.3 Plt Count 210 MPV 10.4 Immature Gran % (Auto) 0.3 Neut % (Auto) 54.6 Lymph % (Auto) 34.2 [place] % (Auto) 7.0 Eos % (Auto) 3.4 Baso % (Auto) 0.5 Lymph # (Auto) 2.58 [place] # (Auto) 0.5 Eos # (Auto) 0.3 Baso # (Auto) 0.0 Abs Immat Gran (auto) 0.02 Absolute Neuts (auto) 4.1 Absolute Nucleated RBC 0.000 Nucleated RBC % 0.0 Sodium Potassium Chloride Carbon Dioxide Anion Gap BUN Creatinine Estim Creat Clear Calc Estimated GFR Glucose POC Capillary Glucose 173 H 170 H Calcium Magnesium Total Bilirubin AST ALT Alkaline Phosphatase Total Protein Albumin Quality VTE Prophylaxis VTE prophylaxis: pharmacologic ordered
[2025-07-26 14:48] VITALS: BP 117/64; PULSE 71; RESP 18; TEMP 36; O2SAT 96
[2025-07-26 19:49] LABS: MRSA (PCR) NOT DETECTED (NOT DETECTE)
[2025-07-26 20:00] VITALS: PULSE 74; RESP 16; O2SAT 97
[2025-07-26] MEDS: levoFLOXacin 750 MG/D5W 150 ML 750 MG/150 ML BAG 100 MG IVPB (20:46)
[2025-07-26 22:54] VITALS: BP 131/82; PULSE 74; RESP 16; TEMP 36.7; O2SAT 97
[2025-07-27] VITALS: BP 146/51; PULSE 88; RESP 14; TEMP 36.4; O2SAT 97
[2025-07-27 04:00] VITALS: BP 136/89; PULSE 76; RESP 18; TEMP 36.4; O2SAT 97
[2025-07-27] MEDS: LEVOTHYROXINE SODIUM 25 MCG TABLET PO (05:52)
[2025-07-27 06:18] LABS: Hematocrit 42.0 % (37.0-47.0); Hemoglobin 14.2 g/dL (12.0-15.0); Immature Granulocyte Percent A 0.4 % (0-0.5); Lymphocytes Absolute Auto 2.14 K/mm3 (0.9-3.2); Mean Corpuscular HGB Conc 33.8 g/dl (32-36); Mean Corpuscular Hemoglobin 30.4 pg (26-34); Mean Corpuscular Volume 89.9 fl (80-100); Nucleated Red Blood Cells Absolute Auto 0.000 K/mm3 (0.0-0.012); Nucleated Red Blood Cells Perc 0.0 % (0.0-0.2); Platelet Count Result 256 k/mm3 (150-375); Red Blood Count 4.67 M/mm3 (4.2-5.4); White Blood Count 10.4 K/mm3 (4.5-10.0)
[2025-07-27 06:42] LABS: Alanine Aminotransferase 18 U/L (6-35); Albumin Level 4.1 g/dL (3.5-5.1); Alkaline Phosphatase 129 U/L (38-126); Anion Gap 7 mmol/L (4-12); Aspartate Amino Transferase 23 U/L (14-36); Bilirubin,Total 0.7 mg/dL (0.2-1.3); Blood Urea Nitrogen 16 mg/dL (7-17); Calcium 10.2 mg/dL (8.4-10.2); Carbon Dioxide 24 mmol/L (22-30); Chloride 106 mmol/L (98-107); Estimated CRCL calculation 48 ml/min; Estimated Glomerular Filt Rate 55; Glucose 188 mg/dL (65-110); Magnesium 1.7 mg/dL (1.6-2.3); Potassium 4.3 mmol/L (3.4-5.0); Sodium 137 mmol/L (137-145); Total Protein 7.6 g/dL (6.3-8.2)
[2025-07-27 08:00] VITALS: BP 151/76; PULSE 79; RESP 16; TEMP 36.4; O2SAT 98
[2025-07-27] MEDS: PANTOPRAZOLE 40 MG TABLET PO (09:10)
[2025-07-27] MEDS: ROSUVASTATIN 20 MG TABLET 40 MG PO (09:10)
[2025-07-27] MEDS: SENNOSIDES 8.6 MG TABLET PO (09:10)
[2025-07-27] MEDS: INSULIN ASPART (*BKC) 100 UNITS/ML SUB-Q ×3 (09:11→17:10)
[2025-07-27] MEDS: ENOXAPARIN 40 MG/0.4 ML SYRINGE SUB-Q (09:11)
[2025-07-27] MEDS: THIAMINE HCL 100 MG TABLET PO (09:11)
[2025-07-27] MEDS: FOLIC ACID 1 MG TABLET PO (09:11)
[2025-07-27] MEDS: ASPIRIN 81 MG CHEWABLE TABLET PO (09:11)
[2025-07-27] MEDS: CHOLECALCIFEROL (VITAMIN D3) 125 MCG (5,000 UNITS) TABLET PO (09:11)
[2025-07-27] MEDS: INSULIN GLARGINE (*BKC) 100 UNITS/ML 16 UNITS SUB-Q (09:12)
[2025-07-27] MEDS: TIMOLOL MALEATE 0.25% OP SOLN 5 ML BOTTLE 1 DROP EACH EYE ×2 (09:14→20:09)
[2025-07-27] MEDS: KETOROLAC 0.5% OP SOLN 5 ML BOTTLE 1 DROP EACH EYE ×3 (09:14→17:11)
[2025-07-27 12:00] VITALS: BP 152/82; PULSE 72; RESP 16; TEMP 36.3; O2SAT 97
[2025-07-27 12:30] VITALS: BMI 29.0
[2025-07-27 14:08] LABS: HSV-1 DNA, CSF Negative (Negative); HSV-2 DNA, CSF Negative (Negative); VDRL, CSF Non Reactive (Non Rea:<1:1)
--- NOTE | 2025-07-27 15:35 | P.PNIM_ITS ---
Progress Note: A&P Assessment and Plan (1) Encephalopathy: Code(s): G93.40 - Encephalopathy, unspecified Status: Acute Assessment and Plan: Patient with previous episode of acute delirium/confusion believed to be secondary to polypharmacy back in 2023 Previous abnormal awake EEG due to, 1)bifrontal discharges with triphasic morphology.2) ? Bitemporal focal slowing, 3) Generalized slowing, Previous?echo showing EF 55-60% with normal systolic function and grade 2 diastolic dysfunction Previous MRI shows possible punctate infarct in the periventricular white matter of the right temporal lobe cannot be excluded * CT head no acute intracranial infarct or hemorrhage * Currently no infectious cause * B12, folate, TSH all within normal limits * UA negative * Drug screen and ETOH negative * Patient with recent prescription for methocarbamol due to history patient could have overdosed on them??? * MRI brain showed * CSF no infection * EEG pending today * Blood, CSF cultures pending * Neurology following, awaiting EEG (2) Agitation: Code(s): R45.1 - Restlessness and agitation Status: Acute Assessment and Plan: See Above #1 * Receive Zyprexa IM Versed in the ED (3) Altered mental status: Qualifiers: Altered mental status type: delirium Qualified Code(s): R41.0 - Disorientation, unspecified Code(s): R41.82 - Altered mental status, unspecified Status: Acute Assessment and Plan: See Above #1 (4) Prescription drug abuse: Status: Acute Assessment and Plan: Psych eval noted (5) Hypertension: Code(s): I10 - Essential (primary) hypertension Status: Acute Assessment and Plan: * Continued amlodipine * Will add hydralazine IV push if unable to take oral medication due to acute delirium encephalopathy (6) Diabetes: Code(s): E11.9 - Type 2 diabetes mellitus without complications Status: Acute Assessment and Plan: * Accu-Cheks a.c. HS * SSI low-dose * Resume patient's long-acting 16 unit insulin * Diabetic diet * Hypoglycemia protocol (7) Abdominal pain: Code(s): R10.9 - Unspecified abdominal pain Status: Acute Assessment and Plan: * 07/25: Presenting with RLQ abdominal discomfort, TTP on exam * LFTs WNL * No nausea/vomiting * Obtain CT abdomen/pelvis Plan Patient comfortable at bedside, however aggravated will give Zyprexa to help patient, patient is seen by neurologist and EEG is pending, patient with pneumonia being treated levofloxine monitor Alert and oriented x3, patient has a sitter. Pneumonia CT AP showed bilateral opacities Blood and sputum cultures Started on Levaquin monitor Delirium Continue Delirium precaution Psych eval noted Continue Olanzapine PRN psych following Code status: Full code per patient DVT prophylaxis: Lovenox Stress ulcer prophylaxis: Protonix 40 daily PT/OT notes: NA Disposition: Patient continues admission to the medical unit for further evaluation by Neurology and Psychiatry due to acute delirium/confusion/encephalopathy currently unknown cause will continue with diagnostic testing. Unable to get hold of family at this time but per records from the ER patient lives alone at home. Subjective Date/time seen: 07/27/25 15:35 Interval history: Patient comfortable at bedside, however aggravated will give Zyprexa to help patient, patient is seen by neurologist and EEG is pending, patient with pneumonia being treated levofloxine monitor Alert and oriented x3, patient has a sitter. Review of Systems Review of Systems: ROS unobtainable: Yes unobtainable due to mental status Neurologic: Reports confusion Psychiatric: Psychiatric: Reports confusion Exam Narrative: Patient is comfortable, NAD HEENT: eyes are clear and none icteric LUNGS:CTA HEART: RR S1S2 ABD: BS+, Soft and nontender Lower extremities: no edema SKIN: nonjaundiced Neuro: grossly intact. Objective Data Vital Signs Vital Signs: Vital Signs - 24 hr 07/26/25 20:00 07/26/25 22:54 07/27/25 00:00 Temperature 36.7 C 36.4 C Pulse Rate 74 74 88 Respiratory Rate 16 16 14 Blood Pressure 131/82 146/51 H Pulse Oximetry 97 97 97 Oxygen Delivery Room Air 07/27/25 04:00 07/27/25 08:00 07/27/25 08:00 Temperature 36.4 C 36.4 C L Pulse Rate 76 79 Respiratory Rate 18 16 Blood Pressure 136/89 151/76 H Pulse Oximetry 97 98 Oxygen Delivery Room Air 07/27/25 12:00 Temperature 36.3 C L Pulse Rate 72 Respiratory Rate 16 Blood Pressure 152/82 H Pulse Oximetry 97 Oxygen Delivery Intake/Output Intake/Output: Intake & Output 07/24/25 07/25/25 07/26/25 07/27/25 23:59 23:59 23:59 23:59 Intake Total 3330 3411.7 468 Balance 3330 3411.7 468 Meds/Results Medications: Active Medications Generic Name Dose Route Start Last Admin Trade Name Freq PRN Reason Stop Dose Admin Acetaminophen 650 mg 07/24/25 09:21 07/25/25 13:24 Acetaminophen 325 Mg Tablet PO 650 mg Q4H PRN Administration Mild Pain (1-3) or Fever Acetaminophen 650 mg 07/24/25 14:07 07/24/25 15:11 Acetaminophen 650 Mg Suppository RECTAL 650 mg Q6H PRN Administration Mild Pain (1-3) or Fever Albuterol 2 puff 07/24/25 12:34 Albuterol Sulfate (*Sp) Aerosol 1 Puff INHALATION Q4H PRN Shortness Of Breath Or Wheezing Albuterol/Ipratropium 3 ml 07/24/25 12:34 Ipratropium 0.5 Mg/Albuterol Sulfate 2.5 Mg Ampul.Neb 3 Ml INHALATION QID PRN Shortness Of Breath Or Wheezing Allopurinol 100 mg 07/24/25 12:45 07/27/25 09:11 Allopurinol 100 Mg Tablet PO 100 mg DAILY BRETT Administration Amlodipine Besylate 10 mg 07/24/25 12:45 07/27/25 09:10 Amlodipine Besylate 10 Mg Tablet PO 10 mg DAILY BRETT Administration Aspirin 81 mg 07/24/25 12:45 07/27/25 09:11 Aspirin 81 Mg Chewable Tablet PO 81 mg DAILY BRETT Administration Calcitriol 0.25 mcg 07/24/25 12:45 07/27/25 09:10 Calcitriol 0.25 Mcg Capsule PO 0.25 mcg DAILY BRETT Administration Dextrose 12.5 gm 07/24/25 15:01 Dextrose 50% 25 Gm/50 Ml Syringe IV PUSH PRN PRN Hypoglycemia Protocol Enoxaparin Sodium 40 mg 07/25/25 09:00 07/27/25 09:11 Enoxaparin 40 Mg/0.4 Ml Syringe SUB-Q 40 mg DAILY BRETT Administration Folic Acid 1 mg 07/24/25 12:45 07/27/25 09:11 Folic Acid 1 Mg Tablet PO 1 mg DAILY BRETT Administration Glucagon 1 mg 07/24/25 15:01 Glucagon For Inj 1 Mg Vial IM PRN PRN Hypoglycemia Protocol Glucose 15 gm 07/24/25 15:01 Glucose Oral Gel 15 Gm Of Glucse In 37.5 Gm Tube PO PRN PRN Hypoglycemia Protocol Dextrose 1,000 mls @ 100 mls/hr 07/24/25 15:01 Dextrose 5% 1,000 Ml IVPB PRN PRN Hypoglycemia Protocol Levofloxacin/Dextrose 750 mg in 150 mls @ 100 mls/hr 07/26/25 19:00 07/26/25 23:00 Levaquin 750 Mg/D5w 150 Ml IVPB Infused Q24H BRETT Infusion Insulin Aspart 2 - 5 units 07/24/25 17:00 07/27/25 12:12 Insulin Aspart (*Bkc) 100 Units/Ml SUB-Q 2 units TIDWM BRETT Administration Protocol Insulin Glargine 16 units 07/24/25 12:50 07/27/25 09:12 Insulin Glargine (*Bkc) 100 Units/Ml SUB-Q 16 units DAILY BRETT Administration Ketorolac Tromethamine 1 drop 07/24/25 13:00 07/27/25 12:12 Ketorolac 0.5% Op Soln 5 Ml Bottle EACH EYE 1 drop TID BRETT Administration Levothyroxine Sodium 25 mcg 07/25/25 06:30 07/27/25 05:52 Levothyroxine Sodium 25 Mcg Tablet PO 25 mcg DAILY@0630 BRETT Administration Lisinopril 10 mg 07/24/25 12:50 07/27/25 09:10 Lisinopril 10 Mg Tablet PO 10 mg DAILY BRETT Administration Metolazone 2.5 mg 07/24/25 12:50 07/27/25 09:10 Metolazone 2.5 Mg Tablet PO 2.5 mg DAILY BRETT Administration Olanzapine 2.5 mg 07/27/25 10:00 07/27/25 10:06 Olanzapine 2.5 Mg Tablet PO 2.5 mg QAM BRETT Administration Ondansetron HCl 4 mg 07/24/25 09:21 Ondansetron Inj 4 Mg/2 Ml Vial IV PUSH Q6H PRN Nausea And Vomiting Pantoprazole Sodium 40 mg 07/25/25 09:00 07/27/25 09:10 Pantoprazole 40 Mg Tablet PO 40 mg DAILY BRETT Administration Rosuvastatin Calcium 40 mg 07/24/25 12:50 07/27/25 09:10 Rosuvastatin 20 Mg Tablet PO 40 mg QAM BRETT Administration Senna 8.6 mg 07/24/25 12:50 07/27/25 09:10 Sennosides 8.6 Mg Tablet PO 8.6 mg DAILY BRETT Administration Thiamine HCl 100 mg 07/24/25 12:50 07/27/25 09:11 Thiamine Hcl 100 Mg Tablet PO 100 mg DAILY BRETT Administration Timolol Maleate 1 drop 07/24/25 12:40 07/27/25 09:14 Timolol Maleate 0.25% Op Soln 5 Ml Bottle EACH EYE 1 drop Q12HR BRETT Administration Vitamin D 125 mcg 07/24/25 12:45 07/27/25 09:11 Cholecalciferol (Vitamin D3) 125 Mcg (5,000 Units) Tablet PO 125 mcg DAILY BRETT Administration Radiology Results: ITS Impressions Chest X-Ray 07/24/25 11:51 Impression: No acute cardiopulmonary abnormality. Head CT 07/24/25 11:51 Impression: 1. Limited study. No acute infarct or hemorrhage Lumbar Puncture Fluoroscopy 07/25/25 17:12 IMPRESSION: 1. Successful fluoro-guided lumbar puncture with opening pressure of 21 cm water which remains within normal limits for body habitus. Abdomen/Pelvis CT 07/26/25 08:54 IMPRESSION: 1. Normal appendix. No acute intra-abdominal/pelvic process. 2. Cholelithiasis. 3. Right kidney either developmentally or surgically absent. Correlate with carlos rgical history. 4. Mild emphysema with dependent predominant opacities at the bilateral lower lung zones and favor atelectasis over pneumonia. Labs Labs: Laboratory Results - last 24 hr 07/25/25 07/26/25 07/26/25 09:07 16:09 18:34 WBC RBC Hgb Hct MCV MCH MCHC RDW Plt Count MPV Immature Gran % (Auto) Neut % (Auto) Lymph % (Auto) Hardy % (Auto) Eos % (Auto) Baso % (Auto) Lymph # (Auto) Hardy # (Auto) Eos # (Auto) Baso # (Auto) Abs Immat Gran (auto) Absolute Neuts (auto) Absolute Nucleated RBC Nucleated RBC % Sodium Potassium Chloride Carbon Dioxide Anion Gap BUN Creatinine Estim Creat Clear Calc Estimated GFR Glucose POC Capillary Glucose 197 H Calcium Magnesium Total Bilirubin AST ALT Alkaline Phosphatase Total Protein Albumin CSF VDRL Non reactive CSF Herpes I DNA (PCR) Negative CSF Herpes II DNA (PCR) Negative Nasal MRSA (PCR) Not detected 07/26/25 07/27/25 07/27/25 20:58 05:41 07:59 WBC 10.4 H RBC 4.67 Hgb 14.2 Hct 42.0 MCV 89.9 MCH 30.4 MCHC 33.8 RDW 12.1 Plt Count 256 MPV 10.5 H Immature Gran % (Auto) 0.4 Neut % (Auto) 68.5 Lymph % (Auto) 20.7 Hardy % (Auto) 6.9 Eos % (Auto) 3.0 Baso % (Auto) 0.5 Lymph # (Auto) 2.14 Hardy # (Auto) 0.7 H Eos # (Auto) 0.3 Baso # (Auto) 0.1 Abs Immat Gran (auto) 0.04 H Absolute Neuts (auto) 7.1 H Absolute Nucleated RBC 0.000 Nucleated RBC % 0.0 Sodium 137 Potassium 4.3 Chloride 106 Carbon Dioxide 24 Anion Gap 7 BUN 16 Creatinine 0.99 Estim Creat Clear Calc 48 Estimated GFR 55 L Glucose 188 H POC Capillary Glucose 257 H 283 H Calcium 10.2 Magnesium 1.7 Total Bilirubin 0.7 AST 23 ALT 18 Alkaline Phosphatase 129 H Total Protein 7.6 Albumin 4.1 CSF VDRL CSF Herpes I DNA (PCR) CSF Herpes II DNA (PCR) Nasal MRSA (PCR) 07/27/25 11:20 WBC RBC Hgb Hct MCV MCH MCHC RDW Plt Count MPV Immature Gran % (Auto) Neut % (Auto) Lymph % (Auto) Hardy % (Auto) Eos % (Auto) Baso % (Auto) Lymph # (Auto) Hardy # (Auto) Eos # (Auto) Baso # (Auto) Abs Immat Gran (auto) Absolute Neuts (auto) Absolute Nucleated RBC Nucleated RBC % Sodium Potassium Chloride Carbon Dioxide Anion Gap BUN Creatinine Estim Creat Clear Calc Estimated GFR Glucose POC Capillary Glucose 212 H Calcium Magnesium Total Bilirubin AST ALT Alkaline Phosphatase Total Protein Albumin CSF VDRL CSF Herpes I DNA (PCR) CSF Herpes II DNA (PCR) Nasal MRSA (PCR) Quality VTE Prophylaxis VTE prophylaxis: pharmacologic ordered
[2025-07-27 16:00] VITALS: BP 150/80; PULSE 104; RESP 16; TEMP 36.6; O2SAT 98
[2025-07-27] MEDS: levoFLOXacin 750 MG/D5W 150 ML 750 MG/150 ML BAG 100 MG IVPB (18:24)
[2025-07-27 20:00] VITALS: BP 153/89; PULSE 101; PULSE 104; RESP 16; RESP 18; TEMP 36.4; O2SAT 96; O2SAT 98
--- NOTE | 2025-07-27 22:13 | PC.NURSE ---
This evening, pt seem to be more agitated, restless. Pt haven't slept for the past 2 days, pt is experiencing visual hallucinations. Norah Phipps the [employer] was notified, pt was given Trazodone as ordered, pt still restless, will keep monitoring. BG 296 mg/dl, [employer] was notified, no new ordered. Pt has a bedside sitter until 23:00. Charge nurse is aware of the pt's situation.
[2025-07-27] MEDS: diazePAM INJ (*CRX) 10 MG/2 ML SYRINGE 2 MG IV PUSH (23:05)
[2025-07-28 06:00] VITALS: BP 150/66; PULSE 84; RESP 18; TEMP 36; O2SAT 94
[2025-07-28 07:03] LABS: Hematocrit 42.6 % (37.0-47.0); Hemoglobin 14.5 g/dL (12.0-15.0); Immature Granulocyte Percent A 0.2 % (0-0.5); Lymphocytes Absolute Auto 1.18 K/mm3 (0.9-3.2); Mean Corpuscular HGB Conc 34.0 g/dl (32-36); Mean Corpuscular Hemoglobin 30.3 pg (26-34); Mean Corpuscular Volume 88.9 fl (80-100); Nucleated Red Blood Cells Absolute Auto 0.000 K/mm3 (0.0-0.012); Nucleated Red Blood Cells Perc 0.0 % (0.0-0.2); Platelet Count Result 225 k/mm3 (150-375); Red Blood Count 4.79 M/mm3 (4.2-5.4); White Blood Count 8.0 K/mm3 (4.5-10.0)
[2025-07-28 07:33] LABS: Alanine Aminotransferase 16 U/L (6-35); Albumin Level 3.7 g/dL (3.5-5.1); Alkaline Phosphatase 115 U/L (38-126); Anion Gap 7 mmol/L (4-12); Aspartate Amino Transferase 19 U/L (14-36); Bilirubin,Total 0.8 mg/dL (0.2-1.3); Blood Urea Nitrogen 19 mg/dL (7-17); Calcium 10.0 mg/dL (8.4-10.2); Carbon Dioxide 24 mmol/L (22-30); Chloride 105 mmol/L (98-107); Estimated CRCL calculation 51 ml/min; Estimated Glomerular Filt Rate 58; Glucose 185 mg/dL (65-110); Magnesium 1.7 mg/dL (1.6-2.3); Potassium 3.9 mmol/L (3.4-5.0); Sodium 136 mmol/L (137-145); Total Protein 7.0 g/dL (6.3-8.2)
[2025-07-28 08:00] VITALS: BP 141/78; PULSE 92; RESP 16; TEMP 36.5; O2SAT 97
[2025-07-28] MEDS: ROSUVASTATIN 20 MG TABLET 40 MG PO (09:16)
[2025-07-28] MEDS: CHOLECALCIFEROL (VITAMIN D3) 125 MCG (5,000 UNITS) TABLET PO (09:16)
[2025-07-28] MEDS: ASPIRIN 81 MG CHEWABLE TABLET PO (09:16)
[2025-07-28] MEDS: SENNOSIDES 8.6 MG TABLET PO (09:16)
[2025-07-28] MEDS: LEVOTHYROXINE SODIUM 25 MCG TABLET PO (09:16)
[2025-07-28] MEDS: PANTOPRAZOLE 40 MG TABLET PO (09:16)
[2025-07-28] MEDS: FOLIC ACID 1 MG TABLET PO (09:17)
[2025-07-28] MEDS: THIAMINE HCL 100 MG TABLET PO (09:17)
[2025-07-28] MEDS: ENOXAPARIN 40 MG/0.4 ML SYRINGE SUB-Q (09:19)
[2025-07-28] MEDS: KETOROLAC 0.5% OP SOLN 5 ML BOTTLE 1 DROP EACH EYE ×2 (09:21→12:23)
[2025-07-28] MEDS: TIMOLOL MALEATE 0.25% OP SOLN 5 ML BOTTLE 1 DROP EACH EYE (09:21)
--- NOTE | 2025-07-28 10:17 | P.NEURO_ITS ---
Neurology EEG Report General Information Date of Study: 07/26/25 TEST electroencephalogram DIAGNOSIS Altered mental status, agitation CONDITION OF RECORDING bedside recording EEG NUMBER [id number] CLINICAL HISTORY 74-year-old with history of increased confusion and agitation. Patient has dif ficulty finding words at times. EEG DESCRIPTION The background activity consists of posterior dominant rhythm in alpha range at 8 hertz with an amplitude of 15-35 microvolts. This appears moderately formed. Muscle tension artifacts were noted particularly in the posterior temporal- occipital area due to the head movement. Mild focal slowing and occasional sharp transients were noted over right temporal area however these appear poorly defined. Brief drowsiness was noted during which diffuse theta activity and a intermittent rhythmic delta activity was also noted. Patient did not progress to stage 2 sleep. Hyperventilation not performed. photic stimulation was performed during which no significant abnormal background changes were seen. IMPRESSION This is a mild abnormal EEG due to presence of focal slowing and sharp wave activity noted over the left temporal area on a few occasions. Focal slowing may raise possibility of underlying structural lesion. Sharp transients are considered nonspecific focal interictal abnormality. Clinical and radiographic correlation may be helpful.
[2025-07-28 11:08] LABS: Epstein-Barr Virus RT PCR, CSF Negative (Negative)
[2025-07-28] MEDS: INSULIN GLARGINE (*BKC) 100 UNITS/ML 16 UNITS SUB-Q (12:21)
[2025-07-28] MEDS: INSULIN ASPART (*BKC) 100 UNITS/ML SUB-Q (12:22)
--- NOTE | 2025-07-28 13:54 | P.PNIM_ITS ---
Progress Note: A&P Assessment and Plan (1) Encephalopathy: Code(s): G93.40 - Encephalopathy, unspecified Status: Acute Assessment and Plan: Patient with previous episode of acute delirium/confusion believed to be secondary to polypharmacy back in 2023 Previous abnormal awake EEG due to, 1)bifrontal discharges with triphasic morphology.2) ? Bitemporal focal slowing, 3) Generalized slowing, Previous?echo showing EF 55-60% with normal systolic function and grade 2 diastolic dysfunction Previous MRI shows possible punctate infarct in the periventricular white matter of the right temporal lobe cannot be excluded * CT head no acute intracranial infarct or hemorrhage * Currently no infectious cause * B12, folate, TSH all within normal limits * UA negative * Drug screen and ETOH negative * Patient with recent prescription for methocarbamol due to history patient could have overdosed on them??? * MRI brain showed * CSF no infection * EEG showed focal slowing whcih suggests underlying structural lesion MRI pending I discussed with neurology, dr Lozano (2) Agitation: Code(s): R45.1 - Restlessness and agitation Status: Acute Assessment and Plan: See Above #1 * Receive Zyprexa IM Versed in the ED (3) Altered mental status: Qualifiers: Altered mental status type: delirium Qualified Code(s): R41.0 - Disorientation, unspecified Code(s): R41.82 - Altered mental status, unspecified Status: Acute Assessment and Plan: See Above #1 (4) Prescription drug abuse: Status: Acute Assessment and Plan: Psych eval noted (5) Hypertension: Code(s): I10 - Essential (primary) hypertension Status: Acute Assessment and Plan: * Continued amlodipine * Will add hydralazine IV push if unable to take oral medication due to acute d elirium encephalopathy (6) Diabetes: Code(s): E11.9 - Type 2 diabetes mellitus without complications Status: Acute Assessment and Plan: * Accu-Cheks a.c. HS * SSI low-dose * Resume patient's long-acting 16 unit insulin * Diabetic diet * Hypoglycemia protocol (7) Abdominal pain: Code(s): R10.9 - Unspecified abdominal pain Status: Acute Assessment and Plan: * 07/25: Presenting with RLQ abdominal discomfort, TTP on exam * LFTs WNL * No nausea/vomiting * Obtain CT abdomen/pelvis Plan Patient comfortable at bedside, however aggravated will give Zyprexa to help patient, patient is seen by neurologist and EEG is pending, patient with pneumonia being treated levofloxine monitor Alert and oriented x3, patient has a sitter. Pneumonia CT AP showed bilateral opacities Blood and sputum cultures on Levaquin monitor Delirium, resolving Continue Delirium precaution Psych eval noted Continue Olanzapine PRN psych following Code status: Full code per patient DVT prophylaxis: Lovenox Stress ulcer prophylaxis: Protonix 40 daily PT/OT notes: NA Disposition: Patient continues admission to the medical unit for further evaluation by Neurology and Psychiatry due to acute delirium/confusion/encephalopathy currently unknown cause will continue with diagnostic testing. Unable to get hold of family at this time but per records from the ER patient lives alone at home. Subjective Date/time seen: 07/28/25 13:54 Interval history: Patient comfortable at bedside I discussed with neurology about EEG result and he recommended MRI brain which is ordered Review of Systems Review of Systems: All systems reviewed & are unremarkable except as noted in HPI and below ROS unobtainable: Yes unobtainable due to mental status Neurologic: Reports confusion Psychiatric: Psychiatric: Reports confusion Exam Narrative: Patient is comfortable, NAD HEENT: eyes are clear and none icteric LUNGS:CTA HEART: RR S1S2 ABD: BS+, Soft and nontender Lower extremities: no edema SKIN: nonjaundiced Neuro: grossly intact. Const: General: no acute distress and confusion Orientation/consciousness: confusion Other: Alert and oriented x3, however slow to respond HENMT: Mouth: Yes dry mucous membranes Eyes: General: appearance normal, both eyes and all related structures Neck: Neck: supple and no JVD Resp: Effort & Inspection: normal respiratory effort Auscultation: clear to auscultation bilaterally Cardio: Rate: regular rate Rhythm: regular rhythm GI: Auscultation: normal bowel sounds Skin: General skin exam: normal color and no rashes or lesions noted Wounds: no wounds Neuro: General: moves all extremities, confusion and Unable to assess gait Cranial nerves: Yes facial symmetry Cognition (Neuro): abnormal cognition Speech: Other speech findings present (Neuro) (mouning ) Gait exam (Neuro): Unable to assess gait Psych: Affect: normal affect and Anxious affect present Objective Data Vital Signs Vital Signs: Vital Signs - 24 hr 07/27/25 16:00 07/27/25 20:00 07/27/25 20:00 Temperature 97.8 F 97.6 F Pulse Rate 104 H 104 H 101 H Respiratory Rate 16 16 18 Blood Pressure 150/80 H 153/89 H Pulse Oximetry 98 98 96 Oxygen Delivery Room Air 07/28/25 06:00 07/28/25 08:00 07/28/25 08:00 Temperature 96.8 F L 97.7 F Pulse Rate 84 92 Respiratory Rate 18 16 Blood Pressure 150/66 H 141/78 H Pulse Oximetry 94 97 Oxygen Delivery Room Air Intake/Output Intake/Output: Intake & Output 07/25/25 07/26/25 07/27/25 07/28/25 23:59 23:59 23:59 23:59 Intake Total 3330 3411.7 468 240 Balance 3330 3411.7 468 240 Meds/Results Medications: Active Medications Generic Name Dose Route Start Last Admin Trade Name Freq PRN Reason Stop Dose Admin Acetaminophen 650 mg 07/24/25 09:21 07/25/25 13:24 Acetaminophen 325 Mg Tablet PO 650 mg Q4H PRN Administration Mild Pain (1-3) or Fever Acetaminophen 650 mg 07/24/25 14:07 07/24/25 15:11 Acetaminophen 650 Mg Suppository RECTAL 650 mg Q6H PRN Administration Mild Pain (1-3) or Fever Albuterol 2 puff 07/24/25 12:34 Albuterol Sulfate (*Sp) Aerosol 1 Puff INHALATION Q4H PRN Shortness Of Breath Or Wheezing Albuterol/Ipratropium 3 ml 07/24/25 12:34 Ipratropium 0.5 Mg/Albuterol Sulfate 2.5 Mg Ampul.Neb 3 Ml INHALATION QID PRN Shortness Of Breath Or Wheezing Allopurinol 100 mg 07/24/25 12:45 07/28/25 09:16 Allopurinol 100 Mg Tablet PO 100 mg DAILY BRETT Administration Amlodipine Besylate 10 mg 07/24/25 12:45 07/28/25 09:16 Amlodipine Besylate 10 Mg Tablet PO 10 mg DAILY BRETT Administration Aspirin 81 mg 07/24/25 12:45 07/28/25 09:16 Aspirin 81 Mg Chewable Tablet PO 81 mg DAILY BRETT Administration Calcitriol 0.25 mcg 07/24/25 12:45 07/28/25 09:16 Calcitriol 0.25 Mcg Capsule PO 0.25 mcg DAILY BRETT Administration Dextrose 12.5 gm 07/24/25 15:01 Dextrose 50% 25 Gm/50 Ml Syringe IV PUSH PRN PRN Hypoglycemia Protocol Enoxaparin Sodium 40 mg 07/25/25 09:00 07/28/25 09:19 Enoxaparin 40 Mg/0.4 Ml Syringe SUB-Q 40 mg DAILY BRETT Administration Folic Acid 1 mg 07/24/25 12:45 07/28/25 09:17 Folic Acid 1 Mg Tablet PO 1 mg DAILY BRETT Administration Glucagon 1 mg 07/24/25 15:01 Glucagon For Inj 1 Mg Vial IM PRN PRN Hypoglycemia Protocol Glucose 15 gm 07/24/25 15:01 Glucose Oral Gel 15 Gm Of Glucse In 37.5 Gm Tube PO PRN PRN Hypoglycemia Protocol Dextrose 1,000 mls @ 100 mls/hr 07/24/25 15:01 Dextrose 5% 1,000 Ml IVPB PRN PRN Hypoglycemia Protocol Levofloxacin/Dextrose 750 mg in 150 mls @ 100 mls/hr 07/26/25 19:00 07/27/25 18:24 Levaquin 750 Mg/D5w 150 Ml IVPB 100 mls/hr Q24H BRETT Administration Insulin Aspart 2 - 5 units 07/24/25 17:00 07/28/25 12:22 Insulin Aspart (*Bkc) 100 Units/Ml SUB-Q 2 units TIDWM BRETT Administration Protocol Insulin Glargine 16 units 07/24/25 12:50 07/28/25 12:21 Insulin Glargine (*Bkc) 100 Units/Ml SUB-Q 16 units DAILY BRETT Administration Ketorolac Tromethamine 1 drop 07/24/25 13:00 07/28/25 12:23 Ketorolac 0.5% Op Soln 5 Ml Bottle EACH EYE 1 drop TID BRETT Administration Levothyroxine Sodium 25 mcg 07/25/25 06:30 07/28/25 09:16 Levothyroxine Sodium 25 Mcg Tablet PO 25 mcg DAILY@0630 BRETT Administration Lisinopril 10 mg 07/24/25 12:50 07/28/25 09:16 Lisinopril 10 Mg Tablet PO 10 mg DAILY BRETT Administration Metolazone 2.5 mg 07/24/25 12:50 07/28/25 09:16 Metolazone 2.5 Mg Tablet PO 2.5 mg DAILY BRETT Administration Olanzapine 2.5 mg 07/27/25 10:00 07/28/25 09:16 Olanzapine 2.5 Mg Tablet PO 2.5 mg QAM BRETT Administration Ondansetron HCl 4 mg 07/24/25 09:21 Ondansetron Inj 4 Mg/2 Ml Vial IV PUSH Q6H PRN Nausea And Vomiting Pantoprazole Sodium 40 mg 07/25/25 09:00 07/28/25 09:16 Pantoprazole 40 Mg Tablet PO 40 mg DAILY BRETT Administration Rosuvastatin Calcium 40 mg 07/24/25 12:50 07/28/25 09:16 Rosuvastatin 20 Mg Tablet PO 40 mg QAM BRETT Administration Senna 8.6 mg 07/24/25 12:50 07/28/25 09:16 Sennosides 8.6 Mg Tablet PO 8.6 mg DAILY BRETT Administration Thiamine HCl 100 mg 07/24/25 12:50 07/28/25 09:17 Thiamine Hcl 100 Mg Tablet PO 100 mg DAILY BRETT Administration Timolol Maleate 1 drop 07/24/25 12:40 07/28/25 09:21 Timolol Maleate 0.25% Op Soln 5 Ml Bottle EACH EYE 1 drop Q12HR BRETT Administration Trazodone HCl 100 mg 07/27/25 19:55 07/27/25 20:09 Trazodone Hcl 50 Mg Tablet PO 100 mg HS PRN Administration Insomnia Vitamin D 125 mcg 07/24/25 12:45 07/28/25 09:16 Cholecalciferol (Vitamin D3) 125 Mcg (5,000 Units) Tablet PO 125 mcg DAILY BRETT Administration Radiology Results: ITS Impressions Chest X-Ray 07/24/25 11:51 Impression: No acute cardiopulmonary abnormality. Head CT 07/24/25 11:51 Impression: 1. Limited study. No acute infarct or hemorrhage Lumbar Puncture Fluoroscopy 07/25/25 17:12 IMPRESSION: 1. Successful fluoro-guided lumbar puncture with opening pressure of 21 cm water which remains within normal limits for body habitus. Abdomen/Pelvis CT 07/26/25 08:54 IMPRESSION: 1. Normal appendix. No acute intra-abdominal/pelvic process. 2. Cholelithiasis. 3. Right kidney either developmentally or surgically absent. Correlate with surgical history. 4. Mild emphysema with dependent predominant opacities at the bilateral lower lung zones and favor atelectasis over pneumonia. Labs Labs: Laboratory Results - last 24 hr 07/25/25 07/27/2507/27/25 09:07 16:39 20:15 WBC RBC Hgb Hct MCV MCH MCHC RDW Plt Count MPV Immature Gran % (Auto) Neut % (Auto) Lymph % (Auto) [place] % (Auto) Eos % (Auto) Baso % (Auto) Lymph # (Auto) [place] # (Auto) Eos # (Auto) Baso # (Auto) Abs Immat Gran (auto) Absolute Neuts (auto) Absolute Nucleated RBC Nucleated RBC % Sodium Potassium Chloride Carbon Dioxide Anion Gap BUN Creatinine Estim Creat Clear Calc Estimated GFR Glucose POC Capillary Glucose 215 H 296 H Calcium Magnesium Total Bilirubin AST ALT Alkaline Phosphatase Total Protein Albumin CSF VDRL Non reactive CSF EBV DNA (PCR) Negative CSF Herpes I DNA (PCR) Negative CSF Herpes II DNA (PCR) Negative 07/28/25 07/28/25 07/28/25 06:47 08:36 11:51 WBC 8.0 RBC 4.79 Hgb 14.5 Hct 42.6 MCV 88.9 MCH 30.3 MCHC 34.0 RDW 11.9 Plt Count 225 MPV 10.4 Immature Gran % (Auto) 0.2 Neut % (Auto) 76.5 H Lymph % (Auto) 14.7 L [place] % (Auto) 5.2 Eos % (Auto) 3.0 Baso % (Auto) 0.4 Lymph # (Auto) 1.18 [place] # (Auto) 0.4 Eos # (Auto) 0.2 Baso # (Auto) 0.0 Abs Immat Gran (auto) 0.02 Absolute Neuts (auto) 6.1 Absolute Nucleated RBC 0.000 Nucleated RBC % 0.0 Sodium 136 L Potassium 3.9 Chloride 105 Carbon Dioxide 24 Anion Gap 7 BUN 19 H Creatinine 0.94 Estim Creat Clear Calc 51 Estimated GFR 58 L Glucose 185 H POC Capillary Glucose 191 H 242 H Calcium 10.0 Magnesium 1.7 Total Bilirubin 0.8 AST 19 ALT 16 Alkaline Phosphatase 115 Total Protein 7.0 Albumin 3.7 CSF VDRL CSF EBV DNA (PCR) CSF Herpes I DNA (PCR) CSF Herpes II DNA (PCR) Quality VTE Prophylaxis VTE prophylaxis: pharmacologic ordered
[2025-07-28 14:08] LABS: West Nile Virus, IgG Negative (Negative); West Nile Virus, IgM Negative (Negative)
--- NOTE | 2025-07-28 14:59 | PM.DS ---
DS: Admitting Diagnosis Discharge Date 07/28/25 Admitting Diagnosis AMS/confusion DS: Discharge Diagnosis Discharge Diagnosis (1) Encephalopathy: Code(s): G93.40 - Encephalopathy, unspecified Status: Acute DS: Summary Hospital Course Hospital Course: HPI per admitting provider: Patient Is a 74-year-old female with a past medical history alcohol and substance abuse, HTN, encephalopathy, CVA, diabetes. Patient was brought into the emergency department by family due to concerns of worsening confusion and agitation and failure to take her insulin stating she had an elevated blood sugar. per medical chart in the emergency department patient became agitated when attempting to get CT head and CTA which time she did receive intranasal Versed in Zyprexa. after reviewing patient's medical chart she did a previous episode back in December of 2023 altered mental status and confusion secondary to polypharmacy. also reviewed patient's recent prescription monitoring which showed a prescription for methocarbamol on July 05 2025. IN the ED: Initial CT head with limited study due to artifact showed no acute infarct or hemorrhage. Patient's drug screen negative ETOH negative, ammonia level normal. Patient did have leukocytosis otherwise other labs were unremarkable. Urine negative for UA. Patient was admitted to medical unit for further evaluation altered mental status/delirium/confusion/encephalopathy. Upon my evaluation of patient unable to answer any questions appropriately was just mumbling out but would respond to painful stimuli. Attempted to contact family for further information with no answer. Patient now has been febrile with a temp peak at 100.4, tachycardic with hypertension. I will attempt to get IV fluids started may require medical soft restraints has already pulled out multiple IVs. Jose was managed for agitation, Psych and neurology were consulted, Psych recommend PRN Zyprexa to be used only inpatient. CT head CSF analysis and blood cultures unremarkable. EEG was done which showed focal slowing whcih was suggestive of structural lesion. I discussed this with neurilogy and he reocommended MRI however jose was unabel to sit still for an MRI of the brain. I disussed this development with neurology he recommended that he will follow up with the patien tin the office. Jose discharged to follow up with neurology in the office. ALso managed for pneumonia and disharge on 4 more days on Levaquin. F/u with PCP in 3-5 days F/u with psych and neurology as instructed Time Spent with Patient Time attestation: Total time spent providing and/or coordinating discharge services: DS: Data Data Completed and Pending Pending studies at discharge: Pending at discharge 07/24/25 14:14 Cytology [PTH] Routine Labs on day of discharge: Labs from last 24 hours 07/28/25 07/28/25 07/28/25 11:51 08:36 06:47 WBC 8.0 RBC 4.79 Hgb 14.5 Hct 42.6 MCV 88.9 MCH 30.3 MCHC 34.0 RDW 11.9 Plt Count 225 MPV 10.4 Immature Gran % (Auto) 0.2 Neut % (Auto) 76.5 H Lymph % (Auto) 14.7 L [place] % (Auto) 5.2 Eos % (Auto) 3.0 Baso % (Auto) 0.4 Lymph # (Auto) 1.18 [place] # (Auto) 0.4 Eos # (Auto) 0.2 Baso # (Auto) 0.0 Abs Immat Gran (auto) 0.02 Absolute Neuts (auto) 6.1 Absolute Nucleated RBC 0.000 Nucleated RBC % 0.0 Sodium 136 L Potassium 3.9 Chloride 105 Carbon Dioxide 24 Anion Gap 7 BUN 19 H Creatinine 0.94 Estim Creat Clear Calc 51 Estimated GFR 58 L Glucose 185 H POC Capillary Glucose 242 H 191 H Calcium 10.0 Magnesium 1.7 Total Bilirubin 0.8 AST 19 ALT 16 Alkaline Phosphatase 115 Total Protein 7.0 Albumin 3.7 CSF EBV DNA (PCR) West Nile Virus IgG Ab West Nile Virus IgM Ab Miscellaneous Test 07/27/25 07/27/25 07/25/25 20:15 16:39 09:07 WBC RBC Hgb Hct MCV MCH MCHC RDW Plt Count MPV Immature Gran % (Auto) Neut % (Auto) Lymph % (Auto) [place] % (Auto) Eos % (Auto) Baso % (Auto) Lymph # (Auto) [place] # (Auto) Eos # (Auto) Baso # (Auto) Abs Immat Gran (auto) Absolute Neuts (auto) Absolute Nucleated RBC Nucleated RBC % Sodium Potassium Chloride Carbon Dioxide Anion Gap BUN Creatinine Estim Creat Clear Calc Estimated GFR Glucose POC Capillary Glucose 296 H 215 H Calcium Magnesium Total Bilirubin AST ALT Alkaline Phosphatase Total Protein Albumin CSF EBV DNA (PCR) Negative West Nile Virus IgG Ab West Nile Virus IgM Ab Miscellaneous Test Comment 07/24/25 14:46 WBC RBC Hgb Hct MCV MCH MCHC RDW Plt Count MPV Immature Gran % (Auto) Neut % (Auto) Lymph % (Auto) [place] % (Auto) Eos % (Auto) Baso % (Auto) Lymph # (Auto) [place] # (Auto) Eos # (Auto) Baso # (Auto) Abs Immat Gran (auto) Absolute Neuts (auto) Absolute Nucleated RBC Nucleated RBC % Sodium Potassium Chloride Carbon Dioxide Anion Gap BUN Creatinine Estim Creat Clear Calc Estimated GFR Glucose POC Capillary Glucose Calcium Magnesium Total Bilirubin AST ALT Alkaline Phosphatase Total Protein Albumin CSF EBV DNA (PCR) West Nile Virus IgG Ab Negative West Nile Virus IgM Ab Negative Miscellaneous Test Preliminary micro results at discharge 07/24/25 14:48 Blood Culture - Preliminary Blood 07/24/25 14:46 Blood Culture - Preliminary Blood 07/25/25 09:07 Sterile Body Fluid Culture - Preliminary Cerebral Spinal Fluid 07/25/25 09:07 Fungal Culture - Preliminary Cerebral Spinal Fluid 07/25/25 09:07 Acid Fast Bacilli Culture - Preliminary Cerebral Spinal Fluid Discharge Plan Discharge Attending physician on discharge: Jeaneth Byrd Consulting providers: Harika Shay; Brandon Lozano; Humberto Mesa; Conrad Valverde Discharging Clinician: Jeaneth Byrd Anticipated Discharge Date/Time: 07/28/25 14:31 Patient Disposition: Home Activity: as tolerated Diet: as tolerated and diabetic Patient Instructions: Antibiotic Form Patient Language: Korean Stand Alone Forms: General Discharge Information Follow-up/Referrals: Shahnaz Reddy RN [Primary Care Provider, Nursing] Referral Note: F/u with PCP in 3-5 days Brandon Lozano MD [Physician, Neurology] Referral Note: F/u with Neurology as instructed Humberto Mesa MD [Physician, Psychiatry] Referral Note: F/u with Psych as instructed Discharge Medications: New levofloxacin 750 mg tablet 750 mg PO DAILY 4 Days Qty: 4 0RF Continued lisinopril 10 mg tablet 10 mg PO DAILY rosuvastatin 40 mg tablet 40 mg PO QAM albuterol sulfate 90 mcg/actuation HFA aerosol inhaler 2 puff INHALATION Q4H PRN (Reason: shortness of breath or wheezing) allopurinol 100 mg tablet 100 mg PO DAILY amlodipine 10 mg tablet 10 mg PO DAILY Breztri Aerosphere 160-9-4.8 mcg/actuation HFA aerosol inhaler 2 inh INHALATION BID calcitriol 0.25 mcg capsule 0.25 mcg PO DAILY duloxetine 30 mg capsule,delayed release(DR/EC) 30 mg PO .Q12HR Rx Instructions: 1 tablet in AM, 2 tablets HS insulin lispro 100 unit/mL insulin pen 1 sliding scale dose SUBCUT TIDWM Patient Comments: 10-20 units with meals ipratropium-albuterol 0.5 mg-3 mg(2.5 mg base)/3 mL solution for nebulization 3 ml INHALATION QID PRN (Reason: shortness of breath or wheezing) ketorolac 0.5 % drops 1 drp ophthalmic (eye) TID levothyroxine 25 mcg tablet 25 mcg PO DAILY meloxicam 7.5 mg tablet 15 mg PO DAILY PRN (Reason: pain) methocarbamol 500 mg tablet 500 mg PO TID PRN (Reason: muscle spasm) metolazone 2.5 mg tablet 2.5 mg PO DAILY mirtazapine 7.5 mg tablet 15 mg PO DAILY pantoprazole 20 mg tablet,delayed release (DR/EC) 20 mg PO DAILY insulin degludec [Tresiba FlexTouch U-100] 100 unit/mL (3 mL) insulin pen 16 unit subcut DAILY ergocalciferol (vitamin D2) 1,250 mcg (50,000 unit) capsule 1,250 mcg PO WEEKLY sennosides 8.6 mg Tablet 8.6 mg PO DAILY cyanocobalamin (vitamin B-12) 100 mcg Tablet 100 mcg PO DAILY thiamine HCl (vitamin B1) 100 mg Tablet 100 mg PO DAILY melatonin 3 mg Tablet 3 mg PO HS acetaminophen 500 mg Tablet 1,000 mg PO TID tamsulosin 0.4 mg Capsule 0.4 mg PO DAILY lidocaine [Lidoderm] 5 % Adhesive Patch,Medicated 1 patch TOPICAL DAILY Rx Instructions: leave on most painful area for up to 12 hrs timolol 0.25 % Drops 1 drp EACH EYE Q12H aspirin [Aspirin Childrens] 81 mg Tablet,Chewable 81 mg PO DAILY folic acid 1 mg Tablet 1 mg PO DAILY oxycodone 5 mg Tablet See Rx Instructions .ROUTE .COMPLEX Rx Instructions: 2.5 mg orally Q6HR- standard time dosing cholecalciferol (vitamin D3) 125 mcg (5,000 unit) Tablet 5,000 unit PO DAILY Date of admission: 07/24/25 06:25 Primary Care Provider: Shahnaz Reddy Admitting Provider: Cheri Chen Attending physician on admission: Cheri Chen Condition: Stable
[2025-07-28 15:09] LABS: Albumin 4.4 g/dL (3.8-4.8); Albumin, CSF 23 mg/dL (10-46); IgG, Quant, CSF 3.6 mg/dL (0.0-6.7); IgG/Alb Ratio, CSF 0.16 (0.00-0.25)
[2025-07-29 02:52] LABS: West Nile Virus Source CSF (.); West Nile Virus by PCR Not Detected (.)
[2025-07-29 12:08] LABS: Immunoglobulin G, Qn 919 mg/dL (586-1602)
== END 2025-07-28 15:00 | disposition home or self-care (01) | DRG 91 ==
LOC: ANHED 07-24 06:07 → ANH3MEDSUR 07-24 07:10
PROVIDERS: Nurse Practitioner Family; Admitting Provider Internal Medicine; Emergency Provider Emergency Medicine; Visit Provider Internal Medicine
DX: G92.8 Other toxic encephalopathy (principal); J18.9 Pneumonia, unspecified organism; R45.1 Restlessness and agitation; T50.995A Adverse effect of other drugs, medicaments and biological substances, initial encounter; Z91.199 Patient's noncompliance with other medical treatment and regimen due to unspecified reason; D72.829 Elevated white blood cell count, unspecified; F19.10 Other psychoactive substance abuse, uncomplicated; I10 Essential (primary) hypertension; E11.42 Type 2 diabetes mellitus with diabetic polyneuropathy; E78.5 Hyperlipidemia, unspecified; R50.9 Fever, unspecified; R00.0 Tachycardia, unspecified; R94.01 Abnormal electroencephalogram [EEG]; H40.9 Unspecified glaucoma; J44.9 Chronic obstructive pulmonary disease, unspecified; G89.4 Chronic pain syndrome; F17.210 Nicotine dependence, cigarettes, uncomplicated; Z90.5 Acquired absence of kidney; Z90.710 Acquired absence of both cervix and uterus; Z86.73 Personal history of transient ischemic attack (TIA), and cerebral infarction without residual deficits
CPT/HCPCS: 36415; 62328; 70450; 71045; 74176; 80053; 80143; 80179; 80307; 81001; 82040; 82042; 82077; 82140; 82550; 82607; 82746; 82784; 82945; 82948; 83605; 83735; 83916; 84157; 84443; 85025; 85610; 85730; 86592; 86617; 86788; 87040; 87529; 87641; 87798; 88108; 89051; 93005; 95816; 96372; 99285; A9270; J1650; J1815; J1956; J2250; J2359; J3360; J7030